=== PATIENT | male | born 1975 | race Two or more races ===

== ENCOUNTER 2020-06-04 08:21 | Outpatient (RCR) | payer OTHER, SELFPAY | END 2020-07-30 12:07 | disposition home or self-care (01) | LOC: HO.WCC 08:21 | PROVIDERS: Visit Provider Surgery | DX: Z09 Encounter for follow-up examination after completed treatment for conditions other than malignant neoplasm (principal); E11.9 Type 2 diabetes mellitus without complications; I10 Essential (primary) hypertension | CPT/HCPCS: 11042; 11043; 99212 ==

== ENCOUNTER 2021-02-27 11:37 | Inpatient (IN) | payer MEDICAID, SELFPAY ==
[2021-02-27 11:47] VITALS: BP 79/45; PULSE 112; RESP 18; TEMP 36.4; O2SAT 97; BMI 33.0
--- NOTE | 2021-02-27 11:54 | ECG_ITS ---
Test Reason : HYPOTENSION Blood Pressure : / mmHG Vent. Rate : 105 BPM Atrial Rate : 105 BPM P-R Int : 154 ms QRS Dur : 092 ms QT Int : 342 ms P-R-T Axes : 037 021 006 degrees QTc Int : 452 ms Sinus tachycardia Otherwise normal ECG When compared with ECG of 18-JAN-2007 12:59, No significant change was found Referred By: Siobhan Heredia Electronically Signed By:HALEY SINGH
--- NOTE | 2021-02-27 11:58 | ED.DIZZY ---
HPI - Dizziness General Chief Complaint: Dizziness Stated Complaint: multiple complaints Time Seen by Provider: 02/27/21 11:54 Source: patient Mode of arrival: ambulatory Limitations: no limitations History of Present Illness MD elicited complaint: dizziness, lightheadedness and near syncope Onset (ago): day(s) (2) Timing: gradual onset Severity: moderate Description: lightheadedness Context: change in body position History of similar symptoms: No Exacerbating factors: movement/ambulation and change in body position Relieving factors: remaining still Associated symptoms: other (has been working out in the heat for the last two days) Related Data Allergies Allergy/AdvReac Type Severity Reaction Status Date / Time glyburide Allergy Unknown weight gain Unverified 01/02/19 00:00 No Known Allergies Allergy Unverified 04/03/20 15:47 Review of Systems Review of Systems: Constitutional : No Weight loss, No Fever, No Chills, No Fatigue, No Malaise ENT/Mouth : No sore throat, No Rhinorrhea Eyes: No Eye Pain, No Swelling, No Redness Cardiovascular : No Chest Pain, No SOB, No Dyspnea on Exertion, No Orthopnea, No Edema, No Palpitations Respiratory : No Cough, No Sputum, No Wheezing Gastrointestinal : No Nausea, No Vomiting, No Diarrhea, No Constipation, No abdominal Pain, No Hematochezia, No Melena Genitourinary : No Dysuria, No Urinary Frequency, No Hematuria, Musculoskeletal : No joint pain, No Myalgias, No Joint Swelling Skin : No Skin Lesions, No rash Neuro : pos Weakness, No Numbness, pos Dizziness, No Headache Psych : No Anxiety/Panic, No Depression Heme/Lymph: No Bruising, No Bleeding,No Lymphadenopathy Endocrine : No Polyuria, No Polydipsia All other systems reviewed and are negative [facility] Past Medical History Medical History (Updated 02/27/21 @ 13:16 by Siobhan Heredia DO) Diabetes Social History Social History Advance Directives: No Advance Directives Information Provided: No Physical Exam Vital Signs: Vital Signs: Last Vital Signs Temp 97.5 F 02/27/21 11:47 Pulse 97 02/27/21 12:31 Resp 16 02/27/21 12:31 BP 102/54 L 02/27/21 12:31 Pulse Ox 98 02/27/21 12:31 Body Mass Index 33.0 Appearance: Alert. Oriented X3. No acute distress. Eyes: Pupils equal, round and reactive to light. ENT: Pharynx dry MM Neck: Normal inspection. Neck supple. CVS: Normal heart rate and rhythm. Pulses normal. Respiratory: No respiratory distress. Breath sounds normal. Abdomen: Soft and non-tender. Skin: Skin warm and dry. Normal skin color. Normal skin turgor. Extremities: No lower extremity edema. No calf ttp Neuro: Oriented X 3. No motor deficit. No sensory deficit. Course Course Course Narrative: lactic acidosis and acute kidney due to dehydration and not infection or severe sepsis leukocytosis is chronic and not related to infection or severe sepsis hypotension due to dehydration and not infection or severe sepsis MDM - Dizziness MDM Narrative Medical decision making narrative: 45 yo male with hx of DM here with 2 days of feeling dizzy he has been working outside in the heat but states he has been drinking he feels weak and dizzy when he stands, no CP/SOB thinks he is dehdyrated Lab Data Result diagrams: 02/27/21 12:10 02/27/21 12:10 Labs: Lab Results 02/27/21 02/27/21 02/27/21 Range/Units 12:10 12:10 12:10 WBC 14.1 H (4.8-10.8) X10*3/uL RBC 3.88 L (4.60-5.80) X10*6/uL Hgb 12.7 L (14.0-18.0) g/dl Hct 34.8 L (42-52) % MCV 89.7 (80-98) fL MCH 32.7 (27.0-33.0) pg MCHC 36.5 H (31.0-36.0) g/dl RDW 11.6 (11.0-16.0) % Plt Count 323 (160-400) X10*3/uL MPV 9.3 L (9.4-12.4) fL Immature Gran % (Auto) 0.4 (0.0-0.4) % Neut % (Auto) 57.0 (45-73) % Lymph % (Auto) 34.6 (20-40) % [place] % (Auto) 7.7 (2-11) % Eos % (Auto) 0.1 (0-4) % Baso % (Auto) 0.2 (0-2) % Lymph # (Auto) 4.9 (1.2-4.9) X10*3/uL [place] # (Auto) 1.1 (0.1-1.2) X10*3/uL Eos # (Auto) 0.0 (0.0-0.4) X10*3/uL Baso # (Auto) 0.0 (0.0-0.2) X10*3/uL Abs Immat Gran (auto) 0.05 H (0.00-0.03) X10*3/uL Absolute Neuts (auto) 8.0 (2.0-8.3) X10*3/uL Absolute Nucleated RBC 0.000 (0.0-0.012) X10*3/uL Nucleated RBC % (auto) 0.0 (0.0-0.2) /100WBC Sodium 126 L (135-145) mmol/L Potassium 4.0 (3.3-5.1) mmol/L Chloride 87 L (96-108) mmol/L Carbon Dioxide 21 L (22-29) mmol/L Anion Gap 22 H (12-20) BUN 46 H (9-16) mg/dL Creatinine 3.88 H (0.5-1.4) mg/dL Estim Creat Clear Calc 29.3 Estimated GFR 17 Random Glucose 193 H (60-115) mg/dL Lactic Acid 3.0 H* (0.5-2.0) mmol/L Calcium 11.0 H (8.4-10.2) mg/dL Magnesium 1.9 (1.6-2.6) mg/dL Total Bilirubin 1.1 H (0.0-1.0) mg/dL Direct Bilirubin 0.4 (0.0-0.5) mg/dL AST 23 (5-37) U/L ALT 34 (0-40) U/L Alkaline Phosphatase 58 (39-117) U/L Total Protein 8.1 H (6.5-8.0) g/dL Albumin 4.8 (3.5-5.0) g/dL ECG Data Attestation: I personally reviewed and interpreted this ECG as follows: ECG interpretation time: 12:14 Interpretation: Rate: 105 Rhythm: sinus tachycardia [place]: normal Normal P waves. Normal JASON. Normal QRS complex. ST T wave : normal no KALEB qTC: normal prior studies: no acute ischemia The study has been interpreted contemporaneously by me. . Critical Care Time Critical Care Time Critical Care Time: Yes Total Critical Care Time: 35 Attestation: 3L of IVF ordered I attest to this time spent taking care of the patient Discharge Plan Discharge Clinical Impression: Acidosis, lactic Acute renal failure Qualifiers: Acute renal failure type: unspecified Qualified Code(s): N17.9 - Acute kidney failure, unspecified Patient Disposition: Admitted As Inpatient
[2021-02-27 12:15] LABS: MANUAL DIFF FLAG NO
[2021-02-27 12:16] LABS: Basophils Percent Auto 0.2 % (0-2); Eosinophils Percent Auto 0.1 % (0-4); Hematocrit 34.8 % (42-52); Hemoglobin 12.7 g/dl (14.0-18.0); Imm Gran Abs Auto 0.05 X10*3/uL (0.00-0.03); Imm Gran Pct Auto 0.4 % (0.0-0.4); Lymphocytes Absolute Auto 4.9 X10*3/uL (1.2-4.9); Lymphocytes Percent Auto 34.6 % (20-40); Mean Corpuscular HGB Conc 36.5 g/dl (31.0-36.0); Mean Corpuscular Hemoglobin 32.7 pg (27.0-33.0); Mean Corpuscular Volume 89.7 fL (80-98); Mean Platelet Volume 9.3 fL (9.4-12.4); Monocytes Absolute Auto 1.1 X10*3/uL (0.1-1.2); Monocytes Percent Auto 7.7 % (2-11); Platelet Count 323 X10*3/uL (160-400); Red Blood Count 3.88 X10*6/uL (4.60-5.80); Red Cell Distribution Width 11.6 % (11.0-16.0); White Blood Count 14.1 X10*3/uL (4.8-10.8)
[2021-02-27] MEDS: 0.9 % Sodium Chloride 1,000 ML 999 ML IVCONT ×3 (12:29→13:34)
[2021-02-27] MEDS: ondansetron HCL 4 MG/2 ML VIAL IVPUSH (12:29)
[2021-02-27 12:31] VITALS: BP 102/54; PULSE 97; RESP 16; O2SAT 98
[2021-02-27 12:58] LABS: Alanine Aminotransferase 34 U/L (0-40); Albumin Level 4.8 g/dL (3.5-5.0); Alkaline Phosphatase 58 U/L (39-117); Anion Gap 22 (12-20); Aspartate Amino Transferase 23 U/L (5-37); Bilirubin Direct 0.4 mg/dL (0.0-0.5); Bilirubin Total 1.1 mg/dL (0.0-1.0); Blood Urea Nitrogen 46 mg/dL (9-16); Carbon Dioxide 21 mmol/L (22-29); Chloride 87 mmol/L (96-108); Creatinine Clr Calc Pharmacy 29.3; Estimated Glomerular Filt Rate 17; Glucose Random 193 mg/dL (60-115); Magnesium 1.9 mg/dL (1.6-2.6); Sodium 126 mmol/L (135-145); Total Protein 8.1 g/dL (6.5-8.0)
[2021-02-27 14:13] LABS: Reflex Lactate? Lactic Acid Added
--- NOTE | 2021-02-27 14:22 | PM.IMHP ---
History of Present Illness Date of Service: 02/27/21 Chief Complaint: Lethargy, muscle ache, sweating A 45 years old male with PMH of diabetes, alcoholism, HTN among others who presented to the hospital complaining of weakness, sweating and muscle aches. 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 He was exposed with son most of the day and try to be hydrated with drinking Gatorade and water. Feels very weak after going back home. He went to sleep but upon waking up a started feeling muscle contractions. Denies any pain, fever, chills, abdominal pain, nausea or vomiting or change in his bowel or urine habit This morning he went to his [employer] but upon arriving very felt very weak and decided to come the emergency for further evaluation. In the emergency found to have acute kidney injury with hyponatremia Admitted for further evaluation and treatment. Review of Systems Review of Systems: No fever, chills but reporting sweating and generalized weakness No chest pain, palpitation No shortness of breath or coughing No abdominal pain, nausea or vomiting No urinary symptoms Generalized muscular pain No any rash or wounds [facility] Medical History (Updated 02/27/21 @ 14:26 by Melinda Munoz MD) Diabetes Social History Advance Directives: No Advance Directives Information Provided: No Meds Allergies Allergy/AdvReac Type Severity Reaction Status Date / Time glyburide Allergy Unknown weight gain Unverified 01/02/19 00:00 No Known Allergies Allergy Unverified 04/03/20 15:47 Active Medications: Current Medications Generic Name Dose Route Start Last Admin Trade Name Freq PRN Reason Stop Dose Admin Acetaminophen 650 mg 02/27/21 14:16 Acetaminophen 325 Mg Tablet PO Q6H PRN Pain, Mild (Pain Scale 1-3) Atorvastatin Calcium 40 mg 02/28/21 09:00 Atorvastatin Calcium 40 Mg Tablet PO DAILY [facility] Fluticasone Propionate 1 spray 02/27/21 14:15 Fluticasone Propionate Nasal 16 Gm [place] NOSTRIL-B DAILY PRN Nasal Congestion Heparin Sodium (Porcine) 5,000 unit 02/27/21 20:00 Heparin Sodium,Porcine 5,000 Unit/Ml Vial SUBCUT Q12H [facility] Sodium Chloride 1,000 mls @ 100 mls/hr 02/27/21 14:30 Ns IVCONT .Q10H [facility] Insulin Glargine 30 unit 02/27/21 21:00 Insulin Glargine,Hum.Rec.Anlog 100 Unit/Ml 10 Ml Vial SUBCUT BEDTIME [facility] Insulin Human Lispro 0 unit 02/27/21 16:30 Insulin Lispro 100 Unit/Ml 3 Ml Vial SUBCUT QIDACHS [facility] Protocol Ondansetron HCl 4 mg 02/27/21 14:16 Ondansetron Hcl 4 Mg/2 Ml Vial IVPUSH Q8H PRN Nausea and Vomiting Pharmacy Consult 1 each 02/27/21 13:06 Consult Rx Perform Med Rec MISCELLANE ONCE PRN Consult order Sodium Chloride 3 ml 02/27/21 16:00 0.9 % Sodium Chloride Flush 3 Ml Syringe IVFLUSH QSHIFT [facility] Thiamine HCl 100 mg 02/28/21 09:00 Thiamine Hcl 100 Mg Tablet PO DAILY [facility] Home Medications Medication Instructions Recorded Confirmed Last Taken Type atorvastatin 40 mg tablet 1 tab PO DAILY 02/27/21 02/27/21 Unknown History cetirizine 10 mg tablet 1 tab PO DAILY 02/27/21 02/27/21 Unknown History fluticasone propionate 50 1 spray INTRANASAL DAILY PRN 02/27/21 02/27/21 Unknown History mcg/actuation nasal spray,suspension gabapentin 100 mg capsule 1 - 2 cap PO BEDTIME 02/27/21 02/27/21 Unknown History glucose 4 gram chewable tablet 4 g PO DIRECTED PRN 02/27/21 02/27/21 Unknown History insulin detemir U-100 100 unit/mL 42 unit SUBCUT QPM 02/27/21 02/27/21 Unknown History (3 mL) subcutaneous pen (Levemir FlexTouch U-100 Insulin) insulin lispro 100 unit/mL 6 unit SUBCUT TID 02/27/21 02/27/21 Unknown History subcutaneous pen (Humalog KwikPen (U-100) Insulin) lisinopril 20 mg tablet 1 tab PO DAILY 02/27/21 02/27/21 Unknown History metformin 1,000 mg tablet 1 tab PO QAM 02/27/21 02/27/21 Unknown History naltrexone 50 mg tablet 50 mg PO DAILY 02/27/21 02/27/21 Unknown History thiamine HCl (vitamin B1) 100 mg 1 tab PO DAILY 02/27/21 02/27/21 Unknown History tablet Physical Exam Vital Signs and Narrative: Vital Signs: Last Vital Signs Temp 97.5 F 02/27/21 11:47 Pulse 97 02/27/21 12:31 Resp 16 02/27/21 12:31 BP 102/54 L 02/27/21 12:31 Pulse Ox 98 02/27/21 12:31 Body Mass Index 33.0 Results Labs CBC and Chem 7: 02/27/21 12:10 02/27/21 12:10 Labs: Laboratory Results - last 24 hr 02/27/21 02/27/21 02/27/21 12:10 12:10 12:10 MCV 89.7 MCH 32.7 MCHC 36.5 H RDW 11.6 Plt Count 323 MPV 9.3 L Immature Gran % (Auto) 0.4 Neut % (Auto) 57.0 Lymph % (Auto) 34.6 [place] % (Auto) 7.7 Eos % (Auto) 0.1 Baso % (Auto) 0.2 Lymph # (Auto) 4.9 [place] # (Auto) 1.1 Eos # (Auto) 0.0 Baso # (Auto) 0.0 Abs Immat Gran (auto) 0.05 H Absolute Neuts (auto) 8.0 Absolute Nucleated RBC 0.000 Nucleated RBC % (auto) 0.0 Anion Gap 22 H Estim Creat Clear Calc 29.3 Estimated GFR 17 Random Glucose 193 H Lactic Acid 3.0 H* Calcium 11.0 H Magnesium 1.9 Total Bilirubin 1.1 H Direct Bilirubin 0.4 AST 23 ALT 34 Alkaline Phosphatase 58 Total Creatine Kinase Total Protein 8.1 H Albumin 4.8 02/27/21 13:32 MCV MCH MCHC RDW Plt Count MPV Immature Gran % (Auto) Neut % (Auto) Lymph % (Auto) [place] % (Auto) Eos % (Auto) Baso % (Auto) Lymph # (Auto) [place] # (Auto) Eos # (Auto) Baso # (Auto) Abs Immat Gran (auto) Absolute Neuts (auto) Absolute Nucleated RBC Nucleated RBC % (auto) Anion Gap Estim Creat Clear Calc Estimated GFR Random Glucose Lactic Acid Calcium Magnesium Total Bilirubin Direct Bilirubin AST ALT Alkaline Phosphatase Total Creatine Kinase 193 H Total Protein Albumin Assessment and Plan (1) Acidosis, lactic: Status: Acute (2) Acute renal failure: Qualifiers: Acute renal failure type: unspecified Qualified Code(s): N17.9 - Acute kidney failure, unspecified Status: Acute (3) Hyponatremia: Status: Acute A 45 years old male with PMH of diabetes, alcoholism, HTN among others who presented to the hospital complaining of weakness, sweating and muscle aches. Acute kidney injury Creatinine of 3.8 from baseline of normal Likely secondary to ATN from prerenal and medications Hold nephrotoxic meds Gentle hydration Follow BMP Hyponatremia Sodium of 126 Likely secondary to kidney injury To do urine studies Continue IV fluid and monitor for response Hypercalcemia Calcium of 11 Not due to medications To check vitamin-D levels Lactic acidosis Lactic acid of 3 Likely secondary to metformin use age To give fluid and repeat Leukocytosis Could be reactive, will continue to monitor DVT PPX Heparin Quality Stroke Does the patient have a stroke diagnosis?: No VTE Prior VTE?: No VTE Risk Level:: Medical - moderate - high VTE Device Contraindication: Treatment Not Indicated VTE Drug Contraindication: N/A - Med Ordered
[2021-02-27 14:47] LABS: Osmolality, Serum 300 mosm/kg (281-305)
[2021-02-27] MEDS: 0.9 % Sodium Chloride 1,000 ML 100 ML IVCONT ×2 (15:11→23:32)
[2021-02-27 15:20] LABS: Vitamin D 25-OH Total 32.8 ng/mL (>30)
--- NOTE | 2021-02-27 15:28 | PC.NURSE ---
attempt to call report, will re try
[2021-02-27 16:00] VITALS: BP 154/79; PULSE 96; RESP 18; TEMP 37.4; O2SAT 95
[2021-02-27 16:17] LABS: COVID-19 Test Negative (Negative); IDNOW Serial# 9DD0AD1C; ~Lactic Acid-LAB USE ONLY 1.7 mmol/L (0.5-2.0)
[2021-02-27 16:24] LABS: Anion Gap 17 (12-20); Blood Urea Nitrogen 41 mg/dL (9-16); Calcium 9.5 mg/dL (8.4-10.2); Carbon Dioxide 19 mmol/L (22-29); Chloride 97 mmol/L (96-108); Estimated Glomerular Filt Rate 24; Glucose Random 159 mg/dL (60-115); Potassium 4.2 mmol/L (3.3-5.1); Sodium 129 mmol/L (135-145)
[2021-02-27] MEDS: Insulin Lispro 100 UNIT/ML 3 ML VIAL SUBCUT ×2 (17:15→20:14)
[2021-02-27 18:45] LABS: Glucose, Whole Blood 186 mg/dL (60-115)
[2021-02-27 19:27] VITALS: BP 98/59; PULSE 99; RESP 18; TEMP 36.9; O2SAT 94
[2021-02-27 19:29] VITALS: BP 95/52
[2021-02-27] MEDS: Insulin Glargine,Hum.rec.anlog 100 UNIT/ML 10 ML VIAL 30 UNIT SUBCUT (20:15)
[2021-02-27 20:21] LABS: Glucose, Whole Blood 180 mg/dL (60-115)
[2021-02-27] MEDS: Heparin Sodium,Porcine 5,000 UNIT/ML VIAL 5000 UNIT SUBCUT (20:24)
[2021-02-27 23:35] VITALS: BP 122/71; PULSE 86; RESP 16; TEMP 36.8; O2SAT 99
[2021-02-28 03:51] VITALS: BP 153/82; PULSE 79; RESP 16; TEMP 37.2; O2SAT 99
[2021-02-28 06:45] LABS: Anion Gap 12 (12-20); Blood Urea Nitrogen 34 mg/dL (9-16); Calcium 9.7 mg/dL (8.4-10.2); Carbon Dioxide 25 mmol/L (22-29); Chloride 105 mmol/L (96-108); Creatinine Clr Calc Pharmacy 72.1; Estimated Glomerular Filt Rate 48; Glucose Random 142 mg/dL (60-115); Potassium 5.3 mmol/L (3.3-5.1); Sodium 137 mmol/L (135-145)
[2021-02-28 06:47] LABS: Hematocrit 33.5 % (42-52); Hemoglobin 11.8 g/dl (14.0-18.0); Mean Corpuscular HGB Conc 35.2 g/dl (31.0-36.0); Mean Corpuscular Hemoglobin 32.5 pg (27.0-33.0); Mean Corpuscular Volume 92.3 fL (80-98); Mean Platelet Volume 10.5 fL (9.4-12.4); Platelet Count 288 X10*3/uL (160-400); Red Blood Count 3.63 X10*6/uL (4.60-5.80); Red Cell Distribution Width 11.6 % (11.0-16.0); White Blood Count 7.6 X10*3/uL (4.8-10.8)
--- NOTE | 2021-02-28 07:15 | P.CONNP_ITS ---
History of Present Illness Reason for Consult Consult date: 02/28/21 Reason for consult: ELISABETH hyponatremia Chief Complaint Chief complaint: ELISABETH, Hyponatremia History of Present Illness Narrative: 45 years old male with PMH of diabetes, alcoholism, HTN among others who presented to the hospital complaining of weakness, sweating and muscle aches. In the emergency found to have acute kidney injury with hyponatremia Review of Systems Review of Systems No fever, chills but reporting sweating and generalized weakness No chest pain, palpitation No shortness of breath or coughing No abdominal pain, nausea or vomiting No urinary symptoms Generalized muscular pain No any rash or wounds PMFSH Past Medical History Medical History (Updated 02/27/21 @ 14:26 by Melinda Munoz MD) Diabetes Social History Social History Household Members: Family Alcohol intake: never Patient Tobacco Use Status: Never used Tobacco Use of substances other than those prescribed or required for medical reasons: No Currently Displaying Signs/Symptoms of Drug Intoxication Withdrawal: No Advance Directives: No Advance Directives Information Provided: No Do you have thoughts of harming others: None Do you have a plan to hurt others: No Plan Recently lost weight without trying: No Nutrition Risks: No Nutritional Risk Meds Allergies Allergy/AdvReac Type Severity Reaction Status Date / Time glyburide Allergy Unknown weight gain Unverified 01/02/19 00:00 No Known Allergies Allergy Unverified 04/03/20 15:47 Active Medications: Current Medications Generic Name Dose Route Start Last Admin Trade Name Freq PRN Reason Stop Dose Admin Acetaminophen 650 mg 02/27/21 14:16 Acetaminophen 325 Mg Tablet PO Q6H PRN Pain, Mild (Pain Scale 1-3) Atorvastatin Calcium 40 mg 02/28/21 09:00 Atorvastatin Calcium 40 Mg Tablet PO DAILY [facility] Fluticasone Propionate 1 spray 02/27/21 14:15 Fluticasone Propionate Nasal 16 Gm [place] NOSTRIL-B DAILY PRN Nasal Congestion Heparin Sodium (Porcine) 5,000 unit 02/27/21 20:00 02/27/21 20:24 Heparin Sodium,Porcine 5,000 Unit/Ml Vial SUBCUT 5,000 unit Q12H [facility] Administration Sodium Chloride 1,000 mls @ 100 mls/hr 02/27/21 14:30 02/27/21 23:32 Ns IVCONT 100 mls/hr .Q10H [facility] Administration Insulin Glargine 30 unit 02/27/21 21:00 02/27/21 20:15 Insulin Glargine,Hum.Rec.Anlog 100 Unit/Ml 10 Ml Vial SUBCUT 30 unit BEDTIME [facility] Administration Insulin Human Lispro 0 unit 02/27/21 16:30 02/27/21 20:14 Insulin Lispro 100 Unit/Ml 3 Ml Vial SUBCUT 2 unit QIDACHS [facility] Administration Protocol Ondansetron HCl 4 mg 02/27/21 14:16 Ondansetron Hcl 4 Mg/2 Ml Vial IVPUSH Q8H PRN Nausea and Vomiting Pharmacy Consult 1 each 02/27/21 13:06 Consult Rx Perform Med Rec MISCELLANE ONCE PRN Consult order Sodium Chloride 3 ml 02/27/21 16:00 02/27/21 20:25 0.9 % Sodium Chloride Flush 3 Ml Syringe IVFLUSH Not Given QSHIFT [facility] Thiamine HCl 100 mg 02/28/21 09:00 Thiamine Hcl 100 Mg Tablet PO DAILY [facility] Home Medications Medication Instructions Recorded Confirmed Last Taken Type atorvastatin 40 mg tablet 1 tab PO DAILY 02/27/21 02/27/21 02/26/21 History cetirizine 10 mg tablet 1 tab PO DAILY 02/27/21 02/27/21 02/26/21 History fluticasone propionate 50 1 spray INTRANASAL DAILY PRN 02/27/21 02/27/21 02/26/21 History mcg/actuation nasal spray,suspension gabapentin 100 mg capsule 1 - 2 cap PO BEDTIME 02/27/21 02/27/21 02/26/21 History glucose 4 gram chewable tablet 4 g PO DIRECTED PRN 02/27/21 02/27/21 02/26/21 History insulin detemir U-100 100 unit/mL 42 unit SUBCUT QPM 02/27/21 02/27/21 02/26/21 History (3 mL) subcutaneous pen (Levemir FlexTouch U-100 Insulin) insulin lispro 100 unit/mL 6 unit SUBCUT TID 02/27/21 02/27/21 02/26/21 History subcutaneous pen (Humalog KwikPen (U-100) Insulin) lisinopril 20 mg tablet 1 tab PO DAILY 02/27/21 02/27/21 02/26/21 History metformin 1,000 mg tablet 1 tab PO QAM 02/27/21 02/27/21 02/26/21 History multivitamin 1 tab PO DAILY 02/27/21 02/27/21 02/26/21 History naltrexone 50 mg tablet 50 mg PO DAILY 02/27/21 02/27/21 02/26/21 History thiamine HCl (vitamin B1) 100 mg 1 tab PO DAILY 02/27/21 02/27/21 02/26/21 History tablet vitamin B complex 1 cap PO DAILY 02/27/21 02/27/21 02/26/21 History Physical Exam Vital Signs: Last Vital Signs Temp 98.9 F 02/28/21 03:51 Pulse 79 02/28/21 03:51 Resp 16 02/28/21 03:51 BP 153/82 H 02/28/21 03:51 Pulse Ox 99 02/28/21 03:51 Body Mass Index 33.0 Results Lab Results Result Diagrams: 02/28/21 05:54 02/28/21 05:54 Lab results: Chemistry 02/27/21 02/27/21 02/28/21 12:10 15:43 05:54 Sodium 126 L 129 L 137 Potassium 4.0 4.2 5.3 H D Carbon Dioxide 21 L 19 L 25 BUN 46 H 41 H 34 H Creatinine 3.88 H 2.85 H 1.58 H Calcium 11.0 H 9.5 D 9.7 Hematology 02/27/21 02/28/21 12:10 05:54 WBC 14.1 H 7.6 Hgb 12.7 L 11.8 L Plt Count 323 288 Assessment and Plan (1) Acidosis, lactic: Status: Acute (2) Acute renal failure: Qualifiers: Acute renal failure type: unspecified Qualified Code(s): N17.9 - Acute kidney failure, unspecified Status: Acute resolving ELISABETH from vol dep will check urine studies (3) Hyponatremia: Status: Acute resolved K hig will givew lokelma X 1 A 45 years old male with PMH of diabetes, alcoholism, HTN among others who presented to the hospital complaining of weakness, sweating and muscle aches. Acute kidney injury Creatinine of 3.8 from baseline of normal Likely secondary to ATN from prerenal and medications Hold nephrotoxic meds Gentle hydration Follow BMP Hyponatremia Sodium of 126 Likely secondary to kidney injury To do urine studies Continue IV fluid and monitor for response Hypercalcemia Calcium of 11 Not due to medications To check vitamin-D levels Lactic acidosis Lactic acid of 3 Likely secondary to metformin use age To give fluid and repeat Leukocytosis Could be reactive, will continue to monitor DVT PPX Heparin Procedures Date of Service Date of Service: 02/28/21
[2021-02-28 07:30] VITALS: BP 120/68; PULSE 82; RESP 18; TEMP 36.2; O2SAT 99
[2021-02-28 07:39] LABS: Glucose, Whole Blood 134 mg/dL (60-115)
[2021-02-28] MEDS: Dextrose 5 % 1,000 ML 75 ML IVCONT (07:55)
[2021-02-28] MEDS: Sodium Zirconium Cyclosilicate 5 GM POWD.PACK PO (08:53)
[2021-02-28] MEDS: Heparin Sodium,Porcine 5,000 UNIT/ML VIAL 5000 UNIT SUBCUT (08:53)
[2021-02-28 08:56] LABS: Creatinine Urine 68.72 mg/dL; Microalbum/Creatinine Ratio Ur 8.7 ug/mg cr
[2021-02-28 09:26] LABS: Osmolality Urine 309 mosm/kg (373-1093)
[2021-02-28 10:53] VITALS: BP 115/62; PULSE 90; RESP 20; TEMP 36.6; O2SAT 98
[2021-02-28] MEDS: Atorvastatin Calcium 40 MG TABLET PO (11:05)
[2021-02-28] MEDS: Thiamine HCL 100 MG TABLET PO (11:05)
--- NOTE | 2021-02-28 11:10 | HO.PM.IMPN ---
Subjective Subjective Date of Service: 02/28/21 Interval History: the patient was seen and evaluated this morning Laying in bed, feels better or ready, still complaining of generalized weakness Muscle cramps decreased Denies any fever, chills or shortness of breath No reported other overnight events. Systemic review: No fever, chills or weakness No chest pain, palpitation No shortness of breath or coughing No abdominal pain, nausea or vomiting No urinary symptoms No any rash or wounds Physical Exam Vital Signs: Vital Signs: Last Vital Signs Temp 98 F 02/28/21 10:53 Pulse 90 02/28/21 10:53 Resp 20 02/28/21 10:53 BP 115/62 02/28/21 10:53 Pulse Ox 98 02/28/21 10:53 Body Mass Index 33.0 Const: Other: Constitutional : Alert, oriented, not in distress Neck : Normal inspection, Supple Cardiovascular : RRR, S1 S2, no lower extremity edema Respiratory : Good bilateral air entry, no crackles, wheezes or rhonchi Gastrointestinal: soft, lax, Normal bowel sounds, Non tender Skin : Warm, Dry Neurological : Alert & oriented x3, No focal deficit Objective Data Current Medications Generic Name Dose Route Start Last Admin Trade Name Freq PRN Reason Stop Dose Admin Acetaminophen 650 mg 02/27/21 14:16 Acetaminophen 325 Mg Tablet PO Q6H PRN Pain, Mild (Pain Scale 1-3) Atorvastatin Calcium 40 mg 02/28/21 09:00 02/28/21 11:05 Atorvastatin Calcium 40 Mg Tablet PO 40 mg DAILY LOURDES Administration Fluticasone Propionate 1 spray 02/27/21 14:15 Fluticasone Propionate Nasal 16 Gm [place] NOSTRIL-B DAILY PRN Nasal Congestion Heparin Sodium (Porcine) 5,000 unit 02/27/21 20:00 02/28/21 08:53 Heparin Sodium,Porcine 5,000 Unit/Ml Vial SUBCUT 5,000 unit Q12H LOURDES Administration Dextrose 1,000 mls @ 75 mls/hr 02/28/21 07:45 02/28/21 07:55 D5w IVCONT 75 mls/hr .[id number] LOURDES Administration Insulin Glargine 30 unit 02/27/21 21:00 02/27/21 20:15 Insulin Glargine,Hum.Rec.Anlog 100 Unit/Ml 10 Ml Vial SUBCUT 30 unit BEDTIME LOURDES Administration Insulin Human Lispro 0 unit 02/27/21 16:30 02/28/21 07:42 Insulin Lispro 100 Unit/Ml 3 Ml Vial SUBCUT Not Given QIDACHS REPLACED BY [facility] Protocol Ondansetron HCl 4 mg 02/27/21 14:16 Ondansetron Hcl 4 Mg/2 Ml Vial IVPUSH Q8H PRN Nausea and Vomiting Pharmacy Consult 1 each 02/27/21 13:06 Consult Rx Perform Med Rec MISCELLANE ONCE PRN Consult order Sodium Chloride 3 ml 02/27/21 16:00 02/28/21 07:52 0.9 % Sodium Chloride Flush 3 Ml Syringe IVFLUSH Not Given QSHIFT REPLACED BY [facility] Thiamine HCl 100 mg 02/28/21 09:00 02/28/21 11:05 Thiamine Hcl 100 Mg Tablet PO 100 mg DAILY LOURDES Administration Labs CBC & Chem 7: 02/28/21 05:54 02/28/21 05:54 Labs: Laboratory Results - last 24 hr 02/27/21 02/27/21 02/27/21 12:10 12:10 12:10 MCV 89.7 MCH 32.7 MCHC 36.5 H RDW 11.6 Plt Count 323 MPV 9.3 L Immature Gran % (Auto) 0.4 Neut % (Auto) 57.0 Lymph % (Auto) 34.6 Maries % (Auto) 7.7 Eos % (Auto) 0.1 Baso % (Auto) 0.2 Lymph # (Auto) 4.9 Maries # (Auto) 1.1 Eos # (Auto) 0.0 Baso # (Auto) 0.0 Abs Immat Gran (auto) 0.05 H Absolute Neuts (auto) 8.0 Absolute Nucleated RBC 0.000 Nucleated RBC % (auto) 0.0 Anion Gap 22 H Estim Creat Clear Calc 29.3 Estimated GFR 17 POC Glucose Random Glucose 193 H Osmolality Lactic Acid 3.0 H* Lactic Acid Fup @ 2Hr Calcium 11.0 H Magnesium 1.9 Total Bilirubin 1.1 H Direct Bilirubin 0.4 AST 23 ALT 34 Alkaline Phosphatase 58 Total Creatine Kinase Total Protein 8.1 H Albumin 4.8 25-OH Vitamin D Total 32.8 Urine Osmolality Ur Random Sodium Urine Creatinine Urine Microalbumin Microalb/Creat Ratio COVID-19 (DRE) COVID-19 Clin Com 02/27/21 02/27/21 02/27/21 12:10 13:32 15:43 MCV MCH MCHC RDW Plt Count MPV Immature Gran % (Auto) Neut % (Auto) Lymph % (Auto) Maries % (Auto) Eos % (Auto) Baso % (Auto) Lymph # (Auto) Maries # (Auto) Eos # (Auto) Baso # (Auto) Abs Immat Gran (auto) Absolute Neuts (auto) Absolute Nucleated RBC Nucleated RBC % (auto) Anion Gap Estim Creat Clear Calc Estimated GFR POC Glucose Random Glucose Osmolality 300 Lactic Acid Lactic Acid Fup @ 2Hr Calcium Magnesium Total Bilirubin Direct Bilirubin AST ALT Alkaline Phosphatase Total Creatine Kinase 193 H Total Protein Albumin 25-OH Vitamin D Total Urine Osmolality Ur Random Sodium Urine Creatinine Urine Microalbumin Microalb/Creat Ratio COVID-19 (DRE) Negative COVID-19 [employer] Com See Note 02/27/21 02/27/21 02/27/21 15:43 15:43 17:09 MCV MCH MCHC RDW Plt Count MPV Immature Gran % (Auto) Neut % (Auto) Lymph % (Auto) Maries % (Auto) Eos % (Auto) Baso % (Auto) Lymph # (Auto) Maries # (Auto) Eos # (Auto) Baso # (Auto) Abs Immat Gran (auto) Absolute Neuts (auto) Absolute Nucleated RBC Nucleated RBC % (auto) Anion Gap 17 Estim Creat Clear Calc 40.0 Estimated GFR 24 POC Glucose 186 H Random Glucose 159 H Osmolality Lactic Acid Lactic Acid Fup @ 2Hr 1.7 Calcium 9.5 D Magnesium Total Bilirubin Direct Bilirubin AST ALT Alkaline Phosphatase Total Creatine Kinase Total Protein Albumin 25-OH Vitamin D Total Urine Osmolality Ur Random Sodium Urine Creatinine Urine Microalbumin Microalb/Creat Ratio COVID-19 (DRE) COVID-19 [employer] 02/27/21 02/28/21 02/28/21 19:59 05:54 05:54 MCV 92.3 MCH 32.5 MCHC 35.2 RDW 11.6 Plt Count 288 MPV 10.5 Immature Gran % (Auto) Neut % (Auto) Lymph % (Auto) Maries % (Auto) Eos % (Auto) Baso % (Auto) Lymph # (Auto) Maries # (Auto) Eos # (Auto) Baso # (Auto) Abs Immat Gran (auto) Absolute Neuts (auto) Absolute Nucleated RBC 0.000 Nucleated RBC % (auto) 0.0 Anion Gap 12 Estim Creat Clear Calc 72.1 Estimated GFR 48 POC Glucose 180 H Random Glucose 142 H Osmolality Lactic Acid Lactic Acid Fup @ 2Hr Calcium 9.7 Magnesium Total Bilirubin Direct Bilirubin AST ALT Alkaline Phosphatase Total Creatine Kinase Total Protein Albumin 25-OH Vitamin D Total Urine Osmolality Ur Random Sodium Urine Creatinine Urine Microalbumin Microalb/Creat Ratio COVID-19 (DRE) COVID-19 Clin Com 02/28/21 02/28/21 02/28/21 07:30 08:28 08:28 MCV MCH MCHC RDW Plt Count MPV Immature Gran % (Auto) Neut % (Auto) Lymph % (Auto) Maries % (Auto) Eos % (Auto) Baso % (Auto) Lymph # (Auto) Maries # (Auto) Eos # (Auto) Baso # (Auto) Abs Immat Gran (auto) Absolute Neuts (auto) Absolute Nucleated RBC Nucleated RBC % (auto) Anion Gap Estim Creat Clear Calc Estimated GFR POC Glucose 134 H Random Glucose Osmolality Lactic Acid Lactic Acid Fup @ 2Hr Calcium Magnesium Total Bilirubin Direct Bilirubin AST ALT Alkaline Phosphatase Total Creatine Kinase Total Protein Albumin 25-OH Vitamin D Total Urine Osmolality 309 L Ur Random Sodium 25.0 Urine Creatinine 68.72 Urine Microalbumin 6.0 Microalb/Creat Ratio 8.7 COVID-19 (DRE) COVID-19 Clin Com Assessment and Plan (1) Hyponatremia: Status: Acute (2) Acidosis, lactic: Status: Acute (3) Acute renal failure: Status: Acute Assessment and Plan: A 45 years old male with PMH of diabetes, alcoholism, HTN among others who presented to the hospital complaining of weakness, sweating and muscle aches. Acute kidney injury Creatinine of 1.6 from 2.8 Likely secondary to ATN from prerenal and medications Hold nephrotoxic meds Gentle hydration Follow BMP Hyperkalemia Potassium of 5.3 To give Local Monitor BMP Hyponatremia Sodium of 137 this morning Likely secondary to kidney injury urine studies done this morning, not valuable Change IV fluid to D5 water to prevent over-correction Monitor BMP Hypercalcemia Calcium of 9.7 this morning Not due to medications Normal vitamin-D levels Lactic acidosis Resolved Likely secondary to metformin useage Leukocytosis Resolved, likely reactive DVT PPX Heparin Quality Stroke Does the patient have a stroke diagnosis?: No VTE Prior VTE?: No VTE Risk Level:: Medical - moderate - high VTE Device Contraindication: Treatment Not Indicated VTE Drug Contraindication: N/A - Med Ordered
[2021-02-28 11:24] LABS: Glucose, Whole Blood 139 mg/dL (60-115)
[2021-02-28 14:15] LABS: Anion Gap 13 (12-20); Blood Urea Nitrogen 33 mg/dL (9-16); Calcium 9.9 mg/dL (8.4-10.2); Carbon Dioxide 26 mmol/L (22-29); Chloride 103 mmol/L (96-108); Creatinine Clr Calc Pharmacy 85.1; Estimated Glomerular Filt Rate 58; Glucose Random 148 mg/dL (60-115); Potassium 4.7 mmol/L (3.3-5.1); Sodium 137 mmol/L (135-145)
--- NOTE | 2021-02-28 14:25 | P.DS_ITS ---
DS: Providers Provider Date of Service: 02/28/21 Date of admission: 02/27/21 14:17 Primary care physician: Evon Flores Consults: 02/27/21 14:16 Consult to Nephrology Routine Consulting Provider: Fish Gurrola Reason for consultation: ELISABETH, hyponatremia for your eval DS: Diagnosis Discharge Diagnosis (1) Hyponatremia: Status: Acute (2) Acidosis, lactic: Status: Acute (3) Acute renal failure: Status: Acute DS: Medications Discharge Medications Home Medications: Home Medications Medication Instructions Recorded Confirmed atorvastatin 40 mg tablet 1 tab PO DAILY 02/27/21 02/27/21 cetirizine 10 mg tablet 1 tab PO DAILY 02/27/21 02/27/21 fluticasone propionate 50 1 spray INTRANASAL DAILY PRN 02/27/21 02/27/21 mcg/actuation nasal spray,suspension gabapentin 100 mg capsule 1 - 2 cap PO BEDTIME 02/27/21 02/27/21 glucose 4 gram chewable tablet 4 g PO DIRECTED PRN 02/27/21 02/27/21 insulin detemir U-100 100 unit/mL 42 unit SUBCUT QPM 02/27/21 02/27/21 (3 mL) subcutaneous pen (Levemir FlexTouch U-100 Insulin) insulin lispro 100 unit/mL 6 unit SUBCUT TID 02/27/21 02/27/21 subcutaneous pen (Humalog KwikPen (U-100) Insulin) lisinopril 20 mg tablet 1 tab PO DAILY 02/27/21 02/27/21 metformin 1,000 mg tablet 1 tab PO QAM 02/27/21 02/27/21 multivitamin 1 tab PO DAILY 02/27/21 02/27/21 naltrexone 50 mg tablet 50 mg PO DAILY 02/27/21 02/27/21 thiamine HCl (vitamin B1) 100 mg 1 tab PO DAILY 02/27/21 02/27/21 tablet vitamin B complex 1 cap PO DAILY 02/27/21 02/27/21 DS: Summary Hospital Course Hospital Course: Admission note HPI A 45 years old male with PMH of diabetes, alcoholism, HTN among others who presented to the hospital complaining of weakness, sweating and muscle aches. 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 He was exposed with son most of the day and try to be hydrated with drinking Gatorade and water. Feels very weak after going back home.? He went to sleep but upon waking up a started feeling muscle contractions.? Denies any pain, fever, chills, abdominal pain, nausea or vomiting or change in his bowel or urine habit? This morning he went to his [employer] but upon arriving very felt very weak and decided to come the emergency for further evaluation. In the emergency found to have acute kidney injury with hyponatremia Admitted for further evaluation and treatment. Hospital course Acute kidney injury Creatinine of 1.3 from 2.8 Likely secondary to ATN from prerenal and home medications Treated with holding nephrotoxic medications and gentle hydration. Patient asked to be released home as soon as he noticed improvement. Hyperkalemia Treated. Back to normal. ?Hyponatremia Sodium of 137 from 126 at time of admission. Improved with IV fluid and oral intake. Hypercalcemia Calcium of 9.7 this morning from 11 in you at time of admission. Normal vitamin-D levels. To follow-up with PCP for further evaluation Lactic acidosis Resolved. Likely secondary to metformin usage Time Spent with Patient Time attestation: Total time spent providing and/or coordinating discharge services: Discharge coordination time: Greater than 30 minutes Quality: Stroke Does the patient have a stroke diagnosis?: No Physical Exam Vital Signs: Vital Signs: Last Vital Signs Temp 98 F 02/28/21 10:53 Pulse 90 02/28/21 10:53 Resp 20 02/28/21 10:53 BP 115/62 02/28/21 10:53 Pulse Ox 98 02/28/21 10:53 Body Mass Index 33.0 Const: Other: Constitutional : Alert, oriented, not in distress Neck : Normal inspection, Supple Cardiovascular : RRR, S1 S2, no lower extremity edema Respiratory : Good bilateral air entry, no crackles, wheezes or rhonchi Gastrointestinal: soft, lax, Normal bowel sounds, Non tender Skin : Warm, Dry Neurological : Alert & oriented x3, No focal deficit DS: Data Data Completed and Pending Labs on day of discharge: Laboratory Results - last 24 hr 02/27/21 02/27/21 02/27/21 12:10 12:10 15:43 WBC RBC Hgb Hct MCV MCH MCHC RDW Plt Count MPV Absolute Nucleated RBC Nucleated RBC % (auto) Sodium Potassium Chloride Carbon Dioxide Anion Gap BUN Creatinine Estim Creat Clear Calc Estimated GFR POC Glucose Random Glucose Osmolality 300 Lactic Acid Fup @ 2Hr Calcium 25-OH Vitamin D Total 32.8 Urine Osmolality Ur Random Sodium Urine Creatinine Urine Microalbumin Microalb/Creat Ratio COVID-19 (DRE) Negative COVID-19 [employer] Com See Note 02/27/21 02/27/21 02/27/21 15:43 15:43 17:09 WBC RBC Hgb Hct MCV MCH MCHC RDW Plt Count MPV Absolute Nucleated RBC Nucleated RBC % (auto) Sodium 129 L Potassium 4.2 Chloride 97 Carbon Dioxide 19 L Anion Gap 17 BUN 41 H Creatinine 2.85 H Estim Creat Clear Calc 40.0 Estimated GFR 24 POC Glucose 186 H Random Glucose 159 H Osmolality Lactic Acid Fup @ 2Hr 1.7 Calcium 9.5 D 25-OH Vitamin D Total Urine Osmolality Ur Random Sodium Urine Creatinine Urine Microalbumin Microalb/Creat Ratio COVID-19 (DRE) COVID-19 [employer] 02/27/21 02/28/21 02/28/21 19:59 05:54 05:54 WBC 7.6 RBC 3.63 L Hgb 11.8 L Hct 33.5 L MCV 92.3 MCH 32.5 MCHC 35.2 RDW 11.6 Plt Count 288 MPV 10.5 Absolute Nucleated RBC 0.000 Nucleated RBC % (auto) 0.0 Sodium 137 Potassium 5.3 H D Chloride 105 Carbon Dioxide 25 Anion Gap 12 BUN 34 H Creatinine 1.58 H Estim Creat Clear Calc 72.1 Estimated GFR 48 POC Glucose 180 H Random Glucose 142 H Osmolality Lactic Acid Fup @ 2Hr Calcium 9.7 25-OH Vitamin D Total Urine Osmolality Ur Random Sodium Urine Creatinine Urine Microalbumin Microalb/Creat Ratio COVID-19 (DRE) COVID-19 [employer] 02/28/21 02/28/21 02/28/21 07:30 08:28 08:28 WBC RBC Hgb Hct MCV MCH MCHC RDW Plt Count MPV Absolute Nucleated RBC Nucleated RBC % (auto) Sodium Potassium Chloride Carbon Dioxide Anion Gap BUN Creatinine Estim Creat Clear Calc Estimated GFR POC Glucose 134 H Random Glucose Osmolality Lactic Acid Fup @ 2Hr Calcium 25-OH Vitamin D Total Urine Osmolality 309 L Ur Random Sodium 25.0 Urine Creatinine 68.72 Urine Microalbumin 6.0 Microalb/Creat Ratio 8.7 COVID-19 (DRE) COVID-19 Clin Com 02/28/21 02/28/21 10:53 13:46 WBC RBC Hgb Hct MCV MCH MCHC RDW Plt Count MPV Absolute Nucleated RBC Nucleated RBC % (auto) Sodium 137 Potassium 4.7 Chloride 103 Carbon Dioxide 26 Anion Gap 13 BUN 33 H Creatinine 1.34 Estim Creat Clear Calc 85.1 Estimated GFR 58 POC Glucose 139 H Random Glucose 148 H Osmolality Lactic Acid Fup @ 2Hr Calcium 9.9 25-OH Vitamin D Total Urine Osmolality Ur Random Sodium Urine Creatinine Urine Microalbumin Microalb/Creat Ratio COVID-19 (DRE) COVID-19 Clin Com Discharge Plan Discharge Patient Disposition: Home, Self-Care Discharge Diagnosis: Acute kidney injury Hyponatremia Referrals: Evon Flores [Primary Care Provider] - 1 Week Discharge Medications: Continued atorvastatin 40 mg tablet 1 tab PO DAILY RF: 0 cetirizine 10 mg tablet 1 tab PO DAILY RF: 0 naltrexone 50 mg tablet 50 mg PO DAILY RF: 0 lisinopril 20 mg tablet 1 tab PO DAILY RF: 0 thiamine HCl (vitamin B1) 100 mg tablet 1 tab PO DAILY RF: 0 metformin 1,000 mg tablet 1 tab PO QAM RF: 0 glucose 4 gram tablet,chewable 4 g PO DIRECTED PRN (Reason: blood sugar <70) RF: 0 gabapentin 100 mg capsule 1 - 2 cap PO BEDTIME RF: 0 fluticasone propionate 50 mcg/actuation spray,suspension 1 spray intranasal DAILY PRN (Reason: Nasal Congestion) RF: 0 insulin lispro [Humalog KwikPen Insulin] 100 unit/mL insulin pen 6 unit subcut TID RF: 0 Levemir FlexTouch U-100 Insuln 100 unit/mL (3 mL) insulin pen 42 unit subcut QPM RF: 0 multivitamin Tablet 1 tab PO DAILY RF: 0 vitamin B complex Capsule 1 cap PO DAILY RF: 0 Discharge Orders: Discharge Order (Routine); Ordered 02/28/21 Ordered By: Melinda Munoz Diet: advance to usual diet Activity on Discharge: As tolerated Stand Alone Forms: Patient Portal Discharge page Care Plan Goals: Read below the Health Concerns: Read below Plan of Treatment: You were admitted to the hospital for acute renal failure and low sodium level. Treated with IV fluids with good response as your kidney function improved almost back to normal and your sodium level recovered. Assessment: Drink plenty of water at home Hold lisinopril for the next 2 days To follow-up with your primary as scheduled Discharge Date/Time: 02/28/21 14:59
--- NOTE | 2021-02-28 14:54 | MHC.CM.PN ---
CM MET WITH PT WHO REPORTS HE LIVES AT HOME WITH HIS AND 1 YO DAUGHTER. PT REPORTS BEING FULLY INDEPENDENT AND WORKING. PT REPORTS THE ONLY DME HE USES IS HIS DM SUPPLIES AND STATES HE HAS NO HOME OR COMMUNITY SERVICES. PT COMPLETED A HCP TODAY NAMING HIS , ROBERT ([phone]) AND HIS AUNT ALEJANDRO DOYLE ([phone]) HIS PRIMARY AND SECONDARY AGENTS RESPECTIVELY. PT CONFIRMS HIS PCP IS ROBERT BRENNAN. PT CLEARED TO DE HOME TODAY WITH NO SERVICES FAMILY WILL TRANSPORT
== END 2021-02-28 14:59 | disposition home or self-care (01) | DRG 426 ==
LOC: HO.ED 13:16 → HO.EDOVER 14:29 → HO.S3 14:47
PROVIDERS: Internal Medicine Nephrology; Admitting Provider Student in an Organized Health Care Education/Training Program; Emergency Provider Emergency Medicine; PCP Nurse Practitioner; Visit Provider Student in an Organized Health Care Education/Training Program
DX: E87.1 Hypo-osmolality and hyponatremia (principal); N17.0 Acute kidney failure with tubular necrosis; E87.2 Acidosis; E83.52 Hypercalcemia; F10.21 Alcohol dependence, in remission; D72.829 Elevated white blood cell count, unspecified; Z20.822 Contact with and (suspected) exposure to COVID-19; Z79.4 Long term (current) use of insulin; Z79.51 Long term (current) use of inhaled steroids; Z79.899 Other long term (current) drug therapy
CPT/HCPCS: 36415; 80048; 80076; 82043; 82306; 82550; 82947; 83605; 83735; 83930; 83935; 84300; 85025; 85027; 87635; 93005; 96361; 96374; 99285; 99291; J2405

== ENCOUNTER 2021-04-10 14:50 | Outpatient (REF) | payer MEDICAID, SELFPAY ==
--- NOTE | ~2021-04-10 | XR_ITS ---
EXAMINATION: XR CHEST CLINICAL INFORMATION: Alcohol dependence, positive QuantiFERON Gold test COMPARISON: 11/23/2018 TECHNIQUE: 2 views of the chest were obtained. FINDINGS: Allowing for hypoinflation, no significant abnormality is noted involving the heart, lungs, mediastinum, bony thorax or soft tissues. XR/XR chest 2V IMPRESSION: No acute intrathoracic disease.
== END 2021-04-10 14:51 | disposition home or self-care (01) ==
LOC: HO.XRAY 14:50
PROVIDERS: Absent Provider Nurse Practitioner; PCP Nurse Practitioner; Visit Provider Emergency Medicine
DX: F10.20 Alcohol dependence, uncomplicated (principal)
CPT/HCPCS: 71046

== ENCOUNTER 2021-12-22 15:14 | Outpatient (REF) | payer MEDICAID, SELFPAY ==
--- NOTE | ~2021-12-22 | XR_ITS ---
EXAMINATION: XR ANKLE, RIGHT CLINICAL INFORMATION: Pain. COMPARISON: None TECHNIQUE: AP, lateral, and mortise views of the right ankle. FINDINGS: No acute fracture or malalignment. The ankle mortise is maintained. Mild degenerative osteoarthritis at the talonavicular joint. Small plantar calcaneal spur. Nonspecific diffuse soft tissue swelling. XR/XR ankle RT min 3V IMPRESSION: No acute fracture or malalignment. Mild degenerative osteoarthritis. Small plantar calcaneal spur. Nonspecific diffuse soft tissue swelling.
--- NOTE | ~2021-12-22 | US_ITS ---
EXAMINATION: US VENOUS ULTRASOUND WITH DOPPLER LOWER EXTREMITY, RIGHT CLINICAL INFORMATION: Right leg swelling COMPARISON: None TECHNIQUE: Ultrasound of the deep veins is performed from the hip to the calf with compression sonography and color and pulse Doppler assessment. Spectral analysis with color-flow imaging is performed. FINDINGS: There is normal venous compression and respiratory variation and augmented flow. The visualized common femoral vein, superficial femoral vein, profunda femoral vein, popliteal vein, and the trifurcation region shows no evidence of deep venous thrombosis. There is no significant popliteal fossa cyst. US/US venous duplex LE RT IMPRESSION: No DVT demonstrated in the right lower extremity.
== END 2021-12-22 15:15 | disposition home or self-care (01) ==
LOC: HO.US 15:14
PROVIDERS: Absent Provider Nurse Practitioner; PCP Nurse Practitioner; Visit Provider Emergency Medicine
DX: M25.571 Pain in right ankle and joints of right foot (principal); R22.41 Localized swelling, mass and lump, right lower limb
CPT/HCPCS: 73610; 93971

== ENCOUNTER 2022-02-24 13:33 | Outpatient (REF) | payer MEDICAID, SELFPAY ==
--- NOTE | ~2022-02-24 | XR_ITS ---
EXAMINATION: XR CHEST CLINICAL INFORMATION: Nonspecific reaction to gammaferon. COMPARISON: Chest 04/10/2021 TECHNIQUE: 2 views of the chest were obtained. FINDINGS: No significant abnormality is noted involving the heart, lungs, mediastinum, bony thorax or soft tissues. XR/XR chest 2V IMPRESSION: Unremarkable chest examination.
== END 2022-02-24 13:34 | disposition home or self-care (01) ==
LOC: HO.XRAY 13:33
PROVIDERS: PCP Nurse Practitioner; Visit Provider Nurse Practitioner
DX: R76.12 Nonspecific reaction to cell mediated immunity measurement of gamma interferon antigen response without active tuberculosis (principal)
CPT/HCPCS: 71046

== ENCOUNTER 2022-04-08 14:41 | Outpatient (REF) | payer MEDICAID, SELFPAY ==
--- NOTE | ~2022-04-08 | US_ITS ---
EXAMINATION: US VENOUS ULTRASOUND WITH DOPPLER LOWER EXTREMITY, LEFT CLINICAL INFORMATION: Left leg pain and swelling with question of DVT COMPARISON: None TECHNIQUE: Ultrasound of the deep veins is performed from the hip to the calf with compression sonography and color and pulse Doppler assessment. Spectral analysis with color-flow imaging is performed. FINDINGS: There is normal venous compression and respiratory variation and augmented flow. The visualized common femoral vein, superficial femoral vein, profunda femoral vein, popliteal vein, and the trifurcation region shows no evidence of deep venous thrombosis. There is no significant popliteal fossa cyst. Prominent left groin lymph node present measuring 2.1 x 1.0 x 2.3 cm which appears benign. The contralateral right common femoral vein appears normal. If the patient's symptoms persist, followup ultrasound in 5 days 7 days might be of value to exclude proximal propagation from a non-visualized calf vein. US/US venous duplex LE LT IMPRESSION: No DVT demonstrated in the left lower extremity.
--- NOTE | ~2022-04-08 | XR_ITS ---
EXAMINATION: XR KNEE, LEFT CLINICAL INFORMATION: Left knee pain. COMPARISON: None. TECHNIQUE: Four views of the left knee. FINDINGS: Mild medial compartment joint space narrowing with tiny marginal osteophytes. No acute fracture or dislocation. No concerning lytic or blastic osseous lesion. Moderate joint effusion. No abnormal soft tissue calcification. XR/XR knee LT 4V IMPRESSION: Mild medial compartment joint space narrowing. Moderate joint effusion.
== END 2022-04-08 14:42 | disposition home or self-care (01) ==
LOC: HO.US 14:41
PROVIDERS: Visit Provider Nurse Practitioner Primary Care
DX: R60.0 Localized edema (principal); M79.89 Other specified soft tissue disorders; M25.562 Pain in left knee
CPT/HCPCS: 73564; 93971

== ENCOUNTER 2022-05-26 11:53 | Outpatient (REF) | payer MEDICAID, SELFPAY ==
--- NOTE | ~2022-05-26 | XR_ITS ---
EXAMINATION: XR KNEE AP STANDING CLINICAL INFORMATION: Right knee pain COMPARISON: None TECHNIQUE: AP bilateral standing view of the knees was obtained. FINDINGS: Bones and soft tissues are normal. No fracture seen but there is small joint effusion. Alignment is anatomic. Joint spaces are well maintained. No abnormal soft tissue calcification. XR/XR knee standing BI IMPRESSION: Small joint effusion
== END 2022-05-26 11:54 | disposition home or self-care (01) ==
LOC: HO.HOSX 11:53
PROVIDERS: Visit Provider Physician Assistant
DX: M17.12 Unilateral primary osteoarthritis, left knee (principal); M25.462 Effusion, left knee
CPT/HCPCS: 20610; 73565; 99202

== ENCOUNTER 2022-09-22 20:21 | Inpatient (IN) | payer MEDICAID, SELFPAY ==
--- NOTE | ~2022-09-22 | MR_ITS ---
EXAMINATION: MR FOOT WITHOUT AND WITH CONTRAST, RIGHT CLINICAL INFORMATION: Right 1st metatarsophalangeal soft tissue ulcer. Diabetic. COMPARISON: Most recent right foot radiographs dated 09/22/2022. TECHNIQUE: Multisequence MR imaging of the right foot was obtained before and after the IV administration of 10 mL Gadavist contrast on a high-field strength scanner. FINDINGS: Soft tissue ulceration along the medial aspect of the 1st metatarsal head with adjacent skin thickening and subcutaneous edema, consistent with cellulitis. There is increased T2 and decreased T1 signal within the adjacent 1st metatarsal head and 1st proximal phalanx with a small joint effusion which demonstrates postcontrast enhancement. Findings are consistent with osteomyelitis and probable septic arthritis. Redemonstration of chronic fractures through the bases of the 2nd through 4th metatarsals as well as the mid diaphysis of the 5th metatarsal in unchanged anatomic alignment with prominent associated marrow edema. There is low T1/low T2 signal with mild cortical flattening at the 2nd metatarsal head. Small joint effusion. Mild postcontrast enhancement. Findings could indicate avascular necrosis versus an infectious or inflammatory arthropathy. Diffuse edema and atrophy throughout the intrinsic musculature of the foot which can be seen in diabetic patients. The visualized flexor and extensor tendons are intact. The Lisfranc ligament is intact. Prominent dorsal subcutaneous edema without abscess formation. MR/MR foot RT wo/w con IMPRESSION: 1. Soft tissue ulceration along the medial aspect of the 1st metatarsal head with adjacent cellulitis. Findings consistent with osteomyelitis and probable septic arthritis at the 1st metatarsal head and 1st proximal phalanx. 2. Chronic fractures through the bases of the 2nd through 4th metatarsals as well as the mid diaphysis of the 5th metatarsal with prominent associated marrow edema. 3. Mild cortical flattening and marrow edema at the 2nd metatarsal head with a small joint effusion and mild postcontrast enhancement. Findings could indicate avascular necrosis versus an infectious or inflammatory arthropathy. 4. Diffuse edema and atrophy throughout the intrinsic musculature of the foot which can be seen in diabetic patients.
--- NOTE | ~2022-09-22 | XR_ITS ---
EXAMINATION: XR FOOT, RIGHT CLINICAL INFORMATION: First MTP ulcer. Concern for ostial COMPARISON: None TECHNIQUE: AP, lateral, and oblique views of the right foot. FINDINGS: Old incompletely healed proximal second through fifth metatarsal fractures. There is hallux valgus deformity first MTP joint without any bony erosive changes. There is mild soft tissue swelling along the first MCP joint. No gas seen to suspect any abscess. XR/XR foot RT min 3V IMPRESSION: 1. Old incompletely healed proximal second through fifth metatarsal fractures. 2. Mild soft tissue swelling along the first MCP joint. No gas seen to suspect any abscess. 3. There is hallux valgus deformity first MTP joint.
[2022-09-22 20:34] VITALS: BP 153/88; PULSE 103; RESP 18; TEMP 36.8; O2SAT 98; BMI 36.9
--- NOTE | 2022-09-22 20:34 | ED_ITS ---
HPI - General Adult General Chief complaint: Wound/Laceration Stated complaint: right foot ?ulcers Time Seen by Provider: 09/22/22 21:06 Related Data Home Medications Medication Instructions Recorded Confirmed cetirizine 10 mg tablet 1 tab PO DAILY allergies 02/27/21 09/22/22 fluticasone propionate 50 1 spray intranasal DAILY PRN Nasal 02/27/21 09/22/22 mcg/actuation nasal Congestion spray,suspension gabapentin 100 mg capsule 2 cap PO BEDTIME 02/27/21 09/22/22 glucose 4 gram chewable tablet 4 g PO DIRECTED PRN blood sugar 02/27/21 09/22/22 <70 insulin detemir U-100 100 unit/mL 42 unit subcut BEDTIME 02/27/21 09/22/22 (3 mL) subcutaneous pen (Levemir FlexTouch U-100 Insulin) multivitamin 1 tab PO DAILY 02/27/21 09/22/22 dulaglutide 0.75 mg/0.5 mL 0.75 mg subcut MO 05/26/22 09/22/22 subcutaneous pen injector (Trulicity) Allergies Allergy/AdvReac Type Severity Reaction Status Date / Time glyburide Allergy Unknown weight gain Verified 09/22/22 20:34 powder gloves Allergy rash Uncoded 09/22/22 20:34 PMF Past Medical History Medical History Diabetes Social History Social History Household Members: Family Housing: Apartment Do you presently have visiting nurse or other home services: No Alcohol intake: never Patient Tobacco Use Status: Never used Tobacco Smoked in Last 30 Days: No Use of substances other than those prescribed or required for medical reasons: Yes Substance Use Type: Crack/Cocaine Substance Use Frequency: Occasionally Last Used Substance: Days (ago) Currently Displaying Signs/Symptoms of Drug Intoxication Withdrawal: No Any prior treatment program specific to substance use: No Have you been hit, kicked, punched, or otherwise hurt by someone within the past year? If so, by whom?: No Do you feel safe in your current relationship?: Yes Is there a partner from a previous relationship who is making you feel unsafe now?: No Are you made to feel afraid or neglected: No Advance Directives: No Advance Directives Information Provided: No Do you have thoughts of harming others: None Do you have a plan to hurt others: No Plan Recently lost weight without trying: No How much weight loss: Not applicable Eating poorly because of decreased appetite: No Nutrition screen score: 0 Nutrition Risks: No Nutritional Risk Poor oral hygiene: No service: No Current occupational status: employed 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 for evaluation of a right great toe and foot ulcer, worsening over the last 2 weeks. New onset foul smelling discharge at home today. Large ulcer on the 1st MTP. Need to r/o osteomyelitis Plan: start with XR, labs including lactic, blood cultures, inflammatory markers Medications Administered Generic Name Dose Route Start Last Admin Trade Name Freq PRN Reason Stop Dose Admin Gabapentin 200 mg 09/23/22 21:00 09/23/22 20:25 Gabapentin 100 Mg Capsule PO 200 mg BEDTIME LOURDES Administration Heparin Sodium (Porcine) 5,000 unit 09/22/22 23:30 09/24/22 07:39 Heparin Sodium,Porcine 5,000 Unit/Ml Vial SUBCUT 5,000 unit Q8H LOURDES Administration Piperacillin Sod/Tazobactam 50 mls @ 100 mls/hr 09/23/22 23:59 09/24/22 08:38 Sod 3.375 gm/ Sodium Chloride IV Infused Q8H LOURDES Infusion Vancomycin HCl 1,000 mg/ 270 mls @ 270 mls/hr 09/24/22 07:00 09/24/22 14:27 Sodium Chloride IV 270 mls/hr Q8H LOURDES Administration Insulin Glargine 30 unit 09/23/22 21:00 09/23/22 20:25 Insulin Glargine,Hum.Rec.Anlog 100 Unit/Ml 10 Ml Vial SUBCUT 30 unit BEDTIME LOURDES Administration Insulin Human Lispro 0 unit 09/23/22 07:30 09/24/22 12:39 Insulin Lispro 100 Unit/Ml 3 Ml Vial SUBCUT 4 unit QIDACHS LOURDES Administration Protocol Loratadine 10 mg 09/23/22 09:00 09/24/22 07:39 Loratadine 10 Mg Tablet PO 10 mg DAILY LOURDES Administration Magnesium Oxide 400 mg 09/24/22 08:30 09/24/22 09:50 Magnesium Oxide 400 Mg Tablet PO 400 mg BIDPC LOURDES Administration Multivitamins/Vitamin C 1 tab 09/23/22 09:00 09/24/22 07:39 Multivitamin Tablet PO 1 tab DAILY LOURDES Administration Sodium Chloride 3 ml 09/23/22 00:00 09/24/22 07:40 0.9 % Sodium Chloride Flush 3 Ml Syringe IVFLUSH 3 ml QSHIFT LOURDES Administration Discontinued Medications Generic Name Dose Route Start Last Admin Trade Name Gmq PRN Reason Stop Dose Admin Doxycycline Monohydrate 100 mg 09/22/22 21:14 09/22/22 21:38 Doxycycline Monohydrate 100 Mg Capsule PO 09/22/22 21:15 100 mg ONCE ONE Administration Gadobutrol 10 ml 09/23/22 12:52 09/23/22 12:52 Gadobutrol 10 Ml Vial IVPUSH 09/23/22 12:53 10 ml ONCE ONE Administration Ceftriaxone Sodium 1 gm/ 50 mls @ 100 mls/hr 09/22/22 21:14 09/22/22 23:05 Sodium Chloride IV 09/22/22 21:43 Infused ONCE ONE Infusion Sodium Chloride 1,000 mls @ 999 mls/hr 09/22/22 22:15 09/23/22 00:50 Ns IV 09/22/22 23:15 Infused .Q1H1M LOURDES Infusion Magnesium Sulfate 2 gm in 50 mls @ 25 mls/hr 09/22/22 22:14 09/23/22 00:52 Magnesium Sulfate/H2o IV 09/23/22 00:13 Infused ONCE ONE Infusion Piperacillin Sod/Tazobactam 50 mls @ 12.5 mls/hr 09/23/22 00:00 09/23/22 16:20 Sod 3.375 gm/ Sodium Chloride IV Infused Q8H LOURDES Infusion Vancomycin HCl 2,000 mg in 520 mls @ 260 mls/hr 09/22/22 23:45 09/23/22 03:18 Vancomycin/Ns IV 09/23/22 01:44 Infused ONCE ONE Infusion Medical Decision Making Lab Data 09/24/22 05:08 09/24/22 05:08 Labs: Lab Results 09/22/22 09/22/22 09/22/22 Range/Units 03:03 20:53 20:53 WBC 11.4 H (4.8-10.8) X10*3/uL RBC 3.75 L (4.60-5.80) X10*6/uL Hgb 11.7 L (14.0-18.0) g/dl Hct 33.8 L (42.0-52.0) % MCV 90.1 (80.0-98.0) fL MCH 31.2 (27.0-33.0) pg MCHC 34.6 (31.0-36.0) g/dl RDW 11.8 (11.0-16.0) % Plt Count 274 (160-400) X10*3/uL MPV 9.6 (9.4-12.4) fL Immature Gran % (Auto) 0.3 (0.0-0.4) % Neut % (Auto) 57.0 (45-73) % Lymph % (Auto) 36.1 (20-40) % [place] % (Auto) 5.8 (2-11) % Eos % (Auto) 0.5 (0-4) % Baso % (Auto) 0.3 (0-2) % Lymph # (Auto) 4.1 (1.2-4.9) X10*3/uL [place] # (Auto) 0.7 (0.1-1.2) X10*3/uL Eos # (Auto) 0.1 (0.0-0.4) X10*3/uL Baso # (Auto) 0.0 (0.0-0.2) X10*3/uL Abs Immat Gran (auto) 0.03 (0.00-0.03) X10*3/uL Absolute Neuts (auto) 6.5 (2.0-8.3) x10*3/uL Absolute Nucleated RBC 0.000 (0.0-0.012) X10*3/uL Nucleated RBC % (auto) 0.0 (0.0-0.2) /100WBC ESR 59 H (0-15) MM/HR Sodium 138 (135-145) mmol/L Potassium 3.7 D (3.3-5.1) mmol/L Chloride 102 (96-108) mmol/L Carbon Dioxide 26 (22-29) mmol/L Anion Gap 14 (12-20) BUN 13 (9-16) mg/dL Creatinine 0.94 (0.5-1.4) mg/dL Estim Creat Clear Calc 129.5 Estimated GFR > 60 POC Glucose (60-115) mg/dL Random Glucose 186 H (60-115) mg/dL Lactic Acid (0.5-2.0) mmol/L Calcium 9.1 D (8.4-10.2) mg/dL Magnesium 1.4 L* (1.6-2.6) mg/dL Total Bilirubin 0.7 (0.0-1.0) mg/dL Direct Bilirubin 0.2 (0.0-0.5) mg/dL AST 21 (5-37) U/L ALT 27 (0-40) U/L Alkaline Phosphatase 104 (39-117) U/L C-Reactive Protein 1.42 H (< or = 0.50) mg/dL Total Protein 7.5 (6.5-8.0) g/dL Albumin 4.2 (3.5-5.0) g/dL COVID-19 (DRE) (Negative) COVID-19 Clin Com 09/22/22 09/22/22 09/22/22 Range/Units 20:53 20:53 21:32 WBC (4.8-10.8) X10*3/uL RBC (4.60-5.80) X10*6/uL Hgb (14.0-18.0) g/dl Hct (42.0-52.0) % MCV (80.0-98.0) fL MCH (27.0-33.0) pg MCHC (31.0-36.0) g/dl RDW (11.0-16.0) % Plt Count (160-400) X10*3/uL MPV (9.4-12.4) fL Immature Gran % (Auto) (0.0-0.4) % Neut % (Auto) (45-73) % Lymph % (Auto) (20-40) % [place] % (Auto) (2-11) % Eos % (Auto) (0-4) % Baso % (Auto) (0-2) % Lymph # (Auto) (1.2-4.9) X10*3/uL [place] # (Auto) (0.1-1.2) X10*3/uL Eos # (Auto) (0.0-0.4) X10*3/uL Baso # (Auto) (0.0-0.2) X10*3/uL Abs Immat Gran (auto) (0.00-0.03) X10*3/uL Absolute Neuts (auto) (2.0-8.3) x10*3/uL Absolute Nucleated RBC (0.0-0.012) X10*3/uL Nucleated RBC % (auto) (0.0-0.2) /100WBC ESR (0-15) MM/HR Sodium (135-145) mmol/L Potassium (3.3-5.1) mmol/L Chloride (96-108) mmol/L Carbon Dioxide (22-29) mmol/L Anion Gap (12-20) BUN (9-16) mg/dL Creatinine (0.5-1.4) mg/dL Estim Creat Clear Calc Estimated GFR POC Glucose 142 H (60-115) mg/dL Random Glucose (60-115) mg/dL Lactic Acid 2.1 H* (0.5-2.0) mmol/L Calcium (8.4-10.2) mg/dL Magnesium (1.6-2.6) mg/dL Total Bilirubin (0.0-1.0) mg/dL Direct Bilirubin (0.0-0.5) mg/dL AST (5-37) U/L ALT (0-40) U/L Alkaline Phosphatase (39-117) U/L C-Reactive Protein (< or = 0.50) mg/dL Total Protein (6.5-8.0) g/dL Albumin (3.5-5.0) g/dL COVID-19 (DRE) Negative (Negative) COVID-19 Clin Com See Note 09/22/22 Range/Units 21:34 WBC (4.8-10.8) X10*3/uL RBC (4.60-5.80) X10*6/uL Hgb (14.0-18.0) g/dl Hct (42.0-52.0) % MCV (80.0-98.0) fL MCH (27.0-33.0) pg MCHC (31.0-36.0) g/dl RDW (11.0-16.0) % Plt Count (160-400) X10*3/uL MPV (9.4-12.4) fL Immature Gran % (Auto) (0.0-0.4) % Neut % (Auto) (45-73) % Lymph % (Auto) (20-40) % [place] % (Auto) (2-11) % Eos % (Auto) (0-4) % Baso % (Auto) (0-2) % Lymph # (Auto) (1.2-4.9) X10*3/uL [place] # (Auto) (0.1-1.2) X10*3/uL Eos # (Auto) (0.0-0.4) X10*3/uL Baso # (Auto) (0.0-0.2) X10*3/uL Abs Immat Gran (auto) (0.00-0.03) X10*3/uL Absolute Neuts (auto) (2.0-8.3) x10*3/uL Absolute Nucleated RBC (0.0-0.012) X10*3/uL Nucleated RBC % (auto) (0.0-0.2) /100WBC ESR (0-15) MM/HR Sodium (135-145) mmol/L Potassium (3.3-5.1) mmol/L Chloride (96-108) mmol/L Carbon Dioxide (22-29) mmol/L Anion Gap (12-20) BUN (9-16) mg/dL Creatinine (0.5-1.4) mg/dL Estim Creat Clear Calc Estimated GFR POC Glucose 143 H (60-115) mg/dL Random Glucose (60-115) mg/dL Lactic Acid (0.5-2.0) mmol/L Calcium (8.4-10.2) mg/dL Magnesium (1.6-2.6) mg/dL Total Bilirubin (0.0-1.0) mg/dL Direct Bilirubin (0.0-0.5) mg/dL AST (5-37) U/L ALT (0-40) U/L Alkaline Phosphatase (39-117) U/L C-Reactive Protein (< or = 0.50) mg/dL Total Protein (6.5-8.0) g/dL Albumin (3.5-5.0) g/dL COVID-19 (DRE) (Negative) COVID-19 Clin Com Discharge Plan Discharge Clinical Impression: Diabetic foot ulcer, Cellulitis in diabetic foot, Foot fracture Patient Disposition: Admitted As Inpatient Interventions: Admission Worksheet (ED) Last Done: 09/23/22 00:26 Discharge Date/Time: 09/23/22 00:49
[2022-09-22 20:59] LABS: MANUAL DIFF FLAG NO
[2022-09-22 21:01] LABS: Basophils Percent Auto 0.3 % (0-2); Eosinophils Absolute Auto 0.1 X10*3/uL (0.0-0.4); Eosinophils Percent Auto 0.5 % (0-4); Hematocrit 33.8 % (42.0-52.0); Hemoglobin 11.7 g/dl (14.0-18.0); Imm Gran Abs Auto 0.03 X10*3/uL (0.00-0.03); Imm Gran Pct Auto 0.3 % (0.0-0.4); Lymphocytes Absolute Auto 4.1 X10*3/uL (1.2-4.9); Lymphocytes Percent Auto 36.1 % (20-40); Mean Corpuscular HGB Conc 34.6 g/dl (31.0-36.0); Mean Corpuscular Hemoglobin 31.2 pg (27.0-33.0); Mean Corpuscular Volume 90.1 fL (80.0-98.0); Mean Platelet Volume 9.6 fL (9.4-12.4); Monocytes Absolute Auto 0.7 X10*3/uL (0.1-1.2); Monocytes Percent Auto 5.8 % (2-11); Neutrophils Absolute Auto 6.5 x10*3/uL (2.0-8.3); Platelet Count 274 X10*3/uL (160-400); Red Blood Count 3.75 X10*6/uL (4.60-5.80); Red Cell Distribution Width 11.8 % (11.0-16.0); White Blood Count 11.4 X10*3/uL (4.8-10.8)
--- NOTE | 2022-09-22 21:15 | ED_ITS ---
HPI - Wound/Laceration General Chief Complaint: Wound/Laceration Stated Complaint: right foot ?ulcers Time Seen by Provider: 09/22/22 21:06 Source: patient Limitations: no limitations History of Present Illness HPI narrative: Patient complaining of wound to his right foot which started approximately 2 days ago. His a history of insulin-dependent diabetes but no prior history of diabetic foot ulcers. He did have an ulcer on his right granados which was treated at the wound center in the past. No fevers or chills. No recent trauma He attributes to wound to his boots. He does not have a rumper. There is some drainage from the wound. He complains of swelling to the medial aspect of his foot distally near the head of the 1st metatarsal No other new complaints Related Data Home Medications Medication Instructions Recorded Confirmed cetirizine 10 mg tablet 1 tab PO DAILY allergies 02/27/21 09/22/22 fluticasone propionate 50 1 spray intranasal DAILY PRN Nasal 02/27/21 09/22/22 mcg/actuation nasal Congestion spray,suspension gabapentin 100 mg capsule 2 cap PO BEDTIME 02/27/21 09/22/22 glucose 4 gram chewable tablet 4 g PO DIRECTED PRN blood sugar 02/27/21 09/22/22 <70 insulin detemir U-100 100 unit/mL 42 unit subcut BEDTIME 02/27/21 09/22/22 (3 mL) subcutaneous pen (Levemir FlexTouch U-100 Insulin) multivitamin 1 tab PO DAILY 02/27/21 09/22/22 dulaglutide 0.75 mg/0.5 mL 0.75 mg subcut MO 05/26/22 09/22/22 subcutaneous pen injector (Trulicity) Allergies Allergy/AdvReac Type Severity Reaction Status Date / Time glyburide Allergy Unknown weight gain Verified 09/22/22 20:34 powder gloves Allergy rash Uncoded 09/22/22 20:34 Review of Systems Constitutional: Comments: No fevers or chills or weakness Cardiovascular: Comments: No chest pain Respiratory: Comments: No difficulty breathing Gastrointestinal: Comments: No abdominal pain Musculoskeletal: Comments: Right foot complaints as above Integumentary/Breasts: Comments: Erythema to his right foot surrounding the wound PMFSH Past Medical History Medical History Diabetes Social History Social History Household Members: Family Alcohol intake: never Patient Tobacco Use Status: Never used Tobacco Advance Directives: No Advance Directives Information Provided: No service: No Current occupational status: employed 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 No acute distress. Mildly hypertensive. Afebrile Resp: Other: Clear and equal bilaterally without wheezes rales or rhonchi Cardio: Other: Regular rate and rhythm without murmurs rubs or gallops GI: Other: Soft nontender nondistended Skin: Other: Skin exam significant for wound the medial aspect of the 1st metatarsal head approximately 2 cm in diameter. There is surrounding warmth and erythema. There is drainage from the wound. There is no fluctuance. Neuro: Other: Nonfocal Extrem: Other: Swelling surrounding the above-mentioned diabetic foot ulcer. No fluctuance, no crepitus, no deformity noted Medications Administered Discontinued Medications Generic Name Dose Route Start Last Admin Trade Name Freq PRN Reason Stop Dose Admin Doxycycline Monohydrate 100 mg 09/22/22 21:14 09/22/22 21:38 Doxycycline Monohydrate 100 Mg Capsule PO 09/22/22 21:15 100 mg ONCE ONE Administration Ceftriaxone Sodium 1 gm/ 50 mls @ 100 mls/hr 09/22/22 21:14 09/22/22 21:38 Sodium Chloride IV 09/22/22 21:43 100 mls/hr ONCE ONE Administration Medical Decision Making Medical Decision Making MDM Narrative: Patient with a diabetic foot ulcer with active drainage and surrounding cellu litis without have a dense of abscess at this point. It is superficial and does not appear to be penetrating. Will get an x-ray to rule out osteomyelitis. Await lab work. I discussed with patient options for treatment. In the meantime will treat with antibiotics, ceftriaxone IV and doxycycline p.o.. Patient states he would prefer discharge home possible. Will await labs including white count and CRP. As well as x-ray 22:19. Lab work is significant for a white count of 11.4. His lactic acid is 2.1. His magnesium is 1.4. And His sed rate is moderately elevated at 59. His x-ray shows multiple partially healed fractures of the proximal metatarsals. He has valgus deformity. There is no obvious gas formation or bony erosion consistent with osteomyelitis at this time. I discussed the above results with the patient. Given the findings, I highly recommend hospitalization for continued IV antibiotics and probable podiatry or orthopedic follow-up. Patient agrees to plan. Case discussed with hospitalist. Differential Diagnosis Differential Diagnoses: The differential diagnosis associated with the pre sentation includes (Cellulitis, osteomyelitis, abscess.) Admission/Observation Consideration of admission/observation: Escalation of care including adm ission/observation considered Consult Healthcare Provider Management of the patient was discussed with: Hospitalist Lab Data MDM Lab Attestation statement: I reviewed the patient's lab results. 09/22/22 20:53 09/22/22 20:53 Labs: Lab Results 09/22/22 09/22/22 09/22/22 Range/Units 03:03 20:53 20:53 WBC 11.4 H (4.8-10.8) X10*3/uL RBC 3.75 L (4.60-5.80) X10*6/uL Hgb 11.7 L (14.0-18.0) g/dl Hct 33.8 L (42.0-52.0) % MCV 90.1 (80.0-98.0) fL MCH 31.2 (27.0-33.0) pg MCHC 34.6 (31.0-36.0) g/dl RDW 11.8 (11.0-16.0) % Plt Count 274 (160-400) X10*3/uL MPV 9.6 (9.4-12.4) fL Immature Gran % (Auto) 0.3 (0.0-0.4) % Neut % (Auto) 57.0 (45-73) % Lymph % (Auto) 36.1 (20-40) % [place] % (Auto) 5.8 (2-11) % Eos % (Auto) 0.5 (0-4) % Baso % (Auto) 0.3 (0-2) % Lymph # (Auto) 4.1 (1.2-4.9) X10*3/uL [place] # (Auto) 0.7 (0.1-1.2) X10*3/uL Eos # (Auto) 0.1 (0.0-0.4) X10*3/uL Baso # (Auto) 0.0 (0.0-0.2) X10*3/uL Abs Immat Gran (auto) 0.03 (0.00-0.03) X10*3/uL Absolute Neuts (auto) 6.5 (2.0-8.3) x10*3/uL Absolute Nucleated RBC 0.000 (0.0-0.012) X10*3/uL Nucleated RBC % (auto) 0.0 (0.0-0.2) /100WBC ESR 59 H (0-15) MM/HR Sodium 138 (135-145) mmol/L Potassium 3.7 D (3.3-5.1) mmol/L Chloride 102 (96-108) mmol/L Carbon Dioxide 26 (22-29) mmol/L Anion Gap 14 (12-20) BUN 13 (9-16) mg/dL Creatinine 0.94 (0.5-1.4) mg/dL Estim Creat Clear Calc 129.5 Estimated GFR > 60 POC Glucose (60-115) mg/dL Random Glucose 186 H (60-115) mg/dL Lactic Acid (0.5-2.0) mmol/L Calcium 9.1 D (8.4-10.2) mg/dL Magnesium 1.4 L* (1.6-2.6) mg/dL Total Bilirubin 0.7 (0.0-1.0) mg/dL Direct Bilirubin 0.2 (0.0-0.5) mg/dL AST 21 (5-37) U/L ALT 27 (0-40) U/L Alkaline Phosphatase 104 (39-117) U/L C-Reactive Protein 1.42 H (< or = 0.50) mg/dL Total Protein 7.5 (6.5-8.0) g/dL Albumin 4.2 (3.5-5.0) g/dL COVID-19 (DRE) (Negative) COVID-19 Clin Com 09/22/22 09/22/22 09/22/22 Range/Units 20:53 20:53 21:32 WBC (4.8-10.8) X10*3/uL RBC (4.60-5.80) X10*6/uL Hgb (14.0-18.0) g/dl Hct (42.0-52.0) % MCV (80.0-98.0) fL MCH (27.0-33.0) pg MCHC (31.0-36.0) g/dl RDW (11.0-16.0) % Plt Count (160-400) X10*3/uL MPV (9.4-12.4) fL Immature Gran % (Auto) (0.0-0.4) % Neut % (Auto) (45-73) % Lymph % (Auto) (20-40) % [place] % (Auto) (2-11) % Eos % (Auto) (0-4) % Baso % (Auto) (0-2) % Lymph # (Auto) (1.2-4.9) X10*3/uL [place] # (Auto) (0.1-1.2) X10*3/uL Eos # (Auto) (0.0-0.4) X10*3/uL Baso # (Auto) (0.0-0.2) X10*3/uL Abs Immat Gran (auto) (0.00-0.03) X10*3/uL Absolute Neuts (auto) (2.0-8.3) x10*3/uL Absolute Nucleated RBC (0.0-0.012) X10*3/uL Nucleated RBC % (auto) (0.0-0.2) /100WBC ESR (0-15) MM/HR Sodium (135-145) mmol/L Potassium (3.3-5.1) mmol/L Chloride (96-108) mmol/L Carbon Dioxide (22-29) mmol/L Anion Gap (12-20) BUN (9-16) mg/dL Creatinine (0.5-1.4) mg/dL Estim Creat Clear Calc Estimated GFR POC Glucose 142 H (60-115) mg/dL Random Glucose (60-115) mg/dL Lactic Acid 2.1 H* (0.5-2.0) mmol/L Calcium (8.4-10.2) mg/dL Magnesium (1.6-2.6) mg/dL Total Bilirubin (0.0-1.0) mg/dL Direct Bilirubin (0.0-0.5) mg/dL AST (5-37) U/L ALT (0-40) U/L Alkaline Phosphatase (39-117) U/L C-Reactive Protein (< or = 0.50) mg/dL Total Protein (6.5-8.0) g/dL Albumin (3.5-5.0) g/dL COVID-19 (DRE) Negative (Negative) COVID-19 Clin Com See Note 09/22/22 Range/Units 21:34 WBC (4.8-10.8) X10*3/uL RBC (4.60-5.80) X10*6/uL Hgb (14.0-18.0) g/dl Hct (42.0-52.0) % MCV (80.0-98.0) fL MCH (27.0-33.0) pg MCHC (31.0-36.0) g/dl RDW (11.0-16.0) % Plt Count (160-400) X10*3/uL MPV (9.4-12.4) fL Immature Gran % (Auto) (0.0-0.4) % Neut % (Auto) (45-73) % Lymph % (Auto) (20-40) % [place] % (Auto) (2-11) % Eos % (Auto) (0-4) % Baso % (Auto) (0-2) % Lymph # (Auto) (1.2-4.9) X10*3/uL [place] # (Auto) (0.1-1.2) X10*3/uL Eos # (Auto) (0.0-0.4) X10*3/uL Baso # (Auto) (0.0-0.2) X10*3/uL Abs Immat Gran (auto) (0.00-0.03) X10*3/uL Absolute Neuts (auto) (2.0-8.3) x10*3/uL Absolute Nucleated RBC (0.0-0.012) X10*3/uL Nucleated RBC % (auto) (0.0-0.2) /100WBC ESR (0-15) MM/HR Sodium (135-145) mmol/L Potassium (3.3-5.1) mmol/L Chloride (96-108) mmol/L Carbon Dioxide (22-29) mmol/L Anion Gap (12-20) BUN (9-16) mg/dL Creatinine (0.5-1.4) mg/dL Estim Creat Clear Calc Estimated GFR POC Glucose 143 H (60-115) mg/dL Random Glucose (60-115) mg/dL Lactic Acid (0.5-2.0) mmol/L Calcium (8.4-10.2) mg/dL Magnesium (1.6-2.6) mg/dL Total Bilirubin (0.0-1.0) mg/dL Direct Bilirubin (0.0-0.5) mg/dL AST (5-37) U/L ALT (0-40) U/L Alkaline Phosphatase (39-117) U/L C-Reactive Protein (< or = 0.50) mg/dL Total Protein (6.5-8.0) g/dL Albumin (3.5-5.0) g/dL COVID-19 (DRE) (Negative) COVID-19 Clin Com Discharge Plan Discharge Clinical Impression: Diabetic foot ulcer, Cellulitis in diabetic foot, Foot fracture Patient Disposition: Admitted As Inpatient
[2022-09-22 21:17] LABS: COVID-19 Test Negative (Negative); IDNOW Serial# 6674DD1D
--- NOTE | 2022-09-22 21:25 | PC.NURSE ---
Pt a&o, denies any sob or chest pain, Iv placed, labs collected and sent, positive cms and pedal pulses by doppler. pt taken to x-ray. Area marked for monitoring of infection. Area is swollen, pink and tender to touch. Will continue Monitor.
[2022-09-22 21:35] LABS: Alanine Aminotransferase 27 U/L (0-40); Albumin Level 4.2 g/dL (3.5-5.0); Alkaline Phosphatase 104 U/L (39-117); Anion Gap 14 (12-20); Aspartate Amino Transferase 21 U/L (5-37); Bilirubin Direct 0.2 mg/dL (0.0-0.5); Bilirubin Total 0.7 mg/dL (0.0-1.0); Blood Urea Nitrogen 13 mg/dL (9-16); C Reactive Protein 1.42 mg/dL (< or = 0.50); Calcium 9.1 mg/dL (8.4-10.2); Carbon Dioxide 26 mmol/L (22-29); Chloride 102 mmol/L (96-108); Creatinine Clr Calc Pharmacy 129.5; Estimated Glomerular Filt Rate > 60; Glucose Random 186 mg/dL (60-115); Lactic Acid 2.1 mmol/L (0.5-2.0); Magnesium 1.4 mg/dL (1.6-2.6); Potassium 3.7 mmol/L (3.3-5.1); Sodium 138 mmol/L (135-145); Total Protein 7.5 g/dL (6.5-8.0)
[2022-09-22 21:38] LABS: Glucose, Whole Blood 142 mg/dL (60-115)
[2022-09-22 21:38] LABS: Glucose, Whole Blood 143 mg/dL (60-115)
[2022-09-22] MEDS: Doxycycline Monohydrate 100 MG CAPSULE PO (21:38)
[2022-09-22] MEDS: cefTRIAXone sodium 1 GM in 0.9 % Sodium Chloride 50 ML IV (21:38)
[2022-09-22 21:39] LABS: Erythrocyte Sedimentation Rate 59 MM/HR (0-15)
--- NOTE | 2022-09-22 21:57 | PHA.MEDREC ---
Pharmacy Consult ? Medication Reconciliation Pharmacy has completed the medication reconciliation.Reviewed med list with patient and he was able to confirm most medications. He says he ran out of a lot of refills on things and had to stop taking medications. The ones he remembered stopping are the diclofenac gel, thiamine, and vitamin b complex.
[2022-09-22] MEDS: Magnesium Sulfate/H2O 2 GM/50 ML PIGGYBACK IV (22:59)
[2022-09-22] MEDS: 0.9 % Sodium Chloride 1,000 ML 999 ML IV (23:03)
[2022-09-22 23:19] LABS: Reflex Lactate? Lactic Acid Added
--- NOTE | 2022-09-22 23:25 | PM.IMHP ---
History of Present Illness Date of Service: 09/22/22 Chief Complaint: Foot ulcer 47-year-old male with a past medical history of diabetes, neuropathy presented to the hospital today with a chief complaint of right foot ulcer. Patient mentioned that for the past 1 week he has been having pain and swelling; started to have slowly cause pain while ambulating; and the past 2 days has increased pain and the tip of the right foot it he has an opening with serosanguineous discharge; and the severe pain causing him limited ambulation hence presented to the ER for further evaluation. Denies any fevers. Denies any chest pain palpitations lightheadedness or dizziness. Denies any nausea vomiting or diarrhea. Denies any urinary symptoms. Denies having any ulcers in the recent times; recurrent ulcer started as swelling and slowly opened up causing serosanguineous discharge. Review of all other systems is negative except mentioned above ER course: Per ER team, patient noted to have right foot ulcer; no pus noted; x-rays negative for any signs of osteomyelitis; given antibiotics. Admitted to the hospital for further management. [facility] Medical History Diabetes Social History Household Members: Family Alcohol intake: never Patient Tobacco Use Status: Never used Tobacco Advance Directives: No Advance Directives Information Provided: No service: No Current occupational status: employed Current occupation: [employer] Allergies Allergy/AdvReac Type Severity Reaction Status Date / Time glyburide Allergy Unknown weight gain Verified 09/22/22 20:34 powder gloves Allergy rash Uncoded 09/22/22 20:34 Active Medications: Current Medications Acetaminophen (Acetaminophen 325 Mg Tablet) 650 mg PO Q6H PRN PRN Reason: Pain, Mild (Pain Scale 1-3) Fluticasone Propionate (Fluticasone Propionate Nasal 16 Gm [place]) 1 spray NOSTRIL-B DAILY PRN PRN Reason: Nasal Congestion Gabapentin (Gabapentin 100 Mg Capsule) 200 mg PO BEDTIME [place] Glucose (Glucose Gel 15 Gm Gel..Gram.) 15 gm PO Q15M PRN; Protocol PRN Reason: per Hypoglycemia Standing Ord. Heparin Sodium (Porcine) (Heparin Sodium,Porcine 5,000 Unit/Ml Vial) 5,000 unit SUBCUT Q8H [place] Magnesium Sulfate (Magnesium Sulfate/H2o) 2 gm in 50 mls @ 25 mls/hr IV ONCE ONE Stop: 09/23/22 00:13 Last Admin: 09/22/22 22:59 Dose: 25 mls/hr Dextrose (D10) 250 mls @ 750 mls/hr IV Q15M PRN; Protocol PRN Reason: per Hypoglycemia Standing Ord. Vancomycin HCl 1,000 mg/ (Sodium Chloride) 270 mls @ 270 mls/hr IV Q12H [facility] Piperacillin Sod/Tazobactam (Sod 3.375 gm/ Sodium Chloride) 50 mls @ 100 mls/hr IV Q6H [facility] Insulin Glargine (Insulin Glargine,Hum.Rec.Anlog 100 Unit/Ml 10 Ml Vial) 30 unit SUBCUT BEDTIME [facility] Insulin Human Lispro (Insulin Lispro 100 Unit/Ml 3 Ml Vial) 0 unit SUBCUT QIDACHS [facility]; Protocol Loratadine (Loratadine 10 Mg Tablet) 10 mg PO DAILY [facility] Melatonin (Melatonin 3 Mg Tablet) 6 mg PO BEDTIME PRN PRN Reason: Insomnia Multivitamins/Vitamin C (Multivitamin Tablet) 1 tab PO DAILY [facility] Pharmacy Consult (Consult Rx Perform Med Rec) 1 each MISCELLANE ONCE PRN PRN Reason: Consult order Pharmacy Consult (Consult Rx Vancomycin Dosing) 1 each MISCELLANE DAILY PRN PRN Reason: Consult order Senna (Sennosides 8.6 Mg Tablet) 17.2 mg PO BEDTIME PRN PRN Reason: Constipation Sodium Chloride (0.9 % Sodium Chloride Flush 3 Ml Syringe) 3 ml IVFLUSH QSHIFT [facility] Home Medications Medication Instructions Recorded Confirmed Last Taken Type cetirizine 10 mg tablet 1 tab PO DAILY allergies 02/27/21 09/22/22 09/21/22 History fluticasone propionate 50 1 spray intranasal DAILY PRN Nasal 02/27/21 09/22/22 02/26/21 History mcg/actuation nasal Congestion spray,suspension gabapentin 100 mg capsule 2 cap PO BEDTIME 02/27/21 09/22/22 09/21/22 History glucose 4 gram chewable tablet 4 g PO DIRECTED PRN blood sugar 02/27/21 09/22/22 02/26/21 History <70 insulin detemir U-100 100 unit/mL 42 unit subcut BEDTIME 02/27/21 09/22/22 09/21/22 History (3 mL) subcutaneous pen (Levemir FlexTouch U-100 Insulin) multivitamin 1 tab PO DAILY 02/27/21 09/22/22 09/21/22 History dulaglutide 0.75 mg/0.5 mL 0.75 mg subcut [place] 05/26/22 09/22/22 09/20/22 History subcutaneous pen injector (Trulicity) Physical Exam Vital Signs and Narrative: Vital Signs: Last Vital Signs Temp 98.3 F 09/22/22 20:34 Pulse 103 H 09/22/22 20:34 Resp 18 09/22/22 20:34 BP 153/88 H 09/22/22 20:34 Pulse Ox 98 09/22/22 20:34 BMI result Body Mass Index 36.9 Gen: Appears be in no acute distress HEENT: NCAT, Moist mucosa. Pulmonary: Vesicular breath sounds, fair air entry CVS: Normal S1-S2 Abdomen: BS+, Soft, Nontender Extremities: Warm well perfused; noted her right foot ulcer without any discharges with surrounding erythema. Noted as shown in the picture below Neuro: Alert and awake. Results Labs 09/22/22 20:53 09/22/22 20:53 Labs: Laboratory Results - last 24 hr 09/22/22 09/22/22 09/22/22 03:03 20:53 20:53 MCV 90.1 MCH 31.2 MCHC 34.6 RDW 11.8 Plt Count 274 MPV 9.6 Immature Gran % (Auto) 0.3 Neut % (Auto) 57.0 Lymph % (Auto) 36.1 [place] % (Auto) 5.8 Eos % (Auto) 0.5 Baso % (Auto) 0.3 Lymph # (Auto) 4.1 [place] # (Auto) 0.7 Eos # (Auto) 0.1 Baso # (Auto) 0.0 Abs Immat Gran (auto) 0.03 Absolute Neuts (auto) 6.5 Absolute Nucleated RBC 0.000 Nucleated RBC % (auto) 0.0 ESR 59 H Anion Gap 14 Estim Creat Clear Calc 129.5 Estimated GFR > 60 POC Glucose Random Glucose 186 H Lactic Acid Calcium 9.1 D Magnesium 1.4 L* Total Bilirubin 0.7 Direct Bilirubin 0.2 AST 21 ALT 27 Alkaline Phosphatase 104 C-Reactive Protein 1.42 H Total Protein 7.5 Albumin 4.2 COVID-19 (DRE) COVID-19 Clin Com 09/22/22 09/22/22 09/22/22 20:53 20:53 21:32 MCV MCH MCHC RDW Plt Count MPV Immature Gran % (Auto) Neut % (Auto) Lymph % (Auto) [place] % (Auto) Eos % (Auto) Baso % (Auto) Lymph # (Auto) [place] # (Auto) Eos # (Auto) Baso # (Auto) Abs Immat Gran (auto) Absolute Neuts (auto) Absolute Nucleated RBC Nucleated RBC % (auto) ESR Anion Gap Estim Creat Clear Calc Estimated GFR POC Glucose 142 H Random Glucose Lactic Acid 2.1 H* Calcium Magnesium Total Bilirubin Direct Bilirubin AST ALT Alkaline Phosphatase C-Reactive Protein Total Protein Albumin COVID-19 (DRE) Negative COVID-19 Clin Com See Note 09/22/22 21:34 MCV MCH MCHC RDW Plt Count MPV Immature Gran % (Auto) Neut % (Auto) Lymph % (Auto) [place] % (Auto) Eos % (Auto) Baso % (Auto) Lymph # (Auto) [place] # (Auto) Eos # (Auto) Baso # (Auto) Abs Immat Gran (auto) Absolute Neuts (auto) Absolute Nucleated RBC Nucleated RBC % (auto) ESR Anion Gap Estim Creat Clear Calc Estimated GFR POC Glucose 143 H Random Glucose Lactic Acid Calcium Magnesium Total Bilirubin Direct Bilirubin AST ALT Alkaline Phosphatase C-Reactive Protein Total Protein Albumin COVID-19 (DRE) COVID-19 Clin Com Imaging Radiologist's Impressions: Impressions Foot X-Ray 09/22/22 21:33 IMPRESSION: 1. Old incompletely healed proximal second through fifth metatarsal fractures. 2. Mild soft tissue swelling along the first MCP joint. No gas seen to suspect any abscess. 3. There is hallux valgus deformity first MTP joint. Assessment and Plan (1) Diabetic foot ulcer: Status: Acute (2) Cellulitis in diabetic foot: Status: Acute Plan 47-year-old male with a past medical history of diabetes, neuropathy presented to the hospital today with a chief complaint of right foot ulcer. Diabetic right foot ulcer: Patient has been having symptoms for the past 1 week worsened over the past 2 days within a also causing serosanguineous discharge. Continue IV vancomycin and Zosyn Will consult ID Will obtain an MRI to rule out osteomyelitis Vascular surgery consult Pain control Diabetes: Will give the patient on Lantus 20 units plus insulin sliding scale. Neuropathy: Continue home gabapentin DVT prophylaxis: Subcu heparin Code status: Full code Time Spent With Patient Time: Total time managing care of this patient today ____ minutes. Quality Stroke Does the patient have a stroke diagnosis?: No VTE Prior VTE?: No VTE Risk Level:: Medical - moderate - high VTE Device Contraindication: Patient Refused VTE Drug Contraindication: N/A - Med Ordered
[2022-09-22 23:51] VITALS: BP 140/94; PULSE 94; RESP 19; TEMP 36.6; O2SAT 96
[2022-09-23 00:04] LABS: ~Lactic Acid-LAB USE ONLY 1.2 mmol/L (0.5-2.0)
[2022-09-23] MEDS: Piperacillin Sodium/Tazobactam 3.375 GM in 0.9 % Sodium Chloride 50 ML IV ×4 (00:09→23:24)
[2022-09-23] MEDS: Heparin Sodium,Porcine 5,000 UNIT/ML VIAL 5000 UNIT SUBCUT ×4 (00:12→23:24)
--- NOTE | 2022-09-23 00:25 | PC.NURSE ---
medicated per, gave report to the receiving Rn, belonging list completed, pt being transported by [facility].
[2022-09-23 00:42] VITALS: BMI 36.4
[2022-09-23 00:52] VITALS: BP 161/77; PULSE 97; RESP 19; TEMP 36.3; O2SAT 98
[2022-09-23 03:25] VITALS: BP 142/70; PULSE 99; RESP 18; TEMP 36.8; O2SAT 97
[2022-09-23 06:04] LABS: MANUAL DIFF FLAG NO
[2022-09-23 06:10] LABS: Basophils Absolute Auto 0.1 X10*3/uL (0.0-0.2); Basophils Percent Auto 0.6 % (0-2); Eosinophils Absolute Auto 0.2 X10*3/uL (0.0-0.4); Eosinophils Percent Auto 1.7 % (0-4); Hemoglobin 10.8 g/dl (14.0-18.0); Imm Gran Abs Auto 0.02 X10*3/uL (0.00-0.03); Imm Gran Pct Auto 0.2 % (0.0-0.4); Lymphocytes Absolute Auto 2.8 X10*3/uL (1.2-4.9); Lymphocytes Percent Auto 31.5 % (20-40); Mean Corpuscular HGB Conc 33.8 g/dl (31.0-36.0); Mean Corpuscular Hemoglobin 31.4 pg (27.0-33.0); Mean Platelet Volume 10.6 fL (9.4-12.4); Monocytes Absolute Auto 0.7 X10*3/uL (0.1-1.2); Neutrophils Absolute Auto 5.2 x10*3/uL (2.0-8.3); Platelet Count 253 X10*3/uL (160-400); Red Blood Count 3.44 X10*6/uL (4.60-5.80); Red Cell Distribution Width 11.9 % (11.0-16.0); White Blood Count 8.9 X10*3/uL (4.8-10.8)
[2022-09-23 06:23] LABS: Anion Gap 13 (12-20); Blood Urea Nitrogen 12 mg/dL (9-16); Calcium 8.4 mg/dL (8.4-10.2); Carbon Dioxide 24 mmol/L (22-29); Chloride 106 mmol/L (96-108); Creatinine Clr Calc Pharmacy 147.4; Estimated Glomerular Filt Rate > 60; Glucose Random 198 mg/dL (60-115); Potassium 4.4 mmol/L (3.3-5.1); Sodium 139 mmol/L (135-145)
[2022-09-23 06:29] LABS: Magnesium 1.5 mg/dL (1.6-2.6)
[2022-09-23 07:40] LABS: Glucose, Whole Blood 181 mg/dL (60-115)
[2022-09-23] MEDS: Insulin Lispro 100 UNIT/ML 3 ML VIAL SUBCUT ×4 (07:46→20:25)
[2022-09-23 07:47] VITALS: BP 161/86; PULSE 89; RESP 18; TEMP 36.5; O2SAT 98
[2022-09-23] MEDS: Multivitamin TABLET 1 TAB PO (07:47)
[2022-09-23] MEDS: Loratadine 10 MG TABLET PO (07:47)
[2022-09-23] MEDS: 0.9 % Sodium Chloride Flush 3 ML SYRINGE IVFLUSH ×3 (07:47→23:24)
[2022-09-23 11:22] LABS: Glucose, Whole Blood 165 mg/dL (60-115)
--- NOTE | 2022-09-23 13:23 | MHC.CM.PN ---
met with pts with whom he lives pt is working cm intervention is not needed pt is ernesto vax x 3 has own ride home
--- NOTE | 2022-09-23 14:51 | P.PNIM_ITS ---
Subjective Subjective Date of Service: 09/23/22 Interval History: the patient was seen and evaluated this morning Laying in bed, feels comfortable overall Rt foot in dressing No reported other overnight events. Review of Systems No fever, chills or weakness No chest pain, palpitation No shortness of breath or coughing No abdominal pain, nausea or vomiting No urinary symptoms Big toe Rt covered with dressing Physical Exam Vital Signs: Vital Signs: Last Vital Signs Temp 97.7 F 09/23/22 07:47 Pulse 89 09/23/22 07:47 Resp 18 09/23/22 07:47 BP 161/86 H 09/23/22 07:47 Pulse Ox 98 09/23/22 07:47 O2 Del Method 09/23/22 07:47 BMI result Body Mass Index 36.4 Const: Other: Constitutional : Awake, interactive, not in distress Neck : Normal inspection, Supple Cardiovascular : RRR, no JVP, no lower extremity edema Respiratory : good bilateral air entry, no crackles, wheezes or rhonchi Gastrointestinal: soft, lax, Normal bowel sounds, Non tender Skin : Warm, Dry, Right foot wound in?medial aspect of the 1st metatarsal head approximately 2 cm in diameter.? There is surrounding warmth and erythema with drainage? Neurological : Alert & oriented x3, No focal deficit Objective Data Active Medications Acetaminophen (Acetaminophen 325 Mg Tablet) 650 mg PO Q6H PRN PRN Reason: Pain, Mild (Pain Scale 1-3) Fluticasone Propionate (Fluticasone Propionate Nasal 16 Gm [place]) 1 spray NOSTRIL-B DAILY PRN PRN Reason: Nasal Congestion Gabapentin (Gabapentin 100 Mg Capsule) 200 mg PO BEDTIME [facility] Glucose (Glucose Gel 15 Gm Gel..Gram.) 15 gm PO Q15M PRN; Protocol PRN Reason: per Hypoglycemia Standing Ord. Heparin Sodium (Porcine) (Heparin Sodium,Porcine 5,000 Unit/Ml Vial) 5,000 unit SUBCUT Q8H [facility] Last Admin: 09/23/22 07:47 Dose: 5,000 unit Documented By: JO Dextrose (D10) 250 mls @ 750 mls/hr IV Q15M PRN; Protocol PRN Reason: per Hypoglycemia Standing Ord. Piperacillin Sod/Tazobactam (Sod 3.375 gm/ Sodium Chloride) 50 mls @ 12.5 mls/hr IV Q8H [facility] Last Infusion: 09/23/22 08:25 Dose: 0 mls/hr Documented By: JO Insulin Glargine (Insulin Glargine,Hum.Rec.Anlog 100 Unit/Ml 10 Ml Vial) 30 unit SUBCUT BEDTIME [facility] Insulin Human Lispro (Insulin Lispro 100 Unit/Ml 3 Ml Vial) 0 unit SUBCUT QIDACHS [facility]; Protocol Last Admin: 09/23/22 11:38 Dose: 2 unit Documented By: JO Loratadine (Loratadine 10 Mg Tablet) 10 mg PO DAILY [facility] Last Admin: 09/23/22 07:47 Dose: 10 mg Documented By: JO Melatonin (Melatonin 3 Mg Tablet) 6 mg PO BEDTIME PRN PRN Reason: Insomnia Multivitamins/Vitamin C (Multivitamin Tablet) 1 tab PO DAILY [facility] Last Admin: 09/23/22 07:47 Dose: 1 tab Documented By: JO Pharmacy Consult (Consult Rx Perform Med Rec) 1 each MISCELLANE ONCE PRN PRN Reason: Consult order Pharmacy Consult (Consult Rx Vancomycin Dosing) 1 each MISCELLANE DAILY PRN PRN Reason: Consult order Senna (Sennosides 8.6 Mg Tablet) 17.2 mg PO BEDTIME PRN PRN Reason: Constipation Sodium Chloride (0.9 % Sodium Chloride Flush 3 Ml Syringe) 3 ml IVFLUSH QSHIFT [facility] Last Admin: 09/23/22 07:47 Dose: 3 ml Documented By: JO Labs 09/23/22 05:13 09/23/22 05:13 Labs: Laboratory Results - last 24 hr 09/22/22 09/22/22 09/22/22 03:03 20:53 20:53 MCV 90.1 MCH 31.2 MCHC 34.6 RDW 11.8 Plt Count 274 MPV 9.6 Immature Gran % (Auto) 0.3 Neut % (Auto) 57.0 Lymph % (Auto) 36.1 [place] % (Auto) 5.8 Eos % (Auto) 0.5 Baso % (Auto) 0.3 Lymph # (Auto) 4.1 [place] # (Auto) 0.7 Eos # (Auto) 0.1 Baso # (Auto) 0.0 Abs Immat Gran (auto) 0.03 Absolute Neuts (auto) 6.5 Absolute Nucleated RBC 0.000 Nucleated RBC % (auto) 0.0 ESR 59 H Anion Gap 14 Estim Creat Clear Calc 129.5 Estimated GFR > 60 POC Glucose Random Glucose 186 H Lactic Acid Lactic Acid F/U @ 2Hr Calcium 9.1 D Magnesium 1.4 L* Total Bilirubin 0.7 Direct Bilirubin 0.2 AST 21 ALT 27 Alkaline Phosphatase 104 C-Reactive Protein 1.42 H Total Protein 7.5 Albumin 4.2 COVID-19 (DRE) COVID-19 [employer] Com 09/22/22 09/22/22 09/22/22 20:53 20:53 21:32 MCV MCH MCHC RDW Plt Count MPV Immature Gran % (Auto) Neut % (Auto) Lymph % (Auto) [place] % (Auto) Eos % (Auto) Baso % (Auto) Lymph # (Auto) [place] # (Auto) Eos # (Auto) Baso # (Auto) Abs Immat Gran (auto) Absolute Neuts (auto) Absolute Nucleated RBC Nucleated RBC % (auto) ESR Anion Gap Estim Creat Clear Calc Estimated GFR POC Glucose 142 H Random Glucose Lactic Acid 2.1 H* Lactic Acid F/U @ 2Hr Calcium Magnesium Total Bilirubin Direct Bilirubin AST ALT Alkaline Phosphatase C-Reactive Protein Total Protein Albumin COVID-19 (DRE) Negative COVID-19 [employer] Com See Note 09/22/22 09/22/22 09/23/22 21:34 23:45 05:13 MCV 93.0 MCH 31.4 MCHC 33.8 RDW 11.9 Plt Count 253 MPV 10.6 Immature Gran % (Auto) 0.2 Neut % (Auto) 58.0 Lymph % (Auto) 31.5 [place] % (Auto) 8.0 Eos % (Auto) 1.7 Baso % (Auto) 0.6 Lymph # (Auto) 2.8 [place] # (Auto) 0.7 Eos # (Auto) 0.2 Baso # (Auto) 0.1 Abs Immat Gran (auto) 0.02 Absolute Neuts (auto) 5.2 Absolute Nucleated RBC 0.000 Nucleated RBC % (auto) 0.0 ESR Anion Gap Estim Creat Clear Calc Estimated GFR POC Glucose 143 H Random Glucose Lactic Acid Lactic Acid F/U @ 2Hr 1.2 Calcium Magnesium Total Bilirubin Direct Bilirubin AST ALT Alkaline Phosphatase C-Reactive Protein Total Protein Albumin COVID-19 (DRE) COVID-19 [employer] 09/23/22 09/23/22 09/23/22 05:13 05:13 07:35 MCV MCH MCHC RDW Plt Count MPV Immature Gran % (Auto) Neut % (Auto) Lymph % (Auto) [place] % (Auto) Eos % (Auto) Baso % (Auto) Lymph # (Auto) [place] # (Auto) Eos # (Auto) Baso # (Auto) Abs Immat Gran (auto) Absolute Neuts (auto) Absolute Nucleated RBC Nucleated RBC % (auto) ESR Anion Gap 13 Estim Creat Clear Calc 147.4 Estimated GFR > 60 POC Glucose 181 H Random Glucose 198 H Lactic Acid Lactic Acid F/U @ 2Hr Calcium 8.4 D Magnesium 1.5 L Total Bilirubin Direct Bilirubin AST ALT Alkaline Phosphatase C-Reactive Protein Total Protein Albumin COVID-19 (DRE) COVID-19 [employer] 09/23/22 11:13 MCV MCH MCHC RDW Plt Count MPV Immature Gran % (Auto) Neut % (Auto) Lymph % (Auto) [place] % (Auto) Eos % (Auto) Baso % (Auto) Lymph # (Auto) [place] # (Auto) Eos # (Auto) Baso # (Auto) Abs Immat Gran (auto) Absolute Neuts (auto) Absolute Nucleated RBC Nucleated RBC % (auto) ESR Anion Gap Estim Creat Clear Calc Estimated GFR POC Glucose 165 H Random Glucose Lactic Acid Lactic Acid F/U @ 2Hr Calcium Magnesium Total Bilirubin Direct Bilirubin AST ALT Alkaline Phosphatase C-Reactive Protein Total Protein Albumin COVID-19 (DRE) COVID-19 [employer] Assessment and Plan (1) Diabetic foot ulcer: Status: Acute (2) Osteomyelitis of great toe of right foot: Status: Acute (3) Cellulitis in diabetic foot: Status: Acute Plan 47-year-old male with a past medical history of diabetes, neuropathy presented to the hospital today with a chief complaint of right foot ulcer. Osteomyelitis 1st Toe 2/2 Diabetic foot wound MRI confirmed osteomyelitis and possible septic joint in 1st toe Continue IV vancomycin and Zosyn Pending final cultures Vascular surgery and ID consults Pain control Follow vancomycin trough and kidney function Type 2 Diabetes SSI Lantus 30 units Neuropathy Continue home gabapentin DVT prophylaxis Subcu heparin The patient will need overnight hospital stay to continue treatment for osteomyelitis with IV antibiotics Time Spent With Patient Time: Total time managing care of this patient today ____ minutes. Quality Stroke Does the patient have a stroke diagnosis?: No VTE Prior VTE?: No VTE Risk Level:: Medical - moderate - high VTE Device Contraindication: Patient Refused VTE Drug Contraindication: N/A - Med Ordered
[2022-09-23 15:54] VITALS: BP 178/82; PULSE 99; RESP 17; TEMP 36.7; O2SAT 98
[2022-09-23 16:31] LABS: Glucose, Whole Blood 161 mg/dL (60-115)
[2022-09-23 19:44] VITALS: BP 161/77; PULSE 91; RESP 16; TEMP 36.8; O2SAT 96
[2022-09-23 19:52] LABS: Glucose, Whole Blood 221 mg/dL (60-115)
[2022-09-23] MEDS: Gabapentin 100 MG CAPSULE 200 MG PO (20:25)
[2022-09-23] MEDS: Insulin Glargine,Hum.rec.anlog 100 UNIT/ML 10 ML VIAL 30 UNIT SUBCUT (20:25)
--- NOTE | 2022-09-23 22:19 | P.CNID_ITS ---
History of Present Illness Data of Consult Service Date: 09/23/22 Requesting physician: Melinda Munoz Primary Care Provider: [facility] Reason for consult: right osteomyelitis He presents to hospital with right great toe purulence over one week. He has no fever or chills. He denies injuries. He has osteomyelitis first metatarsal head and septic arthritis Review of Systems Review of Systems: Yes all other systems are reviewed and are negative PMFSH Past Medical History Medical History Diabetes Family History Family history: reviewed and not pertinent Social History Social History Household Members: Family Housing: Apartment Do you presently have visiting nurse or other home services: No Alcohol intake: never Patient Tobacco Use Status: Never used Tobacco Smoked in Last 30 Days: No Use of substances other than those prescribed or required for medical reasons: Yes Substance Use Type: Crack/Cocaine Substance Use Frequency: Occasionally Last Used Substance: Days (ago) Currently Displaying Signs/Symptoms of Drug Intoxication Withdrawal: No Any prior treatment program specific to substance use: No Have you been hit, kicked, punched, or otherwise hurt by someone within the past year? If so, by whom?: No Do you feel safe in your current relationship?: Yes Is there a partner from a previous relationship who is making you feel unsafe now?: No Are you made to feel afraid or neglected: No Advance Directives: No Advance Directives Information Provided: No Do you have thoughts of harming others: None Do you have a plan to hurt others: No Plan Recently lost weight without trying: No How much weight loss: Not applicable Eating poorly because of decreased appetite: No Nutrition screen score: 0 Nutrition Risks: No Nutritional Risk Poor oral hygiene: No service: No Current occupational status: employed 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 Meds Allergies Allergy/AdvReac Type Severity Reaction Status Date / Time glyburide Allergy Unknown weight gain Verified 09/22/22 20:34 powder gloves Allergy rash Uncoded 09/22/22 20:34 Active Medications: Current Medications Acetaminophen (Acetaminophen 325 Mg Tablet) 650 mg PO Q6H PRN PRN Reason: Pain, Mild (Pain Scale 1-3) Fluticasone Propionate (Fluticasone Propionate Nasal 16 Gm [place]) 1 spray NOSTRIL-B DAILY PRN PRN Reason: Nasal Congestion Gabapentin (Gabapentin 100 Mg Capsule) 200 mg PO BEDTIME [facility] Last Admin: 09/23/22 20:25 Dose: 200 mg Glucose (Glucose Gel 15 Gm Gel..Gram.) 15 gm PO Q15M PRN; Protocol PRN Reason: per Hypoglycemia Standing Ord. Heparin Sodium (Porcine) (Heparin Sodium,Porcine 5,000 Unit/Ml Vial) 5,000 unit SUBCUT Q8H [facility] Last Admin: 09/23/22 15:53 Dose: 5,000 unit Dextrose (D10) 250 mls @ 750 mls/hr IV Q15M PRN; Protocol PRN Reason: per Hypoglycemia Standing Ord. Piperacillin Sod/Tazobactam (Sod 3.375 gm/ Sodium Chloride) 50 mls @ 100 mls/hr IV Q8H [facility] Insulin Glargine (Insulin Glargine,Hum.Rec.Anlog 100 Unit/Ml 10 Ml Vial) 30 unit SUBCUT BEDTIME [facility] Last Admin: 09/23/22 20:25 Dose: 30 unit Insulin Human Lispro (Insulin Lispro 100 Unit/Ml 3 Ml Vial) 0 unit SUBCUT QIDACHS [facility]; Protocol Last Admin: 09/23/22 20:25 Dose: 4 unit Loratadine (Loratadine 10 Mg Tablet) 10 mg PO DAILY [facility] Last Admin: 09/23/22 07:47 Dose: 10 mg Melatonin (Melatonin 3 Mg Tablet) 6 mg PO BEDTIME PRN PRN Reason: Insomnia Multivitamins/Vitamin C (Multivitamin Tablet) 1 tab PO DAILY [facility] Last Admin: 09/23/22 07:47 Dose: 1 tab Pharmacy Consult (Consult Rx Perform Med Rec) 1 each MISCELLANE ONCE PRN PRN Reason: Consult order Pharmacy Consult (Consult Rx Vancomycin Dosing) 1 each MISCELLANE DAILY PRN PRN Reason: Consult order Senna (Sennosides 8.6 Mg Tablet) 17.2 mg PO BEDTIME PRN PRN Reason: Constipation Sodium Chloride (0.9 % Sodium Chloride Flush 3 Ml Syringe) 3 ml IVFLUSH QSHIFT [facility] Last Admin: 09/23/22 15:53 Dose: 3 ml Home Medications Medication Instructions Recorded Confirmed Last Taken Type cetirizine 10 mg tablet 1 tab PO DAILY allergies 02/27/21 09/22/22 09/21/22 History fluticasone propionate 50 1 spray intranasal DAILY PRN Nasal 02/27/21 09/22/22 02/26/21 History mcg/actuation nasal Congestion spray,suspension gabapentin 100 mg capsule 2 cap PO BEDTIME 02/27/21 09/22/22 09/21/22 History glucose 4 gram chewable tablet 4 g PO DIRECTED PRN blood sugar 02/27/21 09/22/22 02/26/21 History <70 insulin detemir U-100 100 unit/mL 42 unit subcut BEDTIME 02/27/21 09/22/22 09/21/22 History (3 mL) subcutaneous pen (Levemir FlexTouch U-100 Insulin) multivitamin 1 tab PO DAILY 02/27/21 09/22/22 09/21/22 History dulaglutide 0.75 mg/0.5 mL 0.75 mg subcut MO 05/26/22 09/22/22 09/20/22 History subcutaneous pen injector (Trulicity) Physical Exam Vital Signs: Vital Signs: Last Vital Signs Temp 98.3 F 09/23/22 19:44 Pulse 91 09/23/22 19:44 Resp 16 09/23/22 19:44 BP 161/77 H 09/23/22 19:44 Pulse Ox 96 09/23/22 19:44 O2 Del Method 09/23/22 19:44 BMI result Body Mass Index 36.4 Const: General: cooperative HEENT: Head: Yes normal to inspection Face and sinus: Yes normal facial exam Mouth: Normal oral and palatal mucosa present Teeth and gingiva: dentition normal Eyes: General: appearance normal, both eyes and all related structures Pupils: Equal, round and reactive pupils present Resp: Effort & Inspection: normal respiratory effort Cardio: Rate: regular rate Rhythm: regular rhythm GI: Palpation (GI): Soft to palpation and nontender : General: Yes no CVA tenderness Back/Spine/Pelvis: Back: no CVA tenderness Skin: General skin exam: no rashes or lesions noted Neuro: General: moves all extremities Cranial nerves: Yes Equal, round and reactive pupils present Extrem: Other: right purulent tip of toe redness extending in triangle up dorsum foot Psych: Appearance: grossly normal Results Labs 09/23/22 05:13 09/23/22 05:13 Labs: Short CBC 09/23/22 Range/Units 05:13 WBC 8.9 (4.8-10.8) X10*3/uL Hgb 10.8 L (14.0-18.0) g/dl Hct 32.0 L (42.0-52.0) % Plt Count 253 (160-400) X10*3/uL BMP 09/23/22 05:13 Sodium 139 Potassium 4.4 Chloride 106 Carbon Dioxide 24 BUN 12 Creatinine 0.82 Calcium 8.4 D Assessment and Plan (1) Osteomyelitis of great toe of right foot: Status: Acute He has osteomyelitis right foot ,organism unknown. (2) Diabetic foot ulcer: Status: Acute Plan Would give IV Ertapenem or Vancomycin if MRSA appears for six weeks Weekly CBC,creatinine. Time Spent With Patient Time: Total time managing care of this patient today ____ minutes.
[2022-09-24 03:31] VITALS: BP 167/80; PULSE 79; RESP 16; TEMP 36.4; O2SAT 98
[2022-09-24 06:07] LABS: Mean Corpuscular HGB Conc 34.4 g/dl (31.0-36.0); Mean Corpuscular Hemoglobin 31.6 pg (27.0-33.0); Mean Platelet Volume 10.6 fL (9.4-12.4); Platelet Count 277 X10*3/uL (160-400); Red Blood Count 3.48 X10*6/uL (4.60-5.80); Red Cell Distribution Width 11.9 % (11.0-16.0)
[2022-09-24 06:47] LABS: Anion Gap 10 (12-20); Blood Urea Nitrogen 9 mg/dL (9-16); Calcium 8.7 mg/dL (8.4-10.2); Carbon Dioxide 26 mmol/L (22-29); Chloride 107 mmol/L (96-108); Creatinine Clr Calc Pharmacy 147.4; Estimated Glomerular Filt Rate > 60; Glucose Random 206 mg/dL (60-115); Potassium 4.4 mmol/L (3.3-5.1); Sodium 139 mmol/L (135-145)
--- NOTE | 2022-09-24 06:56 | PHA.PROG ---
Addendum entered by Connor Zhang RPh 09/24/22 07:16: CHANGE TO 1000 MG Q8H AFTER FURTHER CONSIDERATION. SUSPECTED AUC AFTER THREE DOSES IS 556, 17.7, THEN CONSIDER PULLING BACK Original Note: Admission Date/Time: September 22, 2022 23:17 Indication: BONE AND JOINT Weight in k.6 kg Adjusted body weight in Kg: [place] body weight in Kg: Obesity Dosing Indication % IBW: Serum Creatinine - Last 168 Hours 09/22/22 09/23/22 09/24/22 20:53 05:13 05:08 Creatinine 0.94 0.82 0.82 Estimated CrCl and GFR - Last 168 Hours 09/22/22 09/23/22 09/24/22 20:53 05:13 05:08 Estim Creat Clear Calc 129.5 147.4 147.4 Estimated GFR > 60 > 60 > 60 Vancomycin Loading Dose: 2000 MG Current Vancomycin Dosing Regimen: 750MG Q8H Vancomycin Monitoring using AUC goal of 400 - 600 range with trough as surrogate marker: AUC 499, TROUGH 15.9 Date and Time for next Vancomycin Level to be drawn: 09/25 @ 0500 Pharmacist Comments on Vancomycin Plan: - USING OBESE MODEL - LOAD WAS 09/23 AT 1 AM, PT DID NOT RECEIVE ANY VANCO DURING THE DAY. CHOSE TO GO Q8H TO GET PATIENT THERAPEUTIC Vancomycin dosing will take advantage of [employer] as a clinical decision support tool that uses Bayesian modeling to calculate individual patient's pharmacokinetic parameters and forecast the patient's drug concentration time course with the target goal AUC 24 range of 400 - 600 mg/L/hr.
[2022-09-24 07:15] VITALS: BP 166/77; PULSE 79; RESP 17; TEMP 36.6; O2SAT 97
[2022-09-24 07:19] LABS: Glucose, Whole Blood 159 mg/dL (60-115)
[2022-09-24] MEDS: Insulin Lispro 100 UNIT/ML 3 ML VIAL SUBCUT ×4 (07:38→21:03)
[2022-09-24] MEDS: Heparin Sodium,Porcine 5,000 UNIT/ML VIAL 5000 UNIT SUBCUT ×3 (07:39→23:47)
[2022-09-24] MEDS: Multivitamin TABLET 1 TAB PO (07:39)
[2022-09-24] MEDS: Piperacillin Sodium/Tazobactam 3.375 GM in 0.9 % Sodium Chloride 50 ML IV ×3 (07:39→23:46)
[2022-09-24] MEDS: Loratadine 10 MG TABLET PO (07:39)
[2022-09-24] MEDS: 0.9 % Sodium Chloride Flush 3 ML SYRINGE IVFLUSH ×3 (07:40→23:49)
[2022-09-24] MEDS: vancomycin HCL 1,000 MG in 0.9 % Sodium Chloride 250 ML 270 MG IV ×3 (08:15→22:36)
--- NOTE | 2022-09-24 09:47 | PM.CNGS ---
History of Present Illness Consult details Consult date: 09/24/22 Reason for consult: wound care Narrative: Complex diabetic 47-year-old gentleman presented to the hospital for swelling and discomfort of the right lower extremity. He had a nonhealing ulcer on the right great toe. His leg became quite edematous and was noted to have nonhealing ulcer. He now presents for vascular evaluation Review of Systems Review of Systems: Yes all other systems are reviewed and are negative Constitutional: Constitutional: Reports no additional constitutional complaints ENT: Reports Normal hearing present Cardiovascular: Cardiovascular: Denies chest pain, Denies chest pain at rest, Denies chest pain with activity and Denies pedal edema Respiratory: Respiratory: Denies cough Gastrointestinal: Gastrointestinal: Denies abdominal pain Musculoskeletal: Musculoskeletal: Denies abnormal gait, Denies muscle cramps and Denies radiating pain into limb Integumentary/Breasts: Skin/Breast: Denies skin ulcer and Denies wounds Neurologic: Reports Normal hearing present and Denies abnormal gait Psychiatric: Psychiatric: Reports no additional psychiatric complaints PMFSH Past Medical History Medical History Diabetes Family History Family history: reviewed and not pertinent Social History Social History Household Members: Family Housing: Apartment Do you presently have visiting nurse or other home services: No Alcohol intake: never Patient Tobacco Use Status: Never used Tobacco Smoked in Last 30 Days: No Use of substances other than those prescribed or required for medical reasons: Yes Substance Use Type: Crack/Cocaine Substance Use Frequency: Occasionally Last Used Substance: Days (ago) Currently Displaying Signs/Symptoms of Drug Intoxication Withdrawal: No Any prior treatment program specific to substance use: No Have you been hit, kicked, punched, or otherwise hurt by someone within the past year? If so, by whom?: No Do you feel safe in your current relationship?: Yes Is there a partner from a previous relationship who is making you feel unsafe now?: No Are you made to feel afraid or neglected: No Advance Directives: No Advance Directives Information Provided: No Do you have thoughts of harming others: None Do you have a plan to hurt others: No Plan Recently lost weight without trying: No How much weight loss: Not applicable Eating poorly because of decreased appetite: No Nutrition screen score: 0 Nutrition Risks: No Nutritional Risk Poor oral hygiene: No service: No Current occupational status: employed 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 Meds Allergies Allergy/AdvReac Type Severity Reaction Status Date / Time glyburide Allergy Unknown weight gain Verified 09/22/22 20:34 powder gloves Allergy rash Uncoded 09/22/22 20:34 Active Medications: Current Medications Acetaminophen (Acetaminophen 325 Mg Tablet) 650 mg PO Q6H PRN PRN Reason: Pain, Mild (Pain Scale 1-3) Fluticasone Propionate (Fluticasone Propionate Nasal 16 Gm [place]) 1 spray NOSTRIL-B DAILY PRN PRN Reason: Nasal Congestion Gabapentin (Gabapentin 100 Mg Capsule) 200 mg PO BEDTIME [facility] Last Admin: 09/23/22 20:25 Dose: 200 mg Glucose (Glucose Gel 15 Gm Gel..Gram.) 15 gm PO Q15M PRN; Protocol PRN Reason: per Hypoglycemia Standing Ord. Heparin Sodium (Porcine) (Heparin Sodium,Porcine 5,000 Unit/Ml Vial) 5,000 unit SUBCUT Q8H [facility] Last Admin: 09/24/22 07:39 Dose: 5,000 unit Dextrose (D10) 250 mls @ 750 mls/hr IV Q15M PRN; Protocol PRN Reason: per Hypoglycemia Standing Ord. Piperacillin Sod/Tazobactam (Sod 3.375 gm/ Sodium Chloride) 50 mls @ 100 mls/hr IV Q8H [facility] Last Infusion: 09/24/22 08:38 Dose: Infused Vancomycin HCl 1,000 mg/ (Sodium Chloride) 270 mls @ 270 mls/hr IV Q8H [facility] Last Admin: 09/24/22 08:15 Dose: 270 mls/hr Insulin Glargine (Insulin Glargine,Hum.Rec.Anlog 100 Unit/Ml 10 Ml Vial) 30 unit SUBCUT BEDTIME [facility] Last Admin: 09/23/22 20:25 Dose: 30 unit Insulin Human Lispro (Insulin Lispro 100 Unit/Ml 3 Ml Vial) 0 unit SUBCUT QIDACHS [facility]; Protocol Last Admin: 09/24/22 07:38 Dose: 2 unit Loratadine (Loratadine 10 Mg Tablet) 10 mg PO DAILY [facility] Last Admin: 09/24/22 07:39 Dose: 10 mg Magnesium Oxide (Magnesium Oxide 400 Mg Tablet) 400 mg PO BIDPC [facility] Melatonin (Melatonin 3 Mg Tablet) 6 mg PO BEDTIME PRN PRN Reason: Insomnia Multivitamins/Vitamin C (Multivitamin Tablet) 1 tab PO DAILY [facility] Last Admin: 09/24/22 07:39 Dose: 1 tab Pharmacy Consult (Consult Rx Perform Med Rec) 1 each MISCELLANE ONCE PRN PRN Reason: Consult order Pharmacy Consult (Consult Rx Vancomycin Dosing) 1 each MISCELLANE DAILY PRN PRN Reason: Consult order Senna (Sennosides 8.6 Mg Tablet) 17.2 mg PO BEDTIME PRN PRN Reason: Constipation Sodium Chloride (0.9 % Sodium Chloride Flush 3 Ml Syringe) 3 ml IVFLUSH QSHIFT [facility] Last Admin: 09/24/22 07:40 Dose: 3 ml Home Medications Medication Instructions Recorded Confirmed Last Taken Type cetirizine 10 mg tablet 1 tab PO DAILY allergies 02/27/21 09/22/22 09/21/22 History fluticasone propionate 50 1 spray intranasal DAILY PRN Nasal 02/27/21 09/22/22 02/26/21 History mcg/actuation nasal Congestion spray,suspension gabapentin 100 mg capsule 2 cap PO BEDTIME 02/27/21 09/22/22 09/21/22 History glucose 4 gram chewable tablet 4 g PO DIRECTED PRN blood sugar 02/27/21 09/22/22 02/26/21 History <70 insulin detemir U-100 100 unit/mL 42 unit subcut BEDTIME 02/27/21 09/22/22 09/21/22 History (3 mL) subcutaneous pen (Levemir FlexTouch U-100 Insulin) multivitamin 1 tab PO DAILY 02/27/21 09/22/22 09/21/22 History dulaglutide 0.75 mg/0.5 mL 0.75 mg subcut [place] 05/26/22 09/22/22 09/20/22 History subcutaneous pen injector (Trulicity) Physical Exam Vital Signs: Vital Signs: Last Vital Signs Temp 97.9 F 09/24/22 07:15 Pulse 79 09/24/22 07:15 Resp 17 09/24/22 07:15 BP 166/77 H 09/24/22 07:15 Pulse Ox 97 09/24/22 07:15 O2 Del Method 09/24/22 07:15 BMI result Body Mass Index 36.4 Const: General: cooperative, healthy appearing and comfortable Orientation/consciousness: oriented to person, oriented to place and oriented to time HEENT: Head: Yes normal to inspection Neck: Neck: Yes normal visual inspection Carotids: no bruits Chest: Chest palpation & inspection: normal inspection of the chest Resp: Effort & Inspection: normal respiratory effort and able to speak in complete sentences Auscultation: clear to auscultation bilaterally, no crackles, no rales, no rhonchi and no wheezes Cardio: Other: Palpable dorsalis pedis pulses bilaterally, right foot +1 edema Rate: regular rate Rhythm: regular rhythm Heart sounds: S1 normal heart sound present and S2 normal heart sound present Bruits: no carotid bruits Peripheral pulses: Peripheral pulses 2+ throughout GI: Inspection: Yes normal to inspection Skin: Wounds: wounds noted (Right great toe over metatarsal head approximately a 1 cm diameter wound) Hair: normal Neuro: General: oriented to person, oriented to place and oriented to time Cranial nerves: Yes CN's II-XII intact bilaterally and Yes Normal hearing present Cognition (Neuro): normal cognition Motor exam (neuro): 5/5 motor strength present throughout Extrem: Other: venous exam: No significant superficial varicosities or spider telangiectasias, minimal edema General: No clubbing, No cyanosis and No edema Psych: Appearance: grossly normal Mental Status: mental status grossly normal Speech and movement: Normal speech and movement present Results Labs 09/24/22 05:08 09/24/22 05:08 Labs: Abnormal lab results 09/23/22 09/23/22 09/23/22 Range/Units 11:13 16:25 19:48 RBC (4.60-5.80) X10*6/uL Hgb (14.0-18.0) g/dl Hct (42.0-52.0) % Anion Gap (12-20) POC Glucose 165 H 161 H 221 H (60-115) mg/dL Random Glucose (60-115) mg/dL 09/24/22 09/24/22 09/24/22 Range/Units 05:08 05:08 06:59 RBC 3.48 L (4.60-5.80) X10*6/uL Hgb 11.0 L (14.0-18.0) g/dl Hct 32.0 L (42.0-52.0) % Anion Gap 10 L (12-20) POC Glucose 159 H (60-115) mg/dL Random Glucose 206 H (60-115) mg/dL Short CBC 09/24/22 Range/Units 05:08 WBC 7.0 (4.8-10.8) X10*3/uL Hgb 11.0 L (14.0-18.0) g/dl Hct 32.0 L (42.0-52.0) % Plt Count 277 (160-400) X10*3/uL BMP 09/24/22 05:08 Sodium 139 Potassium 4.4 Chloride 107 Carbon Dioxide 26 BUN 9 Creatinine 0.82 Calcium 8.7 All other labs normal. Assessment and Plan (1) Diabetic foot ulcer: Status: Acute Plan In short patient has a nonhealing right great toe ulcer. This is a diabetic foot ulcer. He does have palpable pulses and I do believe he has adequate arterial supply. MRI was reviewed and it is positive for osteomyelitis. Infectious Disease is following and I do suspect long-term IV antibiotics will be required for him. This was discussed with the patient and he is aware. At the current time would manage this conservatively no surgical interventions indicated. Wound care instructions was were ordered. We will follow with him on an as-needed basis. Should there be interval issues Dr. Whitfield and Dr. Fernando will be covering for me as I will be away for the next 2 weeks. Thank you for allowing me to participate in his care. If there are any questions or concerns please do not hesitate to contact us. Time Spent With Patient Time: Total time managing care of this patient today ____ minutes. Procedures Date of Service Date of Service: 09/24/22
[2022-09-24] MEDS: Magnesium Oxide 400 MG TABLET PO ×2 (09:50→17:05)
--- NOTE | 2022-09-24 10:38 | HO.PM.IMPN ---
Subjective Subjective Date of Service: 09/24/22 Interval History: the patient was seen and evaluated this morning Laying in bed, feels better but foot still swollen no fever or chills No reported other overnight events. Review of Systems No fever, chills or weakness No chest pain, palpitation No shortness of breath or coughing No abdominal pain, nausea or vomiting No urinary symptoms Big toe Rt covered with dressing Physical Exam Vital Signs: Vital Signs: Last Vital Signs Temp 97.9 F 09/24/22 07:15 Pulse 79 09/24/22 07:15 Resp 17 09/24/22 07:15 BP 166/77 H 09/24/22 07:15 Pulse Ox 97 09/24/22 07:15 O2 Del Method 09/24/22 07:15 BMI result Body Mass Index 36.4 Const: Other: Constitutional : Awake, interactive, not in distress Neck : Normal inspection, Supple Cardiovascular : RRR, no JVP, no lower extremity edema Respiratory : good bilateral air entry, no crackles, wheezes or rhonchi Gastrointestinal: soft, lax, Normal bowel sounds, Non tender Skin : Warm, Dry, Right foot wound in?medial aspect of the 1st metatarsal head approximately 2 cm in diameter.? less erythema, still swollen signigicantly? Neurological : Alert & oriented x3, No focal deficit Objective Data Active Medications Acetaminophen (Acetaminophen 325 Mg Tablet) 650 mg PO Q6H PRN PRN Reason: Pain, Mild (Pain Scale 1-3) Fluticasone Propionate (Fluticasone Propionate Nasal 16 Gm [place]) 1 spray NOSTRIL-B DAILY PRN PRN Reason: Nasal Congestion Gabapentin (Gabapentin 100 Mg Capsule) 200 mg PO BEDTIME [facility] Last Admin: 09/23/22 20:25 Dose: 200 mg Documented By: ADDIQC Glucose (Glucose Gel 15 Gm Gel..Gram.) 15 gm PO Q15M PRN; Protocol PRN Reason: per Hypoglycemia Standing Ord. Heparin Sodium (Porcine) (Heparin Sodium,Porcine 5,000 Unit/Ml Vial) 5,000 unit SUBCUT Q8H [facility] Last Admin: 09/24/22 07:39 Dose: 5,000 unit Documented By: TAMELA Dextrose (D10) 250 mls @ 750 mls/hr IV Q15M PRN; Protocol PRN Reason: per Hypoglycemia Standing Ord. Piperacillin Sod/Tazobactam (Sod 3.375 gm/ Sodium Chloride) 50 mls @ 100 mls/hr IV Q8H [facility] Last Infusion: 09/24/22 08:38 Dose: 100 mls/hr Documented By: TAMELA Vancomycin HCl 1,000 mg/ (Sodium Chloride) 270 mls @ 270 mls/hr IV Q8H [facility] Last Infusion: 09/24/22 10:34 Dose: 270 mls/hr Documented By: TAMELA Insulin Glargine (Insulin Glargine,Hum.Rec.Anlog 100 Unit/Ml 10 Ml Vial) 30 unit SUBCUT BEDTIME [facility] Last Admin: 09/23/22 20:25 Dose: 30 unit Documented By: ASHLEY Insulin Human Lispro (Insulin Lispro 100 Unit/Ml 3 Ml Vial) 0 unit SUBCUT QIDACHS [facility]; Protocol Last Admin: 09/24/22 07:38 Dose: 2 unit Documented By: TAMELA Loratadine (Loratadine 10 Mg Tablet) 10 mg PO DAILY [facility] Last Admin: 09/24/22 07:39 Dose: 10 mg Documented By: TAMELA Magnesium Oxide (Magnesium Oxide 400 Mg Tablet) 400 mg PO BIDPC [facility] Last Admin: 09/24/22 09:50 Dose: 400 mg Documented By: TAMELA Melatonin (Melatonin 3 Mg Tablet) 6 mg PO BEDTIME PRN PRN Reason: Insomnia Multivitamins/Vitamin C (Multivitamin Tablet) 1 tab PO DAILY [facility] Last Admin: 09/24/22 07:39 Dose: 1 tab Documented By: TAMELA Pharmacy Consult (Consult Rx Perform Med Rec) 1 each MISCELLANE ONCE PRN PRN Reason: Consult order Pharmacy Consult (Consult Rx Vancomycin Dosing) 1 each MISCELLANE DAILY PRN PRN Reason: Consult order Senna (Sennosides 8.6 Mg Tablet) 17.2 mg PO BEDTIME PRN PRN Reason: Constipation Sodium Chloride (0.9 % Sodium Chloride Flush 3 Ml Syringe) 3 ml IVFLUSH QSHIFT [facility] Last Admin: 09/24/22 07:40 Dose: 3 ml Documented By: TAMELA Labs 09/24/22 05:08 09/24/22 05:08 Labs: Laboratory Results - last 24 hr 03/09/23 03/09/23 03/09/23 11:13 16:25 19:48 MCV MCH MCHC RDW Plt Count MPV Absolute Nucleated RBC Nucleated RBC % (auto) Anion Gap Estim Creat Clear Calc Estimated GFR POC Glucose 165 H 161 H 221 H Random Glucose Calcium 09/24/22 09/24/22 09/24/22 05:08 05:08 06:59 MCV 92.0 MCH 31.6 MCHC 34.4 RDW 11.9 Plt Count 277 MPV 10.6 Absolute Nucleated RBC 0.000 Nucleated RBC % (auto) 0.0 Anion Gap 10 L Estim Creat Clear Calc 147.4 Estimated GFR > 60 POC Glucose 159 H Random Glucose 206 H Calcium 8.7 Microbiology Microbiology Results: Microbiology 09/22/22 21:15 Blood Culture - Preliminary Blood - Venous No growth after 24 hours. 09/22/22 20:53 Blood Culture - Preliminary Blood - Venous No growth after 24 hours. Assessment and Plan (1) Osteomyelitis of great toe of right foot: Status: Acute (2) Cellulitis in diabetic foot: Status: Acute Plan 47-year-old male with a past medical history of diabetes, neuropathy presented to the hospital today with a chief complaint of right foot ulcer. Osteomyelitis 1st Toe 2/2 Diabetic foot wound MRI confirmed osteomyelitis and possible septic joint in 1st toe along with other findings suggestive of developing charcot foot Continue IV vancomycin and Zosyn Pending final cultures Vascular surgery ID input appreciated, IV Ertapenem for [address] PICC line by Tuesday Pain control Follow vancomycin trough and kidney function Type 2 Diabetes SSI Lantus 30 units Neuropathy Continue home gabapentin DVT prophylaxis Subcu heparin The patient will need overnight hospital stay to continue treatment for osteomyelitis with IV antibiotics Time Spent With Patient Time: Total time managing care of this patient today ____ minutes. Quality Stroke Does the patient have a stroke diagnosis?: No VTE Prior VTE?: No VTE Risk Level:: Medical - moderate - high VTE Device Contraindication: Patient Refused VTE Drug Contraindication: N/A - Med Ordered
--- NOTE | 2022-09-24 12:04 | P.CDIM_ITS ---
PROVIDER RESPONSE TEXT: To clarify, the appropriate diagnosis supported by the clinical indicators: Acute QUERY TEXT: PHYSICIAN'S DOCUMENTATION REQUEST Date of Query: 09/24/2022 11:57 AM EST Patient Name: Satya Medrano Admit Date: 09/23/2022 Dear Melinda Munoz, A review of the medical record indicates additional documentation may be needed. Please review below and update the documentation accordingly. Clinical Indicators: per MD progress note 09/24/22: Osteomyelitis 1st Toe 2/2 Diabetic foot wound MRI confirmed osteomyelitis Clarify which of the following accurately represents the acuity of the (insert diagnosis). Possible options might include: Acute Acute on chronic Compensated Chronic stable condition Remission Other (explain) Clinically unable to determine (explain) Thank you, Amanda Locke RN Use of terms such as suspected, likely, concern for, or probable (associated with a specific diagnosi s that is being evaluated, monitored, or treated as if it exists) are acceptable and can be coded in the inpatient se tting, when documented at the time of discharge. Please use your independent medical judgment in providing your response. THIS QUERY IS PART OF THE PERMANENT MEDICAL RECORD
[2022-09-24 12:06] LABS: Glucose, Whole Blood 206 mg/dL (60-115)
--- NOTE | 2022-09-24 12:10 | P.CDIM_ITS ---
PROVIDER RESPONSE TEXT: To clarify, the appropriate diagnosis supported by the clinical indicators: Other (explain): Osteomyelitis QUERY TEXT: PHYSICIAN'S DOCUMENTATION REQUEST Date of Query: 09/24/2022 12:00 PM EST Patient Name: Satya Medrano Admit Date: 09/23/2022 Dear Melinda Munoz, A review of the medical record indicates additional documentation may be needed. Please review below and update the documentation accordingly. Clinical Indicators: per MD progress note 09/24/22: Skin : Warm, Dry, Right foot wound in medial aspect of the 1st metatarsal head approximately 2 cm in diameter. less erythema, still swollen signigicantly Based on the above, could you please provide further information regarding the ulcer/wound depth: Diabetic ulcer Please specify the depth of the ulcer/wound Other (explain) Clinically unable to determine (explain) Thank you, Amanda Locke RN Use of terms such as suspected, likely, concern for, or probable (associated with a specific diagnosi s that is being evaluated, monitored, or treated as if it exists) are acceptable and can be coded in the inpatient se tting, when documented at the time of discharge. Please use your independent medical judgment in providing your response. THIS QUERY IS PART OF THE PERMANENT MEDICAL RECORD
--- NOTE | 2022-09-24 15:00 | MHC.CM.PN ---
EMR REVIEWED, PT W/DIABETIC FOOT ULCER/ OSTEO WILL NEED 6WKS IV ABX AT HOME, CM TO [facility] W/PT TO DISCUSS PREFERNCES OF VNA/[facility] AND PLACE REFERRALS, FINAL BC'S WILL NOT BE BACK UNTIL W/E SO NO PLAN FOR PICC LINE UNTIL WEDNESDAY 09/27, CM WILL CON TO FOLLOW.
[2022-09-24 15:25] VITALS: BP 162/88; PULSE 95; RESP 16; TEMP 36.4; O2SAT 97
[2022-09-24 15:51] LABS: Glucose, Whole Blood 153 mg/dL (60-115)
[2022-09-24] MEDS: lisinopriL 20 MG TABLET PO (17:50)
[2022-09-24 19:31] VITALS: BP 164/84; PULSE 90; RESP 15; TEMP 36.2; O2SAT 95
[2022-09-24] MEDS: Gabapentin 100 MG CAPSULE 200 MG PO (20:54)
[2022-09-24] MEDS: Insulin Glargine,Hum.rec.anlog 100 UNIT/ML 10 ML VIAL 30 UNIT SUBCUT (21:03)
[2022-09-24 21:05] LABS: Glucose, Whole Blood 157 mg/dL (60-115)
[2022-09-25 03:25] VITALS: BP 154/72; PULSE 80; RESP 16; TEMP 36.4; O2SAT 98
[2022-09-25 06:51] LABS: Creatinine Clr Calc Pharmacy 163.4; Estimated Glomerular Filt Rate > 60; Vancomycin Trough 9.4 mcg/mL (10.0-20.0)
[2022-09-25 07:18] VITALS: BP 144/70; PULSE 81; RESP 16; TEMP 36.7; O2SAT 97
[2022-09-25 07:31] LABS: Glucose, Whole Blood 109 mg/dL (60-115)
[2022-09-25] MEDS: 0.9 % Sodium Chloride Flush 3 ML SYRINGE IVFLUSH ×2 (08:08→15:42)
[2022-09-25] MEDS: lisinopriL 20 MG TABLET PO (08:08)
[2022-09-25] MEDS: Loratadine 10 MG TABLET PO (08:08)
[2022-09-25] MEDS: Magnesium Oxide 400 MG TABLET PO ×2 (08:08→16:38)
[2022-09-25] MEDS: Heparin Sodium,Porcine 5,000 UNIT/ML VIAL 5000 UNIT SUBCUT ×3 (08:08→22:49)
[2022-09-25] MEDS: Multivitamin TABLET 1 TAB PO (08:08)
[2022-09-25] MEDS: vancomycin HCL 1,250 MG in 0.9 % Sodium Chloride 250 ML 166.67 MG IV ×3 (08:17→22:50)
[2022-09-25 11:14] LABS: Glucose, Whole Blood 154 mg/dL (60-115)
[2022-09-25] MEDS: Piperacillin Sodium/Tazobactam 3.375 GM in 0.9 % Sodium Chloride 50 ML IV ×2 (11:40→20:03)
[2022-09-25] MEDS: Insulin Lispro 100 UNIT/ML 3 ML VIAL SUBCUT ×2 (11:55→16:36)
--- NOTE | 2022-09-25 12:55 | P.PNIM_ITS ---
Subjective Subjective Date of Service: 09/25/22 Interval History: the patient was seen and evaluated this morning Laying in bed, feels better foot still swollen no fever or chills No reported other overnight events. Review of Systems No fever, chills or weakness No chest pain, palpitation No shortness of breath or coughing No abdominal pain, nausea or vomiting No urinary symptoms Physical Exam Vital Signs: Vital Signs: Last Vital Signs Temp 98.1 F 09/25/22 07:18 Pulse 81 09/25/22 07:18 Resp 16 09/25/22 07:18 BP 144/70 H 09/25/22 07:18 Pulse Ox 97 09/25/22 07:18 O2 Del Method 09/25/22 07:18 BMI result Body Mass Index 36.4 Const: Other: Constitutional : Awake, interactive, not in distress Neck : Normal inspection, Supple Cardiovascular : RRR, no JVP, no lower extremity edema Respiratory : good bilateral air entry, no crackles, wheezes or rhonchi Gastrointestinal: soft, lax, Normal bowel sounds, Non tender Skin : Warm, Dry, Right foot wound in?medial aspect of the 1st metatarsal head approximately 2 cm in diameter.? less erythema, still swollen signigicantly? Neurological : Alert & oriented x3, No focal deficit Objective Data Active Medications Acetaminophen (Acetaminophen 325 Mg Tablet) 650 mg PO Q6H PRN PRN Reason: Pain, Mild (Pain Scale 1-3) Fluticasone Propionate (Fluticasone Propionate Nasal 16 Gm [place]) 1 spray NOSTRIL-B DAILY PRN PRN Reason: Nasal Congestion Gabapentin (Gabapentin 100 Mg Capsule) 200 mg PO BEDTIME [facility] Last Admin: 09/24/22 20:54 Dose: 200 mg Documented By: DORA Glucose (Glucose Gel 15 Gm Gel..Gram.) 15 gm PO Q15M PRN; Protocol PRN Reason: per Hypoglycemia Standing Ord. Heparin Sodium (Porcine) (Heparin Sodium,Porcine 5,000 Unit/Ml Vial) 5,000 unit SUBCUT Q8H [facility] Last Admin: 09/25/22 08:08 Dose: 5,000 unit Documented By: TAEMLA Dextrose (D10) 250 mls @ 750 mls/hr IV Q15M PRN; Protocol PRN Reason: per Hypoglycemia Standing Ord. Vancomycin HCl 1,250 mg/ (Sodium Chloride) 250 mls @ 166.667 mls/hr IV Q8H [facility] Last Infusion: 09/25/22 10:03 Dose: 166.67 mls/hr Documented By: TAMELA Piperacillin Sod/Tazobactam (Sod 3.375 gm/ Sodium Chloride) 50 mls @ 100 mls/hr IV Q8H [facility] Last Admin: 09/25/22 11:40 Dose: 100 mls/hr Documented By: TAMELA Insulin Glargine (Insulin Glargine,Hum.Rec.Anlog 100 Unit/Ml 10 Ml Vial) 35 unit SUBCUT BEDTIME [facility] Insulin Human Lispro (Insulin Lispro 100 Unit/Ml 3 Ml Vial) 0 unit SUBCUT QIDACHS [facility]; Protocol Last Admin: 09/25/22 11:55 Dose: 2 unit Documented By: TAMELA Lisinopril (Lisinopril 20 Mg Tablet) 20 mg PO DAILY [facility]; Protocol Last Admin: 09/25/22 08:08 Dose: 20 mg Documented By: TAMELA Loratadine (Loratadine 10 Mg Tablet) 10 mg PO DAILY [facility] Last Admin: 09/25/22 08:08 Dose: 10 mg Documented By: TAMELA Magnesium Oxide (Magnesium Oxide 400 Mg Tablet) 400 mg PO BIDPC [facility] Last Admin: 09/25/22 08:08 Dose: 400 mg Documented By: TAMELA Melatonin (Melatonin 3 Mg Tablet) 6 mg PO BEDTIME PRN PRN Reason: Insomnia Multivitamins/Vitamin C (Multivitamin Tablet) 1 tab PO DAILY [facility] Last Admin: 09/25/22 08:08 Dose: 1 tab Documented By: TAMELA Pharmacy Consult (Consult Rx Perform Med Rec) 1 each MISCELLANE ONCE PRN PRN Reason: Consult order Pharmacy Consult (Consult Rx Vancomycin Dosing) 1 each MISCELLANE DAILY PRN PRN Reason: Consult order Senna (Sennosides 8.6 Mg Tablet) 17.2 mg PO BEDTIME PRN PRN Reason: Constipation Sodium Chloride (0.9 % Sodium Chloride Flush 3 Ml Syringe) 3 ml IVFLUSH QSHIFT [facility] Last Admin: 09/25/22 08:08 Dose: 3 ml Documented By: TAMELA Labs 09/24/22 05:08 09/25/22 05:53 Labs: Laboratory Results - last 24 hr 09/24/22 09/24/22 09/25/22 15:36 20:59 05:53 Estim Creat Clear Calc Estimated GFR POC Glucose 153 H 157 H Vancomycin Trough 9.4 L 09/25/22 09/25/22 09/25/22 05:53 07:24 11:10 Estim Creat Clear Calc 163.4 Estimated GFR > 60 POC Glucose 109 154 H Vancomycin Trough Microbiology Microbiology Results: Microbiology 09/22/22 21:15 Blood Culture - Preliminary Blood - Venous No growth after 48 hours. 09/22/22 20:53 Blood Culture - Preliminary Blood - Venous No growth after 48 hours. Assessment and Plan (1) Osteomyelitis of great toe of right foot: Status: Acute (2) Cellulitis in diabetic foot: Status: Acute Plan 47-year-old male with a past medical history of diabetes, neuropathy presented to the hospital today with a chief complaint of right foot ulcer. Osteomyelitis 1st Toe 2/2 Diabetic foot wound MRI confirmed osteomyelitis and possible septic joint in 1st toe along with other findings suggestive of developing charcot foot Continue IV vancomycin and Zosyn negative final cultures Vascular surgery ID input appreciated, IV Ertapenem for [address] PICC line by Tuesday Pain control Follow vancomycin trough and kidney function Type 2 Diabetes SSI Lantus 35 units Neuropathy Continue home gabapentin DVT prophylaxis Subcu heparin The patient will need overnight hospital stay to continue treatment for osteomyelitis with IV antibiotics Time Spent With Patient Time: Total time managing care of this patient today ____ minutes. Quality Stroke Does the patient have a stroke diagnosis?: No VTE Prior VTE?: No VTE Risk Level:: Medical - moderate - high VTE Device Contraindication: Patient Refused VTE Drug Contraindication: N/A - Med Ordered
[2022-09-25 14:56] VITALS: BP 168/90; PULSE 100; RESP 18; TEMP 36.3; O2SAT 98
[2022-09-25 16:29] LABS: Glucose, Whole Blood 180 mg/dL (60-115)
[2022-09-25 19:24] VITALS: BP 154/83; PULSE 102; RESP 19; TEMP 36.1; O2SAT 97
[2022-09-25] MEDS: Gabapentin 100 MG CAPSULE 200 MG PO (20:04)
[2022-09-25 20:49] LABS: Glucose, Whole Blood 127 mg/dL (60-115)
[2022-09-25] MEDS: Insulin Glargine,Hum.rec.anlog 100 UNIT/ML 10 ML VIAL 35 UNIT SUBCUT (20:59)
[2022-09-26] MEDS: 0.9 % Sodium Chloride Flush 3 ML SYRINGE IVFLUSH ×4 (00:19→23:34)
[2022-09-26 04:00] VITALS: BP 137/79; PULSE 83; RESP 16; TEMP 36; O2SAT 95
[2022-09-26] MEDS: Piperacillin Sodium/Tazobactam 3.375 GM in 0.9 % Sodium Chloride 50 ML IV ×3 (04:20→20:11)
[2022-09-26] MEDS: vancomycin HCL 1,250 MG in 0.9 % Sodium Chloride 250 ML 166.67 MG IV (06:36)
[2022-09-26 07:14] VITALS: BP 122/59; PULSE 88; RESP 16; TEMP 36.7; O2SAT 98
[2022-09-26 07:24] LABS: Creatinine Clr Calc Pharmacy 134.3; Estimated Glomerular Filt Rate > 60
[2022-09-26 07:25] LABS: Vancomycin Random 16.2 mcg/mL (15-20)
[2022-09-26 07:36] LABS: Glucose, Whole Blood 146 mg/dL (60-115)
[2022-09-26] MEDS: Magnesium Oxide 400 MG TABLET PO ×2 (07:56→16:48)
[2022-09-26] MEDS: Loratadine 10 MG TABLET PO (07:56)
[2022-09-26] MEDS: lisinopriL 20 MG TABLET PO (07:56)
[2022-09-26] MEDS: Multivitamin TABLET 1 TAB PO (07:56)
[2022-09-26] MEDS: Heparin Sodium,Porcine 5,000 UNIT/ML VIAL 5000 UNIT SUBCUT ×3 (07:57→23:34)
--- NOTE | 2022-09-26 08:11 | HE.PHANOTE ---
VANCO DOSE ADJUSTMENT BASED ON SCR OF .9 AND TROUGH OF 16.2 DOSE CHANGED TO 1 GRAM Q 8 HOURS. NEXT TROUGH 0600 09/27
[2022-09-26 11:29] LABS: Glucose, Whole Blood 105 mg/dL (60-115)
--- NOTE | 2022-09-26 14:26 | HO.PM.IMPN ---
Subjective Subjective Date of Service: 09/26/22 Interval History: the patient was seen and evaluated this morning Laying in bed, feels better foot still swollen no fever or chills No reported other overnight events. Review of Systems No fever, chills or weakness No chest pain, palpitation No shortness of breath or coughing No abdominal pain, nausea or vomiting No urinary symptoms Physical Exam Vital Signs: Vital Signs: Last Vital Signs Temp 98.1 F 09/26/22 07:14 Pulse 88 09/26/22 07:14 Resp 16 09/26/22 07:14 BP 122/59 L 09/26/22 07:14 Pulse Ox 98 09/26/22 07:14 O2 Del Method 09/26/22 07:14 BMI result Body Mass Index 36.4 Const: Other: Constitutional : Awake, interactive, not in distress Neck : Normal inspection, Supple Cardiovascular : RRR, no JVP, no lower extremity edema Respiratory : good bilateral air entry, no crackles, wheezes or rhonchi Gastrointestinal: soft, lax, Normal bowel sounds, Non tender Skin : Warm, Dry, Right foot wound in?medial aspect of the 1st metatarsal head approximately 2 cm in diameter.? less erythema, still swollen signigicantly? Neurological : Alert & oriented x3, No focal deficit Objective Data Active Medications Acetaminophen (Acetaminophen 325 Mg Tablet) 650 mg PO Q6H PRN PRN Reason: Pain, Mild (Pain Scale 1-3) Fluticasone Propionate (Fluticasone Propionate Nasal 16 Gm [place]) 1 spray NOSTRIL-B DAILY PRN PRN Reason: Nasal Congestion Gabapentin (Gabapentin 100 Mg Capsule) 200 mg PO BEDTIME [facility] Last Admin: 09/25/22 20:04 Dose: 200 mg Documented By: DORA Glucose (Glucose Gel 15 Gm Gel..Gram.) 15 gm PO Q15M PRN; Protocol PRN Reason: per Hypoglycemia Standing Ord. Heparin Sodium (Porcine) (Heparin Sodium,Porcine 5,000 Unit/Ml Vial) 5,000 unit SUBCUT Q8H [facility] Last Admin: 09/26/22 07:57 Dose: 5,000 unit Documented By: TAMELA Dextrose (D10) 250 mls @ 750 mls/hr IV Q15M PRN; Protocol PRN Reason: per Hypoglycemia Standing Ord. Piperacillin Sod/Tazobactam (Sod 3.375 gm/ Sodium Chloride) 50 mls @ 100 mls/hr IV Q8H [facility] Last Infusion: 09/26/22 13:05 Dose: 100 mls/hr Documented By: TAMELA Vancomycin HCl 1,000 mg/ (Sodium Chloride) 270 mls @ 270 mls/hr IV Q8H [facility] Insulin Glargine (Insulin Glargine,Hum.Rec.Anlog 100 Unit/Ml 10 Ml Vial) 35 unit SUBCUT BEDTIME [facility] Last Admin: 09/25/22 20:59 Dose: 35 unit Documented By: DORA Insulin Human Lispro (Insulin Lispro 100 Unit/Ml 3 Ml Vial) 0 unit SUBCUT QIDACHS [facility]; Protocol Last Admin: 09/26/22 11:21 Dose: Not Given Documented By: TAMELA Non-Admin Reason: No Insulin Coverage Lisinopril (Lisinopril 20 Mg Tablet) 20 mg PO DAILY [facility]; Protocol Last Admin: 09/26/22 07:56 Dose: 20 mg Documented By: TAMELA Loratadine (Loratadine 10 Mg Tablet) 10 mg PO DAILY [facility] Last Admin: 09/26/22 07:56 Dose: 10 mg Documented By: TAMELA Magnesium Oxide (Magnesium Oxide 400 Mg Tablet) 400 mg PO BIDPC [facility] Last Admin: 09/26/22 07:56 Dose: 400 mg Documented By: TAMELA Melatonin (Melatonin 3 Mg Tablet) 6 mg PO BEDTIME PRN PRN Reason: Insomnia Multivitamins/Vitamin C (Multivitamin Tablet) 1 tab PO DAILY [facility] Last Admin: 09/26/22 07:56 Dose: 1 tab Documented By: TAMELA Pharmacy Consult (Consult Rx Perform Med Rec) 1 each MISCELLANE ONCE PRN PRN Reason: Consult order Pharmacy Consult (Consult Rx Vancomycin Dosing) 1 each MISCELLANE DAILY PRN PRN Reason: Consult order Senna (Sennosides 8.6 Mg Tablet) 17.2 mg PO BEDTIME PRN PRN Reason: Constipation Sodium Chloride (0.9 % Sodium Chloride Flush 3 Ml Syringe) 3 ml IVFLUSH QSHIFT [facility] Last Admin: 09/26/22 07:57 Dose: 3 ml Documented By: TAMELA Labs 09/24/22 05:08 09/26/22 05:53 Labs: Laboratory Results - last 24 hr 09/25/22 09/25/22 09/26/22 16:26 20:34 05:53 Estim Creat Clear Calc Estimated GFR POC Glucose 180 H 127 H Random Vancomycin 16.2 09/26/22 09/26/22 09/26/22 05:53 07:18 11:19 Estim Creat Clear Calc 134.3 Estimated GFR > 60 POC Glucose 146 H 105 Random Vancomycin Assessment and Plan (1) Osteomyelitis of great toe of right foot: Status: Acute (2) Cellulitis in diabetic foot: Status: Acute (3) Foot fracture: Status: Acute Plan 47-year-old male with a past medical history of diabetes, neuropathy presented to the hospital today with a chief complaint of right foot ulcer. Osteomyelitis 1st Toe 2/2 Diabetic foot wound MRI confirmed osteomyelitis and possible septic joint in 1st toe along with other findings suggestive of developing charcot foot Continue IV vancomycin and Zosyn negative final cultures Vascular surgery ID input appreciated, IV Ertapenem for [address] PICC line tomorrow Pain control Follow vancomycin trough and kidney function Type 2 Diabetes SSI Lantus 35 units Neuropathy Continue home gabapentin DVT prophylaxis Subcu heparin The patient will need overnight hospital stay to continue treatment for osteomyelitis with IV antibiotics Time Spent With Patient Time: Total time managing care of this patient today ____ minutes. Quality Stroke Does the patient have a stroke diagnosis?: No VTE Prior VTE?: No VTE Risk Level:: Medical - moderate - high VTE Device Contraindication: Patient Refused VTE Drug Contraindication: N/A - Med Ordered
[2022-09-26 16:00] VITALS: BP 143/76; PULSE 95; RESP 18; TEMP 36.2; O2SAT 98
--- NOTE | 2022-09-26 16:21 | PC.NURSE ---
Addendum entered by Jennifer Floyd RN 09/26/22 17:55: Patient returned to his roomsafely,encouraged to stay on the unit,nurse explained safety concerns Original Note: patient not in his room, at bedside states patient went to visit his friend in the kitchen, spoke with my patient on the phone ,patient will return to his room.
[2022-09-26] MEDS: vancomycin HCL 1,000 MG in 0.9 % Sodium Chloride 250 ML 270 MG IV ×2 (16:40→23:35)
[2022-09-26 16:57] LABS: Glucose, Whole Blood 124 mg/dL (60-115)
[2022-09-26 20:00] VITALS: BP 124/64; PULSE 102; RESP 18; TEMP 36.5; O2SAT 94
[2022-09-26] MEDS: Gabapentin 100 MG CAPSULE 200 MG PO (20:11)
[2022-09-26 20:18] LABS: Glucose, Whole Blood 190 mg/dL (60-115)
[2022-09-26] MEDS: Insulin Glargine,Hum.rec.anlog 100 UNIT/ML 10 ML VIAL 35 UNIT SUBCUT (20:49)
[2022-09-26] MEDS: Insulin Lispro 100 UNIT/ML 3 ML VIAL SUBCUT (20:49)
[2022-09-27 03:27] VITALS: BP 114/59; PULSE 98; RESP 18; TEMP 36.4; O2SAT 95
[2022-09-27] MEDS: Piperacillin Sodium/Tazobactam 3.375 GM in 0.9 % Sodium Chloride 50 ML IV (04:18)
[2022-09-27 06:40] LABS: Vancomycin Random 26.2 mcg/mL (15-20)
--- NOTE | 2022-09-27 06:41 | PC.NURSE ---
[facility] [facility]. Awaiting new orders.
[2022-09-27 06:51] LABS: Creatinine Clr Calc Pharmacy 54.9; Estimated Glomerular Filt Rate 32
--- NOTE | 2022-09-27 07:02 | HE.PHANOTE ---
Vancomycin Dosing Level is 26.2 today. SCr has over doubled. Will get another random level 12 hour after previous dose on 09/27 @ 1200. Fady MartinezD
[2022-09-27 07:17] VITALS: BP 137/75; PULSE 94; RESP 16; TEMP 36.9; O2SAT 98
[2022-09-27 07:35] LABS: Glucose, Whole Blood 163 mg/dL (60-115)
[2022-09-27] MEDS: Loratadine 10 MG TABLET PO (08:09)
[2022-09-27] MEDS: Multivitamin TABLET 1 TAB PO (08:09)
[2022-09-27] MEDS: lisinopriL 20 MG TABLET PO (08:10)
[2022-09-27] MEDS: Insulin Lispro 100 UNIT/ML 3 ML VIAL SUBCUT ×3 (08:10→16:47)
[2022-09-27] MEDS: Magnesium Oxide 400 MG TABLET PO ×2 (08:10→16:51)
[2022-09-27] MEDS: 0.9 % Sodium Chloride Flush 3 ML SYRINGE IVFLUSH ×2 (08:11→16:47)
[2022-09-27] MEDS: Heparin Sodium,Porcine 5,000 UNIT/ML VIAL 5000 UNIT SUBCUT ×3 (08:11→22:47)
[2022-09-27] MEDS: 0.9 % Sodium Chloride 1,000 ML 100 ML IVCONT ×2 (09:43→21:10)
--- NOTE | 2022-09-27 10:53 | P.PNIM_ITS ---
Subjective Subjective Date of Service: 09/27/22 Interval History: the patient was seen and evaluated this morning Laying in bed, feels better Cr increased to 2.2 this morning with elevated Vancomycin level foot still swollen no fever or chills No reported other overnight events. Review of Systems No fever, chills or weakness No chest pain, palpitation No shortness of breath or coughing No abdominal pain, nausea or vomiting No urinary symptoms Physical Exam Vital Signs: Vital Signs: Last Vital Signs Temp 98.5 F 09/27/22 07:17 Pulse 94 09/27/22 07:17 Resp 16 09/27/22 07:17 BP 137/75 09/27/22 07:17 Pulse Ox 98 09/27/22 07:17 O2 Del Method 09/27/22 07:17 BMI result Body Mass Index 36.4 Const: Other: Constitutional : Awake, interactive, not in distress Neck : Normal inspection, Supple Cardiovascular : RRR, no JVP, no lower extremity edema Respiratory : good bilateral air entry, no crackles, wheezes or rhonchi Gastrointestinal: soft, lax, Normal bowel sounds, Non tender Skin : Warm, Dry, Right foot wound in?medial aspect of the 1st metatarsal head approximately 2 cm in diameter.? less erythema, still swollen signigicantly? Neurological : Alert & oriented x3, No focal deficit Objective Data Active Medications Acetaminophen (Acetaminophen 325 Mg Tablet) 650 mg PO Q6H PRN PRN Reason: Pain, Mild (Pain Scale 1-3) Fluticasone Propionate (Fluticasone Propionate Nasal 16 Gm [place]) 1 spray NOSTRIL-B DAILY PRN PRN Reason: Nasal Congestion Gabapentin (Gabapentin 100 Mg Capsule) 200 mg PO BEDTIME [facility] Last Admin: 09/26/22 20:11 Dose: 200 mg Documented By: DORA Glucose (Glucose Gel 15 Gm Gel..Gram.) 15 gm PO Q15M PRN; Protocol PRN Reason: per Hypoglycemia Standing Ord. Heparin Sodium (Porcine) (Heparin Sodium,Porcine 5,000 Unit/Ml Vial) 5,000 unit SUBCUT Q8H [facility] Last Admin: 09/27/22 08:11 Dose: 5,000 unit Documented By: JENNIFER Dextrose (D10) 250 mls @ 750 mls/hr IV Q15M PRN; Protocol PRN Reason: per Hypoglycemia Standing Ord. Sodium Chloride (Ns) 1,000 mls @ 100 mls/hr IVCONT .Q10H [facility] Last Admin: 09/27/22 09:43 Dose: 100 mls/hr Documented By: JENNIFER Insulin Glargine (Insulin Glargine,Hum.Rec.Anlog 100 Unit/Ml 10 Ml Vial) 35 unit SUBCUT BEDTIME [facility] Last Admin: 09/26/22 20:49 Dose: 35 unit Documented By: DORA Insulin Human Lispro (Insulin Lispro 100 Unit/Ml 3 Ml Vial) 0 unit SUBCUT QIDACHS [facility]; Protocol Last Admin: 09/27/22 08:10 Dose: 2 unit Documented By: JENNIFER Lisinopril (Lisinopril 20 Mg Tablet) 20 mg PO DAILY [facility]; Protocol Last Admin: 09/27/22 08:10 Dose: 20 mg Documented By: JENNIFER Loratadine (Loratadine 10 Mg Tablet) 10 mg PO DAILY [facility] Last Admin: 09/27/22 08:09 Dose: 10 mg Documented By: JENNIFER Magnesium Oxide (Magnesium Oxide 400 Mg Tablet) 400 mg PO BIDPC [facility] Last Admin: 09/27/22 08:10 Dose: 400 mg Documented By: JENNIFER Melatonin (Melatonin 3 Mg Tablet) 6 mg PO BEDTIME PRN PRN Reason: Insomnia Multivitamins/Vitamin C (Multivitamin Tablet) 1 tab PO DAILY [facility] Last Admin: 09/27/22 08:09 Dose: 1 tab Documented By: JENNIFER Pharmacy Consult (Consult Rx Perform Med Rec) 1 each MISCELLANE ONCE PRN PRN Reason: Consult order Senna (Sennosides 8.6 Mg Tablet) 17.2 mg PO BEDTIME PRN PRN Reason: Constipation Sodium Chloride (0.9 % Sodium Chloride Flush 3 Ml Syringe) 3 ml IVFLUSH QSHIFT [facility] Last Admin: 09/27/22 08:11 Dose: 3 ml Documented By: JENNIFER Labs 09/24/22 05:08 09/27/22 05:15 Labs: Laboratory Results - last 24 hr 09/26/22 09/26/22 09/26/22 11:19 16:53 20:05 Estim Creat Clear Calc Estimated GFR POC Glucose 105 124 H 190 H Random Vancomycin 09/27/22 09/27/2209/27/23 05:15 05:15 07:20 Estim Creat Clear Calc 54.9 Estimated GFR 32 POC Glucose 163 H Random Vancomycin 26.2 H* Assessment and Plan (1) Osteomyelitis of great toe of right foot: Status: Acute (2) Acute kidney injury: Status: Acute Plan 47-year-old male with a past medical history of diabetes, neuropathy presented to the hospital today with a chief complaint of right foot ulcer. Osteomyelitis 1st Toe 2/2 Diabetic foot wound MRI confirmed osteomyelitis and possible septic joint in 1st toe along with other findings suggestive of developing charcot foot DC vancomycin and Zosyn negative final cultures Vascular surgery. no intervention ID input appreciated, IV Ertapenem for [address] PICC line Pain control ELISABETH Cr of 2.2 Likely 2/2 Abx: Vanco and Zosyn elevated Vanco trough UA, U.Eos Nephrology eval avoid nephrotoxic meds gentle IVF follow BMP Type 2 Diabetes SSI Lantus 35 units Neuropathy Continue home gabapentin DVT prophylaxis Subcu heparin The patient will need overnight hospital stay to continue treatment for osteomyelitis with IV Abx and monitoring kidney function Time Spent With Patient Time: Total time managing care of this patient today ____ minutes. Quality Stroke Does the patient have a stroke diagnosis?: No VTE Prior VTE?: No VTE Risk Level:: Medical - moderate - high VTE Device Contraindication: Patient Refused VTE Drug Contraindication: N/A - Med Ordered
[2022-09-27 12:00] LABS: Glucose, Whole Blood 185 mg/dL (60-115)
[2022-09-27 12:14] LABS: Appearance Urine Clear; Color Urine Yellow; Glucose Urine UA Negative (Negative); Leukocyte Esterase Urine Negative (Negative); Nitrite Urine Negative (Negative); PH 6.5 (5.0-9.0); Specific Gravity - Urine <= 1.005 (1.005-1.025); UMIC TRIGGER UA YES; Urine Blood Negative (Negative); Urine Ketones Negative (Negative); Urine Protein 100 (2+) mg/dL (Neg-Trace)
[2022-09-27 12:20] LABS: Bacteria Urine None Seen (None Seen); Hyaline Casts Urine 0-2 /LPF (0-2); RBC Urine 0-2 /HPF (0-2); WBC Urine 0-5 /HPF (0-5)
[2022-09-27 13:23] LABS: EOS Counted 0 CELLS; EOS QC POS YES; EOS Stain Quality OK YES; WBC, Counted 1 CELLS
--- NOTE | 2022-09-27 15:52 | P.PICC_ITS ---
PICC Line Insertion NPICC Diagnosis: right foot wound Indication: shelter antibiotics needed Pertinent Labs: reviewed Technique: Following informed consent including risks, benefits and alternatives and using sterile technique including cap and mask, sterile gown, glove and drape, the right arm was prepped and draped in the usual sterile fashion of full barrier technique with CHG. Following completion of Golden Protocol the skin and soft tissues were anesthetized with 1% Lidocaine plain. Using ultrasound guidance, right basilic vein access was obtained twice by Zhou Ashby RN, but unable to pass guidewire. Right basilic vein access was obtained on second attempt by Dangelo Talbert RN. Over an 0.018 wire through peel-away sheath, a 4FR single lumen PASV PICC line was positioned. Catheter length is 44 CM internal length, at the 0 CM hai--external length, for a total trimmed length of 44 CM. The procedure was performed in S272. Tip verification was performed by Kirstie Otto with Sherlock 3CG. Tip located in SVC. Ultrasound was used to document vein patency and for needle entry. A formal ultrasound picture and cardiac rhythm strip was recorded. Vascular Product Safety Expert has released the line for use and it is currently dressed with a StatLock, Tegaderm, and CHG disc. Verification has been performed for blood return and line patency. Arm Circumference: 35 CM Equipment: Appetise PowerPICC Solo Catheter Type: 4FR single lumen PASV PICC Lot #: [id number]
[2022-09-27 16:00] VITALS: BP 170/90; PULSE 93; RESP 16; TEMP 36.8; O2SAT 96
[2022-09-27 16:32] LABS: Glucose, Whole Blood 170 mg/dL (60-115)
--- NOTE | 2022-09-27 16:42 | MHC.CM.PN ---
PICC line placed today for LT IV ABX. [facility] has been given the SCRIPT Line info H+P Labs and Med list. [facility] IS SEEKING MD TO COVER HOME CARE ORDERS FROM [facility]. [facility] MAY PROVIDE NURSING IF [facility] DOES NOT OBTAIN MD COVERAGE. DISCHARGE PLANNED FOR TOMORROW. ERTAPENUM 1gm QD.
[2022-09-27 17:17] VITALS: BP 188/90
[2022-09-27 20:00] VITALS: BP 157/80; PULSE 94; RESP 18; TEMP 36.4; O2SAT 96
[2022-09-27 20:11] LABS: Glucose, Whole Blood 116 mg/dL (60-115)
--- NOTE | 2022-09-27 20:35 | PM.CNNEP ---
History of Present Illness Reason for Consult Consult date: 09/27/22 Chief Complaint Chief complaint: DM Foot Ulcer History of Present Illness Narrative: 47-year-old male with a past medical history of diabetes, neuropathy presented to the hospital today with a chief complaint of right foot ulcer.?past 1 week, prior to presentation, he has been having pain and swellingwi th serosanguineous discharge. Denies any fevers, chest pain palpitations lightheadedness or dizziness, nausea vomiting , diarrhea or urinary symptoms.? x-ray was negative for any signs of osteomyelitis; Was given antibiotics & was admitted to the hospital for further management. During her current hospital stay, her serum creatinine has gone over 2.0. Nephrology has been consulted to assist in his clinical care during his current hospital stay Review of Systems Review of Systems Yes all other systems are reviewed and are negative PMFSH Past Medical History Medical History Diabetes Family History Family history: reviewed and not pertinent Social History Social History Household Members: Family Housing: Apartment Do you presently have visiting nurse or other home services: No Alcohol intake: never Patient Tobacco Use Status: Never used Tobacco Smoked in Last 30 Days: No Use of substances other than those prescribed or required for medical reasons: Yes Substance Use Type: Crack/Cocaine Substance Use Frequency: Occasionally Last Used Substance: Days (ago) Currently Displaying Signs/Symptoms of Drug Intoxication Withdrawal: No Any prior treatment program specific to substance use: No Have you been hit, kicked, punched, or otherwise hurt by someone within the past year? If so, by whom?: No Do you feel safe in your current relationship?: Yes Is there a partner from a previous relationship who is making you feel unsafe now?: No Are you made to feel afraid or neglected: No Advance Directives: No Advance Directives Information Provided: No Do you have thoughts of harming others: None Do you have a plan to hurt others: No Plan Recently lost weight without trying: No How much weight loss: Not applicable Eating poorly because of decreased appetite: No Nutrition screen score: 0 Nutrition Risks: No Nutritional Risk Poor oral hygiene: No service: No Current occupational status: employed 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 Meds Allergies Allergy/AdvReac Type Severity Reaction Status Date / Time glyburide Allergy Unknown weight gain Verified 09/22/22 20:34 powder gloves Allergy rash Uncoded 09/22/22 20:34 Active Medications: Current Medications Acetaminophen (Acetaminophen 325 Mg Tablet) 650 mg PO Q6H PRN PRN Reason: Pain, Mild (Pain Scale 1-3) Fluticasone Propionate (Fluticasone Propionate Nasal 16 Gm [place]) 1 spray NOSTRIL-B DAILY PRN PRN Reason: Nasal Congestion Gabapentin (Gabapentin 100 Mg Capsule) 200 mg PO BEDTIME [facility] Last Admin: 09/26/22 20:11 Dose: 200 mg Glucose (Glucose Gel 15 Gm Gel..Gram.) 15 gm PO Q15M PRN; Protocol PRN Reason: per Hypoglycemia Standing Ord. Heparin Sodium (Porcine) (Heparin Sodium,Porcine 5,000 Unit/Ml Vial) 5,000 unit SUBCUT Q8H [facility] Last Admin: 09/27/22 16:47 Dose: 5,000 unit Dextrose (D10) 250 mls @ 750 mls/hr IV Q15M PRN; Protocol PRN Reason: per Hypoglycemia Standing Ord. Sodium Chloride (Ns) 1,000 mls @ 100 mls/hr IVCONT .Q10H [facility] Last Admin: 09/27/22 09:43 Dose: 100 mls/hr Meropenem 1 gm/ Sodium (Chloride) 100 mls @ 200 mls/hr IV Q12H [facility] Last Infusion: 09/27/22 12:18 Dose: Infused Insulin Glargine (Insulin Glargine,Hum.Rec.Anlog 100 Unit/Ml 10 Ml Vial) 35 unit SUBCUT BEDTIME [facility] Last Admin: 09/26/22 20:49 Dose: 35 unit Insulin Human Lispro (Insulin Lispro 100 Unit/Ml 3 Ml Vial) 0 unit SUBCUT QIDACHS [facility]; Protocol Last Admin: 09/27/22 20:22 Dose: Not Given Lisinopril (Lisinopril 20 Mg Tablet) 20 mg PO DAILY [facility]; Protocol Last Admin: 09/27/22 08:10 Dose: 20 mg Loratadine (Loratadine 10 Mg Tablet) 10 mg PO DAILY [facility] Last Admin: 09/27/22 08:09 Dose: 10 mg Magnesium Oxide (Magnesium Oxide 400 Mg Tablet) 400 mg PO BIDPC [facility] Last Admin: 09/27/22 16:51 Dose: 400 mg Melatonin (Melatonin 3 Mg Tablet) 6 mg PO BEDTIME PRN PRN Reason: Insomnia Multivitamins/Vitamin C (Multivitamin Tablet) 1 tab PO DAILY [facility] Last Admin: 09/27/22 08:09 Dose: 1 tab Pharmacy Consult (Consult Rx Perform Med Rec) 1 each MISCELLANE ONCE PRN PRN Reason: Consult order Senna (Sennosides 8.6 Mg Tablet) 17.2 mg PO BEDTIME PRN PRN Reason: Constipation Sodium Chloride (0.9 % Sodium Chloride Flush 3 Ml Syringe) 3 ml IVFLUSH QSHIFT [facility] Last Admin: 09/27/22 16:47 Dose: 3 ml Home Medications Medication Instructions Recorded Confirmed Last Taken Type cetirizine 10 mg tablet 1 tab PO DAILY allergies 02/27/21 09/22/22 09/21/22 History fluticasone propionate 50 1 spray intranasal DAILY PRN Nasal 02/27/21 09/22/22 02/26/21 History mcg/actuation nasal Congestion spray,suspension gabapentin 100 mg capsule 2 cap PO BEDTIME 02/27/21 09/22/22 09/21/22 History glucose 4 gram chewable tablet 4 g PO DIRECTED PRN blood sugar 02/27/21 09/22/22 02/26/21 History <70 insulin detemir U-100 100 unit/mL 42 unit subcut BEDTIME 02/27/21 09/22/22 09/21/22 History (3 mL) subcutaneous pen (Levemir FlexTouch U-100 Insulin) multivitamin 1 tab PO DAILY 02/27/21 09/22/22 09/21/22 History dulaglutide 0.75 mg/0.5 mL 0.75 mg subcut [place] 05/26/22 09/22/22 09/20/22 History subcutaneous pen injector (Trulicity) lisinopril 20 mg tablet 20 mg PO DAILY 09/24/22 09/24/22 09/22/22 17:30 History Physical Exam Vital Signs: Last Vital Signs Temp 97.6 F 09/27/22 20:00 Pulse 94 09/27/22 20:00 Resp 18 09/27/22 20:00 BP 157/80 H 09/27/22 20:00 Pulse Ox 96 09/27/22 20:00 O2 Del Method 09/27/22 20:00 BMI result Body Mass Index 36.4 Const General: no acute distress Orientation/consciousness: patient oriented x3 Eyes EOM: EOMs intact bilaterally Neck Neck: Yes supple Resp Auscultation: diminished lung sounds Cardio Rate: regular rate GI Palpation (GI): Soft to palpation Neuro General: patient oriented x3 Results Lab Results 09/24/22 05:08 09/27/22 05:15 Lab results: Chemistry 09/25/22 09/26/22 09/27/22 05:53 05:53 05:15 Creatinine 0.74 0.90 2.20 H Urinalysis 09/27/22 11:05 Urine Color Yellow Urine Appearance Clear Urine pH 6.5 Ur Specific [place] <= 1.005 Urine Protein 100 (2+) H Urine Glucose (UA) Negative Urine Ketones Negative Urine Blood Negative Urine Nitrite Negative Ur Leukocyte Esterase Negative Urine RBC 0-2 Urine WBC 0-5 Ur Squamous Epith Cells 3-5 Hyaline Casts 0-2 Assessment and Plan (1) Acute kidney injury: Status: Acute Plan Acute Kidney Injury due to tubular injury ( likely from Vanco toxicity ) DDx- ayde infectious GN Shall check C3/C4 if creatinine rises Off Vanco now; On Ertanepenem Can have PICC line; Labs AM Continue rest of current supp care Time Spent With Patient Time: Total time managing care of this patient today ____ minutes. Procedures Date of Service Date of Service: 09/27/22
[2022-09-27] MEDS: Gabapentin 100 MG CAPSULE 200 MG PO (21:10)
[2022-09-27] MEDS: Insulin Glargine,Hum.rec.anlog 100 UNIT/ML 10 ML VIAL 35 UNIT SUBCUT (21:10)
[2022-09-27] MEDS: ondansetron HCL 4 MG/2 ML VIAL IVPUSH (22:46)
[2022-09-28] MEDS: Acetaminophen 325 MG TABLET 650 MG PO (01:06)
[2022-09-28 03:47] VITALS: BP 145/72; PULSE 96; RESP 16; TEMP 37.4; O2SAT 99
[2022-09-28] MEDS: 0.9 % Sodium Chloride 1,000 ML 100 ML IVCONT ×2 (05:14→18:29)
[2022-09-28 07:41] LABS: Anion Gap 14 (12-20); Blood Urea Nitrogen 27 mg/dL (9-16); Calcium 8.1 mg/dL (8.4-10.2); Carbon Dioxide 23 mmol/L (22-29); Chloride 108 mmol/L (96-108); Creatinine Clr Calc Pharmacy 25.6; Estimated Glomerular Filt Rate 13; Glucose Random 129 mg/dL (60-115); Potassium 4.1 mmol/L (3.3-5.1); Sodium 141 mmol/L (135-145)
[2022-09-28 07:58] LABS: Glucose, Whole Blood 129 mg/dL (60-115)
[2022-09-28 08:00] VITALS: BP 144/76; PULSE 86; RESP 18; TEMP 36.4; O2SAT 97
[2022-09-28] MEDS: amLODIPine Besylate 5 MG TABLET PO (09:34)
[2022-09-28] MEDS: Magnesium Oxide 400 MG TABLET PO ×2 (09:34→17:45)
[2022-09-28] MEDS: Loratadine 10 MG TABLET PO (09:34)
[2022-09-28] MEDS: Multivitamin TABLET 1 TAB PO (09:34)
[2022-09-28] MEDS: Heparin Sodium,Porcine 5,000 UNIT/ML VIAL 5000 UNIT SUBCUT ×3 (09:34→23:20)
[2022-09-28] MEDS: 0.9 % Sodium Chloride Flush 3 ML SYRINGE IVFLUSH (09:35)
--- NOTE | 2022-09-28 11:15 | P.PNIM_ITS ---
Subjective Subjective Date of Service: 09/28/22 Interval History: the patient was seen and evaluated this morning Laying in bed, feels anxious about being in the hospital Cr increased to 4.7 this morning with elevated Vancomycin level foot still swollen no fever or chills No reported other overnight events. Review of Systems No fever, chills or weakness No chest pain, palpitation No shortness of breath or coughing No abdominal pain, nausea or vomiting No urinary symptoms Physical Exam Vital Signs: Vital Signs: Last Vital Signs Temp 97.5 F 09/28/22 08:00 Pulse 86 09/28/22 08:00 Resp 18 09/28/22 08:00 BP 144/76 H 09/28/22 08:00 Pulse Ox 97 09/28/22 08:00 O2 Del Method 09/28/22 08:00 BMI result Body Mass Index 36.4 Const: Other: Constitutional : Awake, interactive, not in distress Neck : Normal inspection, Supple Cardiovascular : RRR, no JVP, no lower extremity edema Respiratory : good bilateral air entry, no crackles, wheezes or rhonchi Gastrointestinal: soft, lax, Normal bowel sounds, Non tender Skin : Warm, Dry, Right foot wound in?medial aspect of the 1st metatarsal head approximately 2 cm in diameter.? less erythema, still swollen signigicantly? Neurological : Alert & oriented x3, No focal deficit Objective Data Active Medications Acetaminophen (Acetaminophen 325 Mg Tablet) 650 mg PO Q6H PRN PRN Reason: Pain, Mild (Pain Scale 1-3) Last Admin: 09/28/22 01:06 Dose: 650 mg Documented By: TOBY Amlodipine Besylate (Amlodipine Besylate 5 Mg Tablet) 5 mg PO DAILY [facility]; Protocol Last Admin: 09/28/22 09:34 Dose: 5 mg Documented By: JENNIFER Fluticasone Propionate (Fluticasone Propionate Nasal 16 Gm [place]) 1 spray NOSTRIL-B DAILY PRN PRN Reason: Nasal Congestion Gabapentin (Gabapentin 100 Mg Capsule) 200 mg PO BEDTIME [facility] Last Admin: 09/27/22 21:10 Dose: 200 mg Documented By: TOBY Glucose (Glucose Gel 15 Gm Gel..Gram.) 15 gm PO Q15M PRN; Protocol PRN Reason: per Hypoglycemia Standing Ord. Heparin Sodium (Porcine) (Heparin Sodium,Porcine 5,000 Unit/Ml Vial) 5,000 unit SUBCUT Q8H [facility] Last Admin: 09/28/22 09:34 Dose: 5,000 unit Documented By: JENNIFER Dextrose (D10) 250 mls @ 750 mls/hr IV Q15M PRN; Protocol PRN Reason: per Hypoglycemia Standing Ord. Sodium Chloride (Ns) 1,000 mls @ 100 mls/hr IVCONT .Q10H [facility] Last Admin: 09/28/22 05:14 Dose: 100 mls/hr Documented By: TOBY Meropenem 500 mg/ Sodium (Chloride) 50 mls @ 200 mls/hr IV Q12H [facility] Insulin Glargine (Insulin Glargine,Hum.Rec.Anlog 100 Unit/Ml 10 Ml Vial) 35 unit SUBCUT BEDTIME [facility] Last Admin: 09/27/22 21:10 Dose: 35 unit Documented By: TOBY Insulin Human Lispro (Insulin Lispro 100 Unit/Ml 3 Ml Vial) 0 unit SUBCUT QIDACHS [facility]; Protocol Last Admin: 09/28/22 09:20 Dose: Not Given Documented By: JENNIFER Non-Admin Reason: No Insulin Coverage Lisinopril (Lisinopril 20 Mg Tablet) 20 mg PO DAILY [facility]; Protocol Last Admin: 09/27/22 08:10 Dose: 20 mg Documented By: JENNIFER Loratadine (Loratadine 10 Mg Tablet) 10 mg PO DAILY [facility] Last Admin: 09/28/22 09:34 Dose: 10 mg Documented By: JENNIFER Magnesium Oxide (Magnesium Oxide 400 Mg Tablet) 400 mg PO BIDPC [facility] Last Admin: 09/28/22 09:34 Dose: 400 mg Documented By: JENNIFER Melatonin (Melatonin 3 Mg Tablet) 6 mg PO BEDTIME PRN PRN Reason: Insomnia Multivitamins/Vitamin C (Multivitamin Tablet) 1 tab PO DAILY [facility] Last Admin: 09/28/22 09:34 Dose: 1 tab Documented By: JENNIFER Ondansetron HCl (Ondansetron Hcl 4 Mg/2 Ml Vial) 4 mg IVPUSH Q6H PRN PRN Reason: nausea Last Admin: 09/27/22 22:46 Dose: 4 mg Documented By: TOBY Pharmacy Consult (Consult Rx Perform Med Rec) 1 each MISCELLANE ONCE PRN PRN Reason: Consult order Senna (Sennosides 8.6 Mg Tablet) 17.2 mg PO BEDTIME PRN PRN Reason: Constipation Sodium Chloride (0.9 % Sodium Chloride Flush 3 Ml Syringe) 3 ml IVFLUSH QSHIFT [facility] Last Admin: 09/28/22 09:35 Dose: 3 ml Documented By: JENNIFER Labs 09/24/22 05:08 09/28/22 05:33 Labs: Laboratory Results - last 24 hr 09/27/22 09/27/22 09/27/22 11:05 11:05 11:55 Anion Gap Estim Creat Clear Calc Estimated GFR POC Glucose 185 H Random Glucose Calcium Urine Color Yellow Urine Appearance Clear Urine pH 6.5 Ur Specific [place] <= 1.005 Urine Protein 100 (2+) H Urine Glucose (UA) Negative Urine Ketones Negative Urine Blood Negative Urine Nitrite Negative Ur Leukocyte Esterase Negative Urine RBC 0-2 Urine WBC 0-5 Ur Squamous Epith Cells 3-5 Urine Bacteria None Seen Hyaline Casts 0-2 Urine Eosinophils % 0.0 Random Vancomycin 09/27/22 09/27/22 09/27/22 12:09 16:28 20:06 Anion Gap Estim Creat Clear Calc Estimated GFR POC Glucose 170 H 116 H Random Glucose Calcium Urine Color Urine Appearance Urine pH Ur Specific [place] Urine Protein Urine Glucose (UA) Urine Ketones Urine Blood Urine Nitrite Ur Leukocyte Esterase Urine RBC Urine WBC Ur Squamous Epith Cells Urine Bacteria Hyaline Casts Urine Eosinophils % Random Vancomycin 23.0 H 09/28/22 09/28/22 09/28/22 05:33 05:33 07:49 Anion Gap 14 Estim Creat Clear Calc 25.6 Cancelled Estimated GFR 13 Cancelled POC Glucose 129 H Random Glucose 129 H Calcium 8.1 L D Urine Color Urine Appearance Urine pH Ur Specific [place] Urine Protein Urine Glucose (UA) Urine Ketones Urine Blood Urine Nitrite Ur Leukocyte Esterase Urine RBC Urine WBC Ur Squamous Epith Cells Urine Bacteria Hyaline Casts Urine Eosinophils % Random Vancomycin Microbiology Microbiology Results: Microbiology 09/22/22 21:15 Blood Culture - Final Blood - Venous No growth after 5 days. 09/22/22 20:53 Blood Culture - Final Blood - Venous No growth after 5 days. Assessment and Plan (1) Acute kidney injury: Status: Acute (2) Osteomyelitis of great toe of right foot: Status: Acute (3) Cellulitis in diabetic foot: Status: Acute Plan 47-year-old male with a past medical history of diabetes, neuropathy presented to the hospital today with a chief complaint of right foot ulcer. ELISABETH Cr of 4.7 Likely 2/2 Vancomycin toxicity; elevated Vanco trough Nephrology input appreciated avoid nephrotoxic meds gentle IVF follow BMP Osteomyelitis 1st Toe 2/2 Diabetic foot wound MRI confirmed osteomyelitis and possible septic joint in 1st toe along with other findings suggestive of developing charcot foot DC vancomycin and Zosyn negative final cultures Vascular surgery. no intervention ID input appreciated, IV Ertapenem for 6 weeks renally adjusted MEropenem dose PICC line placed Pain control Type 2 Diabetes SSI Lantus 35 units Neuropathy Continue home gabapentin DVT prophylaxis Subcu heparin The patient will need overnight hospital stay to continue treatment for osteomyelitis with IV Abx and monitoring kidney function Time Spent With Patient Time: Total time managing care of this patient today ____ minutes. Quality Stroke Does the patient have a stroke diagnosis?: No VTE Prior VTE?: No VTE Risk Level:: Medical - moderate - high VTE Device Contraindication: Patient Refused VTE Drug Contraindication: N/A - Med Ordered
[2022-09-28 11:30] LABS: Glucose, Whole Blood 137 mg/dL (60-115)
--- NOTE | 2022-09-28 14:02 | PM.PNNEP ---
Subjective Subjective Date of Service: 09/28/22 Interval history: foot still swollen; no fever or chills; reported other overnight events. Creatinine worse Physical Exam Vital Signs: Vital Signs: Last Vital Signs Temp 97.5 F 09/28/22 08:00 Pulse 86 09/28/22 08:00 Resp 18 09/28/22 08:00 BP 144/76 H 09/28/22 08:00 Pulse Ox 97 09/28/22 08:00 O2 Del Method 09/28/22 08:00 BMI result Body Mass Index 36.4 Const: General: no acute distress Orientation/consciousness: patient oriented x3 Eyes: EOM: EOMs intact bilaterally Neck: Neck: Yes supple Resp: Auscultation: diminished lung sounds Cardio: Rate: regular rate GI: Palpation (GI): Soft to palpation Neuro: General: patient oriented x3 and moves all extremities Objective Data Labs 09/24/22 05:08 09/28/22 05:33 Labs: Laboratory Results - last 24 hr 09/27/22 09/27/22 09/28/22 16:28 20:06 05:33 Sodium 141 Potassium 4.1 Chloride 108 Carbon Dioxide 23 Anion Gap 14 BUN 27 H Creatinine 4.71 H* Estim Creat Clear Calc 25.6 Estimated GFR 13 POC Glucose 170 H 116 H Random Glucose 129 H Calcium 8.1 L D 09/28/22 09/28/22 09/28/22 05:33 07:49 11:21 Sodium Potassium Chloride Carbon Dioxide Anion Gap BUN Creatinine Cancelled Estim Creat Clear Calc Cancelled Estimated GFR Cancelled POC Glucose 129 H 137 H Random Glucose Calcium Microbiology Microbiology Results: Microbiology 09/22/22 21:15 Blood - Venous Blood Culture - Final No growth after 5 days. 09/22/22 20:53 Blood - Venous Blood Culture - Final No growth after 5 days. Procedures Date of Service Date of Service: 09/28/22 Assessment & Plan Assessment and plan (1) Acute kidney injury: Status: Acute Assessment and Plan: Acute Kidney Injury due to tubular injury ( likely from Vanco toxicity ) DDx- ayde infectious GN Ordered C3/C4 as creatinine wore Off Vanco now; On Ertanepenem No indication for renal replacement/ renal biopsy yet Has a PICC line; Labs AM Continue rest of current supp care Progress Note: Quality Stroke Does the patient have a stroke diagnosis?: No
[2022-09-28 16:00] VITALS: BP 193/96; PULSE 92; RESP 18; TEMP 36.8; O2SAT 96
[2022-09-28] MEDS: 0.9 % Sodium Chloride Flush 10 ML SYRINGE 5 ML IVFLUSH ×2 (16:20→20:11)
[2022-09-28 16:28] LABS: Glucose, Whole Blood 165 mg/dL (60-115)
[2022-09-28] MEDS: Insulin Lispro 100 UNIT/ML 3 ML VIAL SUBCUT (16:31)
[2022-09-28 19:47] VITALS: BP 169/80; PULSE 103; RESP 16; TEMP 36.3; O2SAT 99
[2022-09-28 19:57] LABS: Glucose, Whole Blood 141 mg/dL (60-115)
[2022-09-28] MEDS: Gabapentin 100 MG CAPSULE 200 MG PO (20:10)
[2022-09-28] MEDS: Insulin Glargine,Hum.rec.anlog 100 UNIT/ML 10 ML VIAL 35 UNIT SUBCUT (20:10)
[2022-09-29] MEDS: 0.9 % Sodium Chloride 1,000 ML 100 ML IVCONT (02:33)
[2022-09-29] MEDS: Acetaminophen 325 MG TABLET 650 MG PO (02:38)
[2022-09-29 03:43] VITALS: BP 140/71; PULSE 86; RESP 16; TEMP 36.5; O2SAT 98
[2022-09-29 06:31] LABS: Anion Gap 12 (12-20); Blood Urea Nitrogen 31 mg/dL (9-16); Calcium 7.9 mg/dL (8.4-10.2); Carbon Dioxide 24 mmol/L (22-29); Chloride 109 mmol/L (96-108); Creatinine Clr Calc Pharmacy 21.7; Estimated Glomerular Filt Rate 11; Glucose Random 121 mg/dL (60-115); Potassium 4.3 mmol/L (3.3-5.1); Sodium 141 mmol/L (135-145)
[2022-09-29 07:55] LABS: Glucose, Whole Blood 134 mg/dL (60-115)
[2022-09-29 07:59] VITALS: BP 186/90; PULSE 96; RESP 18; TEMP 36.8; O2SAT 94
[2022-09-29] MEDS: Loratadine 10 MG TABLET PO (09:05)
[2022-09-29] MEDS: Heparin Sodium,Porcine 5,000 UNIT/ML VIAL 5000 UNIT SUBCUT ×2 (09:05→15:05)
[2022-09-29] MEDS: Magnesium Oxide 400 MG TABLET PO (09:05)
[2022-09-29] MEDS: amLODIPine Besylate 5 MG TABLET PO (09:05)
[2022-09-29] MEDS: Multivitamin TABLET 1 TAB PO (09:05)
[2022-09-29] MEDS: 0.9 % Sodium Chloride Flush 3 ML SYRINGE IVFLUSH ×3 (09:06→20:40)
[2022-09-29] MEDS: 0.9 % Sodium Chloride Flush 10 ML SYRINGE 5 ML IVFLUSH ×3 (10:43→23:13)
--- NOTE | 2022-09-29 11:19 | P.PNIM_ITS ---
Subjective Subjective Date of Service: 09/29/22 Interval History: no acute changes Physical Exam Vital Signs: Vital Signs: Last Vital Signs Temp 98.3 F 09/29/22 07:59 Pulse 96 09/29/22 07:59 Resp 18 09/29/22 07:59 BP 186/90 H 09/29/22 07:59 Pulse Ox 94 09/29/22 07:59 O2 Del Method 09/29/22 07:59 BMI result Body Mass Index 36.4 Const: General: no acute distress Orientation/consciousness: patient orien claudia x3 Eyes: EOM: EOMs intact bilaterally Neck: Neck: Yes supple Resp: Auscultation: diminished lung sounds Cardio: Rate: regular rate GI: Palpation (GI): Soft to palpation Neuro: General: patient oriented x3 and moves all extremities Objective Data Active Medications Acetaminophen (Acetaminophen 325 Mg Tablet) 650 mg PO Q6H PRN PRN Reason: Pain, Mild (Pain Scale 1-3) Last Admin: 09/29/22 02:38 Dose: 650 mg Documented By: TOBY Amlodipine Besylate (Amlodipine Besylate 5 Mg Tablet) 5 mg PO DAILY [facility]; Protocol Last Admin: 09/29/22 09:05 Dose: 5 mg Documented By: FABRIZIO Fluticasone Propionate (Fluticasone Propionate Nasal 16 Gm [place]) 1 spray NOSTRIL-B DAILY PRN PRN Reason: Nasal Congestion Gabapentin (Gabapentin 100 Mg Capsule) 200 mg PO BEDTIME [facility] Last Admin: 09/28/22 20:10 Dose: 200 mg Documented By: TOBY Glucose (Glucose Gel 15 Gm Gel..Gram.) 15 gm PO Q15M PRN; Protocol PRN Reason: per Hypoglycemia Standing Ord. Heparin Sodium (Porcine) (Heparin Sodium,Porcine 5,000 Unit/Ml Vial) 5,000 unit SUBCUT Q8H [facility] Last Admin: 09/29/22 09:05 Dose: 5,000 unit Documented By: FABRIZIO Dextrose (D10) 250 mls @ 750 mls/hr IV Q15M PRN; Protocol PRN Reason: per Hypoglycemia Standing Ord. Meropenem 500 mg/ Sodium (Chloride) 50 mls @ 200 mls/hr IV Q12H [facility] Last Admin: 09/29/22 10:56 Dose: 200 mls/hr Documented By: SANTI Insulin Glargine (Insulin Glargine,Hum.Rec.Anlog 100 Unit/Ml 10 Ml Vial) 35 unit SUBCUT BEDTIME [facility] Last Admin: 09/28/22 20:10 Dose: 35 unit Documented By: TOBY Insulin Human Lispro (Insulin Lispro 100 Unit/Ml 3 Ml Vial) 0 unit SUBCUT QIDACHS [facility]; Protocol Last Admin: 09/29/22 09:06 Dose: Not Given Documented By: FABRIZIO Non-Admin Reason: No Insulin Coverage Lisinopril (Lisinopril 20 Mg Tablet) 20 mg PO DAILY [facility]; Protocol Last Admin: 09/27/22 08:10 Dose: 20 mg Documented By: JENNIFER Loratadine (Loratadine 10 Mg Tablet) 10 mg PO DAILY [facility] Last Admin: 09/29/22 09:05 Dose: 10 mg Documented By: FABRIZIO Magnesium Oxide (Magnesium Oxide 400 Mg Tablet) 400 mg PO BIDPC [facility] Last Admin: 09/29/22 09:05 Dose: 400 mg Documented By: FABRIZIO Melatonin (Melatonin 3 Mg Tablet) 6 mg PO BEDTIME PRN PRN Reason: Insomnia Multivitamins/Vitamin C (Multivitamin Tablet) 1 tab PO DAILY [facility] Last Admin: 09/29/22 09:05 Dose: 1 tab Documented By: FABRIZIO Ondansetron HCl (Ondansetron Hcl 4 Mg/2 Ml Vial) 4 mg IVPUSH Q6H PRN PRN Reason: nausea Last Admin: 09/27/22 22:46 Dose: 4 mg Documented By: TOBY Pharmacy Consult (Consult Rx Perform Med Rec) 1 each MISCELLANE ONCE PRN PRN Reason: Consult order Senna (Sennosides 8.6 Mg Tablet) 17.2 mg PO BEDTIME PRN PRN Reason: Constipation Sodium Chloride (0.9 % Sodium Chloride Flush 3 Ml Syringe) 3 ml IVFLUSH QSHIFT [facility] Last Admin: 09/29/22 09:06 Dose: 3 ml Documented By: FABRIZIO Sodium Chloride (0.9 % Sodium Chloride Flush 10 Ml Syringe) 5 ml IVFLUSH TID [facility] Last Admin: 09/29/22 10:43 Dose: 5 ml Documented By: FABRIZIO Labs 09/24/22 05:08 09/29/22 05:06 Labs: Laboratory Results - last 24 hr 09/28/22 09/28/22 09/28/22 11:21 16:23 19:51 Anion Gap Estim Creat Clear Calc Estimated GFR POC Glucose 137 H 165 H 141 H Random Glucose Calcium 09/29/22 09/29/22 09/29/22 05:06 05:06 07:34 Anion Gap 12 Estim Creat Clear Calc Cancelled 21.7 Estimated GFR Cancelled 11 POC Glucose 134 H Random Glucose 121 H Calcium 7.9 L Assessment and Plan (1) Acute kidney injury: Status: Acute (2) Osteomyelitis of great toe of right foot: Status: Acute (3) Cellulitis in diabetic foot: Status: Acute Plan 47-year-old male with a past medical history of diabetes, neuropathy presented to the hospital with a chief complaint of right foot ulcer. ELISABETH Cr continues to increase Likely 2/2 Vancomycin toxicity; elevated Vanco trough Nephrology following avoid nephrotoxic meds follow BMP Osteomyelitis 1st Toe 2/2 Diabetic foot wound MRI confirmed osteomyelitis and possible septic joint in 1st toe along with other findings suggestive of developing charcot foot DC vancomycin and Zosyn negative final cultures Vascular surgery. no intervention ID input appreciated, IV Ertapenem for 6 weeks renally adjusted MEropenem dose PICC line placed Pain control Type 2 Diabetes SSI Lantus 35 units Neuropathy Continue home gabapentin DVT prophylaxis Subcu heparin reason for continued hospitalization:close monitoring of renal function Time Spent With Patient Time: Total time managing care of this patient today ____ minutes. Quality Stroke Does the patient have a stroke diagnosis?: No VTE Prior VTE?: No VTE Risk Level:: Medical - moderate - high VTE Device Contraindication: Patient Refused VTE Drug Contraindication: N/A - Med Ordered
[2022-09-29 11:43] LABS: Glucose, Whole Blood 164 mg/dL (60-115)
[2022-09-29] MEDS: Insulin Lispro 100 UNIT/ML 3 ML VIAL SUBCUT (12:12)
--- NOTE | 2022-09-29 12:49 | MHC.CM.PN ---
per rounds no plans for dc today plan remains home with iv antibiotics
--- NOTE | 2022-09-29 13:47 | PM.PNNEP ---
Subjective Subjective Date of Service: 09/29/22 Interval history: No acute changes. All recent data reviewed Physical Exam Vital Signs: Vital Signs: Last Vital Signs Temp 98.3 F 09/29/22 07:59 Pulse 96 09/29/22 07:59 Resp 18 09/29/22 07:59 BP 186/90 H 09/29/22 07:59 Pulse Ox 94 09/29/22 07:59 O2 Del Method 09/29/22 07:59 BMI result Body Mass Index 36.4 Const: General: no acute distress Orientation/consciousness: patient oriented x3 Eyes: EOM: EOMs intact bilaterally Neck: Neck: Yes supple Resp: Auscultation: diminished lung sounds Cardio: Rate: regular rate GI: Palpation (GI): Soft to palpation Neuro: General: patient oriented x3 Objective Data Labs 09/24/22 05:08 09/29/22 05:06 Labs: Laboratory Results - last 24 hr 09/28/22 09/28/22 09/29/22 16:23 19:51 05:06 Sodium Potassium Chloride Carbon Dioxide Anion Gap BUN Creatinine Cancelled Estim Creat Clear Calc Cancelled Estimated GFR Cancelled POC Glucose 165 H 141 H Random Glucose Calcium 09/29/22 09/29/22 09/29/22 05:06 07:34 11:35 Sodium 141 Potassium 4.3 Chloride 109 H Carbon Dioxide 24 Anion Gap 12 BUN 31 H Creatinine 5.55 H* Estim Creat Clear Calc 21.7 Estimated GFR 11 POC Glucose 134 H 164 H Random Glucose 121 H Calcium 7.9 L Microbiology Microbiology Results: Microbiology 09/22/22 21:15 Blood - Venous Blood Culture - Final No growth after 5 days. 09/22/22 20:53 Blood - Venous Blood Culture - Final No growth after 5 days. Procedures Date of Service Date of Service: 09/29/22 Assessment & Plan Assessment and plan (1) Acute kidney injury: Status: Acute Assessment and Plan: Acute Kidney Injury due to tubular injury ( likely from Vanco toxicity ) DDx- ayde infectious GN C3/C4 pending Off Vanco now; On Ertanepenem No indication for renal replacement/ renal biopsy yet Has a PICC line; Labs AM Continue rest of current supp care Time Spent With Patient Time: Total time managing care of this patient today ____ minutes. Progress Note: Quality Stroke Does the patient have a stroke diagnosis?: No
[2022-09-29 15:00] VITALS: BP 186/90; PULSE 96; RESP 19; TEMP 36.7; O2SAT 94
[2022-09-29 16:30] LABS: Glucose, Whole Blood 134 mg/dL (60-115)
[2022-09-29 19:56] VITALS: BP 127/87; PULSE 96; RESP 18; TEMP 37.1; O2SAT 91
[2022-09-29 20:29] LABS: Glucose, Whole Blood 150 mg/dL (60-115)
[2022-09-29] MEDS: Insulin Glargine,Hum.rec.anlog 100 UNIT/ML 10 ML VIAL 35 UNIT SUBCUT (20:37)
[2022-09-29] MEDS: Gabapentin 100 MG CAPSULE 200 MG PO (20:37)
[2022-09-30 03:50] VITALS: BP 156/86; PULSE 77; RESP 18; TEMP 36.5; O2SAT 99
[2022-09-30 06:33] LABS: Hematocrit 28.1 % (42.0-52.0); Hemoglobin 9.7 g/dl (14.0-18.0); Mean Corpuscular HGB Conc 34.5 g/dl (31.0-36.0); Mean Corpuscular Hemoglobin 31.9 pg (27.0-33.0); Mean Corpuscular Volume 92.4 fL (80.0-98.0); Mean Platelet Volume 10.6 fL (9.4-12.4); Platelet Count 242 X10*3/uL (160-400); Red Blood Count 3.04 X10*6/uL (4.60-5.80); Red Cell Distribution Width 11.9 % (11.0-16.0); White Blood Count 12.1 X10*3/uL (4.8-10.8)
[2022-09-30 07:08] LABS: Anion Gap 16 (12-20); Blood Urea Nitrogen 35 mg/dL (9-16); Calcium 8.4 mg/dL (8.4-10.2); Carbon Dioxide 21 mmol/L (22-29); Chloride 107 mmol/L (96-108); Creatinine Clr Calc Pharmacy 20.7; Estimated Glomerular Filt Rate 10; Glucose Fasting 96 mg/dL (60-99); Potassium 4.1 mmol/L (3.3-5.1); Sodium 140 mmol/L (135-145)
[2022-09-30 07:53] LABS: Glucose, Whole Blood 94 mg/dL (60-115)
[2022-09-30 08:00] VITALS: BP 185/88; PULSE 94; RESP 18; TEMP 37.1; O2SAT 94
--- NOTE | 2022-09-30 08:26 | P.PNIM_ITS ---
Subjective Subjective Date of Service: 09/30/22 Interval History: no acute changes Physical Exam Vital Signs: Vital Signs: Last Vital Signs Temp 98.8 F 09/30/22 08:00 Pulse 94 09/30/22 08:00 Resp 18 09/30/22 08:00 BP 185/88 H 09/30/22 08:00 Pulse Ox 94 09/30/22 08:00 O2 Del Method 09/30/22 08:00 BMI result Body Mass Index 36.4 Const: General: no acute distress Orientation/consciousness: patient orien claudia x3 Eyes: EOM: EOMs intact bilaterally Neck: Neck: Yes supple Resp: Auscultation: diminished lung sounds Cardio: Rate: regular rate GI: Palpation (GI): Soft to palpation Neuro: General: patient oriented x3 Objective Data Active Medications Acetaminophen (Acetaminophen 325 Mg Tablet) 650 mg PO Q6H PRN PRN Reason: Pain, Mild (Pain Scale 1-3) Last Admin: 09/29/22 02:38 Dose: 650 mg Documented By: TOBY Amlodipine Besylate (Amlodipine Besylate 10 Mg Tablet) 10 mg PO DAILY [facility]; Protocol Fluticasone Propionate (Fluticasone Propionate Nasal 16 Gm [place]) 1 spray NOSTRIL-B DAILY PRN PRN Reason: Nasal Congestion Gabapentin (Gabapentin 100 Mg Capsule) 200 mg PO BEDTIME [facility] Last Admin: 09/29/22 20:37 Dose: 200 mg Documented By: MALACHI Glucose (Glucose Gel 15 Gm Gel..Gram.) 15 gm PO Q15M PRN; Protocol PRN Reason: per Hypoglycemia Standing Ord. Heparin Sodium (Porcine) (Heparin Sodium,Porcine 5,000 Unit/Ml Vial) 5,000 unit SUBCUT Q8H [facility] Last Admin: 09/29/22 23:18 Dose: Not Given Documented By: MALACHI Non-Admin Reason: Patient Refused Dextrose (D10) 250 mls @ 750 mls/hr IV Q15M PRN; Protocol PRN Reason: per Hypoglycemia Standing Ord. Meropenem 500 mg/ Sodium (Chloride) 50 mls @ 200 mls/hr IV Q12H [facility] Last Infusion: 09/29/22 23:53 Dose: 0 mls/hr Documented By: MALACHI Insulin Glargine (Insulin Glargine,Hum.Rec.Anlog 100 Unit/Ml 10 Ml Vial) 35 unit SUBCUT BEDTIME [facility] Last Admin: 09/29/22 20:37 Dose: 35 unit Documented By: MALACHI Insulin Human Lispro (Insulin Lispro 100 Unit/Ml 3 Ml Vial) 0 unit SUBCUT QIDACHS [facility]; Protocol Last Admin: 09/30/22 07:56 Dose: Not Given Documented By: DENIS Non-Admin Reason: No Insulin Coverage Lisinopril (Lisinopril 20 Mg Tablet) 20 mg PO DAILY [facility]; Protocol Last Admin: 09/27/22 08:10 Dose: 20 mg Documented By: JENNIFER Loratadine (Loratadine 10 Mg Tablet) 10 mg PO DAILY [facility] Last Admin: 09/29/22 09:05 Dose: 10 mg Documented By: FABRIZIO Magnesium Oxide (Magnesium Oxide 400 Mg Tablet) 400 mg PO BIDPC [facility] Last Admin: 09/29/22 18:36 Dose: Not Given Documented By: FABRIZIO Non-Admin Reason: Patient Refused Melatonin (Melatonin 3 Mg Tablet) 6 mg PO BEDTIME PRN PRN Reason: Insomnia Multivitamins/Vitamin C (Multivitamin Tablet) 1 tab PO DAILY [facility] Last Admin: 09/29/22 09:05 Dose: 1 tab Documented By: FABRIZIO Ondansetron HCl (Ondansetron Hcl 4 Mg/2 Ml Vial) 4 mg IVPUSH Q6H PRN PRN Reason: nausea Last Admin: 09/27/22 22:46 Dose: 4 mg Documented By: TOBY Pharmacy Consult (Consult Rx Perform Med Rec) 1 each MISCELLANE ONCE PRN PRN Reason: Consult order Senna (Sennosides 8.6 Mg Tablet) 17.2 mg PO BEDTIME PRN PRN Reason: Constipation Sodium Chloride (0.9 % Sodium Chloride Flush 3 Ml Syringe) 3 ml IVFLUSH QSHIFT [facility] Last Admin: 09/29/22 20:40 Dose: 3 ml Documented By: MALACHI Sodium Chloride (0.9 % Sodium Chloride Flush 10 Ml Syringe) 5 ml IVFLUSH TID [facility] Last Admin: 09/29/22 23:13 Dose: 5 ml Documented By: MALACHI Labs 09/30/22 05:04 09/30/22 05:04 Labs: Laboratory Results - last 24 hr 09/29/22 09/29/22 09/29/22 11:35 16:20 20:02 MCV MCH MCHC RDW Plt Count MPV Absolute Nucleated RBC Nucleated RBC % (auto) Anion Gap Estim Creat Clear Calc Estimated GFR POC Glucose 164 H 134 H 150 H Fasting Glucose Calcium 09/30/22 09/30/22 09/30/22 05:04 05:04 07:31 MCV 92.4 MCH 31.9 MCHC 34.5 RDW 11.9 Plt Count 242 MPV 10.6 Absolute Nucleated RBC 0.000 Nucleated RBC % (auto) 0.0 Anion Gap 16 Estim Creat Clear Calc 20.7 Estimated GFR 10 POC Glucose 94 Fasting Glucose 96 Calcium 8.4 D Assessment and Plan (1) Acute kidney injury: Status: Acute (2) Osteomyelitis of great toe of right foot: Status: Acute (3) Cellulitis in diabetic foot: Status: Acute Plan 47-year-old male with a past medical history of diabetes, neuropathy presented to the hospital with a chief complaint of right foot ulcer. ELISABETH Cr continues to increase Likely 2/2 Vancomycin toxicity; elevated Vanco trough Nephrology following avoid nephrotoxic meds follow BMP non oliguric Osteomyelitis 1st Toe 2/2 Diabetic foot wound MRI confirmed osteomyelitis and possible septic joint in 1st toe along with other findings suggestive of developing charcot foot DC vancomycin and Zosyn negative final cultures Vascular surgery. no intervention ID input appreciated, IV Ertapenem for 6 weeks (october) renally adjusted MEropenem dose PICC line placed Pain control Type 2 Diabetes SSI Lantus 35 units Neuropathy Continue home gabapentin DVT prophylaxis Subcu heparin reason for continued hospitalization:close monitoring of renal function Time Spent With Patient Time: Total time managing care of this patient today ____ minutes. Quality Stroke Does the patient have a stroke diagnosis?: No VTE Prior VTE?: No VTE Risk Level:: Medical - moderate - high VTE Device Contraindication: Patient Refused VTE Drug Contraindication: N/A - Med Ordered
[2022-09-30 09:28] LABS: Complement C3 123 mg/dL (82-185)
[2022-09-30] MEDS: Magnesium Oxide 400 MG TABLET PO ×2 (09:40→18:41)
[2022-09-30] MEDS: amLODIPine Besylate 10 MG TABLET PO (09:40)
[2022-09-30] MEDS: 0.9 % Sodium Chloride Flush 3 ML SYRINGE IVFLUSH ×2 (09:40→16:00)
[2022-09-30] MEDS: Heparin Sodium,Porcine 5,000 UNIT/ML VIAL 5000 UNIT SUBCUT (09:40)
[2022-09-30] MEDS: Multivitamin TABLET 1 TAB PO (09:40)
[2022-09-30] MEDS: Loratadine 10 MG TABLET PO (09:40)
[2022-09-30] MEDS: Acetaminophen 325 MG TABLET 650 MG PO (09:48)
[2022-09-30] MEDS: 0.9 % Sodium Chloride Flush 10 ML SYRINGE 5 ML IVFLUSH ×2 (09:52→20:14)
[2022-09-30 11:37] LABS: Glucose, Whole Blood 137 mg/dL (60-115)
--- NOTE | 2022-09-30 13:25 | PM.PNNEP ---
Subjective Subjective Date of Service: 09/30/22 Interval history: no acute changes. Wants to go home Physical Exam Vital Signs: Vital Signs: Last Vital Signs Temp 98.8 F 09/30/22 08:00 Pulse 94 09/30/22 08:00 Resp 18 09/30/22 08:00 BP 185/88 H 09/30/22 08:00 Pulse Ox 94 09/30/22 08:00 O2 Del Method 09/30/22 08:00 BMI result Body Mass Index 36.4 Const: General: no acute distress Orientation/consciousness: patient oriented x3 Eyes: EOM: EOMs intact bilaterally Neck: Neck: Yes supple Resp: Auscultation: diminished lung sounds Cardio: Rate: regular rate GI: Palpation (GI): Soft to palpation Neuro: General: patient oriented x3 and moves all extremities Objective Data Labs 09/30/22 05:04 09/30/22 05:04 Labs: Laboratory Results - last 24 hr 09/29/22 09/29/22 09/29/22 05:06 16:20 20:02 WBC RBC Hgb Hct MCV MCH MCHC RDW Plt Count MPV Absolute Nucleated RBC Nucleated RBC % (auto) Sodium Potassium Chloride Carbon Dioxide Anion Gap BUN Creatinine Estim Creat Clear Calc Estimated GFR POC Glucose 134 H 150 H Fasting Glucose Calcium Complement C3 123 Complement C4 30 09/30/22 09/30/22 09/30/22 05:04 05:04 07:31 WBC 12.1 H RBC 3.04 L Hgb 9.7 L Hct 28.1 L MCV 92.4 MCH 31.9 MCHC 34.5 RDW 11.9 Plt Count 242 MPV 10.6 Absolute Nucleated RBC 0.000 Nucleated RBC % (auto) 0.0 Sodium 140 Potassium 4.1 Chloride 107 Carbon Dioxide 21 L Anion Gap 16 BUN 35 H Creatinine 5.84 H* Estim Creat Clear Calc 20.7 Estimated GFR 10 POC Glucose 94 Fasting Glucose 96 Calcium 8.4 D Complement C3 Complement C4 09/30/22 11:29 WBC RBC Hgb Hct MCV MCH MCHC RDW Plt Count MPV Absolute Nucleated RBC Nucleated RBC % (auto) Sodium Potassium Chloride Carbon Dioxide Anion Gap BUN Creatinine Estim Creat Clear Calc Estimated GFR POC Glucose 137 H Fasting Glucose Calcium Complement C3 Complement C4 Microbiology Microbiology Results: Microbiology 09/22/22 21:15 Blood - Venous Blood Culture - Final No growth after 5 days. 09/22/22 20:53 Blood - Venous Blood Culture - Final No growth after 5 days. Procedures Date of Service Date of Service: 09/30/22 Assessment & Plan Assessment and plan (1) Acute kidney injury: Status: Acute Assessment and Plan: Acute Kidney Injury due to tubular injury ( likely from Vanco toxicity ) DDx- ayde infectious GN- Ruled out as-- C3/C4 normal Off Vanco now; On Ertanepenem No indication for renal replacement/ renal biopsy yet Has a PICC line; Labs AM Continue rest of current supp care Progress Note: Quality Stroke Does the patient have a stroke diagnosis?: No
--- NOTE | 2022-09-30 14:45 | MHC.CM.PN ---
CM CALLED [facility] TO INQUIRE IF NEW PROVIDER WOULD BE WILLING TO SIGN VNA ORDERS THOUGH PT HAS NOT BEEN SEEN YET. PROVIDER [facility] IS AGREEABLE PER OFFICE NURSE BELÉN SÁNCHEZ. [facility] NOTIFIED. [facility] NOTIFIED. CM WILL CONTINUE TO FOLLOW.
[2022-09-30 16:00] VITALS: BP 211/109; PULSE 103; RESP 18; TEMP 36.8; O2SAT 95
--- NOTE | 2022-09-30 16:07 | PC.NURSE ---
Patient is very upset and angry ,stating he wants to leave this hospital,Dr. Naranjo notified.
--- NOTE | 2022-09-30 16:34 | PC.NURSE ---
is seeing patient
[2022-09-30 17:03] LABS: Glucose, Whole Blood 101 mg/dL (60-115)
[2022-09-30 20:00] VITALS: PULSE 101; RESP 18; TEMP 37.4; O2SAT 92
[2022-09-30] MEDS: Gabapentin 100 MG CAPSULE 200 MG PO (20:12)
[2022-09-30] MEDS: Insulin Glargine,Hum.rec.anlog 100 UNIT/ML 10 ML VIAL 35 UNIT SUBCUT (20:22)
[2022-09-30 20:34] LABS: Glucose, Whole Blood 104 mg/dL (60-115)
--- NOTE | 2022-09-30 22:14 | PC.NURSE ---
Patient anxious at times,refused antibiotic a few times but did agree later to be administered.
[2022-10-01 00:02] VITALS: BP 139/85; PULSE 96; TEMP 37.4; O2SAT 94
--- NOTE | 2022-10-01 00:05 | PC.NURSE ---
Patient refused BP check earlier
[2022-10-01] MEDS: Heparin Sodium,Porcine 5,000 UNIT/ML VIAL 5000 UNIT SUBCUT (00:06)
[2022-10-01] MEDS: 0.9 % Sodium Chloride Flush 3 ML SYRINGE IVFLUSH ×2 (00:07→09:11)
[2022-10-01 04:00] VITALS: BP 147/76; PULSE 84; RESP 16; TEMP 36.8; O2SAT 99
[2022-10-01 07:37] LABS: Glucose, Whole Blood 59 mg/dL (60-115)
[2022-10-01 07:39] LABS: Anion Gap 13 (12-20); Blood Urea Nitrogen 40 mg/dL (9-16); Calcium 8.2 mg/dL (8.4-10.2); Carbon Dioxide 23 mmol/L (22-29); Chloride 105 mmol/L (96-108); Creatinine Clr Calc Pharmacy 21.6; Estimated Glomerular Filt Rate 11; Glucose Fasting 65 mg/dL (60-99); Potassium 4.4 mmol/L (3.3-5.1); Sodium 137 mmol/L (135-145)
--- NOTE | 2022-10-01 08:20 | PM.DS ---
DS: Providers Provider Date of Service: 10/01/22 Date of admission: 09/22/22 23:17 Primary care physician: [facility] Consults: 09/22/22 23:22 Consult to Infectious Diseases Routine Consulting Provider: [facility] Infectious Disease Reason for consultation: DM foot ulcer Consult to Vascular Surgery Routine Consulting Provider: [facility] Vascular Services Reason for consultation: DM foot ulcer 09/27/22 08:32 Consult to Nephrology Routine Consulting Provider: Fish Gurrola Reason for consultation: ELISABETH, Abx induced for eval and rec DS: Diagnosis Discharge Diagnosis (1) Acute kidney injury: Status: Acute DS: Summary Hospital Course Hospital Course: from initial hpi: Chief Complaint: Foot ulcer 47-year-old male with a past medical history of diabetes, neuropathy presented to the hospital today with a chief complaint of right foot ulcer.? Patient mentioned that for the past 1 week he has been having pain and swelling; started to have slowly cause pain while ambulating; and the past 2 days has increased pain and the tip of the right foot it he has an opening with serosanguineous discharge; and the severe pain causing him limited ambulation hence presented to the ER for further evaluation.? Denies any fevers.? Denies any chest pain palpitations lightheadedness or dizziness.? Denies any nausea vomiting or diarrhea.? Denies any urinary symptoms.? Denies having any ulcers in the recent times; recurrent ulcer started as swelling and slowly opened up causing serosanguineous discharge.? Review of all other systems is negative except mentioned above ER course: Per ER team, patient noted to have right foot ulcer; no pus noted; x-rays negative for any signs of osteomyelitis; given antibiotics.? Admitted to the hospital for further management. hospital course: Patient was admitted for osteomyelitis due to diabetes and diabetic foot wound of the 1st toe of the right foot. He was treated with vancomycin and Zosyn. Was seen by vascular surgery recommended no further intervention. Was seen by infectious disease recommended 6 weeks of IV antibiotics to be completed 11/02/2022. PICC line was placed. Course was then complicated by acute kidney injury, likely acute tubular necrosis due to vancomycin toxicity. Vancomycin and Zosyn were discontinued and changed to meropenem. Creatinine peaked at 5.8 and appears to have plateaued and slightly improving, it is 5.5 at discharge. For patient's diabetes he was treated with basal bolus insulin. For neuropathy was treated with gabapentin. For obesity weight loss is recommended. Patient will be discharged home to complete antibiotic course. He will follow closely with Nephrology and primary care physician. Time Spent with Patient Time attestation: Total time managing care of this patient today ____ minutes. Discharge coordination time: Greater than 30 minutes Quality: Safe Use of Opioids Does Pt have an Active Cancer Diagnosis on the Problem List?: No Quality: Stroke Does the patient have a stroke diagnosis?: No Physical Exam Vital Signs: Vital Signs: Last Vital Signs Temp 98.2 F 10/01/22 04:00 Pulse 84 10/01/22 04:00 Resp 16 10/01/22 04:00 BP 147/76 H 10/01/22 04:00 Pulse Ox 99 10/01/22 04:00 O2 Del Method 10/01/22 04:00 BMI result Body Mass Index 36.4 Const: General: no acute distress Orientation/consciousness: patient oriented x3 Eyes: EOM: EOMs intact bilaterally Neck: Neck: Yes supple Resp: Auscultation: diminished lung sounds Cardio: Rate: regular rate GI: Palpation (GI): Soft to palpation Neuro: General: patient oriented x3 and moves all extremities DS: Data Data Completed and Pending Labs on day of discharge: Laboratory Results - last 24 hr 09/29/22 09/30/22 09/30/22 05:06 11:29 16:59 Sodium Potassium Chloride Carbon Dioxide Anion Gap BUN Creatinine Estim Creat Clear Calc Estimated GFR POC Glucose 137 H 101 Fasting Glucose Calcium Complement C3 123 Complement C4 30 09/30/22 10/01/22 10/01/22 20:16 05:58 07:24 Sodium 137 Potassium 4.4 Chloride 105 Carbon Dioxide 23 Anion Gap 13 BUN 40 H Creatinine 5.58 H* Estim Creat Clear Calc 21.6 Estimated GFR 11 POC Glucose 104 59 L* Fasting Glucose 65 Calcium 8.2 L Complement C3 Complement C4 Discharge Plan Discharge Anticipated Discharge Date/Time: 10/01/22 08:16 Patient Disposition: Home Health Service Discharge Diagnosis: DFU, ELISABETH Referrals: [facility] [Primary Care Provider] - 1 Week Fish Gurrola MD [Physician] - 1 Week Discharge Medications: New amlodipine 10 mg Tablet 10 mg PO DAILY Qty: 30 0RF Protocol: Hold for SBP< HOLD for SBP < : 90 ertapenem 1 gram recon soln 500 mg IV DAILY 42 Days Qty: 10 0RF Rx Instructions: end november 02, 2022 Continued cetirizine 10 mg tablet 1 tab PO DAILY glucose 4 gram tablet,chewable 4 g PO DIRECTED PRN (Reason: blood sugar <70) gabapentin 100 mg capsule 2 cap PO BEDTIME fluticasone propionate 50 mcg/actuation spray,suspension 1 spray intranasal DAILY PRN (Reason: Nasal Congestion) Levemir FlexTouch U-100 Insuln 100 unit/mL (3 mL) insulin pen 42 unit subcut BEDTIME multivitamin Tablet 1 tab PO DAILY lisinopril 20 mg Tablet 20 mg PO DAILY Trulicity 0.75 mg/0.5 mL pen injector 0.75 mg subcut [place] Discharge Orders: Discharge Order (Routine); Ordered 10/01/22 Ordered By: Adi Naranjo Diet: Diabetic diet Activity on Discharge: As tolerated Stand Alone Forms: Patient Portal Discharge page, Work/School Release Care Plan Goals: recovery Health Concerns: DFU/OM, ELISABETH Plan of Treatment: 6 weeks of antibiotics (end november 02, 2022), dose may need to be adjusted as kidney function improves, monitor labs weekly, follow up with kidney doctor and pcp Assessment: see above
--- NOTE | 2022-10-01 08:30 | MHC.CM.PN ---
DP: PT HAS BEEN MEDICALLY CLEARED FOR DC HOME WITH NEW [facility] AND [facility] FOR IV SUPPORT. RN AWARE. PT HAS OWN RIDE HOME.
--- NOTE | 2022-10-01 08:58 | W.MHC.F2F ---
Service Date Service Date: 10/01/22 Encounter Date of encounter: 10/01/22 Reasons for Services Signs and symptoms assessed: difficulty ambulating Reason for fpc: wound care (DSD to right DFU), medication management and medication treatment Homebound: Leaving the home is medically contraindicated at this time without the asist of a device and/or another person due th the listed conditions above and below. Reason homebound: unsteady gait / fall risk Certification: Based on the above findings, I certify that this patient is confined to the home and needs intermittent fpc care, physical therapy and/or speech therapy, or continues to need occupational therapy. The patient is under my care, and I have initiated the establishment of the plan of care. The patient will be followed by a physician who will periodically review the plan of care. Time Spent With Patient Time: Total time managing care of this patient today ____ minutes.
[2022-10-01] MEDS: Ertapenem Sodium 0.5 GM in 0.9 % Sodium Chloride 50 ML IV (09:04)
[2022-10-01] MEDS: amLODIPine Besylate 10 MG TABLET PO (09:10)
[2022-10-01] MEDS: Multivitamin TABLET 1 TAB PO (09:10)
[2022-10-01] MEDS: Loratadine 10 MG TABLET PO (09:10)
[2022-10-01] MEDS: Magnesium Oxide 400 MG TABLET PO (09:11)
[2022-10-01] MEDS: 0.9 % Sodium Chloride Flush 10 ML SYRINGE 5 ML IVFLUSH (09:11)
--- NOTE | 2022-10-01 10:52 | PM.PNNEP ---
Subjective Subjective Date of Service: 10/01/22 Interval history: no acute changes. Wants to go home Physical Exam Vital Signs: Vital Signs: Last Vital Signs Temp 98.2 F 10/01/22 04:00 Pulse 84 10/01/22 04:00 Resp 16 10/01/22 04:00 BP 147/76 H 10/01/22 04:00 Pulse Ox 99 10/01/22 04:00 O2 Del Method 10/01/22 04:00 BMI result Body Mass Index 36.4 Const: General: no acute distress Orientation/consciousness: patient oriented x3 Eyes: EOM: EOMs intact bilaterally Neck: Neck: Yes supple Resp: Auscultation: diminished lung sounds Cardio: Rate: regular rate GI: Palpation (GI): Soft to palpation Neuro: General: patient oriented x3 and moves all extremities Objective Data Labs 09/30/22 05:04 10/01/22 05:58 Labs: Laboratory Results - last 24 hr 09/30/22 09/30/22 09/30/22 11:29 16:59 20:16 Sodium Potassium Chloride Carbon Dioxide Anion Gap BUN Creatinine Estim Creat Clear Calc Estimated GFR POC Glucose 137 H 101 104 Fasting Glucose Calcium 10/01/22 10/01/22 05:58 07:24 Sodium 137 Potassium 4.4 Chloride 105 Carbon Dioxide 23 Anion Gap 13 BUN 40 H Creatinine 5.58 H* Estim Creat Clear Calc 21.6 Estimated GFR 11 POC Glucose 59 L* Fasting Glucose 65 Calcium 8.2 L Microbiology Microbiology Results: Microbiology 09/22/22 21:15 Blood - Venous Blood Culture - Final No growth after 5 days. 09/22/22 20:53 Blood - Venous Blood Culture - Final No growth after 5 days. Procedures Date of Service Date of Service: 10/01/22 Assessment & Plan Assessment and plan (1) Acute kidney injury: Status: Acute Assessment and Plan: Acute Kidney Injury due to tubular injury ( likely from Vanco toxicity ) DDx- ayde infectious GN- Was Ruled out as-- C3/C4 normal Off Vanco now; On Ertanepenem No indication for renal replacement/ renal biopsy Has a PICC line Continue rest of current supp care Shall arrange F/U in office soon Time Spent With Patient Time: Total time managing care of this patient today ____ minutes. Progress Note: Quality Stroke Does the patient have a stroke diagnosis?: No
== END 2022-10-01 11:21 | disposition home health service (06) | DRG 344 ==
LOC: HO.ED 22:26 → HO.EDOVER 23:23 → HO.S3 23:32
PROVIDERS: Internal Medicine Nephrology; Physician Assistant; Student in an Organized Health Care Education/Training Program; Admitting Provider Hospitalist; Emergency Provider Emergency Medicine; Visit Provider Internal Medicine
DX: E11.621 Type 2 diabetes mellitus with foot ulcer (principal); M86.171 Other acute osteomyelitis, right ankle and foot; N17.0 Acute kidney failure with tubular necrosis; E11.40 Type 2 diabetes mellitus with diabetic neuropathy, unspecified; L03.115 Cellulitis of right lower limb; L97.519 Non-pressure chronic ulcer of other part of right foot with unspecified severity; N14.19 Nephropathy induced by other drugs, medicaments and biological substances; E11.628 Type 2 diabetes mellitus with other skin complications; T36.8X5A Adverse effect of other systemic antibiotics, initial encounter; Z20.822 Contact with and (suspected) exposure to COVID-19; Z79.4 Long term (current) use of insulin; Z88.8 Allergy status to other drugs, medicaments and biological substances; Z79.51 Long term (current) use of inhaled steroids; Z79.899 Other long term (current) drug therapy
CPT/HCPCS: 36415; 36573; 73630; 73720; 80048; 80076; 80202; 81001; 81003; 82565; 82947; 83605; 83735; 85025; 85027; 85652; 86140; 86160; 87040; 87635; 89190; 99285; A9585; C1751; J0696; J1335; J1643; J2185; J2405; J2543; J3370; J3371; J3475

== ENCOUNTER 2022-10-05 13:23 | Outpatient (REF) | payer MEDICAID, SELFPAY ==
[2022-10-05 13:26] LABS: MANUAL DIFF FLAG NO
[2022-10-05 13:31] LABS: Basophils Absolute Auto 0.1 X10*3/uL (0.0-0.2); Basophils Percent Auto 0.7 % (0-2); Eosinophils Absolute Auto 0.4 X10*3/uL (0.0-0.4); Eosinophils Percent Auto 3.3 % (0-4); Hematocrit 31.5 % (42.0-52.0); Hemoglobin 10.9 g/dl (14.0-18.0); Imm Gran Abs Auto 0.03 X10*3/uL (0.00-0.03); Imm Gran Pct Auto 0.2 % (0.0-0.4); Lymphocytes Absolute Auto 3.1 X10*3/uL (1.2-4.9); Lymphocytes Percent Auto 24.9 % (20-40); Mean Corpuscular HGB Conc 34.6 g/dl (31.0-36.0); Mean Corpuscular Hemoglobin 31.8 pg (27.0-33.0); Mean Corpuscular Volume 91.8 fL (80.0-98.0); Mean Platelet Volume 9.9 fL (9.4-12.4); Monocytes Absolute Auto 0.8 X10*3/uL (0.1-1.2); Monocytes Percent Auto 6.4 % (2-11); Neutrophils Absolute Auto 7.9 x10*3/uL (2.0-8.3); Neutrophils Percent Auto 64.5 % (45-73); Platelet Count 372 X10*3/uL (160-400); Red Blood Count 3.43 X10*6/uL (4.60-5.80); Red Cell Distribution Width 11.4 % (11.0-16.0); White Blood Count 12.3 X10*3/uL (4.8-10.8)
[2022-10-05 14:35] LABS: Alanine Aminotransferase 17 U/L (0-40); Albumin Level 3.6 g/dL (3.5-5.0); Alkaline Phosphatase 101 U/L (39-117); Anion Gap 14 (12-20); Aspartate Amino Transferase 16 U/L (5-37); Bilirubin Total 0.5 mg/dL (0.0-1.0); Blood Urea Nitrogen 30 mg/dL (9-16); Calcium 8.6 mg/dL (8.4-10.2); Carbon Dioxide 29 mmol/L (22-29); Chloride 104 mmol/L (96-108); Estimated Glomerular Filt Rate 18; Glucose Random 93 mg/dL (60-115); Potassium 5.3 mmol/L (3.3-5.1); Sodium 142 mmol/L (135-145); Total Protein 6.9 g/dL (6.5-8.0)
== END 2022-10-05 13:24 | disposition home or self-care (01) ==
LOC: HO.HVNA 13:23
PROVIDERS: Visit Provider Internal Medicine
DX: E11.621 Type 2 diabetes mellitus with foot ulcer (principal); L97.509 Non-pressure chronic ulcer of other part of unspecified foot with unspecified severity
CPT/HCPCS: 80053; 85025

== ENCOUNTER 2022-10-13 15:17 | Outpatient (REF) | payer MEDICAID, SELFPAY ==
[2022-10-13 15:20] LABS: MANUAL DIFF FLAG NO
[2022-10-13 15:24] LABS: Basophils Absolute Auto 0.1 X10*3/uL (0.0-0.2); Basophils Percent Auto 0.3 % (0-2); Eosinophils Absolute Auto 0.1 X10*3/uL (0.0-0.4); Eosinophils Percent Auto 0.4 % (0-4); Hemoglobin 11.9 g/dl (14.0-18.0); Imm Gran Abs Auto 0.13 X10*3/uL (0.00-0.03); Imm Gran Pct Auto 0.6 % (0.0-0.4); Lymphocytes Absolute Auto 3.1 X10*3/uL (1.2-4.9); Lymphocytes Percent Auto 13.1 % (20-40); Mean Corpuscular HGB Conc 36.1 g/dl (31.0-36.0); Mean Corpuscular Hemoglobin 31.5 pg (27.0-33.0); Mean Corpuscular Volume 87.3 fL (80.0-98.0); Mean Platelet Volume 10.2 fL (9.4-12.4); Monocytes Absolute Auto 1.2 X10*3/uL (0.1-1.2); Monocytes Percent Auto 4.9 % (2-11); Neutrophils Absolute Auto 19.1 x10*3/uL (2.0-8.3); Neutrophils Percent Auto 80.7 % (45-73); Platelet Count 319 X10*3/uL (160-400); Red Blood Count 3.78 X10*6/uL (4.60-5.80); Red Cell Distribution Width 10.8 % (11.0-16.0); White Blood Count 23.6 X10*3/uL (4.8-10.8)
[2022-10-13 15:38] LABS: Anion Gap 17 (12-20); Blood Urea Nitrogen 14 mg/dL (9-16); Calcium 8.8 mg/dL (8.4-10.2); Carbon Dioxide 23 mmol/L (22-29); Chloride 99 mmol/L (96-108); Estimated Glomerular Filt Rate 36; Glucose Random 170 mg/dL (60-115); Potassium 4.3 mmol/L (3.3-5.1); Sodium 135 mmol/L (135-145)
== END 2022-10-13 15:18 | disposition home or self-care (01) ==
LOC: HO.HVNA 15:17
PROVIDERS: Visit Provider Internal Medicine
DX: L03.115 Cellulitis of right lower limb (principal)
CPT/HCPCS: 36415; 80048; 85025

== ENCOUNTER 2022-10-20 14:08 | Emergency (ER) | payer MEDICAID, SELFPAY ==
--- NOTE | ~2022-10-20 | IR_ITS ---
EXAMINATION: IR CVC REPLACEMENT NON-TUNNELED CATHETER CLINICAL INFORMATION: Cracked PICC line. COMPARISON: None available. TECHNIQUE: Procedure and risks and benefits including bleeding, infection and blood clot were discussed with the patient and informed consent was obtained. All elements of maximal sterile barrier technique followed including use of cap, mask, sterile gown, sterile gloves, a sterile full body drape and hand hygiene. Also followed skin preparation with 2% chlorhexidine for cutaneous antisepsis, and sterile ultrasound preparation with sterile gel and probe cover when applicable. The right upper arm and existing PICC line were prepped and draped in the usual sterile fashion. An 0.018 wire was advanced through the existing PICC line into the IVC. The existing PICC line was removed. Through a peel-away sheath, a new 4 Martiniquais single lumen PICC line was positioned. Catheter length is 41 cm. Catheter tip is in the SVC. FLUOROSCOPIC IMAGES SAVED: 1 saved fluoroscopic image. FLUOROSCOPY TIME: 0.6 minutes. DAP: 242 cGy-cm2 FINDINGS: There is a right upper extremity PICC line with tip projecting over the SVC. IR/IR cvc replace non tunneled IMPRESSION: Right upper extremity PICC line exchange.
[2022-10-20 14:22] VITALS: BP 165/92; PULSE 102; RESP 18; TEMP 36.8; O2SAT 97; BMI 38.5
--- NOTE | 2022-10-20 14:23 | ED_ITS ---
HPI - General Adult General Chief complaint: General Medical Stated complaint: cracked pick line Time Seen by Provider: 10/20/22 14:29 Source: patient Mode of arrival: ambulatory Limitations: no limitations History of Present Illness HPI narrative: 47 yo male with osteomyelitis of the right great toe on IV ertapenum via right upper extremity PICC line who presents to the ER for evaluation of a bleeding PICC line that that started today when his visiting nurse was at the house. He reports the line was working fine last night when he got his abx. Today when the nurse was at the house, they flushed the line and it started to bleeding. They were concerned the line was fractured so they told him to come to the ER. On arrival to the ER no active bleeding. No pain. No swelling or redness at the site. MD complaint: bleeding PICC line Onset (ago): hour(s) Location: right and upper extremity Radiation: non-radiation Severity: mild Pain Consistency: intermittent Relieving factors: none Exacerbating factors: none Associated symptoms: denies other symptoms Treatments prior to arrival: none Related Data Home Medications Medication Instructions Recorded Confirmed cetirizine 10 mg tablet 1 tab PO DAILY allergies 02/27/21 09/22/22 fluticasone propionate 50 1 spray intranasal DAILY PRN Nasal 02/27/21 09/22/22 mcg/actuation nasal Congestion spray,suspension gabapentin 100 mg capsule 2 cap PO BEDTIME 02/27/21 09/22/22 glucose 4 gram chewable tablet 4 g PO DIRECTED PRN blood sugar 02/27/21 09/22/22 <70 insulin detemir U-100 100 unit/mL 42 unit subcut BEDTIME 02/27/21 09/22/22 (3 mL) subcutaneous pen (Levemir FlexTouch U-100 Insulin) multivitamin 1 tab PO DAILY 02/27/21 09/22/22 dulaglutide 0.75 mg/0.5 mL 0.75 mg subcut MO 05/26/22 09/22/22 [facility] lisinopril 20 mg tablet 20 mg PO DAILY 09/24/22 09/24/22 Previous Rx's Medication Instructions Recorded amlodipine 10 mg tablet 10 mg PO DAILY #30 tabs 10/01/22 ertapenem 1 gram solution for 500 mg IV DAILY 6 weeks #10 ea 10/01/22 injection Allergies Allergy/AdvReac Type Severity Reaction Status Date / Time glyburide Allergy Unknown weight gain Verified 09/22/22 20:34 Review of Systems Review of Systems: Yes all other systems are reviewed and are negative [facility] Past Medical History Medical History Diabetes Social History Social History Household Members: Family Housing: Apartment Do you presently have visiting nurse or other home services: No Alcohol intake: never Patient Tobacco Use Status: Never used Tobacco Substance Use Type: Crack/Cocaine Advance Directives: No Advance Directives Information Provided: No service: No Current occupational status: employed 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 Oriented X3. No acute distress. HEENT: normal inspection CVS: Normal heart rate and rhythm. Pulses normal. Respiratory: No respiratory distress. Skin: Skin warm and dry. Normal skin color. Normal skin turgor. No rashes. Extremities: right upper arm w/ single lumen picc in place, no active bleeding. biopatch in place without blood. when line is flushed few drops of blood leak from the lumen. Neuro: Oriented X 3. grossly normal, nonfocal. Course Course Course Narrative: 47 yo male with history of recent right great toe osteomyelitis on IV ertapenum until 11/03 who presents to the ER from home for evaluation of a cracked PICC line. He states the visiting nurse told him the line cracked and it was leaking blood. PICC line ordered to be replaced by IR. Reevaluation(s) Reevaluation #1: IR nurse came to evaluate the patient - plan to exchange over a wire. will be stable for d/c after exchange. Medical Decision Making Medical Decision Making MDM Narrative: 47 yo male with osteomyelitis on IV abx presenting to the ER for bleeding PICC line that started today. No active bleeding but when flushed a few drops of blood come from the line itself. will need IR exchange over a wire then can go home. Differential Diagnosis Differential Diagnoses: The differential diagnosis associated with the presentation includes PICC line malfunction, dislodgement, fracture, no evidence of infection Consult Healthcare Provider Management of the patient was discussed with: Senior Ui Ux Designer IR nurse External Record Review External record reviewed: Inpatient record, Outpatient record, Prior outpatient labs and Prior outpatient radiology Chronic Conditions Patient?s care impacted by: Diabetes and Hypertension Critical Care Time Critical Care Time Critical Care Time: No Discharge Plan Discharge Clinical Impression: Bleeding from PICC line Patient Disposition: Home, Self-Care Instructions: PICC (Peripherally Inserted Central Catheter) (DC) Additional Instructions: Your PICC line was replaced today. Continue your antibiotics as prescribed. If you develop new or worsening symptoms call 911 or come back to the ER for further evaluation. Prescriptions: No Action cetirizine 10 mg tablet 1 tab PO DAILY glucose 4 gram tablet,chewable 4 g PO DIRECTED PRN (Reason: blood sugar <70) gabapentin 100 mg capsule 2 cap PO BEDTIME fluticasone propionate 50 mcg/actuation spray,suspension 1 spray intranasal DAILY PRN (Reason: Nasal Congestion) Levemir FlexTouch U-100 Insuln 100 unit/mL (3 mL) insulin pen 42 unit subcut BEDTIME multivitamin Tablet 1 tab PO DAILY lisinopril 20 mg Tablet 20 mg PO DAILY amlodipine 10 mg Tablet 10 mg PO DAILY Qty: 30 0RF Protocol: Hold for SBP< HOLD for SBP < : 90 ertapenem 1 gram recon soln 500 mg IV DAILY 42 Days Qty: 10 0RF Rx Instructions: end november 02, 2022 Trulicity 0.75 mg/0.5 mL pen injector 0.75 mg subcut MO Referrals: [facility] [Primary Care Provider] -
--- OUTSIDE RECORDS SUMMARY | 2022-10-20 14:39 | XMS_ITS | Continuity of Care Document ---
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
--- OUTSIDE RECORDS SUMMARY | 2022-10-20 14:39 | XMS_ITS | Continuity of Care Document ---
Author Name Unknown Organization [facility] Address [address] [place] [id number]- Care Team Providers Care Abe Teacher Name Role Phone Sandra WALLACE, Evon Guevara Primary Care Physician Encounter [facility] Date(s): 06/24/21 - 07/30/21 [facility] [address] [place] [id number] Attending Physician: Renny Holloway MD Admitting Physician: Renny Holloway MD Referring Physician: Cyn BEAVER , Joseline Epperson Problem List Condition Effective Dates Status Health Status Inform ant Latent tuberculosis by blood test(Confirmed) 1, 2 Active 1case clsoed 2Pt. NOS x2 scheduled TB clinic appts.
--- OUTSIDE RECORDS SUMMARY | 2022-10-20 14:39 | XMS_ITS | Continuity of Care Document ---
Author Name Unknown Organization [facility] Address [address] [place] [id number]- Care Team Providers Care Aircraft Machinist Name Role Phone Sandra WALLACE, Evon Guevara Primary Care Physician Encounter [facility] Date(s): 06/30/21 - 07/30/21 [facility] [address] [address]- Attending Physician: Tiburcio Hines Admitting Physician: Tiburcio Hines Referring Physician: Tiburcio Hines Problem List Condition Effective Dates Status Health Status Inform ant Latent tuberculosis by blood test(Confirmed) 1, 2 Active 1case clsoed 2Pt. NOS x2 scheduled TB clinic appts.
== END 2022-10-20 16:32 | disposition home or self-care (01) ==
PROVIDERS: Emergency Provider Emergency Medicine Emergency Medical Services
DX: M86.9 Osteomyelitis, unspecified (principal); T82.838A Hemorrhage due to vascular prosthetic devices, implants and grafts, initial encounter; Y82.8 Other medical devices associated with adverse incidents; Y92.039 Unspecified place in apartment as the place of occurrence of the external cause; E11.9 Type 2 diabetes mellitus without complications; I10 Essential (primary) hypertension; Z79.899 Other long term (current) drug therapy
CPT/HCPCS: 36580; 99282; 99285; C1751

== ENCOUNTER 2022-10-21 14:59 | Outpatient (REF) | payer MEDICAID, SELFPAY ==
[2022-10-21 15:02] LABS: MANUAL DIFF FLAG NO
[2022-10-21 15:18] LABS: Basophils Absolute Auto 0.1 X10*3/uL (0.0-0.2); Basophils Percent Auto 0.8 % (0-2); Eosinophils Absolute Auto 0.3 X10*3/uL (0.0-0.4); Eosinophils Percent Auto 3.5 % (0-4); Hematocrit 28.2 % (42.0-52.0); Hemoglobin 10.1 g/dl (14.0-18.0); Imm Gran Abs Auto 0.01 X10*3/uL (0.00-0.03); Imm Gran Pct Auto 0.1 % (0.0-0.4); Lymphocytes Absolute Auto 3.3 X10*3/uL (1.2-4.9); Lymphocytes Percent Auto 46.4 % (20-40); Mean Corpuscular HGB Conc 35.8 g/dl (31.0-36.0); Mean Corpuscular Hemoglobin 31.4 pg (27.0-33.0); Mean Corpuscular Volume 87.6 fL (80.0-98.0); Mean Platelet Volume 9.8 fL (9.4-12.4); Monocytes Absolute Auto 0.6 X10*3/uL (0.1-1.2); Monocytes Percent Auto 7.6 % (2-11); Neutrophils Percent Auto 41.6 % (45-73); Platelet Count 372 X10*3/uL (160-400); Red Blood Count 3.22 X10*6/uL (4.60-5.80); Red Cell Distribution Width 10.9 % (11.0-16.0); White Blood Count 7.2 X10*3/uL (4.8-10.8)
[2022-10-21 15:25] LABS: Alanine Aminotransferase 30 U/L (0-40); Albumin Level 3.5 g/dL (3.5-5.0); Alkaline Phosphatase 105 U/L (39-117); Anion Gap 16 (12-20); Aspartate Amino Transferase 18 U/L (5-37); Bilirubin Total 0.3 mg/dL (0.0-1.0); Blood Urea Nitrogen 13 mg/dL (9-16); Calcium 8.7 mg/dL (8.4-10.2); Carbon Dioxide 28 mmol/L (22-29); Chloride 98 mmol/L (96-108); Estimated Glomerular Filt Rate 50; Glucose Random 322 mg/dL (60-115); Potassium 4.1 mmol/L (3.3-5.1); Sodium 138 mmol/L (135-145)
== END 2022-10-21 15:00 | disposition home or self-care (01) ==
LOC: HO.HVNA 14:59
PROVIDERS: Visit Provider Internal Medicine
DX: L03.115 Cellulitis of right lower limb (principal)
CPT/HCPCS: 36415; 80053; 85025

== ENCOUNTER 2022-10-28 15:43 | Outpatient (REF) | payer MEDICAID, SELFPAY ==
[2022-10-28 15:45] LABS: MANUAL DIFF FLAG NO
[2022-10-28 15:54] LABS: Basophils Absolute Auto 0.1 X10*3/uL (0.0-0.2); Basophils Percent Auto 0.8 % (0-2); Eosinophils Absolute Auto 0.2 X10*3/uL (0.0-0.4); Eosinophils Percent Auto 2.4 % (0-4); Hematocrit 28.4 % (42.0-52.0); Hemoglobin 9.8 g/dl (14.0-18.0); Imm Gran Abs Auto 0.02 X10*3/uL (0.00-0.03); Imm Gran Pct Auto 0.2 % (0.0-0.4); Lymphocytes Absolute Auto 3.9 X10*3/uL (1.2-4.9); Lymphocytes Percent Auto 42.2 % (20-40); Mean Corpuscular HGB Conc 34.5 g/dl (31.0-36.0); Mean Corpuscular Hemoglobin 30.4 pg (27.0-33.0); Mean Corpuscular Volume 88.2 fL (80.0-98.0); Mean Platelet Volume 10.2 fL (9.4-12.4); Monocytes Absolute Auto 0.5 X10*3/uL (0.1-1.2); Monocytes Percent Auto 5.3 % (2-11); Neutrophils Absolute Auto 4.5 x10*3/uL (2.0-8.3); Neutrophils Percent Auto 49.1 % (45-73); Platelet Count 312 X10*3/uL (160-400); Red Blood Count 3.22 X10*6/uL (4.60-5.80); Red Cell Distribution Width 11.2 % (11.0-16.0); White Blood Count 9.2 X10*3/uL (4.8-10.8)
[2022-10-28 16:25] LABS: Alanine Aminotransferase 113 U/L (0-40); Albumin Level 3.6 g/dL (3.5-5.0); Alkaline Phosphatase 117 U/L (39-117); Anion Gap 13 (12-20); Aspartate Amino Transferase 123 U/L (5-37); Bilirubin Total 0.4 mg/dL (0.0-1.0); Blood Urea Nitrogen 11 mg/dL (9-16); Calcium 8.6 mg/dL (8.4-10.2); Carbon Dioxide 25 mmol/L (22-29); Chloride 103 mmol/L (96-108); Estimated Glomerular Filt Rate 60; Glucose Random 152 mg/dL (60-115); Sodium 137 mmol/L (135-145)
== END 2022-10-28 15:44 | disposition home or self-care (01) ==
LOC: HO.HVNA 15:43
PROVIDERS: Visit Provider Internal Medicine
DX: L03.115 Cellulitis of right lower limb (principal)
CPT/HCPCS: 36415; 80053; 85025

== ENCOUNTER → 2022-10-29 11:16 | Outpatient (BNVA) | payer MEDICAID, SELFPAY | PROVIDERS: Visit Provider Internal Medicine | DX: E11.69 Type 2 diabetes mellitus with other specified complication (principal); M86.171 Other acute osteomyelitis, right ankle and foot | CPT/HCPCS: 99212 ==

== ENCOUNTER 2022-11-09 12:42 | Outpatient (RCR) | payer MEDICAID, SELFPAY ==
--- NOTE | ~2022-11-09 | XR_ITS ---
EXAMINATION: XR CHEST CLINICAL INFORMATION: Preprocedure. COMPARISON: Chest 02/24/2022. TECHNIQUE: 2 views of the chest were obtained. FINDINGS: The lungs are well-expanded and clear. There is platelike atelectasis in the lingula. Heart size and pulmonary vascularity is normal. No gross bony abnormality seen. XR/XR chest 2V IMPRESSION: Platelike atelectasis in the lingula.
[2022-11-18 13:55] LABS: Estimated Average Glucose 194 mg/dL; Hemoglobin A1c % 8.4 %
[2022-11-18 14:52] LABS: Erythrocyte Sedimentation Rate 123 MM/HR (0-15)
[2022-11-18 15:16] LABS: Anion Gap 12 (12-20); Blood Urea Nitrogen 7 mg/dL (9-16); C Reactive Protein 15.62 mg/dL (< or = 0.50); Calcium 7.9 mg/dL (8.4-10.2); Carbon Dioxide 27 mmol/L (22-29); Chloride 103 mmol/L (96-108); Estimated Glomerular Filt Rate > 60; Glucose Random 114 mg/dL (60-115); Potassium 4.2 mmol/L (3.3-5.1); Sodium 138 mmol/L (135-145)
== END 2023-01-13 11:38 | disposition home or self-care (01) ==
LOC: HO.WCC 12:42
PROVIDERS: Visit Provider Physician Assistant
DX: E11.621 Type 2 diabetes mellitus with foot ulcer (principal); L97.522 Non-pressure chronic ulcer of other part of left foot with fat layer exposed; E11.65 Type 2 diabetes mellitus with hyperglycemia; E11.69 Type 2 diabetes mellitus with other specified complication; M86.472 Chronic osteomyelitis with draining sinus, left ankle and foot
CPT/HCPCS: 11042; 36415; 71046; 80048; 83036; 84134; 85652; 86140; 99183; 99212; 99213

== ENCOUNTER 2023-10-14 09:23 | Outpatient (AMB) | payer MEDICAID, SELFPAY ==
[2023-10-14 09:26] VITALS: BMI 38.8
--- NOTE | 2023-10-14 09:26 | A.OFFVIS_ITS ---
Intake Vital Signs 10/14/23 09:26 Height 5 ft 9 in Weight 263 lb BMI 38.8 Intake Visit Reasons: OV - LT Knee pain Intake Note: Satya 48 yr old male presents today for his follow up visit for his Osteoarthritis of left knee s/p aspiration from 05/26/22 with Danette Winston. Currently patient states he has swelling and is painful to walk. He is not sure if he has fluid that may need to be drained. Allergies glyburide Allergy (Unknown, Verified 10/14/23 09:42) weight gain Medication List - Last Reconciled 10/14/23 by Delilah Avila PA-C amlodipine 10 mg See Protocol PO DAILY cetirizine 1 tab PO DAILY dulaglutide (Trulicity) 0.75 mg subcut MO ertapenem 500 mg IV DAILY 6 weeks fluticasone propionate 50 mcg/actuation 1 spray intranasal DAILY PRN gabapentin 2 caps PO BEDTIME glucose 4 grams PO DIRECTED PRN insulin detemir U-100 (Levemir FlexTouch U-100 Insulin) 42 units subcut BEDTIME lisinopril 20 mg PO DAILY multivitamin 1 tab PO DAILY HPI OV - LT Knee pain HPI Details 48-year-old male who returns to the [facility] today for a follow-up of left knee pain. He had a knee aspiration on 05/26/22 which provided him relief. He currently states he has pain and swelling in his knee which is aggravated with ambulation. He is unsure if he has fluid that may need to be drained. He has a history of diabetes. 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 Moderate sized joint effusion present. Tenderness along the medial and lateral joint line. Full ROM with crepitus. N egative Flaco?s. No ligamentous laxity. NVI. Office Procedures Joint Injection/Drain Joint Injection/Drain Details: 180cc joint fluid asp left knee Primary Site: left knee Prep: site was prepped using aseptic technique and injection warnings given Injected: in the joint Approach Used: lateral parapatellar Procedure: The patient tolerated the procedure well Coding 85167 - Glenohumeral/Tronchanteric Bursa/Intraarticular Procedure code (CPT) selection complete Assessment & Plan Assessment & Plan (1) Osteoarthritis of left knee: Code(s): M17.12 - Unilateral primary osteoarthritis, left knee (2) Effusion of left knee: Code(s): M25.462 - Effusion, left knee Plan We discussed options which include aspiration and steroid injection. His left knee will be aspirated in the office today and he will hold off on steroid injection as he does not know his sugar levels. I also sent a prescription of Celebrex to the pharmacy to help with his recurrent effusions given the degenerative changes in his knee. He will follow-up as needed. Orders: Orders XR knee LT 3V Today M25.562 - Pain in left knee Medications: New celecoxib (Celebrex) 200 mg PO BID 60 caps 3RF 30 days Patient Instructions: Scribed for Delilah Avila PA-C, by Wilver Carnes bilingual medical receptionist, on 10/14/2023 at 9:15 AM Delilah PAIGE PA-C, have personally reviewed and agree with the information entered by the scribe. Coding Level of Care Code Est Pt Level 3 (39328) Diagnoses Osteoarthritis of left knee M17.12 Effusion of left knee M25.462 CPT Codes Coding - Joint 7: 43250 - Glenohumeral/Tronchanteric Bursa/Intraarticular ([id number])
== END 2023-10-14 10:16 | disposition home or self-care (01) ==
PROVIDERS: PCP Nurse Practitioner Primary Care; Visit Provider Physician Assistant
DX: M17.12 Unilateral primary osteoarthritis, left knee (principal); M25.462 Effusion, left knee
CPT/HCPCS: 20610; 99213

== ENCOUNTER 2023-10-14 10:01 | Outpatient (REF) | payer MEDICAID, SELFPAY ==
--- NOTE | ~2023-10-14 | XR_ITS ---
EXAMINATION: XR KNEE, LEFT, TWO VIEWS XR KNEE, BILATERAL, ONE VIEW CLINICAL INFORMATION: Left knee pain. COMPARISON: X-ray 05/26/2022 TECHNIQUE: AP bilateral knees one view. 2 views of the left knee. FINDINGS: LEFT KNEE: Mild-moderate medial compartment joint space narrowing and marginal osteophytes. There is subchondral lucency/cyst in the medial aspect of the medial tibial plateau, measuring 1.6 cm transverse, new from previous. There is subtle undulation/depression of the overlying articular surface. Small subchondral cyst in the medial aspect of the medial femoral condyle. Marginal osteophytes in the patellofemoral compartment. Moderate-large joint effusion. No abnormal soft tissue calcification. RIGHT KNEE: On the single frontal radiograph, anatomic alignment. Joint space is maintained. XR/XR knee LT 3V IMPRESSION: LEFT KNEE: 1. Mild-moderate medial compartment arthritis, interval worsening from previous. 1.6 cm subchondral lucency/cyst in the medial aspect of medial femoral condyle, with subtle undulation/depression of the overlying cortical articular surface. This presumably is related to arthritic changes, with possible subchondral collapse/fracture. Further evaluation with MRI as clinically indicated. 2. Moderate-large joint effusion. The report will be called to the ordering clinician by a [facility] Physician Dental Laboratory Worker.
== END 2023-10-14 10:02 | disposition home or self-care (01) ==
LOC: HO.HOSX 10:01
PROVIDERS: Visit Provider Physician Assistant
DX: M17.12 Unilateral primary osteoarthritis, left knee (principal); M25.462 Effusion, left knee
CPT/HCPCS: 20610; 73562; 99212

== ENCOUNTER 2023-11-11 13:53 | Outpatient (AMB) | payer MEDICAID, SELFPAY ==
--- NOTE | 2023-11-11 13:53 | A.OFFVIS_ITS ---
Intake Visit Reasons: T/H appt Osteoarthritis of left knee Intake Note: Satya is a 48 year old male who presents today for a telehealth appt for his left knee osteoarthritis. Allergies glyburide Allergy (Unknown, Verified 10/14/23 09:42) weight gain HPI HPI T/H appt Osteoarthritis of left knee: Details: 48 yo male presents for telehealth Left knee fu he states the pain continues to limit his activities the pain is along the medial aspect of the knee. 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 Review of Systems Const All systems reviewed & are unremarkable except as noted in HPI and below Physical Exam Resp Effort & Inspection: normal respiratory effort and able to speak in complete sentences Telehealth Telehealth Telehealth Platform: Telephone Location of provider rendering services: practice address Location of patient: address on file Patient Identification confirmed using: Name, : Yes Telehealth method: voice only Patient verbally consented to treatment: Yes Patient verbally consented to billing insurance company: Yes Patient informed of any privacy concerns related to visit: Yes Minutes spent on Phone/Video with Pt.: 10 Results Reviewed Results Reviewed: XR knee LT 3V IMPRESSION: LEFT KNEE: 1. Mild-moderate medial compartment arthritis, interval worsening from previous. 1.6 cm subchondral lucency/cyst in the medial aspect of medial femoral condyle, with subtle undulation/depression of the overlying cortical articular surface. This presumably is related to arthritic changes, with possible subchondral collapse/fracture. Further evaluation with MRI as clinically indicated. 2. Moderate-large joint effusion. Assessment & Plan Assessment & Plan (1) Osteoarthritis of left knee: Code(s): M17.12 - Unilateral primary osteoarthritis, left knee Category: Medical Plan: Given the ongoing pain in the left knee and findings on xrays consistent with a subchondral leucency, an MRI of the let knee has been ordered for further evaluation. He is content with this plan and will see me back once the scan is complete. Orders: Orders MR knee RT wo con 11/11/23 M17.11 - Unilateral primary osteoarthritis, right knee Referrals General Surgery Referral M86.9 - Osteomyelitis, unspecified Coding Level of Care Code Tele Est Pt Level 3 (76612) Diagnoses Osteoarthritis of left knee M17.12
== END 2023-11-11 14:49 | disposition home or self-care (01) ==
LOC: HO.HOS 13:53
PROVIDERS: PCP Nurse Practitioner Primary Care; Visit Provider Physician Assistant
DX: M17.12 Unilateral primary osteoarthritis, left knee (principal)
CPT/HCPCS: 99213

== ENCOUNTER → 2023-11-11 13:53 | Outpatient (BNVA) | payer MEDICAID, SELFPAY | PROVIDERS: PCP Nurse Practitioner Primary Care; Visit Provider Physician Assistant ==

== ENCOUNTER 2023-12-05 10:02 | Outpatient (AMB) | payer MEDICAID, SELFPAY ==
[2023-12-05 10:05] VITALS: BP 170/86; PULSE 87; BMI 37.4
--- NOTE | 2023-12-05 10:05 | A.OFFVIS_ITS ---
Vital Signs 12/05/23 10:05 Height 5 ft 9 in Weight 253 lb BMI 37.4 BP 170/86 H Blood Pressure Location Rt brachial Position Sitting Pulse 87 Intake Visit Reasons: Rt foot ulcer Intake Note: Patient referred by Tish Avila (ortho) [facility] for osteomyelitis. Present since September 2022. Patient c/o: open sore. Denies pain, redness, inflammation. Being seen by [facility] once a week other week. [facility] RT foot MRI 07-20-23. [facility] 07-20-23. Reports will be scanned into chart. Manager Night Required: No Accompanied by: Evon Medrano Allergies glyburide Allergy (Unknown, Verified 12/05/23 10:10) weight gain HPI Comments Details: Patient presents with a significant other. He has been seen in the system has also been seen at [facility] for Charcot joint involving the right foot/great toe as well as longstanding history of osteomyelitis of the same toe. He apparently was been treated in the Wound Center here and now in the wound center in [place]. The plan was for a trans met amputation of his right foot. Patient presents here for further evaluation. Patient has also been seen by Dr. Washington in the past for the similar problem. 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 Pedal pulses palpable. Assessment & Plan Assessment & Plan (1) Osteomyelitis of great toe of right foot: Comment: Area is healing Code(s): M86.9 - Osteomyelitis, unspecified Category: Medical (2) Diabetic foot ulcer: Code(s): E11.621 - Type 2 diabetes mellitus with foot ulcer; L97.509 - Non-pressure chronic ulcer of other part of unspecified foot with unspecified severity Category: Surgical (3) Charcot's joint: Code(s): M14.60 - Charcot's joint, unspecified site Category: Surgical Plan Patient will highly likely at the very least require ray amputation of the right great toe. Because of his comorbidities include diabetes, he may eventually require trans met amputation but I think the ray amputation is worth pursuing 1st. Patient has been seen by Dr. Cheek was noted above and we will have him re-evaluated by Dr. Washington to obtain another opinion regarding this. Arrangements were made for this. All questions answered. Coding Level of Care Code New Pt Level 4 (13671) Diagnoses Osteomyelitis of great toe of right foot M86.9 Diabetic foot ulcer E11.621; L97.509 Charcot's joint M14.60
== END 2023-12-05 10:35 | disposition home or self-care (01) ==
PROVIDERS: PCP Nurse Practitioner Primary Care; Visit Provider Surgery
DX: M86.9 Osteomyelitis, unspecified (principal); E11.621 Type 2 diabetes mellitus with foot ulcer; L97.509 Non-pressure chronic ulcer of other part of unspecified foot with unspecified severity; M14.60 Charcot's joint, unspecified site
CPT/HCPCS: 99204

== ENCOUNTER → 2023-12-05 10:02 | Outpatient (BNVA) | payer MEDICAID, SELFPAY | PROVIDERS: PCP Nurse Practitioner Primary Care; Visit Provider Surgery | DX: M86.9 Osteomyelitis, unspecified (principal); E11.621 Type 2 diabetes mellitus with foot ulcer; L97.519 Non-pressure chronic ulcer of other part of right foot with unspecified severity; M14.60 Charcot's joint, unspecified site | CPT/HCPCS: 99202 ==

== ENCOUNTER 2023-12-21 08:46 | Outpatient (REF) | payer MEDICAID, SELFPAY ==
--- NOTE | ~2023-12-21 | MR_ITS ---
EXAMINATION: MR KNEE WITHOUT CONTRAST, LEFT CLINICAL INFORMATION: Left knee pain and swelling. Osteoarthritis. COMPARISON: Multiple priors, most recent left knee radiographs dated 10/14/2023. TECHNIQUE: MRI of the knee without contrast was performed using routine sequences on a high-field scanner. FINDINGS: MENISCI: Medial Meniscus: Complete radial tear of the meniscal body measuring up to 1.7 cm in AP dimension with complex tearing extending anteriorly and into the medial aspect of the posterior horn. Lateral Meniscus: Intact LIGAMENTS: Cruciate: Thickening and heterogeneity with increased T2 signal throughout the anterior cruciate ligament consistent with prominent mucoid degeneration. More mild degenerative signal within the posterior cruciate ligament. Collateral: Intact EXTENSOR MECHANISM: Intact quadriceps and patellar tendons. Normal patellofemoral alignment. ARTICULAR CARTILAGE/BONE: Patellofemoral Compartment: Inferior patellar median ridge and medial patellar facet articular cartilage signal heterogeneity and partial-thickness loss. Tiny marginal osteophytes. Medial Compartment: Diffuse, full-thickness articular cartilage loss with prominent bony remodeling as well as subchondral cystic change and marrow edema. Prominent subchondral cystic change with cortical depression at the medial aspect of the tibial plateau, likely degenerative. A chronic subchondral fracture could also be considered as this appears similar when compared to the radiographs dated 10/14/2023. Lateral Compartment: Articular cartilage thinning and signal heterogeneity with tiny marginal osteophytes. JOINT FLUID AND BURSAE: Large joint effusion with synovial thickening and heterogeneity, consistent with chronic synovitis. MR/MR knee LT wo con IMPRESSION: 1. Complete radial tear of the medial meniscal body measuring 1.7 cm in AP dimension with complex tearing extending anteriorly and into the medial aspect of the posterior horn. 2. Prominent mucoid degeneration of the anterior cruciate ligament with more mild degenerative signal within the posterior cruciate ligament. 3. Severe medial compartment osteoarthritis with prominent bony remodeling. Prominent subchondral cystic change and marrow edema within the medial tibial plateau, likely degenerative. A chronic subchondral fracture could also be considered as this appears similar when compared to the radiographs dated 10/14/2023. 4. Mild patellofemoral and lateral compartment osteoarthritis. Large joint effusion with chronic synovitis.
== END 2023-12-21 08:47 | disposition home or self-care (01) ==
LOC: HO.MRI 08:46
PROVIDERS: PCP Registered Nurse; Visit Provider Physician Assistant
DX: M17.12 Unilateral primary osteoarthritis, left knee (principal)
CPT/HCPCS: 73721

== ENCOUNTER 2023-12-27 09:18 | Outpatient (REF) | payer MEDICAID, SELFPAY ==
[2023-12-27 12:22] LABS: Alanine Aminotransferase 33 U/L (0-40); Albumin Level 4.3 g/dL (3.5-5.0); Alkaline Phosphatase 131 U/L (39-117); Anion Gap 16 (12-20); Aspartate Amino Transferase 32 U/L (5-37); Bilirubin Direct 0.3 mg/dL (0.0-0.5); Bilirubin Total 0.6 mg/dL (0.0-1.0); Blood Urea Nitrogen 15 mg/dL (9-16); Calcium 9.9 mg/dL (8.4-10.2); Carbon Dioxide 26 mmol/L (22-29); Chloride 104 mmol/L (96-108); Cholesterol 153 mg/dL (<200); Estimated Glomerular Filt Rate > 60; Glucose Random 125 mg/dL (60-115); HDL Cholesterol 44 mg/dL (>40); LDL Cholesterol Calculated 80 mg/dL (<100); Potassium 3.9 mmol/L (3.3-5.1); Sodium 142 mmol/L (135-145); Triglycerides 145 mg/dL (<150)
== END 2023-12-27 09:19 | disposition home or self-care (01) ==
LOC: HO.HHCL 09:18
PROVIDERS: Visit Provider Registered Nurse
DX: E11.69 Type 2 diabetes mellitus with other specified complication (principal); E78.5 Hyperlipidemia, unspecified
CPT/HCPCS: 36415; 80048; 80061; 80076

== ENCOUNTER 2023-12-30 10:31 | Outpatient (AMB) | payer MEDICAID, SELFPAY ==
--- NOTE | 2023-12-30 10:52 | MHC.OFFVIS ---
Vital Signs 12/30/23 10:53 Height 5 ft 11 in Weight 245 lb BMI 34.2 Intake Visit Reasons: OV-MRI of the let knee-review Intake Note: Satya is a 48 year old male who presents today with a brace for a MRI review of the left knee. Patient states his pain has been constant and is unable to find any relief. Allergies glyburide Allergy (Unknown, Verified 12/30/23 10:54) weight gain Medication List - Last Reconciled 12/31/23 by Delilah Avila PA-C amlodipine 10 mg See Protocol PO DAILY celecoxib (Celebrex) 200 mg PO BID 30 days cetirizine 1 tab PO DAILY ertapenem 500 mg IV DAILY 6 weeks fluticasone propionate 50 mcg/actuation 1 spray intranasal DAILY PRN gabapentin 2 caps PO BEDTIME insulin detemir U-100 (Levemir FlexTouch U-100 Insulin) 42 units subcut BEDTIME lisinopril 20 mg PO DAILY multivitamin 1 tab PO DAILY HPI HPI OV-MRI of the let knee-review: Details: 48-year-old male who returns to the office today for an MRI review of left knee. He continues to have constant pain in his knee and is unable to find any relief. He has a history of diabetes. His A1c is 8%. 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 Moderate sized joint effusion present. Tenderness along the medial and lateral joint line. Full ROM with crepitus. Negative Flaco?s. No ligamentous laxity. NVI. Results Reviewed Results Reviewed: MR knee LT wo con IMPRESSION: 1. Complete radial tear of the medial meniscal body measuring 1.7 cm in AP dimension with complex tearing extending anteriorly and into the medial aspect of the posterior horn. 2. Prominent mucoid degeneration of the anterior cruciate ligament with more mild degenerative signal within the posterior cruciate ligament. 3. Severe medial compartment osteoarthritis with prominent bony remodeling. Prominent subchondral cystic change and marrow edema within the medial tibial plateau, likely degenerative. A chronic subchondral fracture could also be considered as this appears similar when compared to the radiographs dated 10/14/2023. 4. Mild patellofemoral and lateral compartment osteoarthritis. Large joint effusion with chronic synovitis. Assessment & Plan Assessment & Plan (1) Osteoarthritis of left knee: Code(s): M17.12 - Unilateral primary osteoarthritis, left knee Category: Medical Plan MRI was reviewed with Dr. Allen. It appears that he has severe post traumatic medial compartmental arthritis which may benefit from surgical intervention to restore his anatomy. We also discussed unicompartmental knee arthroplasty. I did explain the procedure in detail along with the risks, benefits and alternatives. He would like to proceed with the surgery to restore the quality of life. He is also working on getting his A1c down and also has an open wound on his right great toe and history of osteomyelitis which he will work on before proceeding. I will have our nurse navigator contact him and we will proceed accordingly. Patient Instructions: Scribed for Delilah Avila PA-C, by Wilver Carnes manager medical, on 12/30/2023 at 10:15 AM EST.? I, Delilah Avila PA-C, have personally reviewed and agree with the information entered by the scribe. Coding Level of Care Code Est Pt Level 3 (86248) Diagnoses Osteoarthritis of left knee M17.12
[2023-12-30 10:53] VITALS: BMI 34.2
== END 2023-12-30 11:10 | disposition home or self-care (01) ==
PROVIDERS: PCP Nurse Practitioner Primary Care; Visit Provider Physician Assistant
DX: M17.12 Unilateral primary osteoarthritis, left knee (principal)
CPT/HCPCS: 99214

== ENCOUNTER → 2023-12-30 10:31 | Outpatient (BNVA) | payer MEDICAID, SELFPAY | PROVIDERS: PCP Nurse Practitioner Primary Care; Visit Provider Physician Assistant | DX: M17.12 Unilateral primary osteoarthritis, left knee (principal) | CPT/HCPCS: 99212 ==

== ENCOUNTER 2024-01-09 14:19 | Outpatient (AMB) | payer MEDICAID, SELFPAY ==
[2024-01-09 14:22] VITALS: BMI 37.4
--- NOTE | 2024-01-09 14:22 | MHC.OFFVIS ---
Vital Signs 01/09/24 14:22 Height 5 ft 9 in Weight 253 lb BMI 37.4 Intake Visit Reasons: PCP Ref/ Charcot's joint/ Osteomyelitis Intake Note: General Surgery referral for non-healing ulcer/ charcot foot, 2nd opinion per Dr. Orantes. Pt was seen in [place] 09/2022 for non-healing ulcer on the same toe by . Wound never hea;led and has osteomyelitis. Changes dressing himself QOD. 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 He had actually seen us nearly a year ago in the hospital. He has had longstanding osteomyelitis and has been treated at the [facility]. At that time he had seen me in his arterial circulation was intact. He has been cared for at the [facility] and unfortunately has remained nonhealing. Now presents for vascular re-evaluation per the request of General surgery. 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 Review of Systems Const All systems reviewed & are unremarkable except as noted in HPI and below Reports no additional complaints ENT Reports Normal hearing present Card Denies chest pain, Denies chest pain at rest, Denies chest pain with activity and Denies pedal edema Resp Denies cough GI Denies abdominal pain Musc Denies abnormal gait, Denies muscle cramps and Denies radiating pain into limb Skin/Breast Denies skin ulcer and Denies wounds Neuro Reports Normal hearing present and Denies abnormal gait Psych Reports no additional complaints Physical Exam Vital Signs: BMI result Body Mass Index 37.4 Const General: cooperative, healthy appearing and comfortable Orientation/consciousness: oriented to person, oriented to place and oriented to time HEENT Head: Yes normal to inspection Neck Neck: Yes normal visual inspection Carotids: no bruits Chest Chest palpation & inspection: normal inspection of the chest Resp Effort & Inspection: normal respiratory effort and able to speak in complete sentences Auscultation: clear to auscultation bilaterally, no crackles, no rales, no rhonchi and no wheezes Cardio Other: Palpable dorsalis pedis and posterior tibial pulses Rate: regular rate Rhythm: regular rhythm Heart sounds: S1 normal heart sound present and S2 normal heart sound present Bruits: no carotid bruits Peripheral pulses: Peripheral pulses 2+ throughout GI Inspection: Yes normal to inspection Skin Other: Right great toe over the metatarsal head on the medial aspect a proximally 1.5 cm in diameter. Reasonable granulation bed. Some necrotic slough overlying. Wounds: no wounds Hair: normal Neuro General: oriented to person, oriented to place and oriented to time Cranial nerves: Yes CN's II-XII intact bilaterally and Yes Normal hearing present Cognition (Neuro): normal cognition Motor exam (neuro): 5/5 motor strength present throughout Extrem Other: venous exam: No significant superficial varicosities or spider telangiectasias, minimal edema General: No clubbing, No cyanosis and No edema Psych Appearance: grossly normal Mental Status: mental status grossly normal Speech and movement: Normal speech and movement present Assessment & Plan Assessment & Plan (1) Diabetic foot ulcer: Code(s): E11.621 - Type 2 diabetes mellitus with foot ulcer; L97.509 - Non-pressure chronic ulcer of other part of unspecified foot with unspecified severity Category: Surgical Qualifiers: Diabetic foot ulcer location: toe Diabetes mellitus type: type 2 Laterality: right Non-pressure ulcer stage: unspecified non-pressure ulcer stage Qualified Code(s): E11.621 - Type 2 diabetes mellitus with foot ulcer; L97.519 - Non-pressure chronic ulcer of other part of right foot with unspecified severity Plan: In short patient has nonhealing diabetic foot ulcer. He is a younger healthier gentleman that is quite active and we would be extremely detrimental if we do lose this toe. I have taken the liberty of referring him to a foot and ankle specialist that may be able to further assist with either resection of the head or realignment of the toe to better help with the healing process here. From a vascular standpoint he has intact arterial pulses. This was all discussed in detail with the patient. He will continue at the [facility]. He will follow up with us on an as-needed basis. Thank you for allowing us to assist in his care. Coding Level of Care Code Est Pt Level 3 (57941) Diagnoses Diabetic ulcer of toe of right foot associated with type 2 diabetes mellitus, unspecified ulcer stage E11.621; L97.519 Diabetic foot ulcer location: toe Diabetes mellitus type: type 2 Laterality: right Non-pressure ulcer stage: unspecified non-pressure ulcer stage
== END 2024-01-09 15:06 | disposition home or self-care (01) ==
PROVIDERS: PCP Nurse Practitioner Primary Care; Referring Provider Nurse Practitioner Primary Care; Visit Provider Surgery Vascular Surgery
DX: E11.621 Type 2 diabetes mellitus with foot ulcer (principal); L97.519 Non-pressure chronic ulcer of other part of right foot with unspecified severity
CPT/HCPCS: 99213

== ENCOUNTER → 2024-01-09 14:19 | Outpatient (BNVA) | payer MEDICAID, SELFPAY | PROVIDERS: PCP Nurse Practitioner Primary Care; Visit Provider Surgery Vascular Surgery | DX: E11.621 Type 2 diabetes mellitus with foot ulcer (principal); L97.519 Non-pressure chronic ulcer of other part of right foot with unspecified severity | CPT/HCPCS: 99212 ==

== ENCOUNTER 2024-01-25 18:39 | Emergency (ER) | payer MEDICAID, SELFPAY ==
--- NOTE | ~2024-01-25 | XR_ITS ---
EXAMINATION: XR KNEE, LEFT CLINICAL INFORMATION: Knee pain COMPARISON: MRI left knee 12/21/2023, x-rays left knee 10/14/2023 TECHNIQUE: 5 views of the left knee. FINDINGS: There is been worsening of appearances in the left knee with increased narrowing in the medial compartment along with increased bone fragmentation. Destructive changes are seen in the medial aspect of the medial tibial plateau. A large knee joint effusion persists. Some posterior patellar osteophytes are present. The lateral compartment appears normal. There is no chondrocalcinosis. XR/XR knee LT 3V IMPRESSION: Worsening of appearances in the left knee with increased narrowing in the medial compartment and increased bone fragmentation. Destructive changes are seen in the medial aspect of the medial tibial plateau. Findings are most likely secondary to progressive changes of a subchondral insufficiency fracture. Consider joint aspiration to rule out infection.
--- NOTE | ~2024-01-25 | US_ITS ---
EXAMINATION: US VENOUS ULTRASOUND WITH DOPPLER LOWER EXTREMITY, LEFT CLINICAL INFORMATION: Knee pain COMPARISON: Knee radiographs earlier today, MRI left knee 12/21/2023 TECHNIQUE: Ultrasound of the deep veins is performed from the hip to the calf with compression sonography and color and pulse Doppler assessment. Spectral analysis with color-flow imaging is performed. FINDINGS: There is normal venous compression and respiratory variation and augmented flow. The visualized common femoral vein, superficial femoral vein, profunda femoral vein, popliteal vein, and the trifurcation region shows no evidence of deep venous thrombosis. There is no significant popliteal fossa cyst. A large knee joint effusion is present. If the patient's symptoms persist, followup ultrasound in 5 days 7 days might be of value to exclude proximal propagation from a non-visualized calf vein. US/US venous duplex LE IMPRESSION: No DVT demonstrated in the left lower extremity. Large knee joint effusion.
[2024-01-25 19:20] VITALS: BP 100/64; PULSE 80; RESP 18; TEMP 37.2; O2SAT 94; BMI 33.5
--- NOTE | 2024-01-25 19:23 | ED.LOWEXIN ---
HPI - Extremity Injury (Lower) General Chief Complaint: Extremity Injury, Lower Stated Complaint: left knee and thigh pain Time Seen by Provider: 01/25/24 19:57 Source: patient Mode of arrival: wheelchair Limitations: no limitations History of Present Illness ED Provider: dariana MURO Narrative: Patient has severe osteoarthritis of the knee plan to do replacement surgery earlier of 09:00 patient was playing with the kids moved to fast heard a pop and started noticing the pain in the left knee with the significant swelling patient does have plan to get orthopedic to do the surgery no fall no other injury Related Data Home Medications ?Medication ?Instructions ?Recorded ?Confirmed cetirizine 10 mg tablet 1 tab PO DAILY allergies 02/27/21 12/31/23 fluticasone propionate 50 1 spray intranasal DAILY PRN Nasal 02/27/21 12/31/23 mcg/actuation nasal Congestion spray,suspension gabapentin 100 mg capsule 2 cap PO BEDTIME 02/27/21 12/31/23 insulin detemir U-100 100 unit/mL 42 unit subcut BEDTIME 02/27/21 12/31/23 (3 mL) subcutaneous pen (Levemir FlexTouch U-100 Insulin) multivitamin 1 tab PO DAILY 02/27/21 12/31/23 lisinopril 20 mg tablet 20 mg PO DAILY 09/24/22 12/31/23 Previous Rx's ?Medication ?Instructions ?Recorded amlodipine 10 mg tablet 10 mg PO DAILY #30 tabs 10/01/22 ertapenem 1 gram solution for 500 mg IV DAILY 6 weeks #10 ea 10/01/22 injection celecoxib 200 mg capsule (Celebrex) 200 mg PO BID 30 days #60 caps 10/14/23 ibuprofen 600 mg tablet 600 mg PO Q6H PRN fever or pain 01/25/24 #30 tabs tramadol 50 mg tablet 50 mg PO Q6H PRN pain #20 tabs 01/25/24 Allergies Allergy/AdvReac Type Severity Reaction Status Date / Time glyburide Allergy Unknown weight gain Verified 01/25/24 19:25 Review of Systems Review of Systems: Yes all other systems are reviewed and are negative PMFSH Past Medical History Attestation statement: The following information was validated with the patient. 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 Oriented X3. No acute distress. ENT: Pharynx normal. Oral Mucosa moist Neck: Normal inspection. Neck supple. CVS: Normal heart rate and rhythm. Pulses normal. Respiratory: No respiratory distress. Equal air entry bilateral, no wheezing/rales/rhonchi Skin: Skin warm and dry. Normal skin color. Normal skin turgor. Extremities: No lower extremity edema. Left knee with diffuse swelling and effusion back: Diffuse tenderness with effusion no focal tenderness good range of movement neurovascular intact Neuro: Oriented X 3. Course Course Course Narrative: This is an RME: Additional HPI, ROS, PE not included below will be deferred to primary provider. RME assessment and note performed by: Eunice Wilcox PA-C This is a [id number], with a hx of diabetes, who presents to the ER with a complaint of left knee pain. Pt states that he felt a popping sensation in his left knee and has had pain behind his knee and into his thigh. Hx of osteoarthritis and partial meniscus tear in left knee - will be getting a knee replacement on through [facility]. Plan: XRay, US LLE Medications Administered Discontinued Medications Generic Name Dose Route Start Last Admin Trade Name Freq PRN Reason Stop Dose Admin Ibuprofen 600 mg 01/25/24 20:14 01/25/24 20:21 Ibuprofen 600 Mg Tablet PO 01/25/24 20:15 600 mg ONCE ONE Administration Oxycodone HCl 10 mg 01/25/24 20:14 01/25/24 20:20 Oxycodone Hcl Immed Release 5 Mg Tablet PO 01/25/24 20:15 10 mg ONCE ONE Administration Medical Decision Making Medical Decision Making [facility] Narrative: Significant effusion of left knee with no signs of infection no fracture knee immobilizer and crutches was given discharge home Differential Diagnosis Differential Diagnoses: The differential diagnosis associated with the presentation includes Independent Interpretation I performed an independent interpretation of an: Plain X-Ray Radiology Impression Discussion of test interpretation with radiology: I have reviewed the radiologist's reading. Discharge Plan Discharge Clinical Impression: Osteoarthritis of left knee Patient Disposition: Home, Self-Care Instructions: Osteoarthritis (ED) Additional Instructions: You have severe osteoarthritis x-ray negative for fracture Take pain medication tramadol/ibuprofen Use knee immobilizer and crutches Avoid stairs Follow up with your orthopedics Prescriptions: New tramadol 50 mg tablet 50 mg PO Q6H PRN (Reason: pain) Qty: 20 0RF ibuprofen 600 mg tablet 600 mg PO Q6H PRN (Reason: fever or pain) Qty: 30 0RF No Action cetirizine 10 mg tablet 1 tab PO DAILY gabapentin 100 mg capsule 2 cap PO BEDTIME fluticasone propionate 50 mcg/actuation spray,suspension 1 spray intranasal DAILY PRN (Reason: Nasal Congestion) Levemir FlexTouch U100 Insulin 100 unit/mL (3 mL) insulin pen 42 unit subcut BEDTIME multivitamin Tablet 1 tab PO DAILY lisinopril 20 mg Tablet 20 mg PO DAILY amlodipine 10 mg Tablet 10 mg PO DAILY Qty: 30 0RF Protocol: Hold for SBP< HOLD for SBP < : 90 ertapenem 1 gram recon soln 500 mg IV DAILY 42 Days Qty: 10 0RF Rx Instructions: end november 02, 2022 celecoxib [Celebrex] 200 mg capsule 200 mg PO BID 30 Days Qty: 60 3RF Interventions: ED Discharge Assessment Last Done: 01/25/24 21:15 Discharge Date/Time: 01/25/24 21:16 Print Language: Yi
--- NOTE | 2024-01-25 20:16 | PC.NURSE ---
Pt brought to [facility] for treatment, MD to bedside for primary eval. Plan for meds, knee immobilizer, and crutches and dc home with f/u. Aware and agreeable to plan of care.
--- NOTE | 2024-01-25 20:16 | ED.EXTPRO ---
HPI - Extremity Problem General Chief complaint: Extremity Injury, Lower Stated complaint: left knee and thigh pain Time Seen by Provider: 01/25/24 19:57 Source: patient Mode of arrival: ambulatory Limitations: no limitations History of Present Illness ED Provider: dariana Related Data Home Medications ?Medication ?Instructions ?Recorded ?Confirmed cetirizine 10 mg tablet 1 tab PO DAILY allergies 02/27/21 12/31/23 fluticasone propionate 50 1 spray intranasal DAILY PRN Nasal 02/27/21 12/31/23 mcg/actuation nasal Congestion spray,suspension gabapentin 100 mg capsule 2 cap PO BEDTIME 02/27/21 12/31/23 insulin detemir U-100 100 unit/mL 42 unit subcut BEDTIME 02/27/21 12/31/23 (3 mL) subcutaneous pen (Levemir FlexTouch U-100 Insulin) multivitamin 1 tab PO DAILY 02/27/21 12/31/23 lisinopril 20 mg tablet 20 mg PO DAILY 09/24/22 12/31/23 Previous Rx's ?Medication ?Instructions ?Recorded amlodipine 10 mg tablet 10 mg PO DAILY #30 tabs 10/01/22 ertapenem 1 gram solution for 500 mg IV DAILY 6 weeks #10 ea 10/01/22 injection celecoxib 200 mg capsule (Celebrex) 200 mg PO BID 30 days #60 caps 10/14/23 Allergies Allergy/AdvReac Type Severity Reaction Status Date / Time glyburide Allergy Unknown weight gain Verified 01/25/24 19:25 [facility] Past Medical History 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 Social History Social History Household Members: Family Housing: Apartment Do you presently have visiting nurse or other home services: No Alcohol intake: never Patient Tobacco Use Status: Never used Tobacco Substance Use Type: Crack/Cocaine service: No Current occupational status: employed 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 Exam Vital Signs: Vital Signs: Last Vital Signs Temp 98.9 F 01/25/24 19:20 Pulse 80 01/25/24 19:20 Resp 18 01/25/24 19:20 BP 100/64 01/25/24 19:20 Pulse Ox 94 01/25/24 19:20 O2 Del Method Room Air 01/25/24 19:20 BMI result Body Mass Index 33.5 Discharge Plan Discharge Prescriptions: No Action cetirizine 10 mg tablet 1 tab PO DAILY gabapentin 100 mg capsule 2 cap PO BEDTIME fluticasone propionate 50 mcg/actuation spray,suspension 1 spray intranasal DAILY PRN (Reason: Nasal Congestion) Levemir FlexTouch U100 Insulin 100 unit/mL (3 mL) insulin pen 42 unit subcut BEDTIME multivitamin Tablet 1 tab PO DAILY lisinopril 20 mg Tablet 20 mg PO DAILY amlodipine 10 mg Tablet 10 mg PO DAILY Qty: 30 0RF Protocol: Hold for SBP< HOLD for SBP < : 90 ertapenem 1 gram recon soln 500 mg IV DAILY 42 Days Qty: 10 0RF Rx Instructions: end november 02, 2022 celecoxib [Celebrex] 200 mg capsule 200 mg PO BID 30 Days Qty: 60 3RF Print Language: Citizen [place]
--- OUTSIDE RECORDS SUMMARY | 2024-01-25 20:18 | XMS_ITS | Continuity of Care Document ---
Author Organization Wound Care Address [address] [place] [id number]- Care Team Providers Care Vacuum Drier Operator Name Role Phone Sandra WALLACE, Robert Guevara Primary Care Physician [facility] [id number] Date(s): 04/11/23 - 05/15/23 Wound Care [address] [place] [id number] Attending Physician: Daquan Andrews MD Admitting Physician: Daquan Andrews MD Allergies, Adverse Reactions, Alerts No Known Allergies Medications amLODIPine 10 mg oral tablet TAKE 1 TABLET BY MOUTH ONCE DAILY Start Date: 11/15/22 Status: Ordered atorvastatin 80 mg oral tablet 1 tablet = 80 mg, By Mouth, Daily at bedtime, # 90 tablet, 0 Refills, Maintenance, 11/15/22 15:38:00 EDT, Tablet, [facility], Partial fill upon patient request if the prescription is for a schedule II opioid drug., 183, cm, 11/15/22 10:5... Start Date: 11/15/22 Status: Ordered Basic metabolic panel, lipid panel, CBC Basic metabolic panel, lipid panel, CBC, See Instructions, # 1 each, Refills 0, Tot. Refills 0, Maintenance, To be done on Tuesday11/22/2022. Please send results to PCP Robert Flores NP [address] [facility] [place], [place], 11/15/22 15:54:00 EDT, Supply Start Date: 11/15/22 Status: Ordered fenofibrate 130 mg oral capsule 1 capsule = 130 mg, By Mouth, Daily, # 30 capsule, 0 Refills, Maintenance, 11/15/22 15:39:00 EDT, Capsule, [facility], Partial fill upon patient request if the prescription is for a schedule II opioid drug., 183, cm, 11/15/22 10:59:00 ED... Start Date: 11/15/22 Status: Ordered gabapentin 100 mg oral capsule TAKE 1 TO 2 CAPSULES BY MOUTH AT BEDTIME Start Date: 11/11/22 Status: Ordered insulin detemir 100 units/mL subcutaneous solution = 20 units, Subcutaneous Injection, Daily at bedtime, 0 Refills, Maintenance, 11/15/22 15:39:00 EDT, Injection, Partial fill upon patient request if the prescription is for a schedule II opioid drug. 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 NOS x2 scheduled TB clinic appts. Social History Social History Type Response Smoking Status Never (less than 100 in lifetime) entered on: 11/11/22 Sex Patient Care team information Care Team Personnel Name: Sandra WALLACE, Robert Guevara Position: Reference Physician Member Role: PCP Address: Address: [address] [place] [address]- Name: Eneida Ferrari RN Position: S RN Member Role: Primary Care Nurse Name: Erick Reyes MD Position: [facility] Renal MD Member Role: Lifetime Consulting Physician Address: Address: [address] [place] [address] [address] [facility] [place], [place] [address]- [place] Name: Tasia Neri RN Position: S RN Member Role: Primary Care Nurse Care Team Related Persons Name: ROBERT PAZ Address: home [address] [address]
--- OUTSIDE RECORDS SUMMARY | 2024-01-25 20:18 | XMS_ITS | Continuity of Care Document ---
Author Organization Wound Care Address [address] [place] [id number]- Care Team Providers Care Orthopedic Dentist Name Role Phone Sandra WALLACE, Robert Guevara Primary Care Physician Encounter [facility] Date(s): 08/31/23 - 10/06/23 Wound Care [address] [place] [id number] Attending Physician: Daquan Andrews MD Admitting Physician: Daquan Andrews MD Referring Physician: Sandra WALLACE, Robert Guevara Allergies, Adverse Reactions, Alerts No Known Allergies Medications amLODIPine 10 mg oral tablet TAKE 1 TABLET BY MOUTH ONCE DAILY Start Date: 11/15/22 Status: Ordered atorvastatin 80 mg oral tablet 1 tablet = 80 mg, By Mouth, Daily at bedtime, # 90 tablet, 0 Refills, Maintenance, 11/15/22 15:38:00 EDT, Tablet, [facility], Partial fill upon patient request if the prescription is for a schedule II opioid drug., 183, cm, 11/15/22 10:5... Start Date: 11/15/22 Status: Ordered Basic metabolic panel, lipid panel, CBC Basic metabolic panel, lipid panel, CBC, See Instructions, # 1 each, Refills 0, Tot. Refills 0, Maintenance, To be done on Tuesday11/22/2022. Please send results to PCP Robert Flores NP [address] [facility] [address] [place], [place], 11/15/22 15:54:00 EDT, Supply Start Date: 11/15/22 Status: Ordered fenofibrate 130 mg oral capsule 1 capsule = 130 mg, By Mouth, Daily, # 30 capsule, 0 Refills, Maintenance, 11/15/22 15:39:00 EDT, Capsule, [facility], Partial fill upon patient request [...] Physician Member Role: PCP Address: Address: [address] [place] [address]- Name: Eneida Ferrari RN Position: S RN Member Role: Primary Care Nurse Name: Erick Reyes MD Position: [facility] Renal MD Member Role: Lifetime Consulting Physician Address: Address: [address] [place] [address] [address] [facility] [place], [place] [address]- [place] Name: Tasia Neri RN Position: S RN Member Role: Primary Care Nurse Care Team Related Persons Name: ROBERT PAZ Address: home [address] [address]
--- OUTSIDE RECORDS SUMMARY | 2024-01-25 20:18 | XMS_ITS | Continuity of Care Document ---
Author Organization Wound Care Address [address] [place] [address]- Care Team Providers Care Daycare Manager Name Role Phone Sandra WALLACE, Robert Guevara Primary [facility] Phys[id number] Date(s): 12/08/23 - 01/13/[facility] [address]ound [address] [place] [id number] Attending Physician: Daquan Andrews MD Admitting Physician: [...] 0 Refills, Maintenance, 11/15/22 15:38:00 EDT, Tablet, [facility], Partial fill upon patient [...] results to PCP Robert Flores NP [address] [place], [place], 11/15/22 15:54:00 EDT, Supply Start Date: 11/15/22 Status: Ordered fenofibrate 130 mg oral capsule 1 capsule = 130 mg, By Mouth, Daily, # 30 capsule, 0 Refills, Maintenance, 11/15/22 15:39:00 EDT, Capsule, [facility], Partial fill upon patient [...] Care team information Care Team Personnel Name: Robert Flores NP Position: Reference Physician Member Role: PCP Address: Address: [address] [place] [address]- Name: Eneida Ferrari RN Position: S RN Member Role: Primary Care Nurse Name: Erick Reyes MD Position: [facility] Renal MD Member Role: Lifetime Consulting Physician Address: Address: [address] [place] [address] [address] [facility] [place], [place] [address]- [place] Name: Tasia Neri RN Position: S RN Member Role: Primary Care Nurse Care Team Related Persons Name: ROBERT PAZ Address: home [address] [address]
--- OUTSIDE RECORDS SUMMARY | 2024-01-25 20:18 | XMS_ITS | Continuity of Care Document ---
Author Organization Wound Care Address [address] [place] [address]- Care Team Providers Care Hedge Trimmer Name Role Phone Sandra WALLACE, Robert Guevara Primary Care Physician [place] [facility] Date(s): 04/04/23 - 05/08/23 Wound Care [address] [place] [id number] Attending Physician: Daquan Andrews MD Admitting Physician: Daquan Andrews MD Allergies, Adverse Reactions, Alerts No Known Allergies Medications amLODIPine 10 mg oral tablet TAKE 1 TABLET BY MOUTH ONCE DAILY Start Date: 11/15/22 Status: Ordered atorvastatin 80 mg oral tablet 1 tablet = 80 mg, By Mouth, Daily at bedtime, # 90 tablet, 0 Refills, Maintenance, 11/15/22 15:38:00 EDT, Tablet, [facility], Partial fill upon patient request if the prescription is for a schedule II opioid drug., donna Lopez, 11/15/22 10:5... Start Date: 11/15/22 Status: Ordered Basic metabolic panel, lipid panel, CBC Basic metabolic panel, lipid panel, CBC, See Instructions, # 1 each, Refills 0, Tot. Refills 0, Maintenance, To be done on Tuesday11/22/2022. Please send results to PCP Robert Flores NP [address] [facility] [place], [place], 11/15/22 15:54:00 EDT, Supply Start Date: 11/15/22 Status: Ordered fenofibrate 130 mg oral capsule 1 capsule = 130 mg, By Mouth, Daily, # 30 capsule, 0 Refills, Maintenance, 11/15/22 15:39:00 EDT, Capsule, [facility], Partial fill upon patient request if the prescription is for a schedule II opioid drug., 183 cm, 11/15/22 10:59:00 ED... Start Date: 11/15/22 [...] Physician Member Role: PCP Address: Address: [address] [place] [address]- Name: Eneida Ferrari RN Position: S RN Member Role: Primary Care Nurse Name: Erick Reyes MD Position: [facility] Renal MD Member Role: Lifetime Consulting Physician Address: Address: [address] [place] [address] [address] [facility] [place], [place] [address]- [place] Name: Tasia Neri RN Position: S RN Member Role: Primary Care Nurse Care Team Related Persons Name: ROBERT PAZ Address: home [address] [address]
--- OUTSIDE RECORDS SUMMARY | 2024-01-25 20:18 | XMS_ITS | Continuity of Care Document ---
Author Organization Wound Care Address [address] [place] [address]- Care Team Providers Care Hazardous Materials Handler Name Role Phone Sandra WALLACE, Robert Guevara Primary Care Physician Encounter [facility] Date(s): 10/26/23 - 12/01/23 Wound Care [address] [place] [id number] Attending Physician: Daquan Andrews MD Admitting [...] 0 Refills, Maintenance, 11/15/22 15:38:00 EDT, Tablet, [facility], Partial fill upon patient [...] results to PCP Robert Flores NP [address] [place], [place], 11/15/22 15:54:00 EDT, Supply Start Date: 11/15/22 Status: Ordered fenofibrate 130 mg oral capsule 1 capsule = 130 mg, By Mouth, Daily, # 30 capsule, 0 Refills, Maintenance, 11/15/22 15:39:00 EDT, Capsule, [facility], Partial fill upon patient [...] Physician Member Role: PCP Address: Address: [address] [place] [address]- Name: Eneida Ferrari RN Position: S RN Member Role: Primary Care Nurse Name: Erick Reyes MD Position: [facility] Renal MD Member Role: Lifetime Consulting Physician Address: Address: [address] [place] [address] [address] [facility] [place], [place] [address]- [place] Name: Tasia Neri RN Position: S RN Member Role: Primary Care Nurse Care Team Related Persons Name: ROBERT PAZ Address: home [address] [address]
--- OUTSIDE RECORDS SUMMARY | 2024-01-25 20:18 | XMS_ITS | Continuity of Care Document ---
Author Organization Wound Care Address [address] [place] [address]- Care Team Providers Care Asset Recovery Specialist Name Role Phone Sandra WALLACE, Robert Guevara Primary Care Physician [id number] Date(s[facility] 06/23/23 - 07/29/23 Wound Care [address] [place] [id number] Attending Physician: Daquan Andrews MD [...] 0 Refills, Maintenance, 11/15/22 15:38:00 EDT, Tablet, [facility], Partial fill upon patient [...] results to PCP Robert Flores NP [address] [facility] [address] [place], [place], 11/15/22 15:54:00 EDT, Supply Start Date: 11/15/22 Status: Ordered fenofibrate 130 mg oral capsule 1 capsule = 130 mg, By Mouth, Daily, # 30 capsule, 0 Refills, Maintenance, 11/15/22 15:39:00 EDT, Capsule, [facility], Partial fill upon patient [...] Physician Member Role: PCP Address: Address: [address] [place] [address]- Name: Eneida Ferrari RN Position: S RN Member Role: Primary Care Nurse Name: Erick Reyes MD Position: [facility] Renal MD Member Role: Lifetime Consulting Physician Address: Address: [address] [place] [address] [address] [facility] [place], [place] [address]- [place] Name: Tasia Neri RN Position: S RN Member Role: Primary Care Nurse Care Team Related Persons Name: ROBERT PAZ Address: home [address] [address]
--- OUTSIDE RECORDS SUMMARY | 2024-01-25 20:18 | XMS_ITS | Continuity of Care Document ---
Author Organization Wound Care Address [address] [place] [address]- Care Team Providers Care Workers' Compensation Magistrate Name Role Phone Sandra WALLACE, Robert Guevara Primary Care Physician En[place] [facility] Date(s): 10/05/23 - 11/10/23 Wound Care [address] [place] [id number] Attending Physician: Daquan Andrews MD [...] 0 Refills, Maintenance, 11/15/22 15:38:00 EDT, Tablet, [facility], Partial fill upon patient [...] results to PCP Robert Flores NP [address] [place], [place], 11/15/22 15:54:00 EDT, Supply Start Date: 11/15/22 Status: Ordered fenofibrate 130 mg oral capsule 1 capsule = 130 mg, By Mouth, Daily, # 30 capsule, 0 Refills, Maintenance, 11/15/22 15:39:00 EDT, Capsule, [facility], Partial fill upon patient [...] Physician Member Role: PCP Address: Address: [address] [place] [address]- Name: Eneida Ferrari RN Position: S RN Member Role: Primary Care Nurse Name: Erick Reyes MD Position: [facility] Renal MD Member Role: Lifetime Consulting Physician Address: Address: [address] [place] [address] [address] [facility] [place], [place] [address]- [place] Name: Tasia Neri RN Position: S RN Member Role: Primary Care Nurse Care Team Related Persons Name: ROBERT PAZ Address: home [address] [address]
--- OUTSIDE RECORDS SUMMARY | 2024-01-25 20:18 | XMS_ITS | Continuity of Care Document ---
Author Organization Wound Care Address [address] [place] [address]- Care Team Providers Care House Visitor Name Role Phone Sandra WALLACE, Robert Guevara Primary Care Physician [id number]28[facility] - 05/01/23 Wound Care [address] [place] [id number] Attending Physician: Daquan Andrews MD [...] 0 Refills, Maintenance, 11/15/22 15:38:00 EDT, Tablet, [facility], Partial fill upon patient [...] results to PCP Robert Flores NP [address] [facility] [place], [place], 11/15/22 15:54:00 EDT, Supply Start Date: 11/15/22 Status: Ordered fenofibrate 130 mg oral capsule 1 capsule = 130 mg, By Mouth, Daily, # 30 capsule, 0 Refills, Maintenance, 11/15/22 15:39:00 EDT, Capsule, [facility], Partial fill upon patient [...] Physician Member Role: PCP Address: Address: [address] [place] [address]- Name: Eneida Ferrari RN Position: S RN Member Role: Primary Care Nurse Name: Erick Reyes MD Position: [facility] Renal MD Member Role: Lifetime Consulting Physician Address: Address: [address] [place] [address] [address] [facility] [place], [place] [address]- [place] Name: Tasia Neri RN Position: S RN Member Role: Primary Care Nurse Care Team Related Persons Name: ROBERT PAZ Address: home [address] [address]
--- OUTSIDE RECORDS SUMMARY | 2024-01-25 20:18 | XMS_ITS | Continuity of Care Document ---
Author Organization Wound Care Address [address] [place] [address]- Care Team Providers Care Senior Reliability Engineer Name Role Phone Sandra WALLACE, Robert Guevara Primary [id number] - 09/04/23 Wound Care [address] [place] [address] Attending Physician: Daquan Andrews MD Admitting [...] 0 Refills, Maintenance, 11/15/22 15:38:00 EDT, Tablet, [facility], Partial fill upon patient [...] results to PCP Robert Flores NP [address] [facility] [place], [place], 11/15/22 15:54:00 EDT, Supply Start Date: 11/15/22 Status: Ordered fenofibrate 130 mg oral capsule 1 capsule = 130 mg, By Mouth, Daily, # 30 capsule, 0 Refills, Maintenance, 11/15/22 15:39:00 EDT, Capsule, [facility], Partial fill upon patient [...] Physician Member Role: PCP Address: Address: [address] [place] [address]- Name: Eneida Ferrari RN Position: S RN Member Role: Primary Care Nurse Name: Erick Reyes MD Position: [facility] Renal MD Member Role: Lifetime Consulting Physician Address: Address: [address] [facility] [address] [facility], [place] [address]- [place] Name: Tasia Neri RN Position: S RN Member Role: Primary Care Nurse Care Team Related Persons Name: ROBERT PAZ Address: home [address] [address]
--- OUTSIDE RECORDS SUMMARY | 2024-01-25 20:18 | XMS_ITS | Continuity of Care Document ---
Author Organization Wound Care Address [address] [place] [address]- Care Team Providers Care Beater Out Leveling Machine Name Role Phone Sandra WALLACE, Robert Guevara Primary Care Physician [id number] Date(s): 07/15/23 - 08/20/23 Wound Care [address] [place] [id number] Attending Physician: Daquan Andrews MD Admitting [...] 0 Refills, Maintenance, 11/15/22 15:38:00 EDT, Tablet, [facility], Partial fill upon patient [...] results to PCP Robert Flores NP 230 [facility] [place], [place], 11/15/22 15:54:00 EDT, Supply Start Date: 11/15/22 Status: Ordered fenofibrate 130 mg oral capsule 1 capsule = 130 mg, By Mouth, Daily, # 30 capsule, 0 Refills, Maintenance, 11/15/22 15:39:00 EDT, Capsule, [facility], Partial fill upon patient [...] Physician Member Role: PCP Address: Address: [address] [place] [address]- Name: Eneida Ferrari RN Position: S RN Member Role: Primary Care Nurse Name: Erick Reyes MD Position: [facility] Renal MD Member Role: Lifetime Consulting Physician Address: Address: [address] [facility] [address] [facility] [place], [place] [address]- [place] Name: Tasia Neri RN Position: S RN Member Role: Primary Care Nurse Care Team Related Persons Name: ROBERT PAZ Address: home [address] [address]
--- OUTSIDE RECORDS SUMMARY | 2024-01-25 20:19 | XMS_ITS | Continuity of Care Document ---
Author Organization [facility] Address [address] [place] [address]- Care Team Providers Care Print Shop Helper Name Role Phone Sandra WALLACE, Robert Guevara Primary Care Physician Encounter [facility] Date(s): 06/29/23 - 08/02/[address] [address] Attending Physician: Cristian WALLACE, Rashida Henry Admitting Physician: Cristian WALLACE, Rashida Henry Referring Physician: Cristian WALLACE, Rashida Henry Allergies, Adverse Reactions, Alerts No Known Allergies Medications amLODIPine 10 mg oral tablet TAKE 1 TABLET BY MOUTH ONCE DAILY Start Date: 11/15/22 Status: Ordered atorvastatin 80 mg oral tablet 1 tablet = 80 mg, By Mouth, Daily at bedtime, # 90 tablet, 0 Refills, Maintenance, 11/15/22 15:38:00 EDT, Tablet, [facility], Partial fill upon patient request if the prescription is for a schedule II opioid drug., 183, cm, 11/15/22 10:5... Start Date: 11/15/22 Status: Ordered Basic metabolic panel, lipid panel, CBC Basic metabolic panel, lipid panel, CBC, See Instructions, # 1 each, Refills 0, Tot. Refills 0, Maintenance, To be done on Tuesday11/22/2022. Please send results to PCP Robert Flores NP [address] [facility] [place], [place], 11/15/22 15:54:00 EDT, Supply Start Date: 11/15/22 Status: Ordered fenofibrate 130 mg oral capsule 1 capsule = 130 mg, By Mouth, Daily, # 30 capsule, 0 Refills, Maintenance, 11/15/22 15:39:00 EDT, Capsule, [facility], Partial fill upon patient request [...] Physician Member Role: PCP Address: Address: [address] [place] [address]- Name: Eneida Ferrari RN Position: S RN Member Role: Primary Care Nurse Name: Erick Reyes MD Position: [facility] Renal MD Member Role: Lifetime Consulting Physician Address: Address: [address] [facility] [address] [facility] [place] [address]- [place] Name: Tasia Neri RN Position: S RN Member Role: Primary Care Nurse Care Team Related Persons Name: ROBERT PAZ Address: home [address] [address]
--- OUTSIDE RECORDS SUMMARY | 2024-01-25 20:19 | XMS_ITS | Continuity of Care Document ---
Author Organization [facility] ter Address [address] [place] [id number] Care Team Providers Care Hub Inventory Specialist Name Role Phone Sandra WALLACE, Robert Guevara Primary Care Physician Encounter [facility] [place] Date(s): 11/11/22 - 11/15/[address] [id number] Discharge Disposition: A-D/C Home Attending Physician: Edinson BEAVER, Zabrina Blancas Admitting Physician: Giorgi Butt DO Referring Physician: Not on Staff, Referring MD Allergies, Adverse Reactions, Alerts No Known Allergies Medications amLODIPine 10 mg oral tablet TAKE 1 TABLET BY MOUTH ONCE DAILY Start Date: 11/15/22 Status: Ordered atorvastatin 80 mg oral tablet 1 tablet = 80 mg, By Mouth, Daily at bedtime, # 90 tablet, 0 Refills, Maintenance, 11/15/22 15:38:00 EDT, Tablet, [facility], Partial fill upon patient [...] results to PCP Robert Flores NP [address] [place], [place], 11/15/22 15:54:00 EDT, Supply Start Date: 11/15/22 Status: Ordered Dilaudid Inj 2 mg, Injection, IV Push Slowly, Every 6 hours, PRN for Pain , Severe, Routine, 11/11/22 18:47:00 EDT Start Date: 11/11/22 Stop Date: 11/15/22 Status: Discontinued fenofibrate 130 mg oral capsule 1 capsule = 130 mg, By Mouth, Daily, # 30 capsule, 0 Refills, Maintenance, 11/15/22 15:39:00 EDT, Capsule, [facility], Partial fill upon patient request if the prescription is for a schedule II opioid drug., 183, cm, 11/15/22 10:59:00 ED... Start Date: 11/15/22 Status: Ordered gabapentin 100 mg oral capsule 100 mg, Capsule, By Mouth, 11/14/22 21:00:00 EDT Start Date: 11/14/22 Stop Date: 11/14/22 Status: Completed gabapentin 100 mg oral capsule TAKE 1 [...] 2Pt. NOS x2 scheduled TB clinic appts. Results Radiology Reports * Exam Date Time Procedure Performing Provider Status 11/13/22 11:35 AM US Ascites Lynda Craft; Au th (Verified) Notes: (US Ascites) Reason For Exam: Other: RESULT: US Ascites US Ascites Reason: Other:; Clinical Question(s): Ascites COMPARISON: None. TECHNIQUE: Grayscale limited abdominal ultrasound of the 4 quadrants. FINDINGS: Trace ascites in the right upper quadrant and right lower quadrant, with moderate ascites in the left lower quadrant and left upper quadrant. IMPRESSION: Moderate ascites on the left. WSN: [id number] Ordering Physician: Maddy Abraham Dictated By: Daquan Davis MD Dictated Date/Time: 11/13/22 2:38 pm Reviewed By: Daquan Davis MD Signed By: Daquan Davis MD Signed Date/Time: 11/13/22 2:38 pm Transcribed By: CSB Transcribed Date/Time: 11/13/22 2:38 pm * Exam Date Time Procedure Performing Provider Status 11/12/22 5:19 PM Abdomen AP Primo Evangelista; Auth (V erified) Notes: (Abdomen AP) Reason For Exam: Nausea/Vomiting RESULT: XR Abdomen AP XR Abdomen AP 1 view INDICATION/CLINICAL QUESTION: Reason: Nausea Vomiting; Clinical Question(s): Other: COMPARISON: None FINDINGS: Exam limited due to body habitus. No evidence of obstruction. No evidence of pneumoperitoneum. No organomegaly, masses or calcifications. No acute bone findings. IMPRESSION: Limited exam. No evidence of obstruction. WSN: [id number] Ordering Physician: Kimberly Walter Dictated By: Juan Miguel Mack MD Dictated Date/Time: 11/12/22 5:57 pm Reviewed By: Juan Miguel Mack MD Signed By: Juan Miguel Mack MD Signed Date/Time: 11/12/22 5:57 pm Transcribed By: ELVIN Transcribed Date/Time: 11/12/22 5:56 pm * Exam Date Time Procedure Performing Provider Status 11/12/22 9:58 AM US Retroperitoneum Comp Carabine , Ali will; Auth (Verified) Notes: (US Retroperitoneum Comp) Reason For Exam: Renal Failure RESULT: US Retroperitoneum Comp US Retroperitoneum Comp REASON: Renal Failure; Clinical Question(s): Renal Obstruction; COMPARISON: CT abdomen and pelvis from 11/11/2022 FINDINGS: Right kidney: 12.1 cm in length. No hydronephrosis. Normal parenchymal thickness and echotexture. No stones. No suspicious mass. Left kidney: 11.6 cm in length. No hydronephrosis. Normal parenchymal thickness and echotexture. Nostones. No suspicious mass. Urinary bladder: Normal morphology. No stone, mass, wall thickening or debris. Incidentally seen is small amount of ascites surrounding the liver and within Morison's pouch. Visualized liver parenchyma is echogenic likely related to hepatic steatosis. IMPRESSION: 1. Normal kidneys and urinary bladder. 2. Incidentally noted small amount of ascites and hepatic steatosis. I have personally reviewed the images and I agree with this report. WSN: [id number] Ordering Physician: Colin Billingsley Dictated By: Krystle Guevara MD Dictated Date/Time: 11/12/22 11:23 a Reviewed By: Meng Thomas MD Signed By: Meng Thomas MD Signed Date/Time: 11/12/22 11:28 am Transcribed By: ELVIN Transcribed Date/Time: 11/12/22 10:27 am * Exam Date Time Procedure Performing Provider Status 11/11/22 4:[address] Abd/Pelvis W/ IV Contrast Only Jamicki garza , Vera; Auth (Verified) Notes: (CT Abd/Pelvis W/ IV Contrast Only) Reason For Exam: LLQ abdominal pain;Other: RESULT: CT Abd/Pelvis W/ IV Contrast Only CT Abd/Pelvis W/ IV Contrast Only Hx of Present Illness: hyperglycemic, has not been compliant with meds since mother unexpectidly . denies si, just reports havent been taking care of himself; Reason: Other:; LLQ abdominalpain; Clinical Question(s): Pancreatitis; Order Comment: TECHNIQUE: Spiral CT through the abdomen and pelvis with IV contrast formatted in 3 planes. 100 cc of Omnipaque 300 was administered intravenously. This study was performed without oral contrast. Weight-based protocol using automatic tube modulation was used to optimize exposure parameters. CTDIvol Body: 20.30 mGy, DLP Body: 1179 mGy*cm. COMPARISON: None. FINDINGS: Mild bilateral lower lobe groundglass may be atelectasis. Peripancreatic stranding. Pancreas enhances normally. No peripancreatic fluid collection. Small peripancreatic lymph nodes. IMPRESSION: Peripancreatic stranding is consistent with pancreatitis. Pancreas enhances normally. No evidence of necrotic pancreatitis. No focal fluid collections appreciated. I have personally reviewed the images and I agree with this report. WSN: [id number] Ordering Physician: Jerry Pina Dictated By: Ariel Fraser MD Dictated Date/Time: 11/11/22 4:36 pm Reviewed By: Nghia Machado MD Signed By: Nghia Machado MD Signed Date/Time: 11/11/22 4:41 pm Transcribed By: ELVIN Transcribed Date/Time: 11/11/22 4:26 pm Vital Signs Most recent to oldest [Reference Range]: 1 2 3 4 Height 183 cm (11/15/22 10:59 AM) 183 cm (11/15/22 4:21 AM) 183 cm (11/14/22 8:53 PM) Weight 112.2 kg (11/11/22 7:19 PM) Oxygen Saturation [94-100 %] 97 % (11/15/22 10:59 AM) 92 % *L* (11/15/22 4:21 AM) 92 % *L* (11/14/22 8:53 PM) Pulse Rate [55-90 bpm] 102 bpm *H* (11/15/22 10:59 AM) 112 bpm *H* (11/15/22 4:21 AM) 112 bpm *H* (11/14/22 8:53 PM) Body Mass Index [18.5-24.99 kg/m2] 33.5 kg/m2 *>HHI* (11/11/22 7:19 PM) Blood Pressure [90-138/55-84 mm Hg] 141/57mm Hg *H* (11/15/22 10:59 AM) 144/67mm Hg *H* (11/15/22 4:21 AM) 145/79mm Hg *H* (11/14/22 8:53 PM) Respiratory Rate [16-30 br/min] 20 br/min (11/15/22 10:59 AM) 20 br/min (11/15/22 4:21 AM) 18 br/min (11/14/22 9:35 PM) 18 br/min (11/14/22 9:35 PM) Temperature [96.8-100.4 DegF] 98.3 DegF (11/15/22 10:59 AM) 98.5 DegF (11/15/22 4:21 AM) 99.1 DegF (11/14/22 8:53 PM) Liters per Minute 1 L/min (11/14/22 11:34 AM) Mode of Delivery (Oxygen) Room air (11/15/22 10:59 AM) Room air (11/15/22 4:21 AM) Room air (11/14/22 8:53 PM) Blood pressure sites Arm, right (11/15/22 10:59 AM) Arm, left (11/15/22 4:21 AM) Arm, left (11/14/22 8:53 PM) Temperature Route Axillary (11/15/22 10:59 AM) Oral (11/15/22 4:21 AM) Oral (11/14/22 8:53 PM) Dry Weight 112.2 kg (11/11/22 7:19 PM) Social History Social History Type Response Smoking Status Never (less than 100 in lifetime) entered on: 11/11/22 Sex Admission evaluation note * Jose Cruz BEAVER, Colin: PERFORM Event Display: Admission Note Authored Date: [id number] Patient: ??SATYA PAZ ? Age:??47 Years?Sex:??Male?:??1975?? Chief Complaint/Reason for Consultation from home, this am reports acute abd pain with n/v. found to by hyperglycemic bgl 505. mother yesterday and hasnt taken insulin several days. denies SI, just reports feeling depressed. took 42u this am. Picc line removed for osetomyalitis. History of Present Illness Patient is a 47-year-old male with past medical history of diabetes mellitus type 2, hypertension,??hyperlipidemia presented to ER with a chief complaint of abdominal pain. ? Patient reported that??he developed abdominal pain in the morning. ??The patient described the abdominal pain in epigastric area as sudden onset, continuous, 9 out of 10,??stabbing and burning in nature, nonradiating, with no aggravating or alleviating factors, associate with nausea multiple episodes of nonbloody, nonbilious vomiting,??no associated fever, chills. ? Patient and patient's family, patient mother passed??recently and for the last 3 days, patient has been drinking??72 ounces of hard lemonade every day for the last 3 days.?? Patient also missed his last dose of insulin??and when he checked his glucose in the morning it was 105 and therefore his gave him??his night dose within the morning. Review of Systems All Pertinent negative and positives are noted in HPI. ??All other systems were reviewed and are negative Objective Measurements?? Height: 183 cm (11/11/22) Weight: 112.2 kg (11/11/22) Dry Weight: 112.2 kg (11/11/22) Body Mass Index:??33.5 kg/m2??Critical (11/11/22) ? Vital Signs?? Temperature: 97.8 DegF (11/11/22 19:19:00) Temperature Route: Oral (11/11/22 19:19:00) Pulse Rate:??115 bpm??High (11/11/22 19:19:00) Respiratory Rate: 20 br/min (11/11/22 20:04:00) Systolic Blood Pressure:??155 mm Hg??High (11/11/22 19:19:00) Diastolic Blood Pressure:??90 mm Hg??High (11/11/22 19:19:00) Blood pressure sites: Arm, right (11/11/22 19:19:00) Mean Arterial Pressure: 112 mm Hg (11/11/22 19:19:00) Pulse Pressure: 65 mm Hg (11/11/22 19:19:00) Oxygen Saturation: 96 % (11/11/22 16:34:00) Mode of Delivery (Oxygen): Room air (11/11/22 16:34:00) Early Warning Score:??12??Critical (11/11/22 20:06:17) ? Physical Exam Constitutional: Alert, in no acute distress. Head: Normocephalic. ?? Eyes: Pupils are equal, round and reactive to light. Extraocular muscles intact. No pallor or scleral icterus ?? Ear, Nose and Throat: mucous membranes dry. Ears and nose - no obvious deformities. Trachea midline. ?? Neck: Supple, Full range of motion.No JVD or bruits. Respiratory:??Clear to auscultation. No wheezing or rhonchi.??No use of accessory muscles. No tactile fremitus.?? Cardiovascular:??PMI not visible. S1 S2 regular. No murmurs, rubs or gallops. Gastrointestinal:??Abdomen soft, tenderness in epigastric area, non-distended. Normal bowel sounds.No pulsatile mass. No hepatosplenomegaly.?? No rebound tenderness, no signs of peritonitis Genitourinary:??No costovertebral angle tenderness. Extremities: No lower extremity pitting edema. No cyanosis or clubbing. Neurologic:??AAOx3, Cranial nerves II-XII grossly intact. Speech normal, no facial droop. No focal neurological deficits. Moves all extremities spontaneously. Sensation intact bilaterally.??Flexor plantar response Skin:??No rash.?? Musculoskeletal:??No gross deformities on inspection. Normal range of motion in hips, knees, ankles.?? .??Muscle strength within normal limits Heme/Lymphatics:??Palpation of neck reveals no swelling or tenderness of neck nodes.?? Psychiatric: Normal mood and affect. Assessment/Plan Diagnoses 1. ??Acute pancreatitis ??(K85.90) 2. ??Acute kidney injury ??(N17.9) 3. ??SIRS without infection with organ dysfunction ??(R65.11) 4. ??Type 2 diabetes mellitus with hyperglycemia ??(E11.65) 5. ??Lactic acidosis ??(E87.20) 6. ??Hypertriglyceridemia ??(E78.1) 7. ??Alcohol abuse ??(F10.10) ?? Assessment:??Patient is a 47 years old male who??is admitted with acute pancreatitis ?? Acute pancreatitis (K85.90):??Etiology: Likely??multifactorial due to hypertriglyceridemia and alcohol abuse Presented with epigastric pain with nausea and vomiting,??has been drinking around 48 ounces of??hard lemonade??for the last 3 days On physical exam, epigastric tenderness, no signs of peritonitis Labs: WBC??14.6, lipase??1692 Ordered triglycerides that came back 1251 CT abdomen was done that showed??findings consistent with acute pancreatitis without any evidence of necrosis of fluid??collection Pain control with IV Dilaudid??milligram every 4 hours as needed, clear liquids, IV fluids normal saline at 150 mill per hour, IV Zofran for nausea and vomiting,??also start the patient on fenofibrate for triglyceride Will monitor triglyceride level we will We will advance diet based on patient pain status and ability to tolerate p.o. ? Acute kidney injury (N17.9):??Etiology: Likely prerenal Creatinine upon admission 1.5,??no recent baseline available CT abdomen without any evidence of hydronephrosis Started on IV. We will hold nephrotoxic medic Creatinine with labs ?? SIRS without infection with organ dysfunction (R65.11):??Etiology: Likely due to acute pancreatitis Leukocytosis, tachycardia, lactic acidosis upon admission UA Negative for UTI CT abdomen only showed pancreatitis no other infectious etiology Blood cultures pending Management as above ?? Type 2 diabetes mellitus with hyperglycemia (E11.65):??Patient missed his dose of insulin yesterday??has been drinking Glucose level upon admission 508 Labs are not consistent with DKA In ER, patient received 3 L LR fluid bolus, repeat blood glucose level 375 Ordered HbA1c Started on sliding scale insulin, also resume??home insulin Levemir at??40 units at bedtime We will continue to monitor and adjust insulin??based on 24-hour glucose level ?? Lactic acidosis (E87.20):??Etiology: Multifactorial due to dehydration??and pancreatitis Lactic acid upon admission??7.4 In ER, patient received 3 L??Ringer lactate bolus Repeat lactate trended up to 11.2 Patient has no signs of peritonitis on exam Started patient on IV fluids normal saline Patient is hemodynamically stable We will follow-up on repeat lactic acid ? Alcohol abuse (F10.10):??Patient reports continued on 48 ounces of??hard lemonade for the last 3 days,??patient mother recently Ordered alcohol level Started patient on benzodiazepine CIHI protocol Counseled on alcohol cessation upon discharge ? Hyperlipidemia Continue home medication Lipitor ? Hypertension: Holding home medication lisinopril??due to ELISABETH,??resume once creatinine trending downor is stable For blood pressure control, will start on low-dose of amlodipine ? VTE Prophylaxis:??Heparin ?VTE Prophylaxis Assessment:??VTE Prophylaxis Ordered ?? Code Status:??Full code ?Order Code Status:??Code Status Ordered ?? Ongoing Medical Necessity:??Acute pancreatitis ?? Discharge Planning:??Pending clinical course ? Date of service: November 11, 2022 Histories Allergies Allergies ?(Active and Proposed Allergies Only) NKA? (Severity: Unknown severity, Onset: Unknown) ? Past Medical History/Problem List Active Problems??(2) Latent tuberculosis by blood test Obese class I ? Past Surgical History No significant past surgical history ? Social History Alcohol Details:??Use: Current. ??Frequency: Daily. ??Type: Beer. Employment/School Details:??Status: Employed. Exercise Details:??Self assessment: Good condition. Home/Environment Details:??Living situation: Home/Independent. ??Lives with: Children. Nutrition/Health Details:??Diet: Regular. Substance Abuse Details:??Use: Never. Tobacco Details:??Use: Never (less than 100 in lifetime). ? Family History No family history??of pancreatitis or pancreatic cancer ? Medications Home Medications Atorvastatin (atorvastatin 40 mg oral tablet)?1?tab(s)?40?Milligram?By Mouth?Daily dulaglutide (Trulicity Pen 0.75 mg/0.5 mL subcutaneous solution)?INJECT ONE PEN (=0.75MG) SUBCUTANEOUSLY ONCE A WEEK DIRECTED Gabapentin (gabapentin 100 mg oral capsule)?TAKE 1 TO 2 CAPSULES BY MOUTH AT BEDTIME Insulin Detemir (Levemir 100 units/mL subcutaneous solution)?See Instructions?42 units Subcutaneous Injection Daily at bedtime Lisinopril (lisinopril 20 mg oral tablet)?20?Milligram?1?tablet?By Mouth?Daily Metformin (metFORMIN 1000 mg oral tablet)?1?tab(s)?1,000?Milligram?By Mouth?2 times a day Thiamine (Vitamin B1 100 mg oral tablet)?TAKE 1 TABLET BY MOUTH EVERY DAY (VITAMIN) ? Results Recent Labs BLOOD COUNT & DIFF WBC 14.6 k/mm3 (High)?? 11/11/2022 14:11 RBC 3.74 m/mm3 (Low)?? 11/11/2022 14:11 Hgb 11.4 Gm/dL (Low)?? 11/11/2022 14:11 Hct 33.4 % (Low)?? 11/11/2022 14:11 MCV 89.3 femtoliters ()?? 11/11/2022 14:11 MCH 30.5 pg ()?? 11/11/2022 14:11 MCHC 34.1 g/dL ()?? 11/11/2022 14:11 Platelet Count 271 k/mm3 ()?? 11/11/2022 14:11 RDW-SD 37.0 femtoliters ()?? 11/11/2022 14:11 MPV 10.7 femtoliters ()?? 11/11/2022 14:11 Nucleated RBC (Automated) 0.0 #/100 WBC'S ()?? 11/11/2022 14:11 Abs. NRBC 0.0 k/mm3 ()?? 11/11/2022 14:11 Abs. Neut 10.2 k/mm3 (High)?? 11/11/2022 14:11 Abs. Lymph 3.5 k/mm3 (High)?? 11/11/2022 14:11 Abs. Pitkin 0.7 k/mm3 ()?? 11/11/2022 14:11 Abs. Eo 0.0 k/mm3 ()?? 11/11/2022 14:11 Abs. Baso 0.1 k/mm3 ()?? 11/11/2022 14:11 Neut % 69.8 % ()?? 11/11/2022 14:11 Lymph % 24.2 % ()?? 11/11/2022 14:11 Pitkin % 4.9 % ()?? 11/11/2022 14:11 Eos % 0.2 % ()?? 11/11/2022 14:11 Baso % 0.4 % ()?? 11/11/2022 14:11 Imm Gran 0.5 % ()?? 11/11/2022 14:11 Abs. Imm Gran 0.1 k/mm3 ()?? 11/11/2022 14:11 ?? BLOOD GAS pH, Venous 7.29 (Low)?? 11/11/2022 14:11 ?? CHEM GENERAL Sodium 132 mmol/L (Low)?? 11/11/2022 14:11 Potassium 4.2 mmol/L ()?? 11/11/2022 14:11 Chloride 92 mmol/L (Low)?? 11/11/2022 14:11 Bicarbonate Level 23 mmol/L ()?? 11/11/2022 14:11 Anion Gap 17 ()?? 11/11/2022 14:11 Glucose Level 508 mg/dL (Critical)?? 11/11/2022 14:11 Glucose, POC 378 mg/dL (High)?? 11/11/2022 19:39 Beta Hydroxybutyrate <0.05 mmol/L ()?? 11/11/2022 14:11 BUN 18 mg/dL ()?? 11/11/2022 14:11 Creatinine-Blood 1.5 mg/dL (High)?? 11/11/2022 14:11 Estimated GFR Creatinine 56 ML/MIN/1.73 M2 ()?? 11/11/2022 14:11 Calcium 9.4 mg/dL ()?? 11/11/2022 14:11 Lipase 1692 units/L (High)?? 11/11/2022 14:11 Lactate 11.2 mmol/L (Critical)?? 11/11/2022 18:11 ?? ENDOCRINE/TUMOR MARKER TSH 0.50 uIU/mL ()?? 11/11/2022 14:11 ?? HEME OTHER Hold Blue Top SPECIMEN DISCARDED AFTER 4 HOURS. ()?? 11/11/2022 14:11 ?? LIPID STUDIES Triglycerides 1251 mg/dL (High)?? 11/11/2022 14:11 ?? MISC. CHEMISTRY Hold Green Top SPECIMEN DISCARDED AFTER 1 WEEK ()?? 11/11/2022 14:20 ?? UA/URINALYSIS Appear/Color, Urine COLORLESS ()?? 11/11/2022 14:23 Specific [place], Urine 1.020 ()?? 11/11/2022 14:23 pH, Urine 6.5 ()?? 11/11/2022 14:23 Albumin, Urine TRACE (Abnormal)?? 11/11/2022 14:23 Glucose, Urine 4+ (Abnormal)?? 11/11/2022 14:23 Ketones, Urine NEGATIVE ()?? 11/11/2022 14:23 Bilirubin, Urine NEGATIVE ()?? 11/11/2022 14:23 Hemoglobin, Urine NEGATIVE ()?? 11/11/2022 14:23 Nitrite, Urine NEGATIVE ()?? 11/11/2022 14:23 Leukocyte, Urine NEGATIVE ()?? 11/11/2022 14:23 Urobilinogen NORMAL mg/dL ()?? 11/11/2022 14:23 WBC's, Urine <1 /HPF ()?? 11/11/2022 14:23 RBC's, Urine <1 /HPF ()?? 11/11/2022 14:23 ?? URINE OTHER Est Creatinine Clearance 67.64 mL/min ()?? 11/11/2022 19:28 ?? VIROLOGY COVID-19 by RT-PCR NEGATIVE ()?? 11/11/2022 14:24 ? Coagulation Profile?? No qualifying data available. ?? * Colin Billingsley MD: PERFORM Event Display: Admission Note Authored Date: Diabetic foot ulcer Patient??has chronic??diabetic ulcer on the right foot??looks like healing without any surrounding erythema or purulent drainage Wound care consult * Colin Billingsley MD: PERFORM Event Display: Admission Note Authored Date: Repeat lab was done??that showed Sodium??130, potassium 5.6, bicarb??10, anion gap 20, blood glucose level 401, beta hydroxybutyratenormal,??lactate down to 9.1,??creatinine trended up to 2.0 ?? Hyperkalemia:??Give??10 units of subcu insulin, normal saline bolus, 1 dose of Lokelma ? Hyperglycemia Anion gap metabolic acidosis Lactic acidosis Even though patient blood glucose level is elevated??along with anion gap acidosis but beta-hydroxybutyrate level normal,??I believe this anion gap metabolic acidosis due to lactic acidosis and acutekidney injury and very less likely due to DKA Patient??is also on metformin at home that can also cause lactic acidosis Patient and denied any??seizure at home Venous pH came back 7.22 Patient is currently hemodynamically stable, Ordered 1 more normal saline bolus,??will hold insulin drip as labs are more consistent with??acutekidney injury and lactic acidosis causing metabolic acidosis Will order repeat labs with venous pH,??will order repeat CK level Consult??nephrology??and follow the recommendations I am expecting repeat labs showing improving acidosis with anion gap EKG study * Event Display: ECG 12-Lead Authored Date: Please click on pdf link to open report * Event Display: ECG 12-Lead Authored Date: Ventricular Rate: 107 BPM Atrial Rate: 107 BPM P-R Interval: 160 ms QRS Duration: 88 ms Q-T Interval: 350 ms QTC Calculation(Bazett): 467 ms P Wanette: 36 degrees R Wanette: 13 degrees T Wanette: 39 degrees Sinus tachycardia No previous ECGs available Confirmed by JEANNE RAINEY ([id number]) on 11/13/2022 7:01:41 PM Pollock: JEANNE RAINEY [facility] Progress note * Amy BEAVER, Erick: SIGN Amy BEAVER, Erick: SIGN, MODIFY Amy BEAVER, Erick: MODIFY, MODIFY, SIGN, MODIFY Siobhan Miller: MODIFY, SIGN Siobhan Miller: SIGN, VERIFY Siobhan Miller: VERIFY Event Display: Progress Note Hospital Authored Date: Patient: SATYA PAZ Age: 47 years Sex: Male : 1975 Associated Diagnoses: None Author: Siobhan Miller [facility] Progress Note Interval History Resting in bed, reports no acute complaints at this time. Review of Systems Review of Systems Respiratory: no productive cough, no shortness of breath. Cardiovascular: no peripheral edema, no chest pain. Gastrointestinal: no abdominal pain, no nausea, no vomiting. Physical Examination Vital Signs Vitals : VITALS 11/15/2022 4:21 EDT Temperature 98.5 DegF Temperature Route Oral Pulse Rate 112 bpm H Respiratory Rate 20 br/min Systolic Blood Pressure 144 mm Hg H Diastolic Blood Pressure 67 mm Hg Blood pressure sites Arm, left Mean Arterial Pressure 93 mm Hg Pulse Pressure 77 mm Hg Oxygen Saturation 92 % L Mode of Delivery (Oxygen) Room air . General Appearance NAD. HEENT Moist mucous membranes. Respiratory Lungs: CTA. Cardiac Rhythms: RRR. Abdomen/GI Abdomen: soft, Distended. Extremities No edema. Neurologic Alert & oriented x 3 . Results Review 7 Day Results Results Laboratory : LABORATORY 11/15/2022 0:13 EDT WBC 13.0 k/mm3 H RBC 2.68 m/mm3 L Hgb 8.3 Gm/dL L Hct 25.4 % L MCV 94.8 femtoliters H MCH 31.0 pg MCHC 32.7 g/dL L Platelet Count 128 k/mm3 L RDW-SD 45.0 femtoliters MPV 11.1 femtoliters Nucleated RBC (Automated) 0.2 #/100 WBC'S Abs. NRBC 0.0 k/mm3 Abs. Neut 9.2 k/mm3 H Abs. Lymph 2.3 k/mm3 Abs. Pitkin 1.2 k/mm3 Abs. Eo 0.1 k/mm3 Abs. Baso 0.0 k/mm3 Neut % 70.5 % Lymph % 17.4 % Pitkin % 9.5 % Eos % 0.9 % Baso % 0.3 % Imm Gran 1.4 % Abs. Imm Gran 0.2 k/mm3 Sodium 135 mmol/L Potassium 4.3 mmol/L Chloride 101 mmol/L Bicarbonate Level 22 mmol/L Anion Gap 12 Glucose Level 91 mg/dL BUN 18 mg/dL Creatinine-Blood 1.8 mg/dL H Estimated GFR Creatinine 48 ML/MIN/1.73 M2 Calcium 7.4 mg/dL L Magnesium 1.6 mg/dL Protein, Total 5.4 Gm/dL L Albumin 2.8 Gm/dL L AG Ratio 1.1 Alkaline Phosphatase 75 units/L AST (SGOT) 43 units/L H ALT (SGPT) 18 units/L Bilirubin, Total 0.6 mg/dL Impression and Plan Satya Paz is a 47-year-old male with PMH of diabetes mellitus type 2, hypertension, and hyperlipidemia who presented to the ER 11/11/2022 with abdominal pain, found to have acute pancreatitis. 1. ELISABETH, non-oliguric. Creatinine 1.5 on arrival, peaked at 3.5mg/dL, now downtrending (currently 1.8) Baseline likely ~ 1.5-2.0mg/dL (spoke with PCP office who only had one set of labs- creatinine was 1.9mg/dL on 10/13/22) -->ELISABETH most likely pre-renal due to volume depletion in the setting of pancreatitis and alcohol use. -->ATN in the setting of cocaine induced vasoconstriction also being considered as patient endorses cocaine use prior to coming to the hospital. In addition, he also received IV contrast. -->Will check serologies for double positive ANCA vasculitis in the rare chance that the cocainewas mixed with levamisole. (unlikely) -->Post-renal obstruction unlikely as patient denies issues with urination and renal ultrasound was negative. No reason to suspect AIN. C3 low C4 normal. 400mg proteinuria U/A without signs of nephritis. Eitan <<20 Plan -Encourage PO intake - Monitor I/O's - Follow-up serologies: ANCA, anti PR3, myeloperoxidase Ab - Monitor BUN/Cr - F/u outpatient w/ RT[facility] 2. Hyperkalemia / Acidosis - improved K 5.6, bicarb 16, and anion gap 20 High anion gap acidosis likely in the setting of lactic acidosis given lactate as high as 11.2 s/p Lokelma 10gm and about 500mL of IV bicarb Potassium now improved to 4.3 and bicarb 22 Plan - Lokelma PRN - Monitor electrolytes Thank you for the courtesy of this consult, RTANE will continue monitoring the patient along with you please do not hesitate to call us with any further questions Siobhan Blount PA-C [facility] [address] , [address] Available by [facility] * Amy BEAVER, Erick: PERFORM Event Display: Progress Note Hospital Authored Date: I have evaluated the patient and discussed the plan with Siobhan Blount PA-C. * Eneida Ferrari RN: VERIFY, PERFORM, SIGN Event Display: Progress Note Hospital Authored Date: Patient: SATYA PAZ Age: 47 years Sex: Male : 1975 Associated Diagnoses: None Author: Eneida Ferrari RN Findings Narrative/Incidental pt c/o severe lower abdominal pain given Dilaudid with goof effect. seizure precaution maintained. adopting to diet and care. callbell within reach. will continue to monitor.. * Divya Madden: PERFORM, SIGN, VERIFY Event Display: Progress Note Hospital Authored Date: Patient: SATYA PAZ Age: 47 years Sex: Male : 1975 Associated Diagnoses: None Author: Divya Madden Findings Problem Related to Alteration in Gastrointestinal : Alteration in Gastrointestinal Func/new 11/14/2022 15:00 EDT Alteration in GI status Related to Pancreatitis Goals & Outcomes, Gastrointestinal Establish a regular pattern of elimination for pt, Nutritional intake is adequate for metabolic needs, Pt will achieve normal/improved fluid balance, Pt will maintain adequate GI function appropriate for pt, Pt will resume/maintain adequate hemodynamic status Interventions, Gastrointestinal Assess/monitor abdomen for distention, tenderness, Assess/monitor abdominal girth & bowel function, Assess/monitor bowel pattern, bowel sounds, flatus, Assess/monitor number of bowel movements, Assess/monitor color, quantity, quality, consistency of stoo, Assess/monitor pt for nausea, vomiting, Assess/monitor effects of re-hydration, Assess/monitor intake &output, Assess if pt tolerating diet, DVT prophylaxis as ordered, Teach/encourage deep breath &cough exercises BH Goals/Interventions, Gastrointestinal Yes Gastrointestinal, Problem Start 11/13/2022 13:10 Reviewed plan with, Gastrointestinal Patient Patient Progression, Gastrointestinal Pt progressing according to plan . Narrative/Incidental Patient alert and oriented x3. Reports of abdominal discomfort during shift, PRN Dilaudid administered with good effect. Patient on environmental monitoring specialist, ST in 100s- 120s, provider aware. Patient on room air, no signs of respiratory distress. Per provider patient O2 to be kept >92%, patient on 1L NC this afternoon while sleeping. Abdomen tender, distended, provider aware. No nausea/vomiting. Patient urinating without issue. Dressing to right great toe changed as ordered this morning. Patient not scoring significantly on CIWA scale, order discontinued. Tolerating clear liquid diet. POC this morning 66, juice given, increased to 72, no further episode of hypoglycemia. IV fluids infusing as ordered. Vital signs stable. Safety measures in place, continuing to monitor patient safety and comfort.. Note * Tasia Neri RN: PERFORM Event Display: Discharge/Transfer Note Hospital Authored Date: [id number] Nursing Discharge Note Entered On: 11/15/2022 17:17 EDT Performed On: 11/15/2022 17:17 EDT by Tasia Neri RN Nursing Discharge Note 2 Discharge Time : 11/15/2022 17:17 EDT Discharge Level of Care at Discharge : Home/Long Term/Foster Care Patient Left Unit Via : Ambulatory Patient Accompanied Off Unit with : Significant other DC Instructions Provided & Signed by Pt : Yes Patient Understands D/C Instructions : Yes Patient Instructions Discharge Signed : Yes Discharge Comments : Did Pt have Specialty Bed or Wound Vac : No Daron WHITING, Tasia - 11/15/2022 17:17 EDT * Dionisio BEAVER, Rubén: PERFORM, MODIFY Edinson BEAVER, Zabrina Blancas: MODIFY Event Display: Discharge/Transfer Note Hospital Authored Date: Patient: ??SATYA PAZ ? Age:??47 Years?Sex:??Male?:??1975?? Patient Information Discharge Location: Primary Care Physician: Sandra WALLACE, Robert Guevara Admit Date/Time: 11/11/22 17:46 Discharge Disposition Discharge Disposition: Home: No Services Discharge Diagnosis Acute pancreatitis (K85.90) Acute kidney injury (N17.9) SIRS without infection with organ dysfunction (R65.11) Type 2 diabetes mellitus with hyperglycemia (E11.65) Lactic acidosis (E87.20) Hypertriglyceridemia (E78.1) Alcohol abuse (F10.10) ?? _ Discharge Medications Amlodipine (amLODIPine 10 mg oral tablet)?TAKE 1 TABLET BY MOUTH ONCE DAILY Atorvastatin (atorvastatin 80 mg oral tablet)?1?tab(s)?80?Milligram?By Mouth?Daily at bedtime Fenofibrate (fenofibrate 130 mg oral capsule)?1?capsule?130?Milligram?By Mouth?Daily Gabapentin (gabapentin 100 mg oral capsule)?TAKE 1 TO 2 CAPSULES BY MOUTH AT BEDTIME Insulin Detemir (insulin detemir 100 units/mL subcutaneous solution)?20?unit(s)?Subcutaneous Injection?Daily at bedtime Thiamine (Vitamin B1 100 mg oral tablet)?TAKE 1 TABLET BY MOUTH EVERY DAY (VITAMIN ?? Medications Started Fenofibrate Medications Discontinued Lisinopril Metformin Trulicity Doses Changed Atorvastatin Insulin Detemir (dose decreased due to decreased PO and hypoglycemia) Allergies Allergies ?(Active and Proposed Allergies Only) NKA? (Severity: Unknown severity, Onset: Unknown) ? PCP Follow-Up/Heads-Up Pancreatitis likely secondary to etoh and hyperTG, now improved. Will order CBC, BMP and Lipid panel (for TGs)??to be done on Tuesday. His medications lisinopril, metformin were discontinued in setting of ELISABETH (metformin also associated with pancreatitis). Trulicity discontinued as patient had pancreatitis. Detemir dose decreased in setting of??decreased PO and a few episodes of??hypoglycemia to 60s . Patient instructed to check blood sugar??at least daily, recommend adjusting detemir??dosing as needed and would recommend initiation of SGLT-2 inhibitor. Please monitor his ascites, thought to be in setting of third spacing due to pancreatitis (no evidence cirrhosis on imaging).-- patient autodiuresing on discharge so anticipate will improve. Continue etoh cessation counseling. Hospital Course Satya is a 47-year-old man with medical history of type 2 diabetes mellitus, alcohol use disorder, cocaine use disorder, hyperlipidemia and hypertension who presented to [facility] on 11/11 with a complaint of nausea, vomiting and abdominal pain. A CT of the abdomen revealed peripancreatic stranding consistent with pancreatitis. He was initially treated with IV fluids, pain medication regimen, Zofran for nausea.Satya informed us that his mother recently so he was ingesting more alcohol than usual, which could be a potential cause for his pancreatitis but in addition his triglycerides were noted to be elevated at 1251. Given the findings on his lipid panel he was a s tarted on fenofibrate and his atorvastatin dose was increased to 80 mg daily. His diet was advancedas tolerated and fluids were discontinued on 11/15/2022 as he was able to tolerate solid foods. He was counseled on a low fat diet.?? US of the abdomen was obtained given that the patient has a distended abdomen which showed moderate ascites on the left, no plans for paracentesis as patient is asymptomanic, he does not have cirrhosis, and he did receive significant amount of IV fluids, seems to be autodiuresing on discharge. His insulin regimen??was modified as he was not tolerating PO intake and he had two episodes of hypoglycemia.?Today, he has been able to ambulate without restrictions,he is tolerating PO intake and requesting to leave the hospital as his mother's services are tomorrow. He is stable to discharge with disposition home. ?? Acute pancreatitis Hypertriglyceridemia Ascites Triglycerides elevated up to 1251 on admission. Probably component of hypertriglyceridemia and alcohol abuse what led to pancreatitis.?Recommendations: ??-??Continue fenofibrate and atorvastatin. ??- BMP, CBC and??Lipid panel to be done on Tuesday in outpatient setting.?- Will discontinue Trulicity as this has been linked to pancreatitis.?- Advised to follow a low-fat diet,??education provided. ??- Monitor ascites in outpatient. ??- Follow up with PCP within one week.? ELISABETH, improving Mild Hyponatremia, resolved Hyperkalemia: Resolved Lactic acidosis: Resolved Hypomagnesemia Hypocalcemia, improving He??was noted to have an acute kidney injury for which nephrology was consulted. An ultrasound of retroperitoneum showed normal kidneys and urinary bladder. He is FENa was noted to be 0.5% with the most likely etiology being renal hypoperfusion secondary to hypovolemia. Vasculitis serologies were sent per renal team as the patient did have recent cocaine abuse which can be associated with ANCA vasculitides, results are still penging but he had significant improvement in his renal function with IV fluid hydration. His electrolyte imbalances resolved (hyperkalemia) with Lokelma. ??FENa of 0.5%, pre-renal etiolgogy likely hypovolemia leading to renal hypoperfusion.?Corrected calcium is 8.3. ?Recommendations: ??- Encourage oral intake. ??- Follow up with PCP within 1 week. ??- Nephrology will arrange an outpatient follow up visit. ??-??Pending ANCA studies to be discussed in outpatient. ??- Will need to have a basic metabolic panel done on Tuesday. ? Hypertriglyceridemia ?Improved from 1000s to 700s. ?Recommendations: ??- Continue atorvastatin to 80 mg ??- Continue fenofibrate 130 mg daily ??- Recheck lipid panel outpatient - Counseled on low fat diet ? Thrombocytopenia Unclear etiology, low 4Ts score, HIT less likely. Possible some component dilutional and some component hx heavy etoh use. Imaging without evidence cirrhosis. No evidence bleeding. - Follow up with PCP, CBC on Tuesday. ? R foot wound -??Continue to follow at wound care clinic every Tuesday. Does not appear infected. ?? Sinus tachycardia ??Most likely in the setting of pancreatitis, EKG done on admission was nonischemic, troponin was 23. Patient not endorsing any chest pain, shortness of breath or any other symptoms ??- Follow up with PCP in outpatient setting.? Hyperglycemia History of type 2 diabetes, ??He is on Trulicity, detemir 42 units, metformin 1000 mg twice daily at home ? Recommendations: ??-??Will discharge??on 20 units of detemir given??that he was hypoglycemic today too.??Anticipate need for re-uptitration in outpatient setting as appetite improves. ??- Will??discontinue??Trulicity in setting of pancreatitis. ??-??Discontinue metformin given ELISABETH and presentation for pancreatitis.?- Would recommend initiation of SGLT-2 inhibitor therapy once renal function comes back to normal. ??- Follow up with PCP within one week. ??- Advised patient to monitor blood glucose level and notify his PCP if it is more than 400 or less than 70 ? Alcohol use??disorder Cocaine use disorder - States that he is decided??he will quit his alcohol and cocaine use. - Refused addiction medicine consult.?? - Encouraged alcohol and cocaine use cessation.?Hypertension:??Continue to hold lisinopril??for now given ELISABETH, continue home amlodipine.?? Objective Temperature?98.3 ?(11:03) Systolic Blood Pressure?141 ?(11:03) Diastolic Blood Pressure?57 ?(11:03) Pulse?102 ?(11:03) SpO2?97 ?(11:03) Respiratory Rate?20 ?(11:03) ?? . Physical Exam Constitutional:??47 year-old male??in no acute??distress. Mental Status: Oriented to person, place and time. Respiratory: Clear to auscultation. No wheezing, rales or rhonchi. Cardiovascular: S1 S2 regular. No murmurs, rubs or gallops. Extremities: No peripheral edema. R wound noted on medial aspect of 1st metatarsal, no purulence noted. Gastrointestinal: Abdomen soft, non-tender, protuberant and distended. Normal bowel sounds. Genitourinary: No costovertebral angle tenderness. Neurologic: No focal neurological deficits. Moves all extremities spontaneously. Skin: No rashes or lesions. No petechiae or purpura.?? Musculoskeletal: No cyanosis or clubbing. No gross deformities. Normal range of motion. Psychiatric: Normal mood and affect Consultants Nephrology Pending Results Add On Lab Order ordered on 11/11/2022 Add On Lab Order ordered on 11/11/2022 Add On Lab Order ordered on 11/12/2022 Add On Lab Order ordered on 11/13/2022 Add On Lab Order ordered on 11/13/2022 Add On Lab Order ordered on 11/14/2022 Anti PR3 ordered on 11/13/2022 Myeloperoxidase Ab ordered on 11/13/2022 Urea Nitrogen Urine ordered on 11/12/2022 Vasculitis Eval W/Reflex To ANCA ordered on 11/13/2022 Patient Education Titles Low-Fat Diet?? Fenofibrate Oral Tablet?? Discharge Instructions for Acute Pancreatitis?? Discharge Instructions for Acute Kidney Injury?? Follow-Up Appointments Added Follow Up ?Time Frame ?Comments Sandra WALLACE, Robert Guevara?1 to 2 weeks Patient Instructions Please follow up with your PCP within one week. You will need to have blood work to be done on Tuesday. ?? STOP taking this medications until your PCP advises you to continue: Lisinopril, Trulicity and metformin. ?? Your insulin will be decreased to 20 units at bedtime. Please follow up with your PCP for further instructions. ?? New medication includes fenofibrate 130 mg once daily please take it as prescribed and your atorvastatin was increased to 80 mg daily at bedtime. ?? Please follow a low-fat diet. Monitor blood glucose level and notify his PCP if it is more than 400or less than 70 ?? you are scheduled to see your PCP on Tuesday. Please follow up. Results Discharge Labs BLOOD COUNT & DIFF WBC 13.0 k/mm3 (High)?? 11/15/2022 00:13 RBC 2.68 m/mm3 (Low)?? 11/15/2022 00:13 Hgb 8.3 Gm/dL (Low)?? 11/15/2022 00:13 Hct 25.4 % (Low)?? 11/15/2022 00:13 MCV 94.8 femtoliters (High)?? 11/15/2022 00:13 MCH 31.0 pg ()?? 11/15/2022 00:13 MCHC 32.7 g/dL (Low)?? 11/15/2022 00:13 Platelet Count 128 k/mm3 (Low)?? 11/15/2022 00:13 RDW-SD 45.0 femtoliters ()?? 11/15/2022 00:13 MPV 11.1 femtoliters ()?? 11/15/2022 00:13 Nucleated RBC (Automated) 0.2 #/100 WBC'S ()?? 11/15/2022 00:13 Abs. NRBC 0.0 k/mm3 ()?? 11/15/2022 00:13 Abs. Neut 9.2 k/mm3 (High)?? 11/15/2022 00:13 Abs. Lymph 2.3 k/mm3 ()?? 11/15/2022 00:13 Abs. Pitkin 1.2 k/mm3 ()?? 11/15/2022 00:13 Abs. Eo 0.1 k/mm3 ()?? 11/15/2022 00:13 Abs. Baso 0.0 k/mm3 ()?? 11/15/2022 00:13 Neut % 70.5 % ()?? 11/15/2022 00:13 Lymph % 17.4 % ()?? 11/15/2022 00:13 Pitkin % 9.5 % ()?? 11/15/2022 00:13 Eos % 0.9 % ()?? 11/15/2022 00:13 Baso % 0.3 % ()?? 11/15/2022 00:13 Myelocytes % 2.0 % ()?? 11/13/2022 00:11 Metamyelocyte % 5.0 % (High)?? 11/13/2022 00:11 Band % 11.0 % (High)?? 11/13/2022 00:11 Platelet Estimate ADEQUATE ()?? 11/13/2022 00:11 Platelet Comment MODERATE ()?? 11/13/2022 00:11 Hemoglobin (POC) POC Cartridge 10.2 Gm/dL (Low)?? 11/12/2022 16:55 Hematocrit (POC) POC Cartridge 30 % (Low)?? 11/12/2022 16:55 Imm Gran 1.4 % ()?? 11/15/2022 00:13 Abs. Imm Gran 0.2 k/mm3 ()?? 11/15/2022 00:13 ? BLOOD GAS pH Venous (POC) POC Cartridge 7.31 (Low)?? 11/12/2022 16:55 pCO2 Venous (POC) POC Cartridge 46.0 mm Hg ()?? 11/12/2022 16:55 pO2 Venous (POC) POC Cartridge 17 mm Hg (Low)?? 11/12/2022 16:55 Est Bicarbonate (POC) POC Cartridge 23.3 mmol/L ()?? 11/12/2022 16:55 % O2 Sat Venous (POC) POC Cartridge 21 ()?? 11/12/2022 16:55 Base Excess (POC) POC Cartridge NEGATIVE 3 ()?? 11/12/2022 16:55 Specimen Type - Blood Gas VENOUS ()?? 11/12/2022 16:55 pH, Venous 7.30 (Low)?? 11/12/2022 07:17 ?? CARDIAC CK, Total 72 units/L ()?? 11/12/2022 07:14 High Sensitivity Troponin (HSTnT) 23 ng/L (High)?? 11/12/2022 16:53 ?? CHEM GENERAL Sodium 135 mmol/L ()?? 11/15/2022 00:13 Potassium 4.3 mmol/L ()?? 11/15/2022 00:13 Chloride 101 mmol/L ()?? 11/15/2022 00:13 Bicarbonate Level 22 mmol/L ()?? 11/15/2022 00:13 Anion Gap 12 ()?? 11/15/2022 00:13 Sodium (POC) POC Cartridge 133 mmol/L ()?? 11/12/2022 16:55 Potassium (POC) POC Cartridge 5.4 mmol/L (High)?? 11/12/2022 16:55 Glucose Level 91 mg/dL ()?? 11/15/2022 00:13 Glucose (POC) POC Cartridge 174 (High)?? 11/12/2022 16:55 Glucose, POC 78 mg/dL ()?? 11/15/2022 12:48 Hemoglobin A1C (Monitoring) 9.1 % (High)?? 11/12/2022 01:57 Beta Hydroxybutyrate 0.09 mmol/L ()?? 11/12/2022 01:58 BUN 18 mg/dL ()?? 11/15/2022 00:13 Creatinine-Blood 1.8 mg/dL (High)?? 11/15/2022 00:13 Estimated GFR Creatinine 48 ML/MIN/1.73 M2 ()?? 11/15/2022 00:13 Osmolality 301 mOs/kg (High)?? 11/12/2022 03:56 Calcium 7.4 mg/dL (Low)?? 11/15/2022 00:13 Ionized Calcium (POC) POC Cartridge 1.06 mmol/L (Low)?? 11/12/2022 16:55 Phosphorus 2.6 mg/dL ()?? 11/13/2022 00:11 Magnesium 1.6 mg/dL ()?? 11/15/2022 00:13 Protein, Total 5.4 Gm/dL (Low)?? 11/15/2022 00:13 Albumin 2.8 Gm/dL (Low)?? 11/15/2022 00:13 AG Ratio 1.1 ()?? 11/15/2022 00:13 LDH 504 units/L (High)?? 11/14/2022 00:18 Alkaline Phosphatase 75 units/L ()?? 11/15/2022 00:13 Lipase 1692 units/L (High)?? 11/11/2022 14:11 AST (SGOT) 43 units/L (High)?? 11/15/2022 00:13 ALT (SGPT) 18 units/L ()?? 11/15/2022 00:13 Bilirubin, Total 0.6 mg/dL ()?? 11/15/2022 00:13 Bilirubin, Direct 0.3 mg/dL ()?? 11/14/2022 10:47 Bilirubin, Indirect 0.4 mg/dL ()?? 11/14/2022 10:47 Lactate 2.1 mmol/L ()?? 11/13/2022 00:11 ?? ENDOCRINE/TUMOR MARKER TSH 0.50 uIU/mL ()?? 11/11/2022 14:11 ? HEME OTHER Hold Lavender Top SPECIMEN DISCARDED AFTER 24 HOURS. ()?? 11/12/2022 15:33 Hold Blue Top SPECIMEN DISCARDED AFTER 4 HOURS. ()?? 11/11/2022 14:11 ?? IMMUNOLOGY GENERAL Complement C3 73 mg/dL (Low)?? 11/13/2022 00:11 Complement C4 18 mg/dL ()?? 11/13/2022 00:11 Haptoglobin 262 mg/dL (High)?? 11/14/2022 00:18 ? LIPID STUDIES Cholesterol 154 mg/dL ()?? 11/12/2022 01:58 Triglycerides 713 mg/dL (High)?? 11/12/2022 01:58 HDL Cholesterol 30 mg/dL (Low)?? 11/12/2022 01:58 LDL Cholesterol Unable to calculate mg/dL ()?? 11/12/2022 01:58 Non HDL Cholesterol 124 mg/dL ()?? 11/12/2022 01:58 ? MISC. CHEMISTRY Hold Green Top SPECIMEN DISCARDED AFTER 1 WEEK ()?? 11/12/2022 03:56 Procalcitonin 0.45 ng/mL ()?? 11/13/2022 00:11 ?? TOXICOLOGY/TDM Ethanol, Serum or Plasma NONE DETECTED mg/dL ()?? 11/12/2022 01:58 Barbiturate Screen, Urine NONE DETECTED ()?? 11/12/2022 12:28 Cocaine Metabolite Screen, Urine POSITIVE (Abnormal)?? 11/12/2022 12:28 Benzodiazepine Screen, Urine NONE DETECTED ()?? 11/12/2022 12:28 Amphetamine Screen, Urine NONE DETECTED ()?? 11/12/2022 12:28 Opiate Screen, Urine POSITIVE (Abnormal)?? 11/12/2022 12:28 Fentanyl Screen, Urine Result NONE DETECTED ()?? 11/12/2022 12:28 ? UA/URINALYSIS Appear/Color, Urine YELLOW ()?? 11/12/2022 12:28 Specific [place], Urine 1.038 (High)?? 11/12/2022 12:28 pH, Urine 5.5 ()?? 11/12/2022 12:28 Albumin, Urine 1+ (Abnormal)?? 11/12/2022 12:28 Glucose, Urine 4+ (Abnormal)?? 11/12/2022 12:28 Ketones, Urine TRACE (Abnormal)?? 11/12/2022 12:28 Bilirubin, Urine NEGATIVE ()?? 11/12/2022 12:28 Hemoglobin, Urine TRACE (Abnormal)?? 11/12/2022 12:28 Nitrite, Urine NEGATIVE ()?? 11/12/2022 12:28 Leukocyte, Urine NEGATIVE ()?? 11/12/2022 12:28 Urobilinogen NORMAL mg/dL ()?? 11/12/2022 12:28 WBC's, Urine 2 /HPF ()?? 11/12/2022 12:28 RBC's, Urine 1 /HPF ()?? 11/12/2022 12:28 Bacteria SLIGHT HPF (Abnormal)?? 11/12/2022 12:28 Squamous Epith <1 /HPF ()?? 11/12/2022 12:28 Mucus SLIGHT /LPF ()?? 11/12/2022 12:28 ?? URINE OTHER Creatinine, Urine Random 111.0 mg/dL ()?? 11/12/2022 12:28 Sodium, Urine Random 24 mmol/L ()?? 11/12/2022 12:28 Chloride, Urine Random <20 mmol/L ()?? 11/12/2022 12:28 Urea Nitrogen, Urine Random 205.8 mg/dL ()?? 11/12/2022 12:28 Osmolality, Urine Random 464 mOsm/kg ()?? 11/12/2022 12:28 Protein, Total Urine Random 49 mg/dL ()?? 11/12/2022 12:28 TP/Cr Ratio 0.44 (High)?? 11/12/2022 12:28 Creatinine, Urine 111.0 mg/dL ()?? 11/12/2022 12:28 Malb/Creat Ratio 82.4 mg/Gm (High)?? 11/12/2022 12:28 Urine Creat For Micro Alb 111.0 mg/dL ()?? 11/12/2022 12:28 Micro-Albumin 91.5 mg/L (High)?? 11/12/2022 12:28 Est Creatinine Clearance 56.36 mL/min ()?? 11/15/2022 02:03 ?? VIROLOGY COVID-19 by RT-PCR NEGATIVE ()?? 11/11/2022 14:24 ? Microbiology ?? COVID-19 (Novel Coronavirus), Rapid PCR?? Completed?? Source: Nasal Body Site: Nose Collected Dt/Tm: 11/11/2022 14:24 Last Updated Dt/Tm: 11/11/2022 16:16 ?Patient case and plan discussed with ??Edinson. ?Rubén Nichole MD ?Internal Medicine PGY-1 37??minutes spent on discharge * Edinson BEAVER, Zabrina Blancas: PERFORM Event Display: Discharge/Transfer Note Hospital Authored Date: Attending Attestation:??I have seen and evaluated this patient.?I have discussed the case and its management with the resident and agree with the findings and plan as documented in the resident???s note except where modified. ? Zabrina Neves MD * Rubén Nichole MD: PERFORM Event Display: Patient Education Leaflets Authored Date: Low-Fat Diet ?? [id number] Low-Fat Diet A low-fat diet can help you lose weight. It also can help lower cholesterol and prevent symptoms ofgallbladder disease. In addition, choosing healthier unsaturated fats over less saturated healthy fats can help improve heart health. The average Citizen [place] diet contains up to 50% fat. This means thathalf of all calories come from fat (about 80 grams to 100 grams of fat per day). Choosing normal portions of foods from the list below can help lower your fat intake. Experts recommend that only 20% to 35% of your daily calories come from fat. The remaining 65% to 80% of calories will come from protein and carbohydrates. ?? Breads OK: Whole-wheat or rye bread, daniel or soda crackers, ashley toast, plain rolls, whole-wheat bagels, Vincentian muffins Don't have: Rolls and breads containing whole milk; waffles, pancakes, biscuits, corn bread; cheesecrackers, other flavored crackers, pastries, doughnuts ?? Cereals OK: Oatmeal, whole-wheat, bran, multigrain, rice Don't have:Granola or other cereals that have oil, coconut, or more than 2 grams of fat per serving ?? Cheese and eggs OK: Cheeses labeled low-fat; 3 whole eggs per week; egg whites and egg substitutes as desired Don't have: All other cheeses ?? Desserts OK: Gelatin, slushy, tegan food cake, meringues, nonfat yogurt, and puddings, or sherbet made with nonfat milk Don't have: Any other store-bought desserts, or desserts that have fat, whole milk, cream, chocolate, and coconut. Try to limit sweets and desserts. They may also contain high amounts of added sugars. ?? Drinks OK: Nonfat milk, coffee, tea, water Don't have:Whole and reduced-fat milk, evaporated and condensed milk, hot chocolate mixes, milk shakes, malts, eggnog ?? Fats OK: You may have up to 3 teaspoons of fat daily. This can be butter, margarine, mayonnaise, or healthy oils (canola or olive) Don't have: Cream, nondairy creams, cream cheese, gravies, and cream sauces ?? Fruits OK: All fruits made without fat Don't have: Coconut, olives ?? Meats, poultry, fish OK: Limit meat to 6 ounces daily (broiled, roasted, baked, grilled, or boiled). Buy lean cuts, and trim off the fat. Try beef, fish, sr, pork, and canned fish packed in water; also, chicken and turkey with the skin removed. Don't have: Fried meats, fish, or poultry; fried eggs, and fish canned in oils; fatty meats, such as florez, sausage, corned beef, hot dogs, and lunch meats; meats with gravies and sauces ?? Potatoes, beans, pasta OK: Dried beans, split peas, lentils, potatoes, rice, pasta made without added fat Don't have: Cuban fries, potato chips, potatoes prepared with butter, refried beans ?? Soups OK: Clear broth soups without fat and with allowed vegetables Don't have: Cream-based soups ?? Vegetables OK: Fresh, frozen, canned or dried vegetables, all made without added fat Don't have: Fried vegetables and those prepared with butter, cream, sauces ?? Other foods OK: Salsa, spices and herbs, mustard, ketchup, lemon, and vinegar. Though some foods like sugar, jelly, hard candy, marshmallows, honey, syrup, and salt contain no fat, it's still a good idea to watch portion sizes. The Dietary Guidelines for Americans recommend that less than 10% of daily caloriescome from added sugars. Don't have: Chocolate, nuts, coconut, and cream candies; sunflower, sesame, and other seeds; fried foods; cream sauces and gravies; pizza ?? Last Reviewed Date: 2022 ?? [employer]. All rights reserved. This information is not intended as a substitute for professional medical care. Always follow your healthcare professional's instructions. ?? * Rubén Nichole MD: PERFORM Event Display: Patient Education Leaflets Authored Date: [id number] Fenofibrate Oral Tablet ?? [address] Fenofibrate Oral Tablet Brands: [employer] Uses To lower high fat levels in blood. ?? Instructions This medicine may be taken with or without food. Keep the medicine at room temperature. Avoid heat and direct light. It is important that you keep taking each dose of this medicine on time even if you are feeling well. If you forget to take a dose on time, take it as soon as you remember. If it is almost time for thenext dose, do not take the missed dose. Return to your normal schedule. Do not take 2 doses at one time. Tell your doctor and pharmacist about all your medicines. Include prescription and yfav-bms-byzxewkoaxeobapl, vitamins, and herbal medicines. It is very important that you follow your doctor's instructions for all blood tests. ?? Cautions Tell your doctor and pharmacist if you ever had an allergic reaction to a medicine. Do not use the medication any more than instructed. Please check with your doctor before drinking alcohol while on this medicine. Contact your doctor if you notice a change in the amount or darkening of your urine. Tell the doctor or pharmacist if you are , planning to be , or . Do not breastfeed while on this medicine. Do not start or stop any other medicines without first speaking to your doctor or pharmacist. Do not share this medicine with anyone who has not been prescribed this medicine. ?? Side Effects Call your doctor or get medical help right away if you notice any of these more serious side effects: ??? swelling in the neck or throat ??? signs of liver damage (such as yellowing of eye or skin, dark urine, or unusual tiredness) ??? nausea ??? stomach upset or abdominal pain A few people may have an allergic reaction to this medicine. Symptoms can include difficulty breathing, skin rash, itching, swelling, or severe dizziness. If you notice any of these symptoms, seek medical help quickly. ?? Extra Please speak with your doctor, nurse, or pharmacist if you have any questions about this medicine. ?? [email or web address]/[email or web address] IMPORTANT NOTE: This document tells you briefly how to take your medicine, but it does not tell youall there is to know about it. Your doctor or pharmacist may give you other documents about your medicine. Please talk to them if you have any questions. Always follow their advice. There is a more complete description of this medicine available in [employer]. Scan this code on your smartphone or tablet or use the web address below. You can also ask your pharmacist for a printout. If you have any questions, please ask your pharmacist. The display and use of this drug information is subject to Terms of Use. Copyright(c) 2022 [employer]. ?? The [employer]. All rights reserved. This information is not intended as a substitute for professional medical care. Always follow your healthcare professional's instructions. ?? * Rubén Nichole MD: PERFORM Event Display: Patient Education Leaflets Authored Date: [id number] Discharge Instructions for Acute Pancreatitis ?? 67815 Discharge Instructions for Acute Pancreatitis You have been diagnosed with acute pancreatitis. The pancreas is an organ that makes digestive juices and hormones. Your pancreas is inflamed or swollen. Gallstones are a common cause of pancreatitis. These hard stones form in the gallbladder. The gallbladder shares a tube with the pancreas into the small intestine. If gallstones block this tube, fluid can???t leave the pancreas. The fluid backs up and causes redness and swelling (inflammation).??Alcohol use is another very common cause of pancreatitis. There are other causes. Make sure you understand the cause of your pancreatitis. Then you can try to stop it from happening again. Immediate home care ??? Find someone to drive you to appointments. Acute pancreatitis is a serious condition, and you should never drive if you have symptoms. ??? Stop drinking if your illness was caused by alcohol. o Ask your healthcare provider about alcohol abuse programs and support groups suchas Alcoholics Anonymous. o Ask your provider about prescription medicines that can help you stop drinking. o Tell your provider about the alcohol withdrawal symptoms you have when you stop drinking. This is very important. You may need close medical supervision and special medicines??when you stop drinking. This will depend on your alcohol withdrawal history.? Take your medicines exactly as directed. Don???t skip doses. ??? Eat a low-fat diet. Ask your provider for menus and other diet information. ??? Stop smoking. Smoking increases problems if you have pancreatitis. ??? Learn to take your own pulse. Keep a record of your results. Ask your provider which readings mean that you need medical attention. ?? Ongoing??care ??? Tell your provider about any medicines you are taking. Some medicines can cause this condition. ??? Before starting any new medicine, ask your provider if it will harm your pancreas. This includes any new kpnv-gmb-oyjfklg medicines, vitamins, or herbal supplements. ??? Tell your pr ovider if you lose weight without dieting. ??? Be aware of symptoms that may mean your pancreatitishas come back. These symptoms include belly pain, nausea and vomiting, and fever. ??? Keep all follow-up appointments with your provider. Problems can often show up later. ??? If your pancreatitis was caused by gallstones, gallbladder removal will likely be advised. ?? Follow-up Follow up with your healthcare provider as advised. ?? When to call your healthcare provider Call your healthcare provider right away or seek immediate medical attention if you have any of thefollowing: ??? Fever??of?? 100.4?? F??( 38.0??C) or higher, or as advised by your provider ??? Chills ??? Severe pain from your upper belly to your back ??? Nausea and vomiting ??? Feel dizzy or lightheaded ??? Yellowing of your skin or eyes (jaundice) ??? Bruises on your belly or back ??? Belly swe lling and tenderness ??? Rapid pulse ??? Shallow, fast breathing ?? Last Reviewed Date: 2021 ?? 8154-1315 The [employer]. All rights reserved. This information is not intended as a substitute for professional medical care. Always follow your healthcare professional's instructions. ?? CT Abdomen and Pelvis W contrast IV * BHSPowerscribe , CIS S: TRANSCRIBE Jeannette MD, Nghia P: VERIFY Ariel Fraser MD: SIGN Event Display: Result: Authored Date: [id number] CT Abd/Pelvis W/ IV Contrast Only Hx of Present Illness: hyperglycemic, has not been compliant with meds since mother unexpectidly . denies si, just reports havent been taking care of himself; Reason: Other:; LLQ abdominalpain; Clinical Question(s): Pancreatitis; Order Comment: TECHNIQUE: Spiral CT through the abdomen and pelvis with IV contrast formatted in 3 planes. 100 cc of Omnipaque 300 was administered intravenously. This study was performed without oral contrast. Weight-based protocol using automatic tube modulation was used to optimize exposure parameters. CTDIvol Body: 20.30 mGy, DLP Body: 1179 mGy*cm. COMPARISON: None. FINDINGS: Mild bilateral lower lobe groundglass may be atelectasis. Peripancreatic stranding. Pancreas enhances normally. No peripancreatic fluid collection. Small peripancreatic lymph nodes. IMPRESSION: Peripancreatic stranding is consistent with pancreatitis. Pancreas enhances normally. No evidence of necrotic pancreatitis. No focal fluid collections appreciated. I have personally reviewed the images and I agree with this report. WSN: [id number] Ordering Physician: Jerry Pina Dictated By: Ariel Fraser MD Dictated Date/Time: 11/11/22 4:36 pm Reviewed By: Nghia Machado MD Signed By: Nghia Machado MD Signed Date/Time: 11/11/22 4:41 pm Transcribed By: ELVIN Transcribed Date/Time: 11/11/22 4:26 pm US Abdomen * SMITH Ward S: Daquan Triana MD: VERIFY Event Display: Result: Authored Date: [id number] US Ascites Reason: Other:; Clinical Question(s): Ascites COMPARISON: None. TECHNIQUE: Grayscale limited abdominal ultrasound of the 4 quadrants. FINDINGS: Trace ascites in the right upper quadrant and right lower quadrant, with moderate ascites in the left lower quadrant and left upper quadrant. IMPRESSION: Moderate ascites on the left. WSN: [id number] Ordering Physician: Maddy Abraham Dictated By: Daquan Davis MD Dictated Date/Time: 11/13/22 2:38 pm Reviewed By: Daquan Davis MD Signed By: Daquan Davis MD Signed Date/Time: 11/13/22 2:38 pm Transcribed By: ELVIN Transcribed Date/Time: 11/13/22 2:38 pm US Retroperitoneum * DATowerscribe , CIS S: TRANSCMeng Samayoa MD: VERIFY Krystle Guevara MD: SIGN Event Display: Result: Authored Date: [id number] US Retroperitoneum Comp REASON: Renal Failure; Clinical Question(s): Renal Obstruction; COMPARISON: CT abdomen and pelvis from 11/11/2022 FINDINGS: Right kidney: 12.1 cm in length. No hydronephrosis. Normal parenchymal thickness and echotexture. No stones. No suspicious mass. Left kidney: 11.6 cm in length. No hydronephrosis. Normal parenchymal thickness and echotexture. Nostones. No suspicious mass. Urinary bladder: Normal morphology. No stone, mass, wall thickening or debris. Incidentally seen is small amount of ascites surrounding the liver and within Morison's pouch. Visualized liver parenchyma is echogenic likely related to hepatic steatosis. IMPRESSION: 1. Normal kidneys and urinary bladder. 2. Incidentally noted small amount of ascites and hepatic steatosis. I have personally reviewed the images and I agree with this report. WSN: [id number] Ordering Physician: Colin Billingsley Dictated By: Krystle Guevara MD Dictated Date/Time: 11/12/22 11:23 a Reviewed By: Meng Thomas MD Signed By: Meng Thomas MD Signed Date/Time: 11/12/22 11:28 am Transcribed By: ELVIN Transcribed Date/Time: 11/12/22 10:27 am XR Abdomen AP * Ed , CIS S: TRANSCRIJuan Miguel Ritchie MD S: VERIFY Event Display: Result: Authored Date: [id number] XR Abdomen AP 1 view INDICATION/CLINICAL QUESTION: Reason: Nausea Vomiting; Clinical Question(s): Other: COMPARISON: None FINDINGS: Exam limited due to body habitus. No evidence of obstruction. No evidence of pneumoperitoneum. No organomegaly, masses or calcifications. No acute bone findings. IMPRESSION: Limited exam. No evidence of obstruction. WSN: [id number] Ordering Physician: Kimberly Walter Dictated By: Juan Miguel Mack MD Dictated Date/Time: 11/12/22 5:57 pm Reviewed By: Juan Miguel Mack MD Signed By: Juan Miguel Mack MD Signed Date/Time: 11/12/22 5:57 pm Transcribed By: ELVIN Transcribed Date/Time: 11/12/22 5:56 pm Patient Care team information Care Team Personnel Name: Sandra WALLACE, Robert Guevara Position: Reference Physician Member Role: PCP Address: Address: [address] [place] [address]- [place] Name: Reza Marinelli RN Position: [facility] RN Member Role: Primary Care Nurse Name: Eneida Ferrari RN Position: [facility] RN Member Role: Primary Care Nurse Name: Erick Reyes MD Position: [facility] Renal MD Member Role: Lifetime Consulting Physician Address: Address: [address] [facility], [place] [address]- [place] Name: Tasia Neri RN Position: [facility] RN Member Role: Primary Care Nurse Name: Praneeth Pacheco MD Position: [facility] ED Medicine MD Member Role: ED Attending Physician Address: Address: [address] [place] [address]- Name: Jaxon Burden Position: [facility] ED TA [facility] Member Role: Employee Development Manager Name: Antonette Pennington Position: [facility] ED RN W/OE and Tasks Member Role: Patient Care Provider Name: Ferny Nicolas MD Position: [facility] Resident Member Role: ED Resident Address: Address: [address] [place] [address]- Care Team Related Persons Name: ROBERT PAZ Address: home [address] [address]
--- OUTSIDE RECORDS SUMMARY | 2024-01-25 20:19 | XMS_ITS | Continuity of Care Document ---
Author Organization Wound Care Address [address] [place] [address]- Care Team Providers Care Communications Field Technician Name Role Phone Sandra WALLACE, Robert Guevara Primary Care Physician Encounter [facility] Date(s): 06/11/23 - 07/13/23 Wound Care [address] [place] [id number] [...] 0 Refills, Maintenance, 11/15/22 15:38:00 EDT, Tablet, [facility] 3, Partial fill upon patient request if the prescription is for a schedule II opioid drug., 183, cm, 11/15/22 10:5... Start Date: 11/15/22 Status: Ordered Augmentin 875 mg-125 mg oral tablet 1 tablet, By Mouth, Every 12 hours, for 14 days, # 28 tablet, 0 Refills, Acute 07/14/23 10:44:00 EST, 06/30/23 10:44:00 EST, Tablet, [facility], Partial fill upon patient request if the prescription is for a schedule II opioid drug... Start Date: 06/30/23 Stop Date: 07/14/23 Status: Ordered Basic metabolic panel, lipid panel, CBC Basic metabolic panel, lipid panel, CBC, See Instructions, # 1 each, Refills 0, Tot. Refills 0, Maintenance, To be done on Tuesday11/22/2022. Please send results to PCP Robert Flores NP [address] [facility] [place], [place], 11/15/22 15:54:00 EDT, Supply Start Date: 11/15/22 Status: Ordered fenofibrate 130 mg oral capsule 1 capsule = 130 mg, By Mouth, Daily, # 30 capsule, 0 Refills, Maintenance, 11/15/22 15:39:00 EDT, Capsule, [facility], Partial fill upon patient [...] Physician Member Role: PCP Address: Address: [address] [place] [address]- Name: Eneida Ferrari RN Position: S RN Member Role: Primary Care Nurse Name: Erick Reyes MD Position: S Renal MD Member Role: Lifetime Consulting Physician Address: Address: [address] [facility] [address] [facility], [place] [address]- [place] Name: Tasia Neri RN Position: S RN Member Role: Primary Care Nurse Care Team Related Persons Name: ROBERT PAZ Address: home [address] [address]
--- OUTSIDE RECORDS SUMMARY | 2024-01-25 20:19 | XMS_ITS | Continuity of Care Document ---
Author Organization Wound Care Address [address] [place] [address]- Care Team Providers Care Staff Pharmacist Hospital Name Role Phone Sandra WALLACE, Robert Guevara Primary Care Physician Encounter [facility] Date(s): 04/29/23 - 06/04/23 Wound Care [address] [place] [id number] Attending Physician: Cristian WALLACE, Rashida Henry Admitting Physician: Cristian WALLACE, Rashida Henry Allergies, Adverse Reactions, Alerts No Known Allergies Medications amLODIPine 10 mg oral tablet TAKE 1 TABLET BY MOUTH ONCE DAILY Start Date: 11/15/22 Status: Ordered atorvastatin 80 mg oral tablet 1 tablet = 80 mg, By Mouth, Daily at bedtime, # 90 tablet, 0 Refills, Maintenance, 11/15/22 15:38:00 EDT, Tablet, [facility], Partial fill upon patient [...] results to PCP Robert Flores NP [address] [place], [place], 11/15/22 15:54:00 EDT, Supply Start Date: 11/15/22 Status: Ordered fenofibrate 130 mg oral capsule 1 capsule = 130 mg, By Mouth, Daily, # 30 capsule, 0 Refills, Maintenance, 11/15/22 15:39:00 EDT, Capsule, [facility], Partial fill upon patient [...] Physician Member Role: PCP Address: Address: [address] [place] [address]- Name: Eneida Ferrari RN Position: S RN Member Role: Primary Care Nurse Name: Erick Reyes MD Position: [facility] Renal MD Member Role: Lifetime Consulting Physician Address: Address: [address] [place] [address] [address] [facility], [place] [address]- [place] Name: Tasia Neri RN Position: S RN Member Role: Primary Care Nurse Care Team Related Persons Name: ROBERT PAZ Address: home [address] [address]
--- OUTSIDE RECORDS SUMMARY | 2024-01-25 20:19 | XMS_ITS | Continuity of Care Document ---
Author Organization Wound Care Address [address] [place] [address]- Care Team Providers Care Butt Presser Name Role Phone Sandra WALLACE, Robert Guevara Primary Care Physician Encounter [facility] [id number] Date(s): 05/09/23 - 06/12/23 Wound Care [address] [place] [address] Attending Physician: Daquan Andrews MD Admitting Physician: Daquan Andrews MD Allergies, Adverse Reactions, Alerts No Known Allergies Medications amLODIPine 10 mg oral tablet TAKE 1 TABLET BY MOUTH ONCE DAILY Start Date: 11/15/22 Status: Ordered atorvastatin 80 mg oral tablet 1 tablet = 80 mg, By Mouth, Daily at bedtime, # 90 tablet, 0 Refills, Maintenance, 11/15/22 15:38:00 EDT, Tablet, [facility], Partial fill upon patient request if the prescription is for a schedule II opioid drug., 183, cm, 11/15/22 10:5... Start Date: 11/15/22 Status: Ordered Bactrim DS 800 mg-160 mg oral tablet 1 tablet, By Mouth, 2 times a day, for 14 days, # 28 tablet, 0 Refills, Acute 06/21/23 12:10:00 EST, 06/07/23 12:10:00 EST, Tablet, [facility], Partial fill upon patient request if the prescription is for a schedule II opioid drug.... Start Date: 06/07/23 Stop Date: 06/21/23 Status: Ordered Basic metabolic panel, lipid panel, CBC Basic metabolic panel, lipid panel, CBC, See Instructions, # 1 each, Refills 0, Tot. Refills 0, Maintenance, To be done on Tuesday11/22/2022. Please send results to PCP Robert Flores NP [address] [facility] [place], [place], 11/15/22 15:54:00 EDT, Supply Start Date: 11/15/22 Status: Ordered fenofibrate 130 mg oral capsule 1 capsule = 130 mg, By Mouth, Daily, # 30 capsule, 0 Refills, Maintenance, 11/15/22 15:39:00 EDT, Capsule, [facility], Partial fill upon [...] Physician Member Role: PCP Address: Address: [address] [place] [address]- Name: Eneida Ferrari RN Position: S RN Member Role: Primary Care Nurse Name: Erick Reyes MD Position: S Renal MD Member Role: Lifetime Consulting Physician Address: Address: [address] [facility] [address] [facility], [place] [address]- [place] Name: Tasia Neri RN Position: S RN Member Role: Primary Care Nurse Care Team Related Persons Name: ROBERT PAZ Address: home [address] [address]
[2024-01-25] MEDS: oxyCODONE HCl Immed Release 5 MG TABLET 10 MG PO (20:20)
[2024-01-25] MEDS: Ibuprofen 600 MG TABLET PO (20:21)
[2024-01-25 21:15] VITALS: BP 137/73; PULSE 78; RESP 18; TEMP 37.1; O2SAT 97
== END 2024-01-25 21:16 | disposition home or self-care (01) ==
PROVIDERS: Emergency Provider Internal Medicine; PCP Registered Nurse
DX: M17.12 Unilateral primary osteoarthritis, left knee (principal); R60.0 Localized edema
CPT/HCPCS: 73562; 93971; 99284

== ENCOUNTER 2024-06-04 12:54 | Outpatient (REF) | payer MEDICAID, SELFPAY | END 2024-06-04 12:55 | disposition home or self-care (01) | LOC: HO.HOSX 12:54 | PROVIDERS: Visit Provider Physician Assistant | DX: Z13.89 Encounter for screening for other disorder (principal) ==

== ENCOUNTER 2024-06-12 14:57 | Emergency (ER) | payer MEDICAID, SELFPAY ==
--- NOTE | ~2024-06-12 | XR_ITS ---
EXAMINATION: XR FOOT, RIGHT CLINICAL INFORMATION: wound lateral foot COMPARISON: 09/22/2022 TECHNIQUE: AP, lateral, and oblique views of the right foot. FINDINGS: There is severe deformity with interval healing and callus formation of the fractures at the bases of the second through fifth metatarsals. Bunion formation with a marked hallux valgus deformity and subluxation at the first MTP joint. Generalized soft tissue swelling and edema seen of the foot. There is a shallow ulceration seen adjacent to the head of the first metatarsal. There is some new cortical lucency seen at the head of the first metatarsal compared to the prior exam concerning for acute osteomyelitis. XR/XR foot RT min 3V IMPRESSION: 1. Shallow ulceration adjacent to the head of the first metatarsal with new cortical lucency at the head of the first metatarsal concerning for acute osteomyelitis. 2. Interval healing of the fractures at the bases of the second through fifth metatarsals. 3. Marked hallux valgus deformity with subluxation at the first MTP joint. Electronically signed by: Speedy Lepe MD 06/12/2024 08:10 PM [facility]
[2024-06-12 15:10] VITALS: BP 132/65; PULSE 107; RESP 20; TEMP 37; O2SAT 97; BMI 34.7
--- NOTE | 2024-06-12 15:12 | ED.GENADULT ---
HPI - General Adult General Chief complaint: Wound/Laceration Stated complaint: Abscess R foot Related Data Home Medications ?Medication ?Instructions ?Recorded ?Confirmed fluticasone propionate 50 1 spray intranasal DAILY PRN Nasal 02/27/21 06/14/24 mcg/actuation nasal Congestion spray,suspension insulin detemir U-100 100 unit/mL 54 unit subcut BEDTIME 02/27/21 06/14/24 (3 mL) subcutaneous pen (Levemir FlexTouch U-100 Insulin) multivitamin 1 tab PO DAILY 02/27/21 06/14/24 amlodipine 5 mg-olmesartan 20 mg 1 tab PO BEDTIME 06/14/24 06/14/24 tablet atorvastatin 80 mg tablet 80 mg PO BEDTIME 06/14/24 06/14/24 empagliflozin 25 mg tablet 25 mg PO DAILY 06/14/24 06/14/24 (Jardiance) insulin lispro 100 unit/mL 4 unit subcut DAILY@1700 06/14/24 06/14/24 subcutaneous pen metoprolol succinate 25 mg 25 mg PO DAILY 06/14/24 06/14/24 tablet,extended release 24 hr thiamine HCl (vitamin B1) 100 mg 100 mg PO DAILY 06/14/24 06/14/24 tablet Previous Rx's ?Medication ?Instructions ?Recorded celecoxib 200 mg capsule (Celebrex) 200 mg PO BID 30 days #60 caps 10/14/23 Allergies Allergy/AdvReac Type Severity Reaction Status Date / Time glyburide Allergy Unknown weight gain Verified 06/13/24 23:05 [facility] Past Medical History 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 Patient is a 48-year-old male with history of DM, diabetic foot ulcer presenting with new ulcer to right lateral foot. Was previously followed by wound clinic for a different wound to left foot. Plan: labs, xray Medical Decision Making Lab Data 06/12/24 15:28 06/12/24 15:28 Labs: Lab Results 06/12/24 Range/Units 15:28 WBC 17.0 H (4.8-10.8) X10*3/uL RBC 3.75 L (4.60-5.80) X10*6/uL Hgb 11.9 L D (14.0-18.0) g/dl Hct 34.6 L D (42.0-52.0) % MCV 92.3 (80.0-98.0) fL MCH 31.7 (27.0-33.0) pg MCHC 34.4 (31.0-36.0) g/dl RDW 11.9 (11.0-16.0) % Plt Count 218 D (160-400) X10*3/uL MPV 10.5 (9.4-12.4) fL Immature Gran % (Auto) 0.6 H (0.0-0.4) % Neut % (Auto) 61.6 (45-73) % Lymph % (Auto) 27.2 (20-40) % Alfalfa % (Auto) 10.2 (2-11) % Eos % (Auto) 0.0 (0-4) % Baso % (Auto) 0.4 (0-2) % Lymph # (Auto) 4.6 (1.2-4.9) X10*3/uL Alfalfa # (Auto) 1.7 H (0.1-1.2) X10*3/uL Eos # (Auto) 0.0 (0.0-0.4) X10*3/uL Baso # (Auto) 0.1 (0.0-0.2) X10*3/uL Abs Immat Gran (auto) 0.11 H (0.00-0.03) X10*3/uL Absolute Neuts (auto) 10.5 H (2.0-8.3) x10*3/uL Absolute Nucleated RBC 0.000 (0.0-0.012) X10*3/uL Nucleated RBC % (auto) 0.0 (0.0-0.2) /100WBC Smear Tech's Comments VERIFIED ESR 88 H (0-15) MM/HR Hold Purple Top SEE NOTE Sodium 125 L (135-145) mmol/L Potassium 4.1 (3.3-5.1) mmol/L Chloride 91 L (96-108) mmol/L Carbon Dioxide 21 L (22-29) mmol/L Anion Gap 17 (12-20) BUN 19 H (9-16) mg/dL Creatinine 1.17 (0.5-1.4) mg/dL Estim Creat Clear Calc 85.3 Estimated GFR > 60 Random Glucose 325 H (60-115) mg/dL Calcium 9.1 D (8.4-10.2) mg/dL Total Bilirubin 0.6 (0.0-1.0) mg/dL AST 25 (5-37) U/L ALT 23 (0-40) U/L Alkaline Phosphatase 130 H (39-117) U/L C-Reactive Protein 21.34 H (< or = 0.50) mg/dL Total Protein 7.8 (6.5-8.0) g/dL Albumin 3.9 (3.5-5.0) g/dL Discharge Plan Discharge Clinical Impression: Wound of foot Patient Disposition: Left W/O Completing Treatment Prescriptions: No Action fluticasone propionate 50 mcg/actuation spray,suspension 1 spray intranasal DAILY PRN (Reason: Nasal Congestion) Levemir FlexTouch U100 Insulin 100 unit/mL (3 mL) insulin pen 54 unit subcut BEDTIME multivitamin Tablet 1 tab PO DAILY atorvastatin 80 mg tablet 80 mg PO BEDTIME thiamine HCl (vitamin B1) 100 mg tablet 100 mg PO DAILY metoprolol succinate 25 mg tablet extended release 24 hr 25 mg PO DAILY insulin lispro 100 unit/mL insulin pen 4 unit subcut DAILY@1700 amlodipine-olmesartan 5-20 mg tablet 1 tab PO BEDTIME Jardiance 25 mg tablet 25 mg PO DAILY celecoxib [Celebrex] 200 mg capsule 200 mg PO BID 30 Days Qty: 60 3RF Discharge Date/Time: 06/12/24 19:32
[2024-06-12 15:39] LABS: Basophils Absolute Auto 0.1 X10*3/uL (0.0-0.2); Basophils Percent Auto 0.4 % (0-2); Hematocrit 34.6 % (42.0-52.0); Hemoglobin 11.9 g/dl (14.0-18.0); Imm Gran Abs Auto 0.11 X10*3/uL (0.00-0.03); Imm Gran Pct Auto 0.6 % (0.0-0.4); Lymphocytes Absolute Auto 4.6 X10*3/uL (1.2-4.9); Lymphocytes Percent Auto 27.2 % (20-40); MANUAL DIFF FLAG SCAN; Mean Corpuscular HGB Conc 34.4 g/dl (31.0-36.0); Mean Corpuscular Hemoglobin 31.7 pg (27.0-33.0); Mean Corpuscular Volume 92.3 fL (80.0-98.0); Mean Platelet Volume 10.5 fL (9.4-12.4); Monocytes Absolute Auto 1.7 X10*3/uL (0.1-1.2); Monocytes Percent Auto 10.2 % (2-11); Neutrophils Absolute Auto 10.5 x10*3/uL (2.0-8.3); Neutrophils Percent Auto 61.6 % (45-73); Platelet Count 218 X10*3/uL (160-400); Red Blood Count 3.75 X10*6/uL (4.60-5.80); Red Cell Distribution Width 11.9 % (11.0-16.0); SCAN SMEAR FLAG 1
[2024-06-12 15:54] LABS: Alanine Aminotransferase 23 U/L (0-40); Albumin Level 3.9 g/dL (3.5-5.0); Alkaline Phosphatase 130 U/L (39-117); Anion Gap 17 (12-20); Aspartate Amino Transferase 25 U/L (5-37); Bilirubin Total 0.6 mg/dL (0.0-1.0); Blood Urea Nitrogen 19 mg/dL (9-16); C Reactive Protein 21.34 mg/dL (< or = 0.50); Calcium 9.1 mg/dL (8.4-10.2); Carbon Dioxide 21 mmol/L (22-29); Chloride 91 mmol/L (96-108); Creatinine Clr Calc Pharmacy 85.3; Estimated Glomerular Filt Rate > 60; Glucose Random 325 mg/dL (60-115); Potassium 4.1 mmol/L (3.3-5.1); Sodium 125 mmol/L (135-145); Total Protein 7.8 g/dL (6.5-8.0)
[2024-06-12 16:00] LABS: SLIDE REVIEW VERIFIED
[2024-06-12 18:22] LABS: Erythrocyte Sedimentation Rate 88 MM/HR (0-15)
== END 2024-06-12 19:32 | disposition left against medical advice (07) ==
LOC: HO.ED 19:14
PROVIDERS: Registered Nurse Emergency; Emergency Provider Internal Medicine
DX: L02.611 Cutaneous abscess of right foot (principal); Z79.899 Other long term (current) drug therapy
CPT/HCPCS: 36415; 73630; 80053; 85025; 85652; 86140; 99281

== ENCOUNTER 2024-06-13 22:47 | Inpatient (IN) | payer MEDICAID, SELFPAY ==
--- NOTE | ~2024-06-13 | XR_ITS ---
EXAMINATION: XR FOOT, RIGHT CLINICAL INFORMATION: diabetic ulcer to lateral foot, cellulitis COMPARISON: Right foot radiograph yesterday 06/12/2024 TECHNIQUE: AP, lateral, and oblique views of the right foot. FINDINGS: Since yesterday's exam, there has been no significant interval change. Again seen are healing fractures at the bases of the second through fifth metatarsals. There is soft tissue swelling laterally. Marked hallux valgus is seen. There is a superficial ulcer seen adjacent to the medial head of the first metatarsal with lateral subluxation at the first MTP joint. The cortical lucency seen in the study from yesterday is not as apparent on today's exam. No fractures. XR/XR foot RT min 3V IMPRESSION: 1. No significant interval change when compared to yesterday's exam. 2. Healing fractures at the bases of the second through fifth metatarsals. 3. Soft tissue ulcer adjacent to the medial head of the first metatarsal with lateral subluxation at the first MTP joint. MRI would be useful for further assessment if osteomyelitis is suspected to document the extent of disease. Electronically signed by: Ortiz Guo MD 06/14/2024 12:23 AM [place]
--- NOTE | ~2024-06-13 | MR_ITS ---
EXAMINATION: MR FOOT WITHOUT AND WITH CONTRAST, RIGHT CLINICAL INFORMATION: Right foot cellulitis/osteomyelitis. COMPARISON: Most recent right foot radiographs dated 06/13/2024. Right foot MRI dated 09/23/2022. TECHNIQUE: MRI of the right foot was performed before and after the intravenous administration of 10 mL Gadavist on a high-field scanner. FINDINGS: Soft tissue ulceration at the medial aspect of the 1st metatarsal head measuring up to 2.5 cm in AP dimension, increased in prominence when compared to the prior examination. This extends to the cortex of the 1st metatarsal head. Adjacent skin thickening and subcutaneous edema, consistent with cellulitis. No organized fluid collection or abscess formation. Increased T2 and decreased T1 marrow signal within the adjacent 1st metatarsal with extension proximally into the diaphysis. Associated postcontrast enhancement, consistent with acute osteomyelitis. Resolution of additional previously seen diffuse marrow edema. No acute fracture or dislocation. Redemonstration of chronic partially healed fractures through the 2nd through 5th metatarsals in unchanged anatomic alignment. Resolution of associated marrow edema. Bony remodeling of the 2nd metatarsal head is redemonstrated, consistent with chronic avascular necrosis. 1st metatarsophalangeal hallux valgus angulation and lateral subluxation of the hallux sesamoids is redemonstrated. Edema and atrophy throughout the intrinsic musculature of the foot which can be seen in diabetic patients. No transverse tendon tear or tendon retraction. Additional soft tissue ulceration along the lateral aspect of the midfoot measuring approximately 0.8 cm in craniocaudal dimension. Within the adjacent subcutaneous tissues there is a lobulated, slightly complex fluid collection with mild peripheral postcontrast enhancement measuring up to 8.2 x 4.2 x 2.1 cm in greatest dimension. Findings are new when compared to the prior examination and likely represent abscess formation. Additional prominent dorsal subcutaneous edema. MR/MR foot RT wo/w con IMPRESSION: 1. Soft tissue ulceration to the medial aspect of the 1st metatarsal head with adjacent cellulitis. No abscess formation. Underlying acute osteomyelitis within the 1st metatarsal. 2. Additional soft tissue ulceration along the lateral aspect of the midfoot with an adjacent subcutaneous fluid collection measuring up to 8.2 cm in greatest dimension. Findings are new when compared to the prior examination and likely represent abscess formation. 3. Resolution of additional previously seen diffuse marrow edema. 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 No acute fracture or dislocation. 4. Prominent dorsal subcutaneous edema. Electronically signed by: Elvin Quevedo MD 06/15/2024 03:43 PM [facility]
--- NOTE | ~2024-06-13 | XR_ITS ---
EXAMINATION: XR CHEST CLINICAL INFORMATION: shortness of breath, hypotension COMPARISON: June 13, 2024. TECHNIQUE: Frontal view of the chest was obtained. FINDINGS: No significant abnormality is noted involving the heart, lungs, mediastinum, bony thorax or soft tissues. XR/XR chest 1V IMPRESSION: Unremarkable examination. Electronically signed by: Huan Vazquez MD 06/14/2024 01:45 AM [facility]
--- NOTE | ~2024-06-13 | XR_ITS ---
EXAMINATION: XR CHEST CLINICAL INFORMATION: confirm central line placement COMPARISON: Most recent chest radiograph dated 06/14/2024. TECHNIQUE: Frontal view of the chest was obtained. FINDINGS: Interval placement of a right-sided central venous catheter with its tip in the region of the cavoatrial junction. No pleural effusion or pneumothorax. Stable cardiomediastinal silhouette. No airspace consolidation. XR/XR chest 1V IMPRESSION: 1. Right-sided central venous catheter with its tip in the region of the cavoatrial junction. 2. No pleural effusion or pneumothorax. Electronically signed by: Elvin Quevedo MD 06/14/2024 08:29 AM [facility]
--- NOTE | ~2024-06-13 | XR_ITS ---
EXAMINATION: XR CHEST CLINICAL INFORMATION: cough COMPARISON: 11/18/2022 TECHNIQUE: Frontal view of the chest was obtained. FINDINGS: No significant abnormality is noted involving the heart, lungs, mediastinum, bony thorax or soft tissues. There is been clearing of previously seen lingular atelectasis. XR/XR chest 1V IMPRESSION: Unremarkable examination. Electronically signed by: Ortiz Guo MD 06/14/2024 12:17 AM [facility]
[2024-06-13 22:57] VITALS: BP 132/67; PULSE 112; RESP 18; TEMP 37.7; O2SAT 97
[2024-06-13 23:02] VITALS: BP 146/74; PULSE 106; O2SAT 97; BMI 33.2
--- NOTE | 2024-06-13 23:10 | PC.NURSE ---
pt biba from home new wound to outer R. foot/red/swollen x 2 days. pt has previous wound see wound clinic on inner side of R. foot. hx diabetes. also reports cough/nausea x 1 day daughter sick at home. Paula JOHNSON made aware of sx/vitals and possible sepsis. bp wnl. IV established, labs obtained. pt ambulatory with steady gait to bathroom and back. pt aunt called for update, pt requested they text him instead.
[2024-06-13 23:17] LABS: Basophils Absolute Auto 0.1 X10*3/uL (0.0-0.2); Basophils Percent Auto 0.3 % (0-2); Eosinophils Percent Auto 0.1 % (0-4); Hematocrit 31.4 % (42.0-52.0); Hemoglobin 11.2 g/dl (14.0-18.0); Imm Gran Abs Auto 0.11 X10*3/uL (0.00-0.03); Imm Gran Pct Auto 0.6 % (0.0-0.4); Lymphocytes Absolute Auto 2.6 X10*3/uL (1.2-4.9); MANUAL DIFF FLAG NO; Mean Corpuscular HGB Conc 35.7 g/dl (31.0-36.0); Mean Corpuscular Hemoglobin 32.4 pg (27.0-33.0); Mean Corpuscular Volume 90.8 fL (80.0-98.0); Mean Platelet Volume 10.4 fL (9.4-12.4); Monocytes Absolute Auto 1.3 X10*3/uL (0.1-1.2); Monocytes Percent Auto 7.2 % (2-11); Neutrophils Absolute Auto 13.5 x10*3/uL (2.0-8.3); Neutrophils Percent Auto 76.8 % (45-73); Platelet Count 261 X10*3/uL (160-400); Red Blood Count 3.46 X10*6/uL (4.60-5.80); White Blood Count 17.6 X10*3/uL (4.8-10.8)
--- NOTE | 2024-06-13 23:21 | ED_ITS ---
HPI - Wound/Laceration General Chief Complaint: Wound/Laceration Stated Complaint: diabetic ulcers, r foot pain, cough Time Seen by Provider: 06/13/24 23:16 Source: patient, EMS, RN notes reviewed and old records reviewed Mode of arrival: EMS Limitations: no limitations History of Present Illness ED Provider: SHAWANDA SALDANA PA-C HPI narrative: 48-year-old male with pmhx significant for type 2 diabetes and osteomyelitis presents to the ED today via EMS from home for evaluation of wound to right foot x2 days. He reports chronic wound to medial aspect of right foot. Follows with wound care for this every 2 weeks. States that 2 days ago he began noticing redness, swelling, pain to the outer aspect of his right foot. Admits the area has been draining yellow/green discharge with foul odor. Endorses associated nausea without vomiting. Also reports dry cough. States that his daughter is ill with URI at home. No known diagnosis. Denies fever, chills, sore throat, chest pain, sob, abd pain. Related Data Home Medications ?Medication ?Instructions ?Recorded ?Confirmed fluticasone propionate 50 1 spray intranasal DAILY PRN Nasal 02/27/21 06/14/24 mcg/actuation nasal Congestion spray,suspension insulin detemir U-100 100 unit/mL 54 unit subcut BEDTIME 02/27/21 06/14/24 (3 mL) subcutaneous pen (Levemir FlexTouch U-100 Insulin) multivitamin 1 tab PO DAILY 02/27/21 06/14/24 amlodipine 5 mg-olmesartan 20 mg 1 tab PO BEDTIME 06/14/24 06/14/24 tablet atorvastatin 80 mg tablet 80 mg PO BEDTIME 06/14/24 06/14/24 empagliflozin 25 mg tablet 25 mg PO DAILY 06/14/24 06/14/24 (Jardiance) insulin lispro 100 unit/mL 4 unit subcut DAILY@1700 06/14/24 06/14/24 subcutaneous pen metoprolol succinate 25 mg 25 mg PO DAILY 06/14/24 06/14/24 tablet,extended release 24 hr thiamine HCl (vitamin B1) 100 mg 100 mg PO DAILY 06/14/24 06/14/24 tablet Previous Rx's ?Medication ?Instructions ?Recorded celecoxib 200 mg capsule (Celebrex) 200 mg PO BID 30 days #60 caps 10/14/23 Allergies Allergy/AdvReac Type Severity Reaction Status Date / Time glyburide Allergy Unknown weight gain Verified 06/13/24 23:05 Review of Systems 2 Review of Systems: Constitutional: No fever, chills, fatigue, night sweats, weight changes ENT/Mouth: No ear pain, hearing loss, nasal congestion, sinus pain, rhinorrhea, sore throat Eyes: No eye pain, swelling, redness, vision changes, discharge Cardio: No chest pain, palpitations, LEY, orthopnea, peripheral edema Pulm: No SOB, cough, sputum, wheezing, dyspnea, hemoptysis GI: No nausea, vomiting, hematemesis, abdominal pain, diarrhea, constipation, hematochezia, melena : No irregular bleeding, dysuria, frequency, urgency, hesitancy, hematuria, flank pain, urinary flow changes, urinary incontinence or retention MSK: No back pain, neck pain, joint pain, myalgias Skin: No lesions, rashes, +redness/swelling/drainage from right foot Neuro: No weakness, numbness, paresthesias, LOC, dizziness, headache Psych: No anxiety/panic, depression, SI/HI, AH/VH All other systems reviewed and are negative. [facility] Past Medical History Attestation statement: The following information was validated with the patient. 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 afebrile. General: Well appearing, in no acute distress. Skin: +see below Head: Normocephalic, atraumatic. EENT: Hearing is intact b/l. Conjunctiva clear. PERRLA. Moist mucous membranes.?? Cardiac: Chest wall symmetric. tachycardic, regular rhythm Lungs: Normal respiratory effort without accessory muscle use. CTA bilaterally Abdomen: Soft, non-tender, non-distended. No rebound tenderness or guarding. Positive BS x4. Back: No midline spinous or paraspinal tenderness. No step off deformity. Ext: +see below of right foot Neuro: AOx3. Normal speech. NV intact distally. Ambulating with steady gait. Psych: Appropriate mood and affect. Responds appropriately to questions. Course Course Course Narrative: 0152 -- CBC with leukocytosis to 17.6. Normocytic anemia. H&H appears to be around patient's baseline when compared to priors and above transfusion threshold. Chemistry showing hyponatremia to 127. Chloride 90, carbon dioxide 17, an anion gap of 25. Renal function elevated with BUN 25 and creatinine 1.53. Random glucose 410. Liver function around baseline. Beta hydroxybutyrate elevated to 4.81. CXR without infiltrate or consolidation. no effusion. no cardiomegaly. XR left foot without evidence of osteomyelitis > sepsis alert called at 2358 (tachycardic to 112, low grade temp 99.5, leukocytosis, lactic 2.6, concern for diabetic foot infection). Ceftriaxone and vanco ordered. 1L of IV fluids running. > Dr. Mendez and I were called to bedside. upon entrance into room, patient was lying on the floor next to the bed. Diaphoretic, pale, stating that he felt like he needed to pass a bowel movement. He had a brief episode of seizure- like activity which appeared more rigorus than true seizure however 2mf ativan administered at that time. patient alert during episode. POC was obtained at that time and was noted to be 306. patient was safely assisted onto the bed w/ seizure pads by ED staff and placed on cardiac monitoring. he has no signs of head trauma. denies headache or neck pain. he was reporting feeling short of breath however was not hypoxic. he was noted to be tachypnic to 30's and tachycardic to 120's-140's. EKG obtained at that time demonstrated sinus tachycardia without acute ischemic changes. > concern for septic shock. oral temp 102F. IV tylenol ordered. sepsis bolus of fluids running. Dr. Mendez at bedside attempting central line for continued hypotension..Levophed started via peripheral line in meantime. 0238 -- Dr. Conley has accepted admission to ICU Medications Administered Generic Name Dose Route Start Last Admin Trade Name Freq PRN Reason Stop Dose Admin Heparin Sodium (Porcine) 5,000 unit 06/14/24 03:00 06/14/24 03:52 Heparin Sodium,Porcine 5,000 Unit/Ml Vial SUBCUT 5,000 unit RQ8H LOURDES Administration Norepinephrine Bitartrate 8 mg in 250 mls @ 0 mls/hr 06/14/24 02:15 06/14/24 10:57 Levophed IVCONT 0 mcg/kg/min .Q0M LOURDES 0 mls/hr Titration Protocol Per Protocol Insulin Human Lispro 0 unit 06/14/24 07:30 06/14/24 12:01 Insulin Lispro 100 Unit/Ml 3 Ml Vial SUBCUT 10 unit QIDACHS LOURDES Administration Protocol Meropenem 1 gm 06/14/24 08:00 06/14/24 08:09 Meropenem 1 Gm Vial IVPUSH 1 gm Q8H LOURDES Administration Discontinued Medications Generic Name Dose Route Start Last Admin Trade Name Freq PRN Reason Stop Dose Admin Calcium Chloride 1 gm 06/14/24 07:19 06/14/24 08:01 Calcium Chloride 1 Gm/10 Ml Syringe IVPUSH 06/14/24 07:20 1 gm STAT STA Administration Ceftriaxone Sodium 1 gm 06/13/24 23:41 06/14/24 00:10 Ceftriaxone Sodium 1 Gm Vial IVPUSH 06/13/24 23:42 1 gm ONCE ONE Administration Vancomycin HCl 2,000 mg in 500 mls @ 250 mls/hr 06/13/24 23:41 06/14/24 03:49 Vancomycin/Ns IV 06/14/24 01:40 Infused ONCE ONE Infusion Sodium Chloride 1,000 mls @ 999 mls/hr 06/13/24 23:45 06/14/24 01:26 Ns IV 06/14/24 00:45 Not Given .Q1H1M LOURDES Sodium Chloride 3,330 mls @ 3,330 mls/hr 06/14/24 01:22 06/14/24 03:49 Ns 30 ml/kg infuse over 1 hr (3330 ml) 06/14/24 02:21 Infused IV Infusion .Q1H STA Acetaminophen 1,000 mg in 100 mls @ 400 mls/hr 06/14/24 01:32 06/14/24 02:00 Ofirmev IV 06/14/24 01:46 Infused ONCE ONE Infusion Piperacillin Sod/Tazobactam 100 mls @ 200 mls/hr 06/14/24 01:33 06/14/24 03:49 Sod 4.5 gm/ Sodium Chloride IV 06/14/24 02:02 Infused ONCE ONE Infusion Albumin Human 50 mls @ 100 mls/hr 06/14/24 07:19 06/14/24 09:05 Kedbumin 25 % IV 06/14/24 07:48 Infused ONCE ONE Infusion Insulin Human Regular 5 unit 06/13/24 23:57 06/14/24 00:09 Insulin Regular, Human 100 Unit/Ml 10 Ml Vial IVPUSH 06/13/24 23:58 5 unit ONCE ONE Administration Insulin Human Regular 5 unit 06/14/24 03:42 06/14/24 03:52 Insulin Regular, Human 100 Unit/Ml 10 Ml Vial IVPUSH 06/14/24 03:43 5 unit ONCE ONE Administration Insulin Human Regular 5 unit 06/14/24 07:14 06/14/24 08:02 Insulin Regular, Human 100 Unit/Ml 10 Ml Vial IVPUSH 06/14/24 07:15 5 unit ONCE ONE Administration Lorazepam 2 mg 06/14/24 00:44 06/14/24 00:34 Lorazepam 2 Mg/Ml Vial IVPUSH 06/14/24 00:45 2 mg STAT STA Administration Ondansetron HCl 4 mg 06/14/24 00:23 06/14/24 00:26 Ondansetron Hcl 4 Mg/2 Ml Vial IVPUSH 06/14/24 00:24 4 mg ONCE ONE Administration Medical Decision Making Medical Decision Making [facility] Narrative: 48-year-old male with pmhx significant for type 2 diabetes and osteomyelitis presents to the ED today via EMS from home for evaluation of wound to right foot x2 days. He is nontoxic appearing and in NAD. AOX3. Differential diagnosis includes cellulitis, osteomyelitis, abscess, sepsis, hyperglycemia, DKA, anemia, electrolyte abnormality Plan for labs, UA, UDS, CXR, xr left foot, Differential Diagnosis Differential Diagnoses: The differential diagnosis associated with the presentation includes As above Admission/Observation Consideration of admission/observation: Escalation of care including admission/observation considered Patient admitted to ICU for septic shock, diabetic foot infection Consult Healthcare Provider Management of the patient was discussed with: Apartment Rental Agent (Drafting Technician Dr. Conley) Lab Data [facility] Lab Attestation statement: I reviewed the patient's lab results. As above 06/14/24 05:27 06/14/24 05:27 Labs: Lab Results 06/13/24 06/14/24 06/14/24 Range/Units 23:13 00:02 00:09 WBC 17.6 H (4.8-10.8) X10*3/uL RBC 3.46 L (4.60-5.80) X10*6/uL Hgb 11.2 L (14.0-18.0) g/dl Hct 31.4 L (42.0-52.0) % MCV 90.8 (80.0-98.0) fL MCH 32.4 (27.0-33.0) pg MCHC 35.7 (31.0-36.0) g/dl RDW 12.0 (11.0-16.0) % Plt Count 261 (160-400) X10*3/uL MPV 10.4 (9.4-12.4) fL Immature Gran % (Auto) 0.6 H (0.0-0.4) % Neut % (Auto) 76.8 H (45-73) % Lymph % (Auto) 15.0 L (20-40) % Casey % (Auto) 7.2 (2-11) % Eos % (Auto) 0.1 (0-4) % Baso % (Auto) 0.3 (0-2) % Lymph # (Auto) 2.6 (1.2-4.9) X10*3/uL Casey # (Auto) 1.3 H (0.1-1.2) X10*3/uL Eos # (Auto) 0.0 (0.0-0.4) X10*3/uL Baso # (Auto) 0.1 (0.0-0.2) X10*3/uL Abs Immat Gran (auto) 0.11 H (0.00-0.03) X10*3/uL Absolute Neuts (auto) 13.5 H (2.0-8.3) x10*3/uL Absolute Nucleated RBC 0.000 (0.0-0.012) X10*3/uL Nucleated RBC % (auto) 0.0 (0.0-0.2) /100WBC VBG pH 7.33 (7.32-7.43) VBG pCO2 31 mmHg VBG pO2 67 mmHg VBG HCO3 17 L (22-26) mmol/L VBG O2 Saturation 89.0 % VBG Base Excess -7.6 mmol/L Sodium 127 L (135-145) mmol/L Potassium 4.6 (3.3-5.1) mmol/L Chloride 90 L (96-108) mmol/L Carbon Dioxide 17 L (22-29) mmol/L Anion Gap 25 H (12-20) BUN 25 H (9-16) mg/dL Creatinine 1.53 H (0.5-1.4) mg/dL Estim Creat Clear Calc 76.7 Estimated GFR 49 POC Glucose (60-115) mg/dL Random Glucose 410 H* (60-115) mg/dL Lactic Acid 2.6 H* (0.5-2.0) mmol/L Calcium 9.4 (8.4-10.2) mg/dL Total Bilirubin 0.6 (0.0-1.0) mg/dL AST 21 (5-37) U/L ALT 19 (0-40) U/L Alkaline Phosphatase 126 H (39-117) U/L Total Protein 8.0 (6.5-8.0) g/dL Albumin 3.9 (3.5-5.0) g/dL Beta-Hydroxybutyrate 4.81 H (0.02-0.27) mmol/L Procalcitonin 0.90 ng/mL Influenza Type A (PCR) NEGATIVE (Negative) Influenza Type B (PCR) NEGATIVE (Negative) RSV RNA Qual (PCR) NEGATIVE (Negative) SARS-CoV-2 RNA (RT-PCR) NEGATIVE (Negative) 06/14/24 Range/Units 00:37 WBC (4.8-10.8) X10*3/uL RBC (4.60-5.80) X10*6/uL Hgb (14.0-18.0) g/dl Hct (42.0-52.0) % MCV (80.0-98.0) fL MCH (27.0-33.0) pg MCHC (31.0-36.0) g/dl RDW (11.0-16.0) % Plt Count (160-400) X10*3/uL MPV (9.4-12.4) fL Immature Gran % (Auto) (0.0-0.4) % Neut % (Auto) (45-73) % Lymph % (Auto) (20-40) % Casey % (Auto) (2-11) % Eos % (Auto) (0-4) % Baso % (Auto) (0-2) % Lymph # (Auto) (1.2-4.9) X10*3/uL Casey # (Auto) (0.1-1.2) X10*3/uL Eos # (Auto) (0.0-0.4) X10*3/uL Baso # (Auto) (0.0-0.2) X10*3/uL Abs Immat Gran (auto) (0.00-0.03) X10*3/uL Absolute Neuts (auto) (2.0-8.3) x10*3/uL Absolute Nucleated RBC (0.0-0.012) X10*3/uL Nucleated RBC % (auto) (0.0-0.2) /100WBC VBG pH (7.32-7.43) VBG pCO2 mmHg VBG pO2 mmHg VBG HCO3 (22-26) mmol/L VBG O2 Saturation % VBG Base Excess mmol/L Sodium (135-145) mmol/L Potassium (3.3-5.1) mmol/L Chloride (96-108) mmol/L Carbon Dioxide (22-29) mmol/L Anion Gap (12-20) BUN (9-16) mg/dL Creatinine (0.5-1.4) mg/dL Estim Creat Clear Calc Estimated GFR POC Glucose 306 H (60-115) mg/dL Random Glucose (60-115) mg/dL Lactic Acid (0.5-2.0) mmol/L Calcium (8.4-10.2) mg/dL Total Bilirubin (0.0-1.0) mg/dL AST (5-37) U/L ALT (0-40) U/L Alkaline Phosphatase (39-117) U/L Total Protein (6.5-8.0) g/dL Albumin (3.5-5.0) g/dL Beta-Hydroxybutyrate (0.02-0.27) mmol/L Procalcitonin ng/mL Influenza Type A (PCR) (Negative) Influenza Type B (PCR) (Negative) RSV RNA Qual (PCR) (Negative) SARS-CoV-2 RNA (RT-PCR) (Negative) Independent Interpretation I performed an independent interpretation of an: EKG and Plain X-Ray Interpretation: EKG showing sinus tachycardia at a rate of 127 beats per minute, QT 310, QTC 450, no acute ischemic changes or ST elevations. Chest x-ray without infiltrate or consolidation xr right foot with soft tissue swelling Radiology Impression Discussion of test interpretation with radiology: I have reviewed the radiologist's reading. Radiologist Impression: EXAMINATION: XR FOOT, RIGHT CLINICAL INFORMATION: diabetic ulcer to lateral foot, cellulitis COMPARISON: Right foot radiograph yesterday 06/12/2024 TECHNIQUE: AP, lateral, and oblique views of the right foot. FINDINGS: Since yesterday's exam, there has been no significant interval change. Again seen are healing fractures at the bases of the second through fifth metatarsals. There is soft tissue swelling laterally. Marked hallux valgus is seen. There is a superficial ulcer seen adjacent to the medial head of the first metatarsal with lateral subluxation at the first MTP joint. The cortical lucency seen in the study from yesterday is not as apparent on today's exam. No fractures. XR/XR foot RT min 3V IMPRESSION: 1. No significant interval change when compared to yesterday's exam. 2. Healing fractures at the bases of the second through fifth metatarsals. 3. Soft tissue ulcer adjacent to the medial head of the first metatarsal with lateral subluxation at the first MTP joint. MRI would be useful for further assessment if osteomyelitis is suspected to document the extent of disease. Electronically signed by: Ortiz Guo MD 06/14/2024 12:23 AM EST RP EXAMINATION: XR CHEST CLINICAL INFORMATION: cough COMPARISON: 11/18/2022 TECHNIQUE: Frontal view of the chest was obtained. FINDINGS: No significant abnormality is noted involving the heart, lungs, mediastinum, bony thorax or soft tissues. There is been clearing of previously seen lingular atelectasis. XR/XR chest 1V IMPRESSION: Unremarkable examination. Electronically signed by: Ortiz Guo MD 06/14/2024 12:17 AM EST RP EXAMINATION: XR CHEST CLINICAL INFORMATION: shortness of breath, hypotension COMPARISON: June 13, 2024. TECHNIQUE: Frontal view of the chest was obtained. FINDINGS: No significant abnormality is noted involving the heart, lungs, mediastinum, bony thorax or soft tissues. XR/XR chest 1V IMPRESSION: Unremarkable examination. Electronically signed by: Huan Vazquez MD 06/14/2024 01:45 AM EST RP Independent Historian Clinical information obtained from an independent historian. History obtained from or confirmed by: EMS External Record Review External record reviewed: Inpatient record, Office record, Outpatient record, Prior outpatient labs, Prior outpatient radiology, Primary care record and Outside ED record Prescription Management I considered prescription management with: Pain Medication and Antibiotic Chronic Conditions Patient?s care impacted by: Diabetes Social Determinants Patient?s care significantly limited by Social Determinants of Health including: Other Social Determinant of Health Procedures Central Line Placement Right IJ: Time Out Performed: Yes Patient Placed on Monitor/Pulse Ox: Yes Prep: mask, gown and gloves Central Line Prep: Chlorhexidine scrub Local Anesthetic: lidocaine 1% Amount of anesthesia used (mL): 4 Ultrasound Used for Placement: Yes Central Line Lumen Inserted: triple Post Procedure: sutured in place, good blood return, all ports aspirated, flushed, capped and sterile dressing applied Post Procedure X-Ray: tip of catheter in good position and no pneumothorax seen Patient Tolerated Procedure: well Complications: none Critical Care Time Critical Care Time Critical Care Time: Yes Total Critical Care Time: 35 Attestation: The patient was critically ill with a high probability of imminent or life- threatening deterioration. ?I spent greater than 30 minutes of discontinuous time evaluating the patient, delivering critical care at the bedside, discussing evaluating data with consultants. ?Critical care time does not include time spent performing separately billable procedures or teaching. ?Time spent performing critical care with 35 minutes. Discharge Plan Discharge Clinical Impression: Septic shock, ELISABETH (acute kidney injury), Hyponatremia, Lactic acidosis Diabetic foot ulcer Qualifiers: Diabetic foot ulcer location: other Diabetes mellitus type: type 2 Laterality: right Non-pressure ulcer stage: unspecified non-pressure ulcer stage Qualified Code(s): E11.621 - Type 2 diabetes mellitus with foot ulcer Patient Disposition: Admitted As Inpatient Interventions: Admission Worksheet (ED) Last Done: 06/14/24 03:54 Discharge Date/Time: 06/14/24 03:45
[2024-06-13 23:37] LABS: Alanine Aminotransferase 19 U/L (0-40); Albumin Level 3.9 g/dL (3.5-5.0); Alkaline Phosphatase 126 U/L (39-117); Anion Gap 25 (12-20); Aspartate Amino Transferase 21 U/L (5-37); Bilirubin Total 0.6 mg/dL (0.0-1.0); Blood Urea Nitrogen 25 mg/dL (9-16); Calcium 9.4 mg/dL (8.4-10.2); Carbon Dioxide 17 mmol/L (22-29); Chloride 90 mmol/L (96-108); Creatinine Clr Calc Pharmacy 76.7; Estimated Glomerular Filt Rate 49; Glucose Random 410 mg/dL (60-115); Potassium 4.6 mmol/L (3.3-5.1); Sodium 127 mmol/L (135-145)
[2024-06-13 23:58] LABS: Influenza A PCR NEGATIVE (Negative); Influenza B PCR NEGATIVE (Negative); Resp Syncy Virus RNA Qual PCR NEGATIVE (Negative); SARS COV2 PCR INHOUSE NEGATIVE (Negative)
[2024-06-14] VITALS (43 sets, daily range): BP systolic 80–160; BP diastolic 7–93; PULSE 78–140; RESP 14–38; TEMP 36.4–38.8; O2SAT 91–98; BMI 34.4
[2024-06-14 00:08] LABS: Beta-Hydroxybutyrate 4.81 mmol/L (0.02-0.27)
[2024-06-14] MEDS: Insulin Regular, Human 100 UNIT/ML 10 ML VIAL IVPUSH ×3 (00:09→08:02)
[2024-06-14] MEDS: cefTRIAXone sodium 1 GM VIAL IVPUSH (00:10)
[2024-06-14] MEDS: vancomycin/NS 2,000 MG/500 ML PLAST..BAG 250 MG IV (00:11)
[2024-06-14 00:12] LABS: Venous Blood Gas Refer to POC result
[2024-06-14] MEDS: SODIUM CHLORIDE 3330 ML IV (00:12)
[2024-06-14 00:14] LABS: VBG Base Excess -7.6 mmol/L; VBG HCO3 17 mmol/L (22-26); VBG pCO2 31 mmHg; VBG pH 7.33 (7.32-7.43); VBG pO2 67 mmHg
[2024-06-14] MEDS: ondansetron HCL 4 MG/2 ML VIAL IVPUSH (00:26)
[2024-06-14 00:30] LABS: Lactic Acid 2.6 mmol/L (0.5-2.0)
[2024-06-14] MEDS: LORazepam 2 MG/ML VIAL IVPUSH (00:34)
--- NOTE | 2024-06-14 00:44 | ECG_ITS ---
Test Reason : SEIZURE Blood Pressure : / mmHG Vent. Rate : 127 BPM Atrial Rate : 127 BPM P-R Int : 142 ms QRS Dur : 090 ms QT Int : 310 ms P-R-T Axes : 038 016 029 degrees QTc Int : 450 ms Sinus tachycardia Possible Left atrial enlargement Borderline ECG When compared with ECG of 27-FEB-2021 12:03, No significant change was found Referred By: Paula Carpenter Electronically Signed By:HALEY SINGH
[2024-06-14 01:00] LABS: Glucose, Whole Blood 306 mg/dL (60-115)
--- NOTE | 2024-06-14 01:03 | PC.NURSE ---
pt reported some nausea with 1 episode of vomiting, no blood noted. Paula JOHNSON made aware and pt medicated per sep with zofran. at that time pt at baseline axox4 speaking full clear sentences skin warm and dry. approx 0030 heard pt fall, found on floor unwitnessed. pt diaphoretic stating i need to poop. Paula JOHNSON, MD Mendez and other staff to bedside. attempted to assist pt up and appeared to have seizure like activity, IVP ativan 2mg given per Paula verbal order. poc 306. vitals as documented. pt assisted back to stretcher and seizure precautions in place. placed on cardiac monitoring. ekg obtained. 2nd iv obtained. sats 95% on RA however pt reports sob placed on oxymask per MD order. pt does not recall events prior to fall, unsure of headstrike, denies any pain at this time, no lacerations/abrasions noted. no bruising/bump noted of head. MD and PA aware of BPs. pt is now axox4 speaking clear sentences. had 2 large bowel movements, soft/liquid stools brown, no blood/black tarry stools noted. pt visibly shivering reports feeling cold. rectal temp 99.9F. 0115 oxymask removed by sats remain 96% on RA. 0130 pt had another vomiting episode approx 300 cc MD aware. BPs low, MD aware. care ongoing.
[2024-06-14] MEDS: Acetaminophen 1,000 MG/100 ML PIGGYBACK 400 MG IV (01:45)
[2024-06-14 02:08] LABS: Reflex Lactate? Lactic Acid Added
[2024-06-14] MEDS: Norepinephrine Bitartrate/D5W 8 MG/250 ML PLAST..BAG 10.41 MG IVCONT (02:08)
[2024-06-14] MEDS: Piperacillin Sodium/Tazobactam 4.5 GM in 0.9 % Sodium Chloride 100 ML IV (02:09)
--- NOTE | 2024-06-14 02:14 | PC.NURSE ---
Addendum entered by Roya Machado 06/14/24 02:29: 0223 not 0233 Original Note: 0208 verbal order for norepi drip, started at bedscale weight of 111kg at 0.05mcg/kg/min 82/37 124 HR. MD aware of HR and to continue with infusion 0213 titration increased to 0.07mcg/kg/min 83/35 123HR 0218 no titration 112/42 116 hr. MD at bedside for central line placement. 0233 122/46 111hr.
[2024-06-14 03:08] LABS: MANUAL DIFF FLAG NO
[2024-06-14 03:11] LABS: Basophils Absolute Auto 0.1 X10*3/uL (0.0-0.2); Basophils Percent Auto 0.4 % (0-2); Eosinophils Percent Auto 0.1 % (0-4); Hematocrit 32.3 % (42.0-52.0); Hemoglobin 11.2 g/dl (14.0-18.0); Imm Gran Abs Auto 0.61 X10*3/uL (0.00-0.03); Imm Gran Pct Auto 3.6 % (0.0-0.4); Lymphocytes Absolute Auto 1.2 X10*3/uL (1.2-4.9); Lymphocytes Percent Auto 7.1 % (20-40); Mean Corpuscular HGB Conc 34.7 g/dl (31.0-36.0); Mean Corpuscular Hemoglobin 32.2 pg (27.0-33.0); Mean Corpuscular Volume 92.8 fL (80.0-98.0); Mean Platelet Volume 10.8 fL (9.4-12.4); Monocytes Absolute Auto 0.9 X10*3/uL (0.1-1.2); Neutrophils Absolute Auto 14.4 x10*3/uL (2.0-8.3); Neutrophils Percent Auto 83.8 % (45-73); Platelet Count 249 X10*3/uL (160-400); Red Blood Count 3.48 X10*6/uL (4.60-5.80); White Blood Count 17.1 X10*3/uL (4.8-10.8)
--- NOTE | 2024-06-14 03:11 | PC.NURSE ---
0301 central line placement confirmed by MD Mendez and infusions switched to central line.
[2024-06-14 03:22] LABS: Albumin Level 3.2 g/dL (3.5-5.0); Phosphorus 3.3 mg/dL (2.7-4.5)
[2024-06-14 03:30] LABS: ~Lactic Acid-LAB USE ONLY 2.7 mmol/L (0.5-2.0)
[2024-06-14 03:32] LABS: Appearance Urine Clear; Color Urine Yellow; Glucose Urine UA >=1000 mg/dL (Negative); Leukocyte Esterase Urine Negative (Negative); Nitrite Urine Negative (Negative); PH 5.5 (5.0-9.0); UMIC TRIGGER UACC YES; Urine Blood Negative (Negative); Urine Ketones 15 mg/dL (Negative); Urine Protein Negative (Neg-Trace)
[2024-06-14 03:40] LABS: Bacteria Urine None Seen (None Seen); Hyaline Casts Urine 0-2 /LPF (0-2); RBC Urine 0-2 /HPF (0-2); Squamous Epithelial Cell Urine 0-2 /HPF (0-2); WBC Urine 0-5 /HPF (0-5)
[2024-06-14 03:43] LABS: Amphetamine Screen Urine Not Detected (Not Detect); Barbiturates, Urine Not Detected (Not Detect); Benzodiazepines Screen Urine Not Detected (Not Detect); Buprenorphine Scr Not Detected (Not Detect); Cannabinoid Screen Urine Not Detected (Not Detect); Cocaine Screen Urine POSITIVE (Not Detect); Fentanyl, urine Not Detected (Not Detect); Methadone Screen, Urine Not Detected (Not Detect); Opiate Screen Urine Not Detected (Not Detect); Oxycodone Screen Urine Not Detected (Not Detect); Phencyclidine Screen Urine Not Detected (Not Detect)
[2024-06-14 03:48] LABS: Glucose, Whole Blood 352 mg/dL (60-115)
--- NOTE | 2024-06-14 03:48 | P.HPCC_ITS ---
History of Present Illness Date of Service: 06/14/24 Attending physician on admission: Jenny Conley Chief Complaint: Diabetic foot ulcer Mr. Medrano is a 48-year-old male with history of type 2 diabetes and osteomyelitis who? was initially seen in the ED yesterday but opted not to stay due to the long wait time.? Last evening he was brought in by ambulance for evaluation of redness, swelling and pain to the outer aspect of his right foot that began about 2 days ago. The area has been draining yellow / green discharge with a foul odor. He reported some associated nausea without vomiting and a dry cough. His daughter currently is ill with an upper respiratory infection. He reports that he has a chronic wound on the medial aspect of the right foot for which he is followed with the [facility] wound care center every 2 weeks. ? He denies any fever, chills, sore throat, chest pain, shortness of breath or abdominal pain. On arrival to the ER, his BP was? 132/67, heart rate 112, respiratory rate 18, O2 sat 97% on room air. Temp 99.9? F. Laboratory data significant for? WBC 17.6, hemoglobin 11.2, hematocrit 31.4, sodium 127, chloride 90, CO2 17, anion gap 25, BUN 25, creatinine 1.53, random glucose 410, lactic acid 2.6, alk-phos 126, beta hydroxybutyrate 4.81, procalcitonin 0.90. Tox screen positive for cocaine.? Respiratory panel negative. Imaging:? Chest x-ray unremarkable. Right foot x-ray showed soft tissue swelling in the lateral aspect of the foot with a superficial ulcer is seen adjacent to the medial head of the 1st metatarsal with lateral subluxation at the first MTP joint.? ED course: The patient was given 3330 mL normal saline per sepsis protocol.? He received ceftriaxone 1 g, vancomycin 2 g, Zosyn 4.5 g, acetaminophen 1 g, Zofran 4 mg. ? He remained hypotensive and was started on a norepinephrine drip. Per nursing report, the patient fell to the floor after getting up to have a bowel movement and had a brief episode of seizure-like activity lasting 4-5 seconds for which he received lorazepam 2 mg.? Review of Systems 2 Review of Systems: Yes all other systems are reviewed and are negative Constitutional: Constitutional: Reports chills and Reports fever(s) Eyes: Eyes: Denies change in vision and Denies eye pain ENT: Reports Normal hearing present, Denies nasal discharge and Denies sore throat Cardiovascular: Cardiovascular: Denies chest pain and Denies dyspnea Respiratory: Respiratory: Denies dyspnea Gastrointestinal: Gastrointestinal: Denies nausea and Denies vomiting Genitourinary: Genitourinary: Denies difficulty urinating and Denies dysuria Musculoskeletal: Musculoskeletal: Denies back pain, Denies arthralgias and Denies muscle weakness Integumentary/Breasts: Skin/Breast: Reports as per HPI, Reports swelling, Reports erythema, Reports skin pain and Reports skin ulcer Neurologic: Reports Normal hearing present Psychiatric: Psychiatric: Denies anxiety and Denies depression Endocrine: Endocrine: Reports polydipsia [facility] Past Medical History 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 Heparin Sodium (Porcine) (Heparin Sodium,Porcine 5,000 Unit/Ml Vial) 5,000 unit SUBCUT RQ8H LOURDES Norepinephrine Bitartrate (Levophed) 8 mg in 250 mls @ 0 mls/hr IVCONT .Q0M LOURDES; Protocol Last Titration: 06/14/24 03:45 Dose: 0.09 mcg/kg/min, 18.73 mls/hr Dextrose (D10) 250 mls @ 750 mls/hr IV Q15M PRN; Protocol PRN Reason: per Hypoglycemia Standing Ord. Piperacillin Sod/Tazobactam (Sod 3.375 gm/ Sodium Chloride) 50 mls @ 100 mls/hr IV Q6H LOURDES Insulin Human Lispro (Insulin Lispro 100 Unit/Ml 3 Ml Vial) 0 unit SUBCUT Q6H LOURDES; Protocol Insulin Human Regular (Insulin Regular, Human 100 Unit/Ml 10 Ml Vial) 5 unit IVPUSH ONCE ONE Stop: 06/14/24 03:43 Pharmacy Consult (Consult Rx Vancomycin Dosing) 1 each MISCELLANE DAILY PRN PRN Reason: Consult order Home Medications ?Medication ?Instructions ?Recorded ?Confirmed ?Last Taken ?Type cetirizine 10 mg tablet 1 tab PO DAILY allergies 02/27/21 12/31/23 09/21/22 History fluticasone propionate 50 1 spray intranasal DAILY PRN Nasal 02/27/21 12/31/23 02/26/21 History mcg/actuation nasal Congestion spray,suspension gabapentin 100 mg capsule 2 cap PO BEDTIME 02/27/21 12/31/23 09/21/22 History insulin detemir U-100 100 unit/mL 42 unit subcut BEDTIME 02/27/21 12/31/23 09/21/22 History (3 mL) subcutaneous pen (Levemir FlexTouch U-100 Insulin) multivitamin 1 tab PO DAILY 02/27/21 12/31/23 09/21/22 History lisinopril 20 mg tablet 20 mg PO DAILY 09/24/22 12/31/23 09/22/22 17:30 History Physical Exam 2 Vital Signs: Vital Signs: Last Vital Signs Temp 101.1 F H 06/14/24 03:00 Pulse 105 H 06/14/24 03:45 Resp 18 06/14/24 03:41 BP 160/57 H 06/14/24 03:45 Pulse Ox 98 06/14/24 03:41 O2 Del Method Room Air 06/14/24 03:41 O2 Flow Rate 4 06/14/24 00:59 BMI result Body Mass Index 33.2 Const: General: cooperative and alert; No acute distress Nutritional Appearance: obese Orientation/consciousness: patient oriented x3 HEENT: Head: Yes normocephalic and Yes atraumatic General nose exam: Normal external nose present (Nares patent, septum midline, sinuses nontender bilaterally.) Mouth: Normal oral and palatal mucosa present (No thrush, tongue in midline, mucosa moist.) Throat: Yes other Neck: Neck: Yes supple (no thyromegaly, trachea midline.) Carotids: normal carotid upstroke Resp: Auscultation: clear to auscultation bilaterally (normal work of breathing, no accessory muscle use) Cardio: Jugular venous distension: no JVD Rate: tachycardic Rhythm: r egular rhythm Heart sounds: no gallops, no murmurs and no rubs Peripheral pulses: Peripheral pulses 2+ throughout GI: Palpation (GI): Soft to palpation (nondistended.) and nontender Skin: Wounds: wounds noted ulceration right lateral foot drainage yellow, malodorous and with surrounding erythema Neuro: General: patient oriented x3 Cranial nerves: Yes Normal hearing present Extrem: General: Yes full ROM and Yes capillary refill normal Right lower extremity: foot Details: tenderness, warmth (erythematic) Location: of the lateral foot and edema; no crepitus Psych: Affect: normal affect Attitude: cooperative Results Labs 06/14/24 02:58 06/13/24 23:13 Labs: Laboratory Results - last 24 hr 06/13/24 06/14/24 06/14/24 23:13 00:02 00:09 MCV 90.8 MCH 32.4 MCHC 35.7 RDW 12.0 Plt Count 261 MPV 10.4 Immature Gran % (Auto) 0.6 H Neut % (Auto) 76.8 H Lymph % (Auto) 15.0 L [place] % (Auto) 7.2 Eos % (Auto) 0.1 Baso % (Auto) 0.3 Lymph # (Auto) 2.6 [place] # (Auto) 1.3 H Eos # (Auto) 0.0 Baso # (Auto) 0.1 Abs Immat Gran (auto) 0.11 H Absolute Neuts (auto) 13.5 H Absolute Nucleated RBC 0.000 Nucleated RBC % (auto) 0.0 VBG pH 7.33 VBG pCO2 31 VBG pO2 67 VBG HCO3 17 L VBG O2 Saturation 89.0 VBG Base Excess -7.6 Anion Gap 25 H Estim Creat Clear Calc 76.7 Estimated GFR 49 POC Glucose Random Glucose 410 H* Lactic Acid 2.6 H* Lactic Acid F/U @ 2Hr Calcium 9.4 Phosphorus Total Bilirubin 0.6 AST 21 ALT 19 Alkaline Phosphatase 126 H Total Protein 8.0 Albumin 3.9 Beta-Hydroxybutyrate 4.81 H Procalcitonin 0.90 Urine Color Urine Appearance Urine pH Ur Specific [place] Urine Protein Urine Glucose (UA) Urine Ketones Urine Blood Urine Nitrite Ur Leukocyte Esterase Urine RBC Urine WBC Ur Squamous Epith Cells Urine Bacteria Hyaline Casts Urine Opiates Screen Ur Buprenorphine Scrn Ur Oxycodone Screen Urine Methadone Screen Urine Fentanyl Screen Ur Barbiturates Screen Ur Phencyclidine Scrn Ur Amphetamines Screen U Benzodiazepines Scrn Urine Cocaine Screen U Marijuana (THC) Screen Influenza Type A (PCR) NEGATIVE Influenza Type B (PCR) NEGATIVE RSV RNA Qual (PCR) NEGATIVE SARS-CoV-2 RNA (RT-PCR) NEGATIVE 06/14/24 06/14/24 06/14/24 00:37 02:57 02:58 MCV 92.8 MCH 32.2 MCHC 34.7 RDW 12.0 Plt Count 249 MPV 10.8 Immature Gran % (Auto) 3.6 H Neut % (Auto) 83.8 H Lymph % (Auto) 7.1 L [place] % (Auto) 5.0 Eos % (Auto) 0.1 Baso % (Auto) 0.4 Lymph # (Auto) 1.2 [place] # (Auto) 0.9 Eos # (Auto) 0.0 Baso # (Auto) 0.1 Abs Immat Gran (auto) 0.61 H Absolute Neuts (auto) 14.4 H Absolute Nucleated RBC 0.000 Nucleated RBC % (auto) 0.0 VBG pH VBG pCO2 VBG pO2 VBG HCO3 VBG O2 Saturation VBG Base Excess Anion Gap Estim Creat Clear Calc Estimated GFR POC Glucose 306 H Random Glucose Lactic Acid Lactic Acid F/U @ 2Hr 2.7 H* Calcium Phosphorus 3.3 Total Bilirubin AST ALT Alkaline Phosphatase Total Protein Albumin 3.2 L Beta-Hydroxybutyrate Procalcitonin Urine Color Urine Appearance Urine pH Ur Specific [place] Urine Protein Urine Glucose (UA) Urine Ketones Urine Blood Urine Nitrite Ur Leukocyte Esterase Urine RBC Urine WBC Ur Squamous Epith Cells Urine Bacteria Hyaline Casts Urine Opiates Screen Ur Buprenorphine Scrn Ur Oxycodone Screen Urine Methadone Screen Urine Fentanyl Screen Ur Barbiturates Screen Ur Phencyclidine Scrn Ur Amphetamines Screen U Benzodiazepines Scrn Urine Cocaine Screen U Marijuana (THC) Screen Influenza Type A (PCR) Influenza Type B (PCR) RSV RNA Qual (PCR) SARS-CoV-2 RNA (RT-PCR) 06/14/24 03:25 MCV MCH MCHC RDW Plt Count MPV Immature Gran % (Auto) Neut % (Auto) Lymph % (Auto) [place] % (Auto) Eos % (Auto) Baso % (Auto) Lymph # (Auto) [place] # (Auto) Eos # (Auto) Baso # (Auto) Abs Immat Gran (auto) Absolute Neuts (auto) Absolute Nucleated RBC Nucleated RBC % (auto) VBG pH VBG pCO2 VBG pO2 VBG HCO3 VBG O2 Saturation VBG Base Excess Anion Gap Estim Creat Clear Calc Estimated GFR POC Glucose Random Glucose Lactic Acid Lactic Acid F/U @ 2Hr Calcium Phosphorus Total Bilirubin AST ALT Alkaline Phosphatase Total Protein Albumin Beta-Hydroxybutyrate Procalcitonin Urine Color Yellow Urine Appearance Clear Urine pH 5.5 Ur Specific [place] 1.020 Urine Protein Negative Urine Glucose (UA) >=1000 H Urine Ketones 15 Urine Blood Negative Urine Nitrite Negative Ur Leukocyte Esterase Negative Urine RBC 0-2 Urine WBC 0-5 Ur Squamous Epith Cells 0-2 Urine Bacteria None Seen Hyaline Casts 0-2 Urine Opiates Screen Not Detected Ur Buprenorphine Scrn Not Detected Ur Oxycodone Screen Not Detected Urine Methadone Screen Not Detected Urine Fentanyl Screen Not Detected Ur Barbiturates Screen Not Detected Ur Phencyclidine Scrn Not Detected Ur Amphetamines Screen Not Detected U Benzodiazepines Scrn Not Detected Urine Cocaine Screen POSITIVE H U Marijuana (THC) Screen Not Detected Influenza Type A (PCR) Influenza Type B (PCR) RSV RNA Qual (PCR) SARS-CoV-2 RNA (RT-PCR) Imaging Radiologist's Impressions: Impressions Foot X-Ray 06/13/24 23:20 IMPRESSION: 1. No significant interval change when compared to yesterday's exam. 2. Healing fractures at the bases of the second through fifth metatarsals. 3. Soft tissue ulcer adjacent to the medial head of the first metatarsal with lateral subluxation at the first MTP joint. MRI would be useful for further assessment if osteomyelitis is suspected to document the extent of disease. Electronically signed by: Ortiz Guo MD 06/14/2024 12:23 AM EST RP Chest X-Ray 06/13/24 23:40 IMPRESSION: Unremarkable examination. Electronically signed by: Ortiz Guo MD 06/14/2024 12:17 AM EST RP Chest X-Ray 06/14/24 00:52 IMPRESSION: Unremarkable examination. Electronically signed by: Huan Vazquez MD 06/14/2024 01:45 AM EST RP Assessment and Plan (1) Septic shock: Status: Acute (2) Lactic acidosis: Status: Acute (3) Cellulitis in diabetic foot: Status: Acute (4) Diabetic foot ulcer: Qualifiers: Diabetic foot ulcer location: other Diabetes mellitus type: type 2 L aterality: right Non-pressure ulcer stage: unspecified non-pressure ulcer stage Qualified Code(s): E11.621 - Type 2 diabetes mellitus with foot ulcer; L97.519 - Non-pressure chronic ulcer of other part of right foot with unspecified severity Status: Acute (5) ELISABETH (acute kidney injury): Status: Acute (6) Hyponatremia: Status: Acute Plan 48-year-old male with history of type 2 diabetes and osteomyelitis ? Presented to the emergency department on 06/13 with redness, swelling, and pain to the right foot;? in emergency department, patient found to be febrile, hypotensive, in setting of R foot ulcer, admitted to ICU with sepsis. Neuro: No acute issues Cardiac: Sepsis. Shock, likely distributive. Cellulitis/osteomyelitis of right foot likely source. Fluid resuscitated with 3330 L in ED. Norepinephrine gtt. Wean as tolerated. Pulmonary: No acute issues.? Renal:? ELISABETH, hyponatremia, likely related to hypoperfusion, non-oliguric. Monitor electrolytes, renal function, intake and output. Endo: ??Underlying DM 2. Monitor hypo-/hyper-glycemia. Sliding scale per protocol. GI: ?No acute issues. ID: Sepsis likely due to cellulitis/osteomylitis. Volume resuscitated in ED. Continue vancomycin. Zosyn. Cultures pending. MRI right foot. Wound consult placed. Heme/Onc: ??Chronic anemia, H&H at baseline. Psych: Substance abuse. Addiction medicine consult placed.? Prophylaxis: pneumatic hoses, Heparin Diet: Diabetic Patient's care was discussed in detail with Dr. Conley.? She is aware of all the above as well as the plan of care for this patient. Total time managing care of this patient today: 75 minutes.
[2024-06-14] MEDS: Heparin Sodium,Porcine 5,000 UNIT/ML VIAL 5000 UNIT SUBCUT ×3 (03:52→23:22)
--- NOTE | 2024-06-14 03:53 | PC.NURSE ---
pt transferred to ICU without issue vss at time of transfer. ivf infusing upon arrival to icu.
--- NOTE | 2024-06-14 04:32 | HO.SKINPHOTO ---
Location: R Lateral Foot Category: Stage: Length: Width: Depth: cm Location: R Medial Foot Category: Diabetic Ulcer Stage: Length: Width: Depth: cm
[2024-06-14 05:07] LABS: Reflex Lactate? 2 Y
[2024-06-14 05:14] LABS: C Reactive Protein 18.52 mg/dL (< or = 0.50)
[2024-06-14 05:27] LABS: Glucose, Whole Blood 271 mg/dL (60-115)
[2024-06-14 05:39] LABS: Basophils Absolute Auto 0.1 X10*3/uL (0.0-0.2); Basophils Percent Auto 0.5 % (0-2); Eosinophils Absolute Auto 0.1 X10*3/uL (0.0-0.4); Eosinophils Percent Auto 0.4 % (0-4); Hematocrit 31.9 % (42.0-52.0); Imm Gran Abs Auto 0.63 X10*3/uL (0.00-0.03); Imm Gran Pct Auto 2.5 % (0.0-0.4); Lymphocytes Absolute Auto 1.6 X10*3/uL (1.2-4.9); Lymphocytes Percent Auto 6.4 % (20-40); MANUAL DIFF FLAG SCAN; Mean Corpuscular HGB Conc 34.5 g/dl (31.0-36.0); Mean Corpuscular Hemoglobin 32.2 pg (27.0-33.0); Mean Corpuscular Volume 93.3 fL (80.0-98.0); Mean Platelet Volume 10.5 fL (9.4-12.4); Monocytes Absolute Auto 2.6 X10*3/uL (0.1-1.2); Monocytes Percent Auto 10.3 % (2-11); Neutrophils Absolute Auto 20.2 x10*3/uL (2.0-8.3); Neutrophils Percent Auto 79.9 % (45-73); Platelet Count 274 X10*3/uL (160-400); Red Blood Count 3.42 X10*6/uL (4.60-5.80); Red Cell Distribution Width 11.9 % (11.0-16.0); SCAN SMEAR FLAG 1; White Blood Count 25.3 X10*3/uL (4.8-10.8)
[2024-06-14 05:53] LABS: ~Lactic Acid-LAB USE ONLY 0.8 mmol/L (0.5-2.0)
[2024-06-14 05:56] LABS: Albumin Level 3.3 g/dL (3.5-5.0); Anion Gap 26 (12-20); Blood Urea Nitrogen 25 mg/dL (9-16); C Reactive Protein 19.76 mg/dL (< or = 0.50); Calcium 8.6 mg/dL (8.4-10.2); Carbon Dioxide 12 mmol/L (22-29); Chloride 98 mmol/L (96-108); Creatinine Clr Calc Pharmacy 67.6; Estimated Glomerular Filt Rate 41; Glucose Random 297 mg/dL (60-115); Magnesium 2.2 mg/dL (1.6-2.6); Phosphorus 3.5 mg/dL (2.7-4.5); Potassium 4.6 mmol/L (3.3-5.1); Sodium 131 mmol/L (135-145)
[2024-06-14 05:57] LABS: SLIDE REVIEW VERIFIED
[2024-06-14 07:48] LABS: Glucose, Whole Blood 291 mg/dL (60-115)
[2024-06-14] MEDS: Albumin Human 25 % 50 ML 100 ML IV (08:01)
[2024-06-14] MEDS: Calcium Chloride 1 GM/10 ML SYRINGE IVPUSH (08:01)
[2024-06-14] MEDS: Insulin Lispro 100 UNIT/ML 3 ML VIAL SUBCUT ×4 (08:02→20:59)
[2024-06-14] MEDS: Meropenem 1 GM VIAL IVPUSH ×3 (08:09→23:21)
[2024-06-14 09:12] LABS: Glucose, Whole Blood 255 mg/dL (60-115)
--- NOTE | 2024-06-14 10:06 | PHA.PROG ---
Admission Date/Time: June 14, 2024 02:29 Indication: skin & soft tissue Weight in k.2 kg Serum Creatinine - Last 168 Hours 06/13/24 06/14/24 23:13 05: Creatinine 1.53 H 1.77 H Estimated CrCl and GFR - Last 168 Hours 06/13/24 06/14/24 23:13 05:27 Estim Creat Clear Calc 76.7 67.6 Estimated GFR 49 41 Vancomycin Loading Dose: 2,000 mg Current Vancomycin Dosing Regimen: 1,500 mg q 24h Vancomycin Monitoring using AUC goal of 400 - 600 range with trough as surrogate marker: 441, predicted trough 13.2 Date and Time for next Vancomycin Level to be drawn: 06/16 @ 2100 Pharmacist Comments on Vancomycin Plan: Vancomycin dosing will take advantage of [employer] as a clinical decision support tool that uses Bayesian modeling to calculate individual patient's pharmacokinetic parameters and forecast the patient's drug concentration time course with the target goal AUC 24 range of 400 - 600 mg/L/hr.
--- NOTE | 2024-06-14 11:01 | PHA.MEDREC ---
Pharmacy Consult ? Medication Reconciliation Pharmacy has completed the medication reconciliation.Spoke with patient in ICU with minimal response. Med rec completed via claim history. Patient did say he take 54 units at bedtime of tresiba
[2024-06-14 11:44] LABS: Glucose, Whole Blood 333 mg/dL (60-115)
--- NOTE | 2024-06-14 14:14 | MHC.CM.PN ---
Attempted to meet w/ patient for CM assessment. Patient sleeping at this time. Will follow up when awake.
[2024-06-14 16:39] LABS: Glucose, Whole Blood 272 mg/dL (60-115)
[2024-06-14 18:45] LABS: Anion Gap 17 (12-20); Blood Urea Nitrogen 24 mg/dL (9-16); Calcium 9.4 mg/dL (8.4-10.2); Carbon Dioxide 21 mmol/L (22-29); Chloride 101 mmol/L (96-108); Creatinine Clr Calc Pharmacy 80.8; Estimated Glomerular Filt Rate 51; Glucose Random 291 mg/dL (60-115); Lactic Acid 0.9 mmol/L (0.5-2.0); Magnesium 2.3 mg/dL (1.6-2.6); Phosphorus 3.3 mg/dL (2.7-4.5); Potassium 4.5 mmol/L (3.3-5.1); Sodium 134 mmol/L (135-145)
[2024-06-14] MEDS: guaiFENesin 200 MG/10 ML 10 ML LIQUID PO ×2 (19:48→23:42)
[2024-06-14 20:56] LABS: Glucose, Whole Blood 301 mg/dL (60-115)
[2024-06-14] MEDS: Insulin Glargine,Hum.rec.anlog 100 UNIT/ML 10 ML VIAL 35 UNIT SUBCUT (20:59)
[2024-06-14] MEDS: vancomycin HCL 1,500 MG in 0.9 % Sodium Chloride 500 ML 333.33 MG IV (23:22)
[2024-06-15] VITALS (9 sets, daily range): BP systolic 109–152; BP diastolic 59–79; PULSE 87–98; RESP 14–20; TEMP 36–37.7; O2SAT 92–96
[2024-06-15 00:11] LABS: Glucose, Whole Blood 244 mg/dL (60-115)
[2024-06-15] MEDS: guaiFENesin 200 MG/10 ML 10 ML LIQUID PO ×3 (03:40→20:24)
[2024-06-15 07:32] LABS: Glucose, Whole Blood 202 mg/dL (60-115)
[2024-06-15 07:32] LABS: MANUAL DIFF FLAG NO
[2024-06-15 07:38] LABS: Basophils Absolute Auto 0.1 X10*3/uL (0.0-0.2); Basophils Percent Auto 0.5 % (0-2); Eosinophils Absolute Auto 0.1 X10*3/uL (0.0-0.4); Eosinophils Percent Auto 0.9 % (0-4); Hematocrit 27.7 % (42.0-52.0); Hemoglobin 9.4 g/dl (14.0-18.0); Imm Gran Abs Auto 0.06 X10*3/uL (0.00-0.03); Imm Gran Pct Auto 0.6 % (0.0-0.4); Lymphocytes Absolute Auto 2.2 X10*3/uL (1.2-4.9); Lymphocytes Percent Auto 21.4 % (20-40); Mean Corpuscular HGB Conc 33.9 g/dl (31.0-36.0); Mean Corpuscular Hemoglobin 31.9 pg (27.0-33.0); Mean Corpuscular Volume 93.9 fL (80.0-98.0); Mean Platelet Volume 10.8 fL (9.4-12.4); Neutrophils Absolute Auto 6.9 x10*3/uL (2.0-8.3); Neutrophils Percent Auto 66.6 % (45-73); Platelet Count 264 X10*3/uL (160-400); Red Blood Count 2.95 X10*6/uL (4.60-5.80); Red Cell Distribution Width 12.3 % (11.0-16.0); White Blood Count 10.4 X10*3/uL (4.8-10.8)
[2024-06-15] MEDS: Heparin Sodium,Porcine 5,000 UNIT/ML VIAL 5000 UNIT SUBCUT ×2 (07:43→17:01)
[2024-06-15] MEDS: Meropenem 1 GM VIAL IVPUSH ×2 (07:44→17:01)
[2024-06-15] MEDS: Insulin Lispro 100 UNIT/ML 3 ML VIAL SUBCUT ×4 (07:44→20:24)
[2024-06-15 08:02] LABS: Anion Gap 15 (12-20); Blood Urea Nitrogen 17 mg/dL (9-16); Calcium 8.6 mg/dL (8.4-10.2); Carbon Dioxide 22 mmol/L (22-29); Chloride 101 mmol/L (96-108); Creatinine Clr Calc Pharmacy 109.7; Estimated Glomerular Filt Rate > 60; Glucose Random 209 mg/dL (60-115); Phosphorus 2.6 mg/dL (2.7-4.5); Potassium 4.1 mmol/L (3.3-5.1); Sodium 134 mmol/L (135-145)
[2024-06-15] MEDS: Benzonatate 100 MG CAPSULE 200 MG PO ×2 (09:32→17:39)
--- NOTE | 2024-06-15 10:10 | P.PNIM_ITS ---
Subjective Subjective Date of Service: 06/15/24 Interval History: seen and evaluated this morning feels better, reporting pain in his foot creatinine improving no other events Review of Systems Review of Systems: Yes all other systems are reviewed and are negative Physical Exam 2 Vital Signs: Vital Signs: Last Vital Signs Temp 99.0 F 06/15/24 07:18 Pulse 91 06/15/24 07:18 Resp 14 06/15/24 07:18 BP 128/62 06/15/24 07:18 Pulse Ox 95 06/15/24 07:18 O2 Del Method Room Air 06/15/24 07:18 O2 Flow Rate 4 06/14/24 00:59 BMI result Body Mass Index 34.4 Const: Other: Constitutional : Awake, interactive, not in distress Neck : Normal inspection, Supple Cardiovascular : RRR, no JVP, no lower extremity edema Respiratory : good bilateral air entry, no crackles, wheezes or rhonchi Gastrointestinal: soft, lax, Normal bowel sounds, Non tender Skin : Warm, Dry, right foot lateral ulcer with surrounding erythema, chronic big toe base wound Neurological : Alert & oriented x3, No focal deficit Objective Data Active Medications Atorvastatin Calcium (Atorvastatin Calcium 80 Mg Tablet) 80 mg PO BEDTIME [facility]OUR[facility] Benzonatate (Benzonatate 100 Mg Capsule) 200 mg PO TID PRN PRN Reason: Cough Last Admin: 06/15/24 09:32 Dose: 200 mg Documented By: CORNELIO Glucose (Glucose Gel 15 Gm Gel..Gram.) 15 gm PO Q15M PRN; Protocol PRN Reason: per Hypoglycemia Standing Ord. Guaifenesin (Guaifenesin 200 Mg/10 Ml 10 Ml Liquid) 10 ml PO Q4H PRN PRN Reason: Cough Last Admin: 06/15/24 07:47 Dose: 10 ml Documented By: CORNELIO Heparin Sodium (Porcine) (Heparin Sodium,Porcine 5,000 Unit/Ml Vial) 5,000 unit SUBCUT RQ8H [facility] Last Admin: 06/15/24 07:43 Dose: 5,000 unit Documented By: CORNELIO Dextrose (D10) 250 mls @ 750 mls/hr IV Q15M PRN; Protocol PRN Reason: per Hypoglycemia Standing Ord. Vancomycin HCl 1,500 mg/ (Sodium Chloride) 500 mls @ 333.333 mls/hr IV Q24H [facility] Last Infusion: 06/15/24 01:02 Dose: Infused Documented By: LEODAN Insulin Glargine (Insulin Glargine,Hum.Rec.Anlog 100 Unit/Ml 10 Ml Vial) 35 unit SUBCUT BEDTIME [facility] Last Admin: 06/14/24 20:59 Dose: 35 unit Documented By: LEODAN Insulin Human Lispro (Insulin Lispro 100 Unit/Ml 3 Ml Vial) 0 unit SUBCUT QIDACHS [facility]; Protocol Last Admin: 06/15/24 07:44 Dose: 6 unit Documented By: CORNELIO Meropenem (Meropenem 1 Gm Vial) 1 gm IVPUSH Q8H [facility] Last Admin: 06/15/24 07:44 Dose: 1 gm Documented By: CORNELIO Pharmacy Consult (Consult Rx Vancomycin Dosing) 1 each MISCELLANE DAILY PRN PRN Reason: Consult order Labs 06/15/24 06:54 06/15/24 06:54 Labs: Laboratory Results - last 24 hr 06/14/24 06/14/24 06/14/24 11:36 16:35 18:20 MCV MCH MCHC RDW Plt Count MPV Immature Gran % (Auto) Neut % (Auto) Lymph % (Auto) [place] % (Auto) Eos % (Auto) Baso % (Auto) Lymph # (Auto) [place] # (Auto) Eos # (Auto) Baso # (Auto) Abs Immat Gran (auto) Absolute Neuts (auto) Absolute Nucleated RBC Nucleated RBC % (auto) Anion Gap 17 Estim Creat Clear Calc 80.8 Estimated GFR 51 POC Glucose 333 H 272 H Random Glucose 291 H Lactic Acid 0.9 Calcium 9.4 D Phosphorus 3.3 Magnesium 2.3 06/14/24 06/14/24 06/15/24 20:52 23:43 06:54 MCV 93.9 MCH 31.9 MCHC 33.9 RDW 12.3 Plt Count 264 MPV 10.8 Immature Gran % (Auto) 0.6 H Neut % (Auto) 66.6 Lymph % (Auto) 21.4 [place] % (Auto) 10.0 Eos % (Auto) 0.9 Baso % (Auto) 0.5 Lymph # (Auto) 2.2 [place] # (Auto) 1.0 Eos # (Auto) 0.1 Baso # (Auto) 0.1 Abs Immat Gran (auto) 0.06 H Absolute Neuts (auto) 6.9 Absolute Nucleated RBC 0.000 Nucleated RBC % (auto) 0.0 Anion Gap 15 Estim Creat Clear Calc 109.7 Estimated GFR > 60 POC Glucose 301 H 244 H Random Glucose 209 H Lactic Acid Calcium 8.6 D Phosphorus 2.6 L Magnesium 2.0 06/15/24 07:21 MCV MCH MCHC RDW Plt Count MPV Immature Gran % (Auto) Neut % (Auto) Lymph % (Auto) [place] % (Auto) Eos % (Auto) Baso % (Auto) Lymph # (Auto) [place] # (Auto) Eos # (Auto) Baso # (Auto) Abs Immat Gran (auto) Absolute Neuts (auto) Absolute Nucleated RBC Nucleated RBC % (auto) Anion Gap Estim Creat Clear Calc Estimated GFR POC Glucose 202 H Random Glucose Lactic Acid Calcium Phosphorus Magnesium Microbiology Microbiology Results: Microbiology 06/14/24 00:02 Blood Culture - Preliminary Blood - Venous No growth after 24 hours. 06/13/24 23:51 Blood Culture - Preliminary Blood - Venous No growth after 24 hours. Assessment and Plan (1) Lactic acidosis: Status: Acute (2) Hyponatremia: Status: Acute (3) ELISABETH (acute kidney injury): Status: Acute (4) Diabetic foot ulcer: Status: Acute Plan 48-year-old male with history of type 2 diabetes and osteomyelitis ? Presented to the emergency department on 06/13 with redness, swelling, and pain to the right foot;? in emergency department, patient found to be febrile, hypotensive, in setting of R foot ulcer, admitted to ICU with sepsis. diabetic foot ulcer complicated with Cellulitis of right foot, suspected osteomyelitis leukocytosis resolved Cultures pending. MRI right foot. ID and Wound consult pending Continue IV Vancomycin and Meropenem ELISABETH, hyponatremia, likely related to hypoperfusion, Na resolved Cr improving continue IVF follow BMP Type 2 DM , POC, Sliding scale per protocol. Chronic anemia, H&H at baseline. Substance abuse. Addiction medicine placed Prophylaxis: pneumatic hoses, Heparin Diet: Diabetic The patient will need overnight hospital stay pending blood cultures on IV antibiotics for suspected OM pending MRI and ID consult Quality Stroke Does the patient have a stroke diagnosis?: No VTE Prior VTE?: No VTE Risk Level:: Medical - moderate - high VTE Device Contraindication: N/A - Device Ordered VTE Drug Contraindication: N/A - Med Ordered
[2024-06-15 11:17] LABS: Estimated Average Glucose 246 mg/dL; Hemoglobin A1C 217.3465 umol/L; Hemoglobin A1c % 10.2 % (<6.0); Total Hemoglobin (HGBA1C) 2459.7437 umol/L
[2024-06-15 11:53] LABS: Glucose, Whole Blood 281 mg/dL (60-115)
--- NOTE | 2024-06-15 12:49 | MHC.RECOVRN ---
Attempted to meet with pt in 361 after receiving Addiction Medicine consult for UDS positive for cocaine. Pt had presented to the the ED from home with R foot wound, hx of DM, and cough/congestion. Upon evaluation, pt briefly admitted to ICU for sepsis. Stepped down to S3 today with diabetic foot ulcer complicated by cellulitis of right foot and suspected osteomyelitis as well as ELISABETH and hyponatremia. Pt laying in bed, difficult to engage in conversation. Does report cocaine use, [place], twice weekly, less than $20 each time. Pt does not disclose any other information. Pt declines resources, declines to discuss substance use further. Encouraged pt to notify RN if he would like to speak with Addiction/Recovery.
[2024-06-15] MEDS: Acetaminophen/Codeine 300-30mg Tablet 2 TAB PO ×2 (13:28→20:23)
--- NOTE | 2024-06-15 13:48 | MHC.CM.PN ---
[employer] AND CM MET WITH PT AND FAMILY AT BEDSIDE PT LIVES WITH S/O AND FAMILY AT HOME PT DOES NOT RECEIVE SERVICES PT DOES NOT USE DME PT HAS HCP ON FILE WITH [facility] PCP [facility] INS: MEDICAID PCC DCP HOME NO SERVICES VIA PRIVATE TRANSPORT
[2024-06-15] MEDS: gadobutroL 10 ML VIAL IVPUSH (15:08)
[2024-06-15 16:42] LABS: Glucose, Whole Blood 214 mg/dL (60-115)
[2024-06-15 20:15] LABS: Glucose, Whole Blood 203 mg/dL (60-115)
[2024-06-15] MEDS: Atorvastatin Calcium 80 MG TABLET PO (20:23)
[2024-06-15] MEDS: Insulin Glargine,Hum.rec.anlog 100 UNIT/ML 10 ML VIAL 35 UNIT SUBCUT (20:24)
[2024-06-15] MEDS: vancomycin HCL 1,500 MG in 0.9 % Sodium Chloride 500 ML 333.33 MG IV (22:22)
[2024-06-16] MEDS: Heparin Sodium,Porcine 5,000 UNIT/ML VIAL 5000 UNIT SUBCUT ×4 (00:09→23:10)
[2024-06-16] MEDS: Meropenem 1 GM VIAL IVPUSH ×3 (00:09→17:12)
[2024-06-16] MEDS: diphenhydrAMINE HCL 50 MG/ML VIAL 25 MG IVPUSH (01:31)
[2024-06-16] MEDS: Acetaminophen/Codeine 300-30mg Tablet 2 TAB PO ×2 (03:14→12:38)
[2024-06-16 03:42] VITALS: BP 127/58; PULSE 93; RESP 18; TEMP 38; O2SAT 95
[2024-06-16 04:14] VITALS: TEMP 37.4
[2024-06-16 07:21] LABS: MANUAL DIFF FLAG NO
[2024-06-16 07:35] LABS: Glucose, Whole Blood 157 mg/dL (60-115)
[2024-06-16 07:38] LABS: Basophils Absolute Auto 0.1 X10*3/uL (0.0-0.2); Basophils Percent Auto 0.5 % (0-2); Eosinophils Absolute Auto 0.2 X10*3/uL (0.0-0.4); Eosinophils Percent Auto 2.1 % (0-4); Hematocrit 29.2 % (42.0-52.0); Hemoglobin 9.8 g/dl (14.0-18.0); Imm Gran Abs Auto 0.05 X10*3/uL (0.00-0.03); Imm Gran Pct Auto 0.5 % (0.0-0.4); Lymphocytes Absolute Auto 3.1 X10*3/uL (1.2-4.9); Lymphocytes Percent Auto 27.6 % (20-40); Mean Corpuscular HGB Conc 33.6 g/dl (31.0-36.0); Mean Corpuscular Hemoglobin 31.9 pg (27.0-33.0); Mean Corpuscular Volume 95.1 fL (80.0-98.0); Mean Platelet Volume 10.5 fL (9.4-12.4); Monocytes Absolute Auto 1.4 X10*3/uL (0.1-1.2); Monocytes Percent Auto 12.4 % (2-11); Neutrophils Absolute Auto 6.3 x10*3/uL (2.0-8.3); Neutrophils Percent Auto 56.9 % (45-73); Platelet Count 297 X10*3/uL (160-400); Red Blood Count 3.07 X10*6/uL (4.60-5.80); Red Cell Distribution Width 12.4 % (11.0-16.0); White Blood Count 11.1 X10*3/uL (4.8-10.8)
[2024-06-16 07:47] VITALS: BP 134/65; PULSE 100; RESP 18; TEMP 37.8; O2SAT 95
[2024-06-16 07:58] LABS: Anion Gap 14 (12-20); Blood Urea Nitrogen 10 mg/dL (9-16); Calcium 8.4 mg/dL (8.4-10.2); Carbon Dioxide 26 mmol/L (22-29); Chloride 103 mmol/L (96-108); Creatinine Clr Calc Pharmacy 123.3; Estimated Glomerular Filt Rate > 60; Glucose Random 159 mg/dL (60-115); Phosphorus 3.3 mg/dL (2.7-4.5); Potassium 4.7 mmol/L (3.3-5.1); Sodium 138 mmol/L (135-145)
[2024-06-16] MEDS: guaiFENesin 200 MG/10 ML 10 ML LIQUID PO (08:03)
[2024-06-16] MEDS: Benzonatate 100 MG CAPSULE 200 MG PO (08:04)
[2024-06-16] MEDS: Insulin Lispro 100 UNIT/ML 3 ML VIAL SUBCUT ×4 (08:04→20:26)
[2024-06-16 11:08] LABS: Glucose, Whole Blood 159 mg/dL (60-115)
--- NOTE | 2024-06-16 12:34 | P.PNIM_ITS ---
Subjective Subjective Date of Service: 06/16/24 Interval History: seen and evaluated this morning feels better, reporting improving pain in his foot creatinine improving MR suspecious for abscess in his foot No other events Review of Systems Review of Systems: Yes all other systems are reviewed and are negative Physical Exam 2 Vital Signs: Vital Signs: Last Vital Signs Temp 100.1 F 06/16/24 07:47 Pulse 100 06/16/24 07:47 Resp 18 06/16/24 07:47 BP 134/65 06/16/24 07:47 Pulse Ox 95 06/16/24 07:47 O2 Del Method Room Air 06/16/24 07:47 O2 Flow Rate 4 06/14/24 00:59 BMI result Body Mass Index 34.4 Const: Other: Constitutional : Awake, interactive, not in distress Neck : Normal inspection, Supple Cardiovascular : RRR, no JVP, no lower extremity edema Respiratory : good bilateral air entry, no crackles, wheezes or rhonchi Gastrointestinal: soft, lax, Normal bowel sounds, Non tender Skin : Warm, Dry, right foot lateral ulcer with surrounding erythema, chronic big toe base wound Neurological : Alert & oriented x3, No focal deficit Objective Data Active Medications Acetaminophen/Codeine Phosphate (Acetaminophen/Codeine 300-30mg Tablet) 2 tab PO Q4H PRN PRN Reason: fever\cough Last Admin: 06/16/24 03:14 Dose: 2 tab Documented By: MANJINDER Atorvastatin Calcium (Atorvastatin Calcium 80 Mg Tablet) 80 mg PO BEDTIME [place] Last Admin: 06/15/24 20:23 Dose: 80 mg Documented By: ASHLEY Benzonatate (Benzonatate 100 Mg Capsule) 200 mg PO TID PRN PRN Reason: Cough Last Admin: 06/16/24 08:04 Dose: 200 mg Documented By: ELIZABETH Diphenhydramine HCl (Diphenhydramine Hcl 50 Mg/Ml Vial) 25 mg IVPUSH Q6H PRN PRN Reason: Itching Last Admin: 06/16/24 01:31 Dose: 25 mg Documented By: MANJINDER Glucose (Glucose Gel 15 Gm Gel..Gram.) 15 gm PO Q15M PRN; Protocol PRN Reason: per Hypoglycemia Standing Ord. Guaifenesin (Guaifenesin 200 Mg/10 Ml 10 Ml Liquid) 10 ml PO Q4H PRN PRN Reason: Cough Last Admin: 06/16/24 08:03 Dose: 10 ml Documented By: ELIZABETH Heparin Sodium (Porcine) (Heparin Sodium,Porcine 5,000 Unit/Ml Vial) 5,000 unit SUBCUT RQ8H [facility] Last Admin: 06/16/24 08:04 Dose: 5,000 unit Documented By: ELIZABETH Dextrose (D10) 250 mls @ 750 mls/hr IV Q15M PRN; Protocol PRN Reason: per Hypoglycemia Standing Ord. Vancomycin HCl 1,500 mg/ (Sodium Chloride) 500 mls @ 333.333 mls/hr IV Q24H [facility] Last Infusion: 06/15/24 23:53 Dose: Infused Documented By: MANJINDER Insulin Glargine (Insulin Glargine,Hum.Rec.Anlog 100 Unit/Ml 10 Ml Vial) 35 unit SUBCUT BEDTIME [facility] Last Admin: 06/15/24 20:24 Dose: 35 unit Documented By: ASHLEY Insulin Human Lispro (Insulin Lispro 100 Unit/Ml 3 Ml Vial) 0 unit SUBCUT QIDACHS [facility]; Protocol Last Admin: 06/16/24 08:04 Dose: 4 unit Documented By: ELIZABETH Meropenem (Meropenem 1 Gm Vial) 1 gm IVPUSH Q8H [facility] Last Admin: 06/16/24 08:02 Dose: 1 gm Documented By: ELIZABETH Pharmacy Consult (Consult Rx Vancomycin Dosing) 1 each MISCELLANE DAILY PRN PRN Reason: Consult order Labs 06/16/24 06:20 06/16/24 06:20 Labs: Laboratory Results - last 24 hr 06/15/24 06/15/24 06/16/24 16:37 20:11 06:20 MCV 95.1 MCH 31.9 MCHC 33.6 RDW 12.4 Plt Count 297 MPV 10.5 Immature Gran % (Auto) 0.5 H Neut % (Auto) 56.9 Lymph % (Auto) 27.6 [place] % (Auto) 12.4 H Eos % (Auto) 2.1 Baso % (Auto) 0.5 Lymph # (Auto) 3.1 [place] # (Auto) 1.4 H Eos # (Auto) 0.2 Baso # (Auto) 0.1 Abs Immat Gran (auto) 0.05 H Absolute Neuts (auto) 6.3 Absolute Nucleated RBC 0.000 Nucleated RBC % (auto) 0.0 Anion Gap 14 Estim Creat Clear Calc 123.3 Estimated GFR > 60 POC Glucose 214 H 203 H Random Glucose 159 H Calcium 8.4 Phosphorus 3.3 Magnesium 2.0 06/16/24 06/16/24 07:23 11:02 MCV MCH MCHC RDW Plt Count MPV Immature Gran % (Auto) Neut % (Auto) Lymph % (Auto) [place] % (Auto) Eos % (Auto) Baso % (Auto) Lymph # (Auto) [place] # (Auto) Eos # (Auto) Baso # (Auto) Abs Immat Gran (auto) Absolute Neuts (auto) Absolute Nucleated RBC Nucleated RBC % (auto) Anion Gap Estim Creat Clear Calc Estimated GFR POC Glucose 157 H 159 H Random Glucose Calcium Phosphorus Magnesium Microbiology Microbiology Results: Microbiology 06/14/24 00:02 Blood Culture - Preliminary Blood - Venous No growth after 48 hours. 06/13/24 23:51 Blood Culture - Preliminary Blood - Venous No growth after 48 hours. Assessment and Plan (1) Lactic acidosis: Status: Acute (2) Hyponatremia: Status: Acute (3) ELISABETH (acute kidney injury): Status: Acute (4) Diabetic foot ulcer: Status: Acute Plan 48-year-old male with history of type 2 diabetes and osteomyelitis ? Presented to the emergency department on 06/13 with redness, swelling, and pain to the right foot;? in emergency department, patient found to be febrile, hypotensive, in setting of R foot ulcer, admitted to ICU with sepsis. diabetic foot ulcer complicated with Cellulitis of right foot, suspected osteomyelitis leukocytosis resolved Cultures pending. MRI right foot. 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 Chronic anemia, H&H at baseline. Substance abuse. Addiction medicine placed Prophylaxis: pneumatic hoses, Heparin Diet: Diabetic The patient will need overnight hospital stay pending blood cultures on IV antibiotics for suspected OM pending MRI and ID consult Quality Stroke Does the patient have a stroke diagnosis?: No VTE Prior VTE?: No VTE Risk Level:: Medical - moderate - high VTE Device Contraindication: N/A - Device Ordered VTE Drug Contraindication: N/A - Med Ordered
[2024-06-16 15:35] VITALS: BP 130/61; PULSE 76; RESP 15; TEMP 36.9; O2SAT 95
[2024-06-16 16:29] LABS: Glucose, Whole Blood 168 mg/dL (60-115)
[2024-06-16 19:43] VITALS: BP 140/65; PULSE 90; RESP 18; TEMP 37; O2SAT 94
[2024-06-16] MEDS: Atorvastatin Calcium 80 MG TABLET PO (20:09)
[2024-06-16 20:12] LABS: Glucose, Whole Blood 226 mg/dL (60-115)
--- NOTE | 2024-06-16 20:14 | PM.CNGS ---
History of Present Illness Consult details Consult date: 06/16/24 Requesting physician: Melinda Munoz Narrative: The patient is a 48-year-old male diabetic with right diabetic foot abscess. He comes in with a significant infection and even that in the hospital it has gotten worse. He had an MRI yesterday did not reveal any bone infection. But it did show soft tissue infection. Surgical consult as being carried out for abscess care. Patient says his hemoglobin A1c is usually in the 8 range. 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 Meds Allergies Allergy/AdvReac Type Severity Reaction Status Date / Time glyburide Allergy Unknown weight gain Verified 06/13/24 23:05 Active Medications: Current Medications Acetaminophen/Codeine Phosphate (Acetaminophen/Codeine 300-30mg Tablet) 2 tab PO Q4H PRN PRN Reason: fever\cough Last Admin: 06/16/24 12:38 Dose: 2 tab Atorvastatin Calcium (Atorvastatin Calcium 80 Mg Tablet) 80 mg PO BEDTIME [facility] Last Admin: 06/16/24 20:09 Dose: 80 mg Benzonatate (Benzonatate 100 Mg Capsule) 200 mg PO TID PRN PRN Reason: Cough Last Admin: 06/16/24 08:04 Dose: 200 mg Diphenhydramine HCl (Diphenhydramine Hcl 50 Mg/Ml Vial) 25 mg IVPUSH Q6H PRN PRN Reason: Itching Last Admin: 06/16/24 01:31 Dose: 25 mg Glucose (Glucose Gel 15 Gm Gel..Gram.) 15 gm PO Q15M PRN; Protocol PRN Reason: per Hypoglycemia Standing Ord. Guaifenesin (Guaifenesin 200 Mg/10 Ml 10 Ml Liquid) 10 ml PO Q4H PRN PRN Reason: Cough Last Admin: 06/16/24 08:03 Dose: 10 ml Heparin Sodium (Porcine) (Heparin Sodium,Porcine 5,000 Unit/Ml Vial) 5,000 unit SUBCUT RQ8H [facility] Last Admin: 06/16/24 17:12 Dose: 5,000 unit Dextrose (D10) 250 mls @ 750 mls/hr IV Q15M PRN; Protocol PRN Reason: per Hypoglycemia Standing Ord. Vancomycin HCl 1,500 mg/ (Sodium Chloride) 500 mls @ 333.333 mls/hr IV Q24H [facility] Last Infusion: 06/15/24 23:53 Dose: Infused Insulin Glargine (Insulin Glargine,Hum.Rec.Anlog 100 Unit/Ml 10 Ml Vial) 35 unit SUBCUT BEDTIME [facility] Last Admin: 06/15/24 20:24 Dose: 35 unit Insulin Human Lispro (Insulin Lispro 100 Unit/Ml 3 Ml Vial) 0 unit SUBCUT QIDACHS [facility]; Protocol Last Admin: 06/16/24 17:13 Dose: 4 unit Meropenem (Meropenem 1 Gm Vial) 1 gm IVPUSH Q8H [facility] Last Admin: 06/16/24 17:12 Dose: 1 gm Pharmacy Consult (Consult Rx Vancomycin Dosing) 1 each MISCELLANE DAILY PRN PRN Reason: Consult order Home Medications ?Medication ?Instructions ?Recorded ?Confirmed ?Last Taken ?Type fluticasone propionate 50 1 spray intranasal DAILY PRN Nasal 02/27/21 06/14/24 02/26/21 History mcg/actuation nasal Congestion spray,suspension insulin detemir U-100 100 unit/mL 54 unit subcut BEDTIME 02/27/21 06/14/24 09/21/22 History (3 mL) subcutaneous pen (Levemir FlexTouch U-100 Insulin) multivitamin 1 tab PO DAILY 02/27/21 06/14/24 09/21/22 History amlodipine 5 mg-olmesartan 20 mg 1 tab PO BEDTIME 06/14/24 06/14/24 Unknown History tablet atorvastatin 80 mg tablet 80 mg PO BEDTIME 06/14/24 06/14/24 Unknown History empagliflozin 25 mg tablet 25 mg PO DAILY 06/14/24 06/14/24 Unknown History (Jardiance) insulin lispro 100 unit/mL 4 unit subcut DAILY@1700 06/14/24 06/14/24 Unknown History subcutaneous pen metoprolol succinate 25 mg 25 mg PO DAILY 06/14/24 06/14/24 Unknown History tablet,extended release 24 hr thiamine HCl (vitamin B1) 100 mg 100 mg PO DAILY 06/14/24 06/14/24 Unknown History tablet Physical Exam Vital Signs: Vital Signs: Last Vital Signs Temp 98.6 F 06/16/24 19:43 Pulse 90 06/16/24 19:43 Resp 18 06/16/24 19:43 BP 140/65 H 06/16/24 19:43 Pulse Ox 94 06/16/24 19:43 O2 Del Method Room Air 06/16/24 19:43 O2 Flow Rate 4 06/14/24 00:59 BMI result Body Mass Index 34.4 Skin: Other: Right lateral foot has a large obvious abscess that is pointing and draining and then this is a little more along the lateral dorsal aspect of the foot but there are some smaller areas which fluctuance running a little more distally and anteriorly. This is all consistent with a significant abscess and infection. Plan to drain. There cellulitic changes around the foot as well but not extending past the ankle Results Labs 06/16/24 06:20 06/16/24 06:20 Labs: Abnormal lab results 06/15/24 06/16/24 06/16/24 Range/Units 20:11 06:20 07:23 WBC 11.1 H (4.8-10.8) X10*3/uL RBC 3.07 L (4.60-5.80) X10*6/uL Hgb 9.8 L (14.0-18.0) g/dl Hct 29.2 L (42.0-52.0) % Immature Gran % (Auto) 0.5 H (0.0-0.4) % [place] % (Auto) 12.4 H (2-11) % [place] # (Auto) 1.4 H (0.1-1.2) X10*3/uL Abs Immat Gran (auto) 0.05 H (0.00-0.03) X10*3/uL POC Glucose 203 H 157 H (60-115) mg/dL Random Glucose 159 H (60-115) mg/dL 06/16/24 06/16/24 06/16/24 Range/Units 11:02 16:13 20:05 WBC (4.8-10.8) X10*3/uL RBC (4.60-5.80) X10*6/uL Hgb (14.0-18.0) g/dl Hct (42.0-52.0) % Immature Gran % (Auto) (0.0-0.4) % [place] % (Auto) (2-11) % [place] # (Auto) (0.1-1.2) X10*3/uL Abs Immat Gran (auto) (0.00-0.03) X10*3/uL POC Glucose 159 H 168 H 226 H (60-115) mg/dL Random Glucose (60-115) mg/dL Short CBC 06/16/24 Range/Units 06:20 WBC 11.1 H (4.8-10.8) X10*3/uL Hgb 9.8 L (14.0-18.0) g/dl Hct 29.2 L (42.0-52.0) % Plt Count 297 (160-400) X10*3/uL BMP 06/16/24 06:20 Sodium 138 Potassium 4.7 Chloride 103 Carbon Dioxide 26 BUN 10 Creatinine 0.97 Calcium 8.4 Urine 06/14/24 Range/Units 03:25 Urine Color Yellow Urine Appearance Clear Urine pH 5.5 (5.0-9.0) Ur Specific [place] 1.020 (1.005-1.025) Urine Protein Negative (Neg-Trace) mg/dL Urine Glucose (UA) >=1000 H (Negative) mg/dL All other labs normal. Imaging Additional studies: [facility] [place] [facility] [address] [place] [address] Magnetic Resonance Report Signed Patient: Satya Medrano MR#: [id number] : 1975 Acct:[id number] Age/Sex: 48 / M ADM Date: 06/14/24 Loc: HO.S3 361-[address]: Melinda Munoz MD Ordering Physician: Ashley Avila NP Date of Service: 06/15/24 Procedure(s): MR foot RT wo/w con Accession Number(s): [id number] cc: Ashley Avila CERTIFIED NOVELL ADMINISTRATOR; [facility]~ EXAMINATION: MR FOOT WITHOUT AND WITH CONTRAST, RIGHT CLINICAL INFORMATION: Right foot cellulitis/osteomyelitis. COMPARISON: Most recent right foot radiographs dated 06/13/2024. Right foot MRI dated 09/23/2022. TECHNIQUE: MRI of the right foot was performed before and after the intravenous administration of 10 mL Gadavist on a high-field scanner. FINDINGS: Soft tissue ulceration at the medial aspect of the 1st metatarsal head measuring up to 2.5 cm in AP dimension, increased in prominence when compared to the prior examination. This extends to the cortex of the 1st metatarsal head. Adjacent skin thickening and subcutaneous edema, consistent with cellulitis. No organized fluid collection or abscess formation. Increased T2 and decreased T1 marrow signal within the adjacent 1st metatarsal with extension proximally into the diaphysis. Associated postcontrast enhancement, consistent with acute osteomyelitis. Resolution of additional previously seen diffuse marrow edema. No acute fracture or dislocation. Redemonstration of chronic partially healed fractures through the 2nd through 5th metatarsals in unchanged anatomic alignment. Resolution of associated marrow edema. Bony remodeling of the 2nd metatarsal head is redemonstrated, consistent with chronic avascular necrosis. 1st metatarsophalangeal hallux valgus angulation and lateral subluxation of the hallux sesamoids is redemonstrated. Edema and atrophy throughout the intrinsic musculature of the foot which can be seen in diabetic patients. No transverse tendon tear or tendon retraction. Additional soft tissue ulceration along the lateral aspect of the midfoot measuring approximately 0.8 cm in craniocaudal dimension. Within the adjacent subcutaneous tissues there is a lobulated, slightly complex fluid collection with mild peripheral postcontrast enhancement measuring up to 8.2 x 4.2 x 2.1 cm in greatest dimension. Findings are new when compared to the prior examination and likely represent abscess formation. Additional prominent dorsal subcutaneous edema. MR/MR foot RT wo/w con IMPRESSION: 1. Soft tissue ulceration to the medial aspect of the 1st metatarsal head with adjacent cellulitis. No abscess formation. Underlying acute osteomyelitis within the 1st metatarsal. 2. Additional soft tissue ulceration along the lateral aspect of the midfoot with an adjacent subcutaneous fluid collection measuring up to 8.2 cm in greatest dimension. Findings are new when compared to the prior examination and likely represent abscess formation. 3. Resolution of additional previously seen diffuse marrow edema. 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 No acute fracture or dislocation. 4. Prominent dorsal subcutaneous edema. Electronically signed by: Elvin Quevedo MD 06/15/2024 03:43 PM [facility] Assessment and Plan (1) Diabetic foot infection: Status: Acute Plan 48-year-old male with diabetic foot infection significant along the lateral aspect. The area was opened up cultures taken significant amount of purulent drainage carried out. We will pack and re-evaluate tomorrow if not improving may consider going to the operating room for further debridement. He understands and agrees with the above plan. In the meantime continue IV antibiotics as per medical team and medical management. Procedures Date of Service Date of Service: 06/16/24 Abscess I/D Site: foot Side (if applicable): right Additional comments: Right foot has tooth 3 areas that were pointing and draining and fluctuance consistent with an abscess. These were cleaned with alcohol and then using the scissors the bubbled up skin was opened up and debrided and the areas underneath tunneled and connected with the each other. The area once opened up released a moderate amount of thick purulent material probably about 25-30 cc. Once the area was irrigated dissected out no loculated collections remained the area was packed and dressed. We will re-evaluate tomorrow and determine whether any further debridement needs to be carried out. In the meantime this was incision and drainage of complex right foot abscess
[2024-06-16] MEDS: Insulin Glargine,Hum.rec.anlog 100 UNIT/ML 10 ML VIAL 35 UNIT SUBCUT (20:25)
[2024-06-16] MEDS: vancomycin HCL 1,250 MG in 0.9 % Sodium Chloride 250 ML 166.67 MG IV (23:08)
[2024-06-17] MEDS: Meropenem 1 GM VIAL IVPUSH ×4 (00:56→23:53)
[2024-06-17] MEDS: Acetaminophen/Codeine 300-30mg Tablet 2 TAB PO (01:26)
[2024-06-17 04:00] VITALS: BP 124/59; PULSE 80; RESP 16; TEMP 36.8; O2SAT 94
[2024-06-17 06:33] LABS: MANUAL DIFF FLAG NO
[2024-06-17 06:41] LABS: Basophils Percent Auto 0.5 % (0-2); Eosinophils Absolute Auto 0.2 X10*3/uL (0.0-0.4); Eosinophils Percent Auto 3.1 % (0-4); Hematocrit 28.7 % (42.0-52.0); Hemoglobin 9.8 g/dl (14.0-18.0); Imm Gran Abs Auto 0.02 X10*3/uL (0.00-0.03); Imm Gran Pct Auto 0.3 % (0.0-0.4); Lymphocytes Absolute Auto 2.5 X10*3/uL (1.2-4.9); Mean Corpuscular HGB Conc 34.1 g/dl (31.0-36.0); Mean Corpuscular Hemoglobin 32.2 pg (27.0-33.0); Mean Corpuscular Volume 94.4 fL (80.0-98.0); Mean Platelet Volume 10.2 fL (9.4-12.4); Monocytes Absolute Auto 0.9 X10*3/uL (0.1-1.2); Monocytes Percent Auto 14.9 % (2-11); Neutrophils Absolute Auto 2.3 x10*3/uL (2.0-8.3); Neutrophils Percent Auto 39.2 % (45-73); Platelet Count 282 X10*3/uL (160-400); Red Blood Count 3.04 X10*6/uL (4.60-5.80); Red Cell Distribution Width 12.1 % (11.0-16.0); White Blood Count 5.8 X10*3/uL (4.8-10.8)
[2024-06-17 07:00] LABS: Anion Gap 13 (12-20); Blood Urea Nitrogen 8 mg/dL (9-16); Calcium 8.8 mg/dL (8.4-10.2); Carbon Dioxide 23 mmol/L (22-29); Chloride 105 mmol/L (96-108); Creatinine Clr Calc Pharmacy 145.9; Estimated Glomerular Filt Rate > 60; Glucose Random 213 mg/dL (60-115); Magnesium 1.9 mg/dL (1.6-2.6); Phosphorus 3.2 mg/dL (2.7-4.5); Potassium 4.2 mmol/L (3.3-5.1); Sodium 137 mmol/L (135-145)
[2024-06-17 07:09] VITALS: BP 138/65; PULSE 79; RESP 16; TEMP 36.1; O2SAT 93
[2024-06-17 07:32] LABS: Glucose, Whole Blood 179 mg/dL (60-115)
[2024-06-17] MEDS: Heparin Sodium,Porcine 5,000 UNIT/ML VIAL 5000 UNIT SUBCUT ×3 (08:01→23:53)
--- NOTE | 2024-06-17 08:17 | PC.NURSE ---
poc 179, per dr. Munoz hold insulin sliding scale dose
[2024-06-17 11:11] LABS: Glucose, Whole Blood 172 mg/dL (60-115)
[2024-06-17] MEDS: vancomycin HCL 1,250 MG in 0.9 % Sodium Chloride 250 ML 166.67 MG IV ×2 (11:15→22:22)
--- NOTE | 2024-06-17 11:26 | PM.PNGS ---
Subjective Subjective Date of Service: 06/17/24 Interval history: Patient feeling okay says he wants to go home but understands that he needs to stay for IV antibiotics. No fevers or chills Physical Exam Vital Signs: Vital Signs: Last Vital Signs Temp 97.0 F 06/17/24 07:09 Pulse 79 06/17/24 07:09 Resp 16 06/17/24 07:09 BP 138/65 06/17/24 07:09 Pulse Ox 93 06/17/24 07:09 O2 Del Method Room Air 06/17/24 07:09 O2 Flow Rate 4 06/14/24 00:59 BMI result Body Mass Index 34.4 Const: General: cooperative, healthy appearing, comfortable and no acute distress Skin: Other: Right lateral foot open wound areas look good chicken cleaner less edema less erythema and probing the open areas there is no undrained pockets and irrigation does not reveal any purulent material. The area was packed back with gauze and cover with dry dressings. Objective Data Active Medications Acetaminophen/Codeine Phosphate (Acetaminophen/Codeine 300-30mg Tablet) 2 tab PO Q4H PRN PRN Reason: fever\cough Last Admin: 06/17/24 01:26 Dose: 2 tab Documented By: MANJINDER Atorvastatin Calcium (Atorvastatin Calcium 80 Mg Tablet) 80 mg PO BEDTIME [facility] Last Admin: 06/16/24 20:09 Dose: 80 mg Documented By: MANJINDER Benzonatate (Benzonatate 100 Mg Capsule) 200 mg PO TID PRN PRN Reason: Cough Last Admin: 06/16/24 08:04 Dose: 200 mg Documented By: ELIZABETH Diphenhydramine HCl (Diphenhydramine Hcl 50 Mg/Ml Vial) 25 mg IVPUSH Q6H PRN PRN Reason: Itching Last Admin: 06/16/24 01:31 Dose: 25 mg Documented By: MANJINDER Glucose (Glucose Gel 15 Gm Gel..Gram.) 15 gm PO Q15M PRN; Protocol PRN Reason: per Hypoglycemia Standing Ord. Guaifenesin (Guaifenesin 200 Mg/10 Ml 10 Ml Liquid) 10 ml PO Q4H PRN PRN Reason: Cough Last Admin: 06/16/24 08:03 Dose: 10 ml Documented By: ELIZABETH Heparin Sodium (Porcine) (Heparin Sodium,Porcine 5,000 Unit/Ml Vial) 5,000 unit SUBCUT RQ8H [facility] Last Admin: 06/17/24 08:01 Dose: 5,000 unit Documented By: BEN Dextrose (D10) 250 mls @ 750 mls/hr IV Q15M PRN; Protocol PRN Reason: per Hypoglycemia Standing Ord. Vancomycin HCl 1,250 mg/ (Sodium Chloride) 250 mls @ 166.667 mls/hr IV Q12H [facility] Last Admin: 06/17/24 11:15 Dose: 166.67 mls/hr Documented By: BEN Insulin Glargine (Insulin Glargine,Hum.Rec.Anlog 100 Unit/Ml 10 Ml Vial) 35 unit SUBCUT BEDTIME [facility] Last Admin: 06/16/24 20:25 Dose: 35 unit Documented By: MANJINDER Insulin Human Lispro (Insulin Lispro 100 Unit/Ml 3 Ml Vial) 0 unit SUBCUT QIDACHS [facility]; Protocol Last Admin: 06/17/24 08:17 Dose: Not Given Documented By: BEN Non-Admin Reason: Physician Held Med Meropenem (Meropenem 1 Gm Vial) 1 gm IVPUSH Q8H [facility] Last Admin: 06/17/24 08:01 Dose: 1 gm Documented By: BEN Pharmacy Consult (Consult Rx Vancomycin Dosing) 1 each MISCELLANE DAILY PRN PRN Reason: Consult order Labs 06/17/24 05:33 06/17/24 05:33 Labs: Laboratory Results - last 24 hr 06/16/24 06/16/24 06/16/24 16:13 20:05 20:45 MCV MCH MCHC RDW Plt Count MPV Immature Gran % (Auto) Neut % (Auto) Lymph % (Auto) [place] % (Auto) Eos % (Auto) Baso % (Auto) Lymph # (Auto) [place] # (Auto) Eos # (Auto) Baso # (Auto) Abs Immat Gran (auto) Absolute Neuts (auto) Absolute Nucleated RBC Nucleated RBC % (auto) Anion Gap Estim Creat Clear Calc Estimated GFR POC Glucose 168 H 226 H Random Glucose Calcium Phosphorus Magnesium Vancomycin Trough 6.0 L 06/17/24 06/17/24 06/17/24 05:33 07:27 11:07 MCV 94.4 MCH 32.2 MCHC 34.1 RDW 12.1 Plt Count 282 MPV 10.2 Immature Gran % (Auto) 0.3 Neut % (Auto) 39.2 L Lymph % (Auto) 42.0 H [place] % (Auto) 14.9 H Eos % (Auto) 3.1 Baso % (Auto) 0.5 Lymph # (Auto) 2.5 [place] # (Auto) 0.9 Eos # (Auto) 0.2 Baso # (Auto) 0.0 Abs Immat Gran (auto) 0.02 Absolute Neuts (auto) 2.3 Absolute Nucleated RBC 0.000 Nucleated RBC % (auto) 0.0 Anion Gap 13 Estim Creat Clear Calc 145.9 Estimated GFR > 60 POC Glucose 179 H 172 H Random Glucose 213 H Calcium 8.8 Phosphorus 3.2 Magnesium 1.9 Vancomycin Trough Microbiology Microbiology Results: Microbiology 06/16/24 12:25 Gram Stain - Final Foot Right Routine Culture - Preliminary Culture in progress. Anaerobic Culture - Preliminary Culture in progress. Procedures Date of Service Date of Service: 06/17/24 Progress Note: A&P Assessment and plan (1) Diabetic foot infection: Status: Acute Assessment and Plan: 48-year-old male diabetic hemoglobin A1c in the 10 range coming in with right lateral foot acute infection with a lot of purulent material drained and debrided at bedside improving. Plan to continue packing daily and IV antibiotics. When discharge patient can follow up in Wound Care where he is known and may consider HBO to supplement as a Alexandra 3-4. Continue with IV Zosyn and vanco as per medical team and follow up on culture results Time Spent With Patient Time: Total time managing care of this patient today ____ minutes. Quality Stroke Does the patient have a stroke diagnosis?: No VTE Prior VTE?: No VTE Risk Level:: Medical - moderate - high VTE Device Contraindication: N/A - Device Ordered VTE Drug Contraindication: N/A - Med Ordered
[2024-06-17] MEDS: Insulin Lispro 100 UNIT/ML 3 ML VIAL SUBCUT ×3 (11:56→20:12)
--- NOTE | 2024-06-17 13:51 | P.PNIM_ITS ---
Subjective Subjective Date of Service: 06/17/24 Interval History: seen and evaluated this morning feels better, reporting improving pain in his foot creatinine improving had bedside drainage of abscess in his foot No other events Review of Systems Review of Systems: Yes all other systems are reviewed and are negative Physical Exam 2 Vital Signs: Vital Signs: Last Vital Signs Temp 97.0 F 06/17/24 07:09 Pulse 79 06/17/24 07:09 Resp 16 06/17/24 07:09 BP 138/65 06/17/24 07:09 Pulse Ox 93 06/17/24 07:09 O2 Del Method Room Air 06/17/24 07:09 O2 Flow Rate 4 06/14/24 00:59 BMI result Body Mass Index 34.4 Const: Other: Constitutional : Awake, interactive, not in distress Neck : Normal inspection, Supple Cardiovascular : RRR, no JVP, no lower extremity edema Respiratory : good bilateral air entry, no crackles, wheezes or rhonchi Gastrointestinal: soft, lax, Normal bowel sounds, Non tender Skin : Warm, Dry, right foot lateral ulcer with surrounding erythema covered with dressing post drainage, chronic big toe base wound Neurological : Alert & oriented x3, No focal deficit Objective Data Active Medications Acetaminophen/Codeine Phosphate (Acetaminophen/Codeine 300-30mg Tablet) 2 tab PO Q4H PRN PRN Reason: fever\cough Last Admin: 06/17/24 01:26 Dose: 2 tab Documented By: MANJINDER Atorvastatin Calcium (Atorvastatin Calcium 80 Mg Tablet) 80 mg PO BEDTIME [facility] Last Admin: 06/16/24 20:09 Dose: 80 mg Documented By: MANJINDER Benzonatate (Benzonatate 100 Mg Capsule) 200 mg PO TID PRN PRN Reason: Cough Last Admin: 06/16/24 08:04 Dose: 200 mg Documented By: ELIZABETH Diphenhydramine HCl (Diphenhydramine Hcl 50 Mg/Ml Vial) 25 mg IVPUSH Q6H PRN PRN Reason: Itching Last Admin: 06/16/24 01:31 Dose: 25 mg Documented By: MANJINDER Glucose (Glucose Gel 15 Gm Gel..Gram.) 15 gm PO Q15M PRN; Protocol PRN Reason: per Hypoglycemia Standing Ord. Guaifenesin (Guaifenesin 200 Mg/10 Ml 10 Ml Liquid) 10 ml PO Q4H PRN PRN Reason: Cough Last Admin: 06/16/24 08:03 Dose: 10 ml Documented By: ELIZABETH Heparin Sodium (Porcine) (Heparin Sodium,Porcine 5,000 Unit/Ml Vial) 5,000 unit SUBCUT RQ8H [facility] Last Admin: 06/17/24 08:01 Dose: 5,000 unit Documented By: BEN Dextrose (D10) 250 mls @ 750 mls/hr IV Q15M PRN; Protocol PRN Reason: per Hypoglycemia Standing Ord. Vancomycin HCl 1,250 mg/ (Sodium Chloride) 250 mls @ 166.667 mls/hr IV Q12H [facility] Last Infusion: 06/17/24 12:57 Dose: Infused Documented By: BEN Insulin Glargine (Insulin Glargine,Hum.Rec.Anlog 100 Unit/Ml 10 Ml Vial) 35 unit SUBCUT BEDTIME [facility] Last Admin: 06/16/24 20:25 Dose: 35 unit Documented By: MANJINDER Insulin Human Lispro (Insulin Lispro 100 Unit/Ml 3 Ml Vial) 0 unit SUBCUT QIDACHS [facility]; Protocol Last Admin: 06/17/24 11:56 Dose: 4 unit Documented By: BEN Meropenem (Meropenem 1 Gm Vial) 1 gm IVPUSH Q8H [facility] Last Admin: 06/17/24 08:01 Dose: 1 gm Documented By: BEN Pharmacy Consult (Consult Rx Vancomycin Dosing) 1 each MISCELLANE DAILY PRN PRN Reason: Consult order Labs 06/17/24 05:33 06/17/24 05:33 Labs: Laboratory Results - last 24 hr 06/16/24 06/16/24 06/16/24 16:13 20:05 20:45 MCV MCH MCHC RDW Plt Count MPV Immature Gran % (Auto) Neut % (Auto) Lymph % (Auto) [place] % (Auto) Eos % (Auto) Baso % (Auto) Lymph # (Auto) [place] # (Auto) Eos # (Auto) Baso # (Auto) Abs Immat Gran (auto) Absolute Neuts (auto) Absolute Nucleated RBC Nucleated RBC % (auto) Anion Gap Estim Creat Clear Calc Estimated GFR POC Glucose 168 H 226 H Random Glucose Calcium Phosphorus Magnesium Vancomycin Trough 6.0 L 1206/17/24 06/17/24 05:33 07:27 11:07 MCV 94.4 MCH 32.2 MCHC 34.1 RDW 12.1 Plt Count 282 MPV 10.2 Immature Gran % (Auto) 0.3 Neut % (Auto) 39.2 L Lymph % (Auto) 42.0 H [place] % (Auto) 14.9 H Eos % (Auto) 3.1 Baso % (Auto) 0.5 Lymph # (Auto) 2.5 [place] # (Auto) 0.9 Eos # (Auto) 0.2 Baso # (Auto) 0.0 Abs Immat Gran (auto) 0.02 Absolute Neuts (auto) 2.3 Absolute Nucleated RBC 0.000 Nucleated RBC % (auto) 0.0 Anion Gap 13 Estim Creat Clear Calc 145.9 Estimated GFR > 60 POC Glucose 179 H 172 H Random Glucose 213 H Calcium 8.8 Phosphorus 3.2 Magnesium 1.9 Vancomycin Trough Microbiology Microbiology Results: Microbiology 06/16/24 12:25 Gram Stain - Final Foot Right Routine Culture - Preliminary Culture in progress. Anaerobic Culture - Preliminary Culture in progress. Assessment and Plan (1) Diabetic foot infection: Status: Acute (2) Lactic acidosis: Status: Acute (3) Hyponatremia: Status: Acute (4) ELISABETH (acute kidney injury): Status: Acute (5) Diabetic foot ulcer: Status: Acute Plan 48-year-old male with history of type 2 diabetes and osteomyelitis ? Presented to the emergency department on 06/13 with redness, swelling, and pain to the right foot;? in emergency department, patient found to be febrile, hypotensive, in setting of R foot ulcer, admitted to ICU with sepsis. diabetic foot ulcer complicated with Cellulitis of right foot, suspected osteomyelitis leukocytosis resolved Cultures pending. MRI right foot. 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 Chronic anemia, H&H at baseline. Substance abuse. Addiction medicine placed Prophylaxis: pneumatic hoses, Heparin Diet: Diabetic The patient will need overnight hospital stay pending blood cultures on IV antibiotics for suspected OM pending clinical improvement and ID consult Quality Stroke Does the patient have a stroke diagnosis?: No VTE Prior VTE?: No VTE Risk Level:: Medical - moderate - high VTE Device Contraindication: N/A - Device Ordered VTE Drug Contraindication: N/A - Med Ordered
[2024-06-17 15:26] VITALS: BP 140/60; PULSE 79; RESP 18; TEMP 36.3; O2SAT 95
[2024-06-17 16:04] LABS: Glucose, Whole Blood 214 mg/dL (60-115)
[2024-06-17 19:32] VITALS: BP 167/80; PULSE 72; RESP 18; TEMP 36.7; O2SAT 96
[2024-06-17 20:06] LABS: Glucose, Whole Blood 220 mg/dL (60-115)
[2024-06-17] MEDS: Insulin Glargine,Hum.rec.anlog 100 UNIT/ML 10 ML VIAL 35 UNIT SUBCUT (20:11)
[2024-06-17] MEDS: Atorvastatin Calcium 80 MG TABLET PO (20:12)
[2024-06-17 21:40] LABS: Vancomycin Random 11.9 mcg/mL (15-20)
[2024-06-18] MEDS: Acetaminophen/Codeine 300-30mg Tablet 2 TAB PO (00:01)
[2024-06-18 03:03] VITALS: BP 159/73; PULSE 66; RESP 18; TEMP 36.9; O2SAT 98
[2024-06-18 06:02] LABS: MANUAL DIFF FLAG NO
[2024-06-18 06:13] LABS: Basophils Percent Auto 0.6 % (0-2); Eosinophils Absolute Auto 0.2 X10*3/uL (0.0-0.4); Eosinophils Percent Auto 2.9 % (0-4); Hematocrit 30.1 % (42.0-52.0); Hemoglobin 10.3 g/dl (14.0-18.0); Imm Gran Abs Auto 0.02 X10*3/uL (0.00-0.03); Imm Gran Pct Auto 0.4 % (0.0-0.4); Lymphocytes Absolute Auto 2.8 X10*3/uL (1.2-4.9); Lymphocytes Percent Auto 53.8 % (20-40); Mean Corpuscular HGB Conc 34.2 g/dl (31.0-36.0); Mean Corpuscular Hemoglobin 32.1 pg (27.0-33.0); Mean Corpuscular Volume 93.8 fL (80.0-98.0); Mean Platelet Volume 9.7 fL (9.4-12.4); Monocytes Absolute Auto 0.5 X10*3/uL (0.1-1.2); Monocytes Percent Auto 9.4 % (2-11); Neutrophils Absolute Auto 1.7 x10*3/uL (2.0-8.3); Neutrophils Percent Auto 32.9 % (45-73); Platelet Count 331 X10*3/uL (160-400); Red Blood Count 3.21 X10*6/uL (4.60-5.80); Red Cell Distribution Width 11.9 % (11.0-16.0); White Blood Count 5.2 X10*3/uL (4.8-10.8)
[2024-06-18 06:25] LABS: Anion Gap 13 (12-20); Blood Urea Nitrogen 7 mg/dL (9-16); Carbon Dioxide 27 mmol/L (22-29); Chloride 101 mmol/L (96-108); Estimated Glomerular Filt Rate > 60; Glucose Random 278 mg/dL (60-115); Magnesium 1.8 mg/dL (1.6-2.6); Phosphorus 3.2 mg/dL (2.7-4.5); Potassium 5.1 mmol/L (3.3-5.1); Sodium 136 mmol/L (135-145)
[2024-06-18 07:29] LABS: Glucose, Whole Blood 272 mg/dL (60-115)
[2024-06-18 07:45] VITALS: BP 158/74; PULSE 67; RESP 18; TEMP 36.7; O2SAT 97
[2024-06-18] MEDS: Insulin Lispro 100 UNIT/ML 3 ML VIAL SUBCUT (07:47)
[2024-06-18] MEDS: Heparin Sodium,Porcine 5,000 UNIT/ML VIAL 5000 UNIT SUBCUT (07:48)
[2024-06-18] MEDS: Meropenem 1 GM VIAL IVPUSH (07:48)
[2024-06-18 09:07] LABS: Anion Gap 11 (12-20); Blood Urea Nitrogen 8 mg/dL (9-16); Calcium 8.9 mg/dL (8.4-10.2); Carbon Dioxide 29 mmol/L (22-29); Chloride 99 mmol/L (96-108); Creatinine Clr Calc Pharmacy 128.6; Estimated Glomerular Filt Rate > 60; Glucose Random 276 mg/dL (60-115); Potassium 4.1 mmol/L (3.3-5.1); Sodium 135 mmol/L (135-145)
--- NOTE | 2024-06-18 09:40 | MHC.CLN ---
NUTRITION CONSULT FOR DM ULCERS. DIET=DIABETIC 2200 KCALS. INATKE APPEARS TO BE VERY GOOD, 75-100%. NO ADDITIONAL NUTRITION INTERVENTIONS AT THIS TIME.
--- NOTE | 2024-06-18 10:24 | MHC.CM.PN ---
Per MD rounds patient is ready to discharge today. UMANG has been referred for wound management education. The patient will receives Bariatric wound care at [facility] wound [facility]. Transportation has been set up with the [facility] shuttle. A coupon has been given to his nurse. She has been notified that the patient needs to be in the front loby at 11:25am for continuous pickling line pickler.
--- NOTE | 2024-06-18 10:26 | P.DS_ITS ---
DS: Providers Provider Date of Service: 06/18/24 Date of admission: 06/14/24 02:29 Date of discharge: 06/18/24 Primary care physician: EDEN Marrufo Consults: 06/14/24 04:18 Consult to Wound Care Routine Reason for consultation: Diabetic foot wound 06/14/24 05:13 Addiction Medicine Stat Consulting Provider: Addiction Covering Reason for consultation: Pos tox screen Has provider been notified: No 06/14/24 07:17 Consult to Infectious Diseases Routine Consulting Provider: MORIS COSTA Reason for consultation: Osteomyelitis, Previously Diagnosed Has provider been notified: No 06/16/24 08:47 Consult to General Surgery Routine Consulting [place] [facility] Reason for consultation: Lateral foot abscess for eval and rec. DS: Diagnosis Discharge Diagnosis (1) Diabetic foot infection: Status: Acute (2) Lactic acidosis: Status: Acute (3) Hyponatremia: Status: Acute (4) ELISABETH (acute kidney injury): Status: Acute (5) Septic shock: Status: Acute (6) Diabetic foot ulcer: Status: Acute (7) Osteomyelitis of great toe of right foot: Status: Acute DS: Summary Hospital Course Hospital Course: Admission note HPI Mr. Medrano is a 48-year-old male with history of type 2 diabetes and osteomyelitis who? was initially seen in the ED yesterday but opted not to stay due to the long wait time.? Last evening he was brought in by ambulance for evaluation of redness, swelling and pain to the outer aspect of his right foot that began about 2 days ago. The area has been draining yellow / green discharge with a foul odor. He reported some associated nausea without vomiting and a dry cough. His daughter currently is ill with an upper respiratory infection. He reports that he has a chronic wound on the medial aspect of the right foot for which he is followed with [place] [facility] [place] every 2 weeks. ? He denies any fever, chills, sore throat, chest pain, shortness of breath or abdominal pain. On arrival to the ER, his BP was? 132/67, heart rate 112, respiratory rate 18, O2 sat 97% on room air. Temp 99.9? F. Laboratory data significant for? WBC 17.6, hemoglobin 11.2, hematocrit 31.4, sodium 127, chloride 90, CO2 17, anion gap 25, BUN 25, creatinine 1.53, random glucose 410, lactic acid 2.6, alk-phos 126, beta hydroxybutyrate 4.81, procalcitonin 0.90. Tox screen positive for cocaine.? Respiratory panel negative. ED course: The patient was given 3330 mL normal saline per sepsis protocol.? He received ceftriaxone 1 g, vancomycin 2 g, Zosyn 4.5 g, acetaminophen 1 g, Zofran 4 mg. ? He remained hypotensive and was started on a norepinephrine drip. Per nursing report, the patient fell to the floor after getting up to have a bowel movement and had a brief episode of seizure-like activity lasting 4-5 seconds for which he received lorazepam 2 mg.? Hospital course The patient was admitted to the hospital for septic shock to ICU for diabetic foot ulcer complicated with Cellulitis of right foot and evidence of foot abscess as MRI right foot. 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 Treated with IV Vancomycin and Meropenem. 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 Surgery recommended follow up with the wound clinic and possible treatment with hyperbaric oxygen. He was treated for ELISABETH and hyponatremia, likely related to hypoperfusion, which resolved as Na and creatinine improved back to normal. Type 2 DM , POC, Sliding scale per protocol.. Advised better control of sugar at home. Substance abuse. UDS positive for cocaine. Addiction medicine saw him. he declined resources, declined to discuss substance use further. Discharge plan Continue Augmentin for 10 more days Wound care at home Follow with wound clinic for hyperbaric Oxygen Wound care at home: silver alginate over open areas can be utilized with Allevyn\Aquacel dressing or similar to be applied every other day. Plan to follow up with surgery team in [place] for partial amputation as planned Time Attestation Discharge Coordination Time (in mins): 42 Quality: Safe Use of Opioids Does Pt have an Active Cancer Diagnosis on the Problem List?: No Quality: Stroke Does the patient have a stroke diagnosis?: No Physical Exam Vital Signs: Vital Signs: Last Vital Signs Temp 98.1 F 06/18/24 07:45 Pulse 67 06/18/24 07:45 Resp 18 06/18/24 07:45 BP 158/74 H 06/18/24 07:45 Pulse Ox 97 06/18/24 07:45 O2 Del Method Room Air 06/18/24 07:45 O2 Flow Rate 4 06/14/24 00:59 BMI result Body Mass Index 34.4 Const: Other: Constitutional : Awake, interactive, not in distress Neck : Normal inspection, Supple Cardiovascular : RRR, no JVP, no lower extremity edema Respiratory : good bilateral air entry, no crackles, wheezes or rhonchi Gastrointestinal: soft, lax, Normal bowel sounds, Non tender Skin : Warm, Dry, right foot lateral diabetic ulcer with less erythema and swelling covered with dressing, chronic big toe base wound Neurological : Alert & oriented x3, No focal deficit DS: Data Data Completed and Pending Completed studies during hospitalization [Text1]: Procedures Insertion of Infusion Device into Superior Vena Cava, Percutaneous Approach (09/22/22) Ultrasonography of Superior Vena Cava, Guidance (09/22/22) Labs on day of discharge: Laboratory Results - last 24 hr 06/17/24 06/17/24 06/17/24 11:07 15:59 20:02 WBC RBC Hgb Hct MCV MCH MCHC RDW Plt Count MPV Immature Gran % (Auto) Neut % (Auto) Lymph % (Auto) [place] % (Auto) Eos % (Auto) Baso % (Auto) Lymph # (Auto) [place] # (Auto) Eos # (Auto) Baso # (Auto) Abs Immat Gran (auto) Absolute Neuts (auto) Absolute Nucleated RBC Nucleated RBC % (auto) Sodium Potassium Chloride Carbon Dioxide Anion Gap BUN Creatinine Estim Creat Clear Calc Estimated GFR POC Glucose 172 H 214 H 220 H Random Glucose Calcium Phosphorus Magnesium Random Vancomycin 06/17/24 06/18/24 06/18/24 21:00 05:42 07:16 WBC 5.2 RBC 3.21 L Hgb 10.3 L Hct 30.1 L MCV 93.8 MCH 32.1 MCHC 34.2 RDW 11.9 Plt Count 331 MPV 9.7 Immature Gran % (Auto) 0.4 Neut % (Auto) 32.9 L Lymph % (Auto) 53.8 H [place] % (Auto) 9.4 Eos % (Auto) 2.9 Baso % (Auto) 0.6 Lymph # (Auto) 2.8 [place] # (Auto) 0.5 Eos # (Auto) 0.2 Baso # (Auto) 0.0 Abs Immat Gran (auto) 0.02 Absolute Neuts (auto) 1.7 L Absolute Nucleated RBC 0.000 Nucleated RBC % (auto) 0.0 Sodium 136 Potassium 5.1 D Chloride 101 Carbon Dioxide 27 Anion Gap 13 BUN 7 L Creatinine 0.92 Estim Creat Clear Calc 130.0 Estimated GFR > 60 POC Glucose 272 H Random Glucose 278 H Calcium 9.0 Phosphorus 3.2 Magnesium 1.8 Random Vancomycin 11.9 L 06/18/24 08:13 WBC RBC Hgb Hct MCV MCH MCHC RDW Plt Count MPV Immature Gran % (Auto) Neut % (Auto) Lymph % (Auto) [place] % (Auto) Eos % (Auto) Baso % (Auto) Lymph # (Auto) [place] # (Auto) Eos # (Auto) Baso # (Auto) Abs Immat Gran (auto) Absolute Neuts (auto) Absolute Nucleated RBC Nucleated RBC % (auto) Sodium 135 Potassium 4.1 Chloride 99 Carbon Dioxide 29 Anion Gap 11 L BUN 8 L Creatinine 0.93 Estim Creat Clear Calc 128.6 Estimated GFR > 60 POC Glucose Random Glucose 276 H Calcium 8.9 Phosphorus Magnesium Random Vancomycin Preliminary micro results at discharge 06/16/24 12:25 Anaerobic Culture - Preliminary Foot Right Culture in progress. 06/14/24 00:02 Blood Culture - Preliminary Blood - Venous No growth after 48 hours. 06/13/24 23:51 Blood Culture - Preliminary Blood - Venous No growth after 48 hours. Imaging MRI Foot : Radiologist's impression: ITS Impressions Foot X-Ray 06/13/24 23:20 IMPRESSION: 1. No significant interval change when compared to yesterday's exam. 2. Healing fractures at the bases of the second through fifth metatarsals. 3. Soft tissue ulcer adjacent to the medial head of the first metatarsal with lateral subluxation at the first MTP joint. MRI would be useful for further assessment if osteomyelitis is suspected to document the extent of disease. Electronically signed by: Ortiz Guo MD 06/14/2024 12:23 AM EST RP Chest X-Ray 06/13/24 23:40 IMPRESSION: Unremarkable examination. Electronically signed by: Ortiz Guo MD 06/14/2024 12:17 AM EST RP Chest X-Ray 06/14/24 00:52 IMPRESSION: Unremarkable examination. Electronically signed by: Huan Vazquez MD 06/14/2024 01:45 AM EST RP Chest X-Ray 06/14/24 02:47 IMPRESSION: 1. Right-sided central venous catheter with its tip in the region of the cavoatrial junction. 2. No pleural effusion or pneumothorax. Electronically signed by: Elvin Quevedo MD 06/14/2024 08:29 AM EST RP Foot MRI 06/15/24 14:42 IMPRESSION: 1. Soft tissue ulceration to the medial aspect of the 1st metatarsal head with adjacent cellulitis. No abscess formation. Underlying acute osteomyelitis within the 1st metatarsal. 2. Additional soft tissue ulceration along the lateral aspect of the midfoot with an adjacent subcutaneous fluid collection measuring up to 8.2 cm in greatest dimension. Findings are new when compared to the prior examination and likely represent abscess formation. 3. Resolution of additional previously seen diffuse marrow edema. 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 No acute fracture or dislocation. 4. Prominent dorsal subcutaneous edema. Electronically signed by: Elvin Quevedo MD 06/15/2024 03:43 PM EST RP Discharge Plan Discharge Anticipated Discharge Date/Time: 06/18/24 10:13 Patient Disposition: Home Health Service Discharge Diagnosis: Diabetic foot infection Referrals: [facility] wound clinic [Other] - 1 Week (Bariatric wound treatment) [facility] [Outside] - 1 Week [place] FNP [Primary Care Provider] - 1 Week Discharge Medications: New amoxicillin-pot clavulanate 875-125 mg tablet 1 tab PO BID Qty: 20 0RF Continued fluticasone propionate 50 mcg/actuation spray,suspension 1 spray intranasal DAILY PRN (Reason: Nasal Congestion) Levemir FlexTouch U100 Insulin 100 unit/mL (3 mL) insulin pen 54 unit subcut BEDTIME multivitamin Tablet 1 tab PO DAILY atorvastatin 80 mg tablet 80 mg PO BEDTIME thiamine HCl (vitamin B1) 100 mg tablet 100 mg PO DAILY metoprolol succinate 25 mg tablet extended release 24 hr 25 mg PO DAILY insulin lispro 100 unit/mL insulin pen 4 unit subcut DAILY@1700 amlodipine-olmesartan 5-20 mg tablet 1 tab PO BEDTIME Jardiance 25 mg tablet 25 mg PO DAILY celecoxib [Celebrex] 200 mg capsule 200 mg PO BID 30 Days Qty: 60 3RF Discharge Orders: Discharge Order (Routine); Ordered 06/18/24 Ordered By: Melinda Munoz Diet: Advance to usual diet Activity on Discharge: As tolerated Stand Alone Forms: Patient Portal Discharge page Print Language: Other Activity Restrictions/Additional Instructions: silver alginate over open areas can be utilized with Allevyn\Aquacel dressing or similar to be applied. Care Plan Goals: Continue Augmentin for 10 more days Wound care at home Follow with wound clinic for hyperbaric Oxygen Health Concerns: Diabetic foot infection Plan of Treatment: Antibiotics wound care Assessment: as above Patient Instructions: Diabetic Foot Ulcers (DC) Discharge Date/Time: 06/18/24 10:38
== END 2024-06-18 10:38 | disposition home health service (06) | DRG 720 ==
LOC: HO.ED 06-14 02:28 → HO.EDOVER 06-14 02:36 → HO.ICU 06-14 03:17 → HO.EDOVER 06-15 03:29 → HO.S3 06-15 05:00
PROVIDERS: Internal Medicine Critical Care Medicine; Physician Assistant Medical; Admitting Provider Nurse Practitioner Family; Emergency Provider Emergency Medicine; PCP Registered Nurse; Visit Provider Student in an Organized Health Care Education/Training Program
DX: A41.9 Sepsis, unspecified organism (principal); R65.21 Severe sepsis with septic shock; N17.9 Acute kidney failure, unspecified; E87.1 Hypo-osmolality and hyponatremia; L97.419 Non-pressure chronic ulcer of right heel and midfoot with unspecified severity; E11.621 Type 2 diabetes mellitus with foot ulcer; L03.115 Cellulitis of right lower limb; D64.9 Anemia, unspecified; M86.9 Osteomyelitis, unspecified; B95.4 Other streptococcus as the cause of diseases classified elsewhere; E11.69 Type 2 diabetes mellitus with other specified complication; L02.611 Cutaneous abscess of right foot; Z20.822 Contact with and (suspected) exposure to COVID-19; Z79.4 Long term (current) use of insulin; Z79.899 Other long term (current) drug therapy
CPT/HCPCS: 0241U; 36415; 71045; 73630; 73720; 80048; 80053; 80202; 80307; 81001; 82010; 82040; 82803; 82947; 83036; 83605; 83735; 84100; 84145; 85025; 86140; 87040; 87070; 87073; 87205; 93005; 99285; A9585; J0131; J0696; J1200; J1644; J2060; J2185; J2405; J2543; J3370; J3371; P9047

== ENCOUNTER → 2024-06-14 00:44 | Outpatient (BNV) | payer MEDICAID, SELFPAY | PROVIDERS: Admitting Provider Nurse Practitioner Family; Emergency Provider Emergency Medicine; PCP Registered Nurse; Visit Provider Internal Medicine | DX: R00.0 Tachycardia, unspecified (principal) | CPT/HCPCS: 93010 ==

== ENCOUNTER → 2024-06-14 02:29 | Outpatient (BNV) | payer MEDICAID, SELFPAY | PROVIDERS: Admitting Provider Nurse Practitioner Family; Emergency Provider Emergency Medicine; PCP Registered Nurse; Visit Provider Surgery | DX: E11.628 Type 2 diabetes mellitus with other skin complications (principal); L08.9 Local infection of the skin and subcutaneous tissue, unspecified | CPT/HCPCS: 10060; 99024; 99222 ==

== ENCOUNTER → 2024-06-14 02:29 | Outpatient (BNV) | payer MEDICAID, SELFPAY | PROVIDERS: Admitting Provider Nurse Practitioner Family; Emergency Provider Emergency Medicine; PCP Registered Nurse; Visit Provider Student in an Organized Health Care Education/Training Program | DX: N17.9 Acute kidney failure, unspecified (principal); E11.621 Type 2 diabetes mellitus with foot ulcer; L97.519 Non-pressure chronic ulcer of other part of right foot with unspecified severity; E87.1 Hypo-osmolality and hyponatremia; E87.20 Acidosis, unspecified | CPT/HCPCS: 99232; 99239 ==

== ENCOUNTER → 2024-06-14 02:29 | Outpatient (BNV) | payer MEDICAID, SELFPAY | PROVIDERS: Admitting Provider Nurse Practitioner Family; Emergency Provider Emergency Medicine; PCP Registered Nurse; Visit Provider Nurse Practitioner Family | DX: A41.9 Sepsis, unspecified organism (principal); R65.21 Severe sepsis with septic shock; E11.628 Type 2 diabetes mellitus with other skin complications; E87.20 Acidosis, unspecified | CPT/HCPCS: 99223 ==

== ENCOUNTER 2024-06-27 08:22 | Outpatient (RCR) | payer MEDICAID, SELFPAY | END 2024-08-09 14:24 | disposition other institution (70) | LOC: HO.WCC 08:22 | PROVIDERS: PCP Registered Nurse; Visit Provider Surgery | DX: E11.621 Type 2 diabetes mellitus with foot ulcer (principal); L97.512 Non-pressure chronic ulcer of other part of right foot with fat layer exposed; E11.69 Type 2 diabetes mellitus with other specified complication; M86.071 Acute hematogenous osteomyelitis, right ankle and foot; E11.40 Type 2 diabetes mellitus with diabetic neuropathy, unspecified; I10 Essential (primary) hypertension; Z79.4 Long term (current) use of insulin; Z79.2 Long term (current) use of antibiotics | CPT/HCPCS: 11042 ==

== ENCOUNTER 2024-08-14 15:15 | Outpatient (REF) | payer MEDICAID, SELFPAY ==
--- OUTSIDE RECORDS SUMMARY | 2024-08-14 16:11 | XMS_ITS | Encounter Summary ---
Author Organization [employer] Address [address] [place] [address] [address] [place] [address] Care Team Providers Care Poultry Cutter Name Role Phone [facility] Primary Care Provider [phone] Emerita Parish PharmD Unavailable [phone] Reason for Visit * Reason Onset Date Comments Letter for School/Work 11/29/2023 Encounter Details Date Type Department Care Team ([facility] [address] Contact Info) Description 11/29/2023 Telephone [facility] MEDICINE [address] [place], [place] [phone] [facility], [facility] [address], [place] [phone] Letter for School/Work Social History Tobacco Use Types Packs/Day Years Used Date Smoking Tobacco: Never Smokeless Tobacco: Never Alcohol Use Standard Drinks/Week Comments Never 0 (1 standard drink = 0.6 oz pur e alcohol) Alcohol Answer Date Recorded Frequency of Alcohol Consumption Not on file 11/23/2023 Average Number of Drinks Not on file 024 Frequency of Binge Drinking Not on file 02/2024 Score 0 11/23/2023 Depression Answer Date Recorded Patient Health Questionnaire-9 Score 14 11/23/2023 Patient Health Questionnaire-9 Score 14 11/23/2023 Last PHQ-9: Questionnaire Data Not on file 0 11/23/2023 Housing Stability Answer Date Recorded What is your housing situation today? I have housing today, but I am worried about losing housing in the future 11/23/[address] you li ve. Do you have problems with any of the following? None of the above 11/23/2023 Food Insecurity Answer Date Recorded Within the past 12 months, y ou worried that your food would run out before you got money to buy more: Often true 11/23/2023 Within the past 12 months,th e food you bought just didn't last and you didn't have enough money to get more: Often true 02/2024 Transportation Answer Date Recorded In the past 12 months, has l ack of transportation kept you from medical appts, meetings, work or from getting things needed for daily living? No 05/12/2023 Utilities Answer Date Recorded In the past 12 months, has t he [employer], gas, oil or water [employer] threatened to shut off services in your home? Yes 11/23/2023 Depression Answer Date Recorded Patient Health Questionnaire-2 Score 4 11/23/2023 Sex and Gender Information Value Date Recorded Sex Assigned at Male 05/17/2022 10:19 AM EDT Legal Sex Male 10:19 AM EDT Gender Identity Male 05/17/2022 10:19 AM EDT Sexual Orientation Straight 05/17/2022 10 :19 AM EDT documented as of this encounter Miscellaneous Notes * Telephone Encounter - Laurie Mann - 11/29/2023 1:29 PM EDT Tc from pt requesting a letter stating pt medical conditions. Was discussed during 11/22 OV. Any questions, contact pt at [phone] documented in this encounter Plan of Treatment Upcoming Encounters Date Type Department Care Team (Late st Contact Info) Description 09/18/2024 1:30 PM EST Office Visit [facility] OPTOMETRY [address] [place] [address] Vanessa Lang, OD [address] [place] [address] documented as of this encounter Goals Goal Patient Goal Type Associated Problems Recent Progress Patient-Stated? Author Blood Pressure < 140/90 Blood Pressure 128/76(2024 8:57 AM EST) No Antoninos-Gambl e, Emerita, PharmD Hemoglobin A1c < 7 Result Component 9(08/10/2024 9:24 AM EST) No Antoninos-Gambl e, Emerita, PharmD documented as of this encounter Visit Diagnoses Not on filedocumented in this encounter Additional Health Concerns Assessment Noted Time PHQ-9 Depression Total Score: 14 024 2:40 PM EDT documented as of this encounter Care Teams Poultry Cutter Relationship Specialty Start Date End Date Devi Razo FNP [address] [place] [address] PCP - General Family Medicine 03/11/22 Emerita Parish, PharmD [address] [place] [address] Pharmacist Internal Medicine 11/14/23 Emil Jaylan 06/20/24 documented as of this encounter
--- OUTSIDE RECORDS SUMMARY | 2024-08-14 16:11 | XMS_ITS | Encounter Summary ---
Author Organization [employer] Address [address] [place] [address] [address] [place] [address] Care Team Providers Care Manager Of Human Resources Name Role Phone Devi Razo CONTROL OFFICER Primary Care Provider [phone] Emerita Parish PharmD Unavailable [phone] Reason for Visit * Reason Comments Follow-up Encounter Details Date Type Department Care Team (Latest Contact Info) Description 08/10/2024 9:00 AM EST Office Visit [facility] [address] [place] [address] Skye Ba CNP [address] [place], [place] [id number] Type 2 diabetes mellitus with hyperlipidemia (CMS/HCC) (CMS/HCC) (Primary Dx); Osteoarthritis of both knees, unspecified osteoarthritis type; Ulcer of right foot, unspecified ulcer stage (CMS/HCC) Social History Tobacco Use Types Packs/Day Years [...] Answer Date Recorded Patient Health Questionnaire-9 Score 16 01/16/2024 Patient Health Questionnaire-9 Score 16 01/16/2024 Last PHQ-9: Questionnaire Data Not on file 0 01/16/2024 Housing Stability Answer Date Recorded What is [...] the past 12 months, has t he electric, gas, oil or water company threatened to shut off services in your home? Yes 11/23/2023 Depression Answer Date Recorded Patient Health Questionnaire-2 Score 6 01/16/2024 Sex and Gender Information Value Date Recorded Sex Assigned at Male 05/17/2022 10:19 AM EDT Legal Sex Male 10:19 AM EDT Gender Identity Male 05/17/2022 10:19 AM EDT Sexual Orientation Straight 05/17/2022 10 :19 AM EDT documented as of this encounter Last Filed Vital Signs Vital Sign Reading Time Taken Comments Blood Pressure 128/76 08/10/2024 8:57 AM EST Pulse 78 08/10/2024 8:57 AM EST Temperature 36.8 ??C (98.2 ??F) 08/10/2024 8:57 AM ES T Respiratory Rate 16 08/10/2024 8:57 AM EST Oxygen Saturation 98% 08/10/2024 8:57 AM EST Inhaled Oxygen Concentration - - Weight 115 kg (253 lb 9.6 oz) 08/10/2024 8:57 AM EST Height - - Body Mass Index 35.37 01/06/2024 11:53 AM EDT documented in this encounter Progress Notes * Skye Ba CNP - 08/10/2024 9:00 AM EST Subjective Patient ID: Satya Medrano is a 49 y.o. male who presents for f/u on chronic conditions. Last seen by me 07/06/2024 for ED f/u for right foot ulcer At this time patient was getting [facility] wound care services as well as hyperbaric oxygen tx through [facility]. DME request was also placed for offloading healing shoe for right foot. R foot ulcer Pt reports that his right foot wound is closed, he is still receive [facility]. He is also starting appointments for hyperbaric oxygen starting next week 08/13. He is now able to wear normal shoes again. T2DM Medications: Lispro 6 units before dinner-added last appointment Tresiba 52 units at bedtime Jardiance 25 mg Pt reports he is taking Bgs at home and they are running in 100s-200s, denies poyphagia, polydipsia, polyuria, and denies episodes of hypoglycemia. Lastf/u with [facility] supposed to be 08/08/24 but was cancelled, patient will need to r/s Today his post prandial glucose is 145 Lab Results Component Value Date HGBA1C 9.0 (A) 08/10/2024 Component Ref Range & Units 1 mo ago (07/06/24) 1 mo ago (07/06/24) 4 mo ago (04/06/24) 9 mo ago (11/11/23) 1 yr ago (02/24/23) 1 yr ago (11/30/22) 1 yr ago (11/26/22) Hemoglobin A1C 4.0 - 6.0 % 10.8 OA of both knees Pt reports he takes meloxicam and tylenol prn for pain control and he reports it has been extremelyeffective. He reports he feels great and is able to be more active. Review of Systems Constitutional: Negative. HENT: Negative. Eyes: Negative. Respiratory: Negative for cough, chest tightness, shortness of breath and wheezing. Cardiovascular: Negative for chest pain and palpitations. Gastrointestinal: Negative. Endocrine: Negative. Genitourinary: Negative. Musculoskeletal: Positive for arthralgias. Negative for back pain, gait problem, joint swelling, myalgias, neck pain and neck stiffness. Skin: Negative for color change, pallor, rash and wound. Neurological: Negative. Psychiatric/Behavioral: Negative. Objective Vitals: 08/10/24 0857 BP: 128/76 Pulse: 78 Resp: 16 Temp: 98.2 ??F (36.8 ??C) SpO2: 98% Physical Exam Constitutional: General: He is not in acute distress. Appearance: Normal appearance. He is normal weight. He is not ill-appearing or toxic-appearing. HENT: Head: Normocephalic and atraumatic. Cardiovascular: Rate and Rhythm: Normal rate and regular rhythm. Pulses: Normal pulses. Dorsalis pedis pulses are 2+ on the right side. Posterior tibial pulses are 2+ on the right side. Heart sounds: Normal heart sounds. No murmur heard. No friction rub. No gallop. Pulmonary: Effort: Pulmonary effort is normal. No respiratory distress. Breath sounds: Normal breath sounds. No stridor. No wheezing or rhonchi. Musculoskeletal: General: No swelling, tenderness, deformity or signs of injury. Right lower leg: No edema. Left lower leg: No edema. Right foot: Normal range of motion. No deformity, bunion, Charcot foot, foot drop or prominent metatarsal heads. Comments: ROM limited in extension and flexion in bilateral knee joints Feet: Right foot: Skin integrity: Skin integrity normal. No ulcer, skin breakdown, erythema or warmth. Skin: General: Skin is warm and dry. Coloration: Skin is not jaundiced or pale. Findings: No bruising, erythema or lesion. Neurological: General: No focal deficit present. Mental Status: He is alert and oriented to person, place, and time. Cranial Nerves: No cranial nerve deficit. Sensory: No sensory deficit. Motor: No weakness. Coordination: Coordination normal. Gait: Gait normal. Deep Tendon Reflexes: Reflexes normal. Psychiatric: Mood and Affect: Mood normal. Behavior: Behavior normal. Assessment/Plan Problem List Items Addressed This Visit Type 2 diabetes mellitus with hyperlipidemia (CMS/HCC) ([facility]) - Primary Pt plans to r/s [facility] appointment Relevant Orders POCT Glucose (Completed) POCT HGB A1C (Completed) Basic Metabolic Panel CBC auto differential Lipid Panel, Standard Right foot ulcer (CMS/HCC) Wound is entirely closed, no s/sx of infection, almost fully healed Pt plans to attend hyperbaric oxygen therapy at [facility] starting next week 08/13, PT 1 requested Pt plans to continue with [facility]NA services Osteoarthritis of both knees Pt may continue with meloxicam and tylenol prn for pain control Acupuncture referral is pending Pt has requested DME in his home including supportive bars in the bathroom to help with mobility Pt has an intake with [facility] scheduled for additional home services Relevant Medications meloxicam (Mobic) 7.5 MG tablet acetaminophen (Tylenol 8 Hour) 650 MG ER tablet RTC in 3 months for f/u [facility] EVENT MARKETING SPECIALIST Attestation EVENT MARKETING SPECIALIST Resident Attestation: Patient was seen and evaluated by Skye Ba CNP, in collaboration with CHARLES Swartz whohas reviewed my assessment and plan. I, CHARLES Swartz, have reviewed the resident's note and agree with the assessment & plan of care as documented above. documented in this encounter Miscellaneous Notes * Assessment & Plan Note - Skye Ba CNP - 08/10/2024 9:48 AM EST Associated Problem(s): Type 2 diabetes mellitus with hyperlipidemia (CMS/HCC) (CMS/HCC) Pt plans to r/s [facility] appointment * Assessment & Plan Note - Syke Ba CNP - 08/10/2024 9:46 AM EST Associated Problem(s): Osteoarthritis of both knees Pt may continue with meloxicam and tylenol prn for pain control Acupuncture referral is pending Pt has requested DME in his home including supportive bars in the bathroom to help with mobility Pt has an intake with [facility] scheduled for additional home services * Assessment & Plan Note - Skye Ba CNP - 08/10/2024 9:44 AM EST Associated Problem(s): Right foot ulcer (CMS/HCC) Wound is entirely closed, no s/sx of infection, almost fully healed Pt plans to attend hyperbaric oxygen therapy at [facility] starting next week 08/13, PT 1 requested Pt plans to continue with [facility] services documented in this encounter Plan of Treatment Upcoming Encounters Date Type Department Care Team (Late st Contact Info) Description 09/18/2024 1:30 PM EST Office Visit [facility] OPTOM[facility] [address] [place] [address] Vanessa Lang, OD [address] [place] [address] Scheduled Orders Name Type Priority Associated Diagnoses Orde r Schedule Basic Metabolic Panel Lab Routine Type 2 diabetes mellitus with hyperlipidemia ([facility]/HCC) ([facility]) Expected: 08/10/2024 (Approximate), Expires: 08/10/2025 CBC auto differential Lab Routine Type 2 diabetes mellitus with hyperlipidemia ([facility]/HCC) ([facility]) Expected: 08/10/2024 (Approximate), Expires: 08/10/2025 Lipid Panel, Standard Lab Routine Type 2 diabetes mellitus with hyperlipidemia ([facility]/HCC) ([facility]) Expected: 08/10/2024 (Approximate), Expires: 08/10/2025 documented as of this encounter Goals Goal Patient Goal Type Associated Problems Recent Progress Patient-Stated? Author Blood Pressure < 140/90 Blood Pressure 128/76(2024 8:57 AM EST) No Emerita Cabrera, PharmD Hemoglobin A1c < 7 Result Component 9(08/10/2024 9:24 AM EST) No Emerita Cabrera PharmD documented as of this encounter Procedures Procedure Name Priority Date/Time Associated Diagnosis Comments POCT GLYCATED HEMOGLOBIN, TOTAL Routine 08/10/2024 9:24 AM EST Type 2 diabetes mellitus with hyperlipidemia ([facility]/HCC) ([facility]) POCT GLUCOSE Routine 08/10/2024 9:08 AM EST Type 2 diabetes mellitus with hyperlipidemia ([facility]/HCC) ([facility]) documented in this encounter Results * (ABNORMAL) POCT HGB A1C (08/10/2024 9:24 AM EST) Hemoglobin A1C 9.0(A) 4.0 - 6.0 % QC Media Lot # [id number] Lot# Expiration Date [id number] Blood 08/10/2024 9:24 AM EST [facility] POINT OF CARE TEST ENTER/ EDIT ORDERABLES Final Result * POCT Glucose (08/10/2024 9:08 AM EST) Glucose Blood, POC 145 60 - 200 mg/dL QC Media Lot # [id number] Lot# Expiration Date [id number] Blood Capillary blood specimen / Unknown 08/10/2024 9:08 AM EST [facility] POINT OF CARE TEST ENTER/ EDIT ORDERABLES Final Result documented in this encounter Visit Diagnoses Diagnosis Type 2 diabetes mellitus with hyperlipidemia (CMS/HCC) (CMS/HCC)- Primary Osteoarthritis of both knees, unspecified osteoarthritis type Ulcer of right foot, unspecified ulcer stage (CMS/HCC) documented in this encounter Additional Health Concerns Assessment Noted Time PHQ-9 Depression Total Score: 16 024 2:43 PM EDT documented as of this encounter Care Teams Manager Of Human Resources Relationship Specialty Start Date End Date Devi Razo FNP [address] [place] [address] PCP - General Family Medicine 03/11/22 Emerita Parish PharmD [address] [place] [id number] Pharmacist Internal Medicine 11/14/23 [facility] 06/20/24 documented as of this encounter
--- OUTSIDE RECORDS SUMMARY | 2024-08-14 16:11 | XMS_ITS | Encounter Summary ---
Author Organization [employer] Address [address] [place] [address] Care Team Providers Care Senior Program Analyst Name Role Phone [facility] Primary Care Provider [phone] Emerita Parish PharmD Unavailable [phone] Encounter Details Date Type Department Care Team ([facility] st Contact Info) Description 07/04/2023 Telephone [facility] MED[facility]INE [address] [place], [place] [phone] [facility] [address] [place], [place] [phone] Social History Tobacco Use Types Packs/Day Years Used Date Smoking Tobacco: Never Smokeless Tobacco: Never Alcohol Use Standard Drinks/Week Comments Never 0 (1 standard drink = 0.6 oz pur e alcohol) Depression Answer Date Recorded Patient Health Questionnaire-9 Score 0 02/24/2023 Housing Stability Answer Date Recorded What is your housing situation today? I have boone early 05/12/[address] you li ve. Do you have problems with any of the following? None of the above 05/12/2023 Food Insecurity Answer Date Recorded Within the past 12 months, y ou worried that your food would run out before you got money to buy more: Never True 05/12/2023 Within the past 12 months,th e food you bought just didn't last and you didn't have enough money to get more: Never True Transportation Answer Date Recorded In the past 12 months, has l ack of transportation kept you from medical appts, meetings, work or from getting things needed for daily living? No 05/12/2023 Utilities Answer Date Recorded In the past 12 months, has t he electric, gas, oil or water company threatened to shut off services in your home? No 05/12/2023 Depression Answer Date Recorded Patient Health Questionnaire-2 Score 0 02/24/2023 Sex and Gender Information Value Date Recorded Sex Assigned at Male 05/17/2022 10:19 AM EDT Legal Sex Male 10:19 AM EDT Gender Identity Male 05/17/2022 10:19 AM EDT Sexual Orientation Straight 05/17/2022 10 :19 AM EDT documented as of this encounter Plan of Treatment Upcoming Encounters Date Type Department Care Team (Late st Contact Info) Description 09/18/2024 1:30 PM EST Office Visit [facility] OPTOMETRY [address], [place] [phone] RickeyVanessa ramirez, OD [address] [place] [address] documented as of this encounter Visit Diagnoses Not on filedocumented in this encounter Additional Health Concerns Assessment Noted Time PHQ-9 Depression Total Score: 0 02/25/20 23 4:10 PM EDT documented as of this encounter Care Teams Senior Program Analyst Relationship Specialty Start Date End Date Devi Razo, PASSPORT SUPPORT ASSOCIATE [address] [place] [address] PCP - General Family Medicine 03/11/22 Emerita Parish PharmD [address] [place] [address] Pharmacist Internal Medicine 11/14/23 [facility] 06/20/24 documented as of this encounter
--- OUTSIDE RECORDS SUMMARY | 2024-08-14 16:11 | XMS_ITS | Encounter Summary ---
Author Organization [employer] Address [address] [place] [address] Care Team Providers Care Stenciling Machine Tender Name Role Phone Devi Razo PATIENT TRANSITION SPECIALIST Primary Care Provider [phone] Emerita Parish PharmD Unavailable [phone] Encounter Details Date Type Department Care Team (Late st Contact Info) Description 07/02/2022 Orders Only [facility] [address] [place], [place] [phone] Kelsy Barrios LPN Social History Tobacco Use Types Packs/Day Years Used Date Smoking Tobacco: Never Assessed Sex and Gender Information Value Date Recorded Sex Assigned at Male 05/17/2022 10:19 AM EDT Legal Sex Male 10:19 AM EDT Gender Identity Male 05/17/2022 10:19 AM EDT Sexual Orientation Straight 05/17/2022 10 :19 AM EDT documented as of this encounter Plan of Treatment Upcoming Encounters Date Type Department Care Team (Late Contact Info) Description 09/18/2024 1:30 PM EST Office Visit [facility] [address] [place] [address] Rickey, Vanessa, OD [address] [place] [address] documented as of this encounter Procedures Procedure Name Priority Date/Time Associated Diagnosis Comments CBC WITH AUTO DIFFERENTIAL Routine 10/28/2022 3:24 PM EDT COMPREHENSIVE METABOLIC PANEL Routine 10/28/2022 3:24 PM EDT CBC WITH AUTO DIFFERENTIAL Routine 10/21/2022 2:49 PM EDT COMPREHENSIVE METABOLIC PANEL Routine 10/21/2022 2:49 PM EDT CBC WITH AUTO DIFFERENTIAL Routine 10/13/2022 2:56 PM EDT BASIC METABOLIC PANEL Routine 10/13/2022 2:56 PM EDT CBC WITH AUTO DIFFERENTIAL Routine 10/05/2022 1:03 PM EDT COMPREHENSIVE METABOLIC PANEL Routine 10/05/2022 1:03 PM EDT GLUCOSE, WHOLE BLOOD Routine 09/22/2022 9:34 PM EST GLUCOSE, WHOLE BLOOD Routine 09/22/2022 9:32 PM EST COVID-19 ID NOW (GUILLERMO) Routine 09/22/2022 8:53 PM EST CBC WITH AUTO DIFFERENTIAL Routine 09/22/2022 8:53 PM EST C-REACTIVE PROTEIN Routine 09/22/2022 8: 53 PM EST MAGNESIUM Routine 09/22/2022 8:53 PM EST LACTIC ACID Routine 09/22/2022 8:53 PM EST HEPATIC FUNCTION PANEL Routine 8:53 PM EST BASIC METABOLIC PANEL Routine 09/22/2022 8:53 PM EST SED RATE BY MODIFIED WESTERGREN Routine 09/22/2022 3:03 AM EST documented in this encounter Results * (ABNORMAL) Comprehensive Metabolic Panel (10/28/2022 3:24 PM EDT) [facility] Sodium 137 135 - 145 mmol/L [facility] Potassium 4.0 3.3 - 5.1 mmol/L [facility] Chloride 103 96 - 108 mmol/L [facility] Carbon Dioxide 25 22 - 29 mmol/L [facility] Anion Gap 13 12 - 20 [facility] Urea Nitrogen (BUN) 11 9 - 16 mg/dL [facility] Creatinine, Serum 1.29 0.5 - 1.4 mg/dL [facility] Estimated Glomerular Filt Rate 60 [facility] Comment:NOTE: For -Am erican individuals, multiply the result by 1.210.Chronic Kidney Disease: Estimated GFR < 60 mL/min/[id number] Kidney Disease: Estimated GFR < 15 mL/min/1.73m2 Glucose 152(H) 60 - 115 mg/dL [facility] Calcium 8.6 8.4 - 10.2 mg/dL [facility] Bilirubin, Total 0.4 0.0 - 1.0 mg/dL [facility] Aspartate Amino Transferase 123(H) 5 - 37 U/L [facility] Alanine Aminotransferase 113(H) 0 - 40 U/L [facility] Total Protein 7.0 6.5 - 8.0 g/dL [facility] Albumin Level 3.6 3.5 - 5.0 g/dL [facility] Alkaline Phosphatase 117 39 - 117 U/L [facility] 10/28/2022 3:24 PM EDT 10/28/2022 3:44 PM EDT [facility] External Provider LAB BLO OD ORDERABLES Final Result [facility] [address] [place] [address] [phone] * (ABNORMAL) CBC auto differential (10/28/2022 3:24 PM EDT) White Blood Count 9.2 4.8 - 10.8 X10*3/uL [facility] Red Blood Count 3.22(L) 4.60 - 5.80 X10*6/uL [facility] Hemoglobin 9.8(L) 14.0 - 18.0 g/dl [facility] Hematocrit 28.4(L) 42.0 - 52.0 % [facility] Mean Corpuscular Volume 88.2 80.0 - 98.0 fL [facility] Mean Corpuscular Hemoglobin 30.4 27.0 - 33.0 pg [facility] Mean Corpuscular HGB Conc 34.5 31.0 - 36.0 g/dl [facility] Red Cell Distribution Width 11.2 11.0 - 16.0 % [facility] Platelet Count 312 160 - 400 X10*3/uL [facility] Mean Platelet Volume 10.2 9.4 - 12.4 fL [facility] Neutrophils Percent Auto 49.1 45 - 73 % [facility] Imm Gran Pct Auto 0.2 0.0 - 0.4 % [facility] Lymphocytes Percent Auto 42.2(H) 20 - 40 % [facility] Monocytes Percent Auto 5.3 2 - 11 % [facility] Eosinophils Percent Auto 2.4 0 - 4 % [facility] Basophils Percent Auto 0.8 0 - 2 % [facility] NRBC Pct Auto 0.0 0.0 - 0.2 /100WBC [facility] Neutrophils Absolute Auto 4.5 2.0 - 8.3 x10*3/uL [facility] Imm Gran Abs Auto 0.02 0.00 - 0.03 X10*3/uL [facility] Lymphocytes Absolute Auto 3.9 1.2 - 4.9 X10*3/uL [facility] Monocytes Absolute Auto 0.5 0.1 - 1.2 X10*3/uL [facility] Eosinophils Absolute Auto 0.2 0.0 - 0.4 X10*3/uL [facility] Basophils Absolute Auto 0.1 0.0 - 0.2 X10*3/uL [facility] NRBC Abs Auto 0.000 0.0 - 0.012 X10*3/uL [facility] 10/28/2022 3:24 PM EDT 10/28/2022 3:44 PM EDT [facility] External Provider LAB BLO OD ORDERABLES Final Result [facility] [address] [place] [address] [phone] * (ABNORMAL) Comprehensive Metabolic Panel (10/21/2022 2:49 PM EDT) Sodium 138 135 - 145 mmol/L [facility] Potassium 4.1 3.3 - 5.1 mmol/L [facility] Chloride 98 96 - 108 mmol/L [facility] Carbon Dioxide 28 22 - 29 mmol/L [facility] Anion Gap 16 12 - 20 [facility] Urea Nitrogen (BUN) 13 9 - 16 mg/dL [facility] Creatinine, Serum 1.51(H) 0.5 - 1.4 mg/dL [facility] Estimated Glomerular Filt Rate 50 [facility] Comment:NOTE: For -Am erican individuals, multiply the result by 1.210.Chronic Kidney Disease: Estimated GFR < 60 mL/min/1.37d6Gprhwl Kidney Disease: Estimated GFR < 15 mL/min/1.73m2 Glucose 322(H) 60 - 115 mg/dL [facility] Calcium 8.7 8.4 - 10.2 mg/dL [facility] Bilirubin, Total 0.3 0.0 - 1.0 mg/dL [facility] Aspartate Amino Transferase 18 5 - 37 U/L [facility] Alanine Aminotransferase 30 0 - 40 U/L [facility] Total Protein 7.0 6.5 - 8.0 g/dL [facility] Albumin Level 3.5 3.5 - 5.0 g/dL [facility] Alkaline Phosphatase 105 39 - 117 U/L [facility] 10/21/2022 2:49 PM EDT 10/21/2022 3:01 PM EDT [facility] External Provider LAB BLO OD ORDERABLES Final Result [facility] [address] [place] [address], [place] [phone] * (ABNORMAL) CBC auto differential (10/21/2022 2:49 PM EDT) White Blood Count 7.2 4.8 - 10.8 X10*3/uL [facility] Red Blood Count 3.22(L) 4.60 - 5.80 X10*6/uL [facility] Hemoglobin 10.1(L) 14.0 - 18.0 g/dl [facility] Hematocrit 28.2(L) 42.0 - 52.0 % [facility] Mean Corpuscular Volume 87.6 80.0 - 98.0 fL [facility] Mean Corpuscular Hemoglobin 31.4 27.0 - 33.0 pg [facility] Mean Corpuscular HGB Conc 35.8 31.0 - 36.0 g/dl [facility] Red Cell Distribution Width 10.9(L) 11.0 - 16.0 % [facility] Platelet Count 372 160 - 400 X10*3/uL [facility] Mean Platelet Volume 9.8 9.4 - 12.4 fL [facility] Neutrophils Percent Auto 41.6(L) 45 - 73 % [facility] Imm Gran Pct Auto 0.1 0.0 - 0.4 % [facility] Lymphocytes Percent Auto 46.4(H) 20 - 40 % [facility] Monocytes Percent Auto 7.6 2 - 11 % [facility] Eosinophils Percent Auto 3.5 0 - 4 % [facility] Basophils Percent Auto 0.8 0 - 2 % [facility] NRBC Pct Auto 0.0 0.0 - 0.2 /100WBC [facility] Neutrophils Absolute Auto 3.0 2.0 - 8.3 x10*3/uL [facility] Imm Gran Abs Auto 0.01 0.00 - 0.03 X10*3/uL [facility] Lymphocytes Absolute Auto 3.3 1.2 - 4.9 X10*3/uL [facility] Monocytes Absolute Auto 0.6 0.1 - 1.2 X10*3/uL [facility] Eosinophils Absolute Auto 0.3 0.0 - 0.4 X10*3/uL [facility] Basophils Absolute Auto 0.1 0.0 - 0.2 X10*3/uL [facility] NRBC Abs Auto 0.000 0.0 - 0.012 X10*3/uL [facility] 10/21/2022 2:49 PM EDT 10/21/2022 3:01 PM EDT [facility] External Provider LAB BLO OD ORDERABLES Final Result [facility] [address] [place] [address] [phone] * (ABNORMAL) Basic Metabolic Panel (10/13/2022 2:56 PM EDT) Sodium 135 135 - 145 mmol/L [facility] Potassium 4.3 3.3 - 5.1 mmol/L [facility] Chloride 99 96 - 108 mmol/L [facility] Carbon Dioxide 23 22 - 29 mmol/L [facility] Anion Gap 17 12 - 20 [facility] Urea Nitrogen (BUN) 14 9 - 16 mg/dL [facility] Creatinine, Serum 1.99(H) 0.5 - 1.4 mg/dL [facility] Estimated Glomerular Filt Rate 36 [facility] Comment:NOTE: For -Am erican individuals, multiply the result by 1.210.Chronic Kidney Disease: Estimated GFR < 60 mL/min/1.12u9Zrbgth Kidney Disease: Estimated GFR < 15 mL/min/1.73m2 Glucose 170(H) 60 - 115 mg/dL [facility] Calcium 8.8 8.4 - 10.2 mg/dL [facility] 10/13/2022 2:56 PM EDT 10/13/2022 3:18 PM EDT [facility] External Provider LAB BLO OD ORDERABLES Final Result [facility] [address] [place] [phone] [phone] * (ABNORMAL) CBC auto differential (10/13/2022 2:56 PM EDT) White Blood Count 23.6(H) 4.8 - 10.8 X10*3/uL [facility] Red Blood Count 3.78(L) 4.60 - 5.80 X10*6/uL [facility] Hemoglobin 11.9(L) 14.0 - 18.0 g/dl [facility] Hematocrit 33.0(L) 42.0 - 52.0 % [facility] Mean Corpuscular Volume 87.3 80.0 - 98.0 fL [facility] Mean Corpuscular Hemoglobin 31.5 27.0 - 33.0 pg [facility] Mean Corpuscular HGB Conc 36.1(H) 31.0 - 36.0 g/dl [facility] Red Cell Distribution Width 10.8(L) 11.0 - 16.0 % [facility] Platelet Count 319 160 - 400 X10*3/uL [facility] Mean Platelet Volume 10.2 9.4 - 12.4 fL [facility] Neutrophils Percent Auto 80.7(H) 45 - 73 % [facility] Imm Gran Pct Auto 0.6(H) 0.0 - 0.4 % [facility] Lymphocytes Percent Auto 13.1(L) 20 - 40 % [facility] Monocytes Percent Auto 4.9 2 - 11 % [facility] Eosinophils Percent Auto 0.4 0 - 4 % [facility] Basophils Percent Auto 0.3 0 - 2 % [facility] NRBC Pct Auto 0.0 0.0 - 0.2 /100WBC [facility] Neutrophils Absolute Auto 19.1(H) 2.0 - 8.3 x10*3/uL [facility] Imm Gran Abs Auto 0.13(H) 0.00 - 0.03 X10*3/uL [facility] Lymphocytes Absolute Auto 3.1 1.2 - 4.9 X10*3/uL [facility] Monocytes Absolute Auto 1.2 0.1 - 1.2 X10*3/uL [facility] Eosinophils Absolute Auto 0.1 0.0 - 0.4 X10*3/uL [facility] Basophils Absolute Auto 0.1 0.0 - 0.2 X10*3/uL [facility] NRBC Abs Auto 0.000 0.0 - 0.012 X10*3/uL [facility] 10/13/2022 2:56 PM EDT 10/13/2022 3:18 PM EDT [facility] External Provider LAB BLO OD ORDERABLES Final Result [facility] [address] [place] [address] [phone] * (ABNORMAL) Comprehensive Metabolic Panel (10/05/2022 1:03 PM EDT) Sodium 142 135 - 145 mmol/L [facility] Potassium 5.3(H) 3.3 - 5.1 mmol/L [facility] Chloride 104 96 - 108 mmol/L [facility] Carbon Dioxide 29 22 - 29 mmol/L [facility] Anion Gap 14 12 - 20 [facility] Urea Nitrogen (BUN) 30(H) 9 - 16 mg/dL [facility] Creatinine, Serum 3.58(H) 0.5 - 1.4 mg/dL [facility] Estimated Glomerular Filt Rate 18 [facility] Comment:NOTE: For -Am erican individuals, multiply the result by 1.210.Chronic Kidney Disease: Estimated GFR < 60 mL/min/[id number] Kidney Disease: Estimated GFR < 15 mL/min/1.73m2 Glucose 93 60 - 115 mg/dL [facility] Calcium 8.6 8.4 - 10.2 mg/dL [facility] Bilirubin, Total 0.5 0.0 - 1.0 mg/dL [facility] Aspartate Amino Transferase 16 5 - 37 U/L [facility] Alanine Aminotransferase 17 0 - 40 U/L [facility] Total Protein 6.9 6.5 - 8.0 g/dL [facility] Albumin Level 3.6 3.5 - 5.0 g/dL [facility] Alkaline Phosphatase 101 39 - 117 U/L [facility] 10/05/2022 1:03 PM EDT 10/05/2022 1:25 PM EDT [facility] External Provider LAB BLO OD ORDERABLES Final Result [facility] [address] [place] [phone] * (ABNORMAL) CBC auto differential (10/05/2022 1:03 PM EDT) White Blood Count 12.3(H) 4.8 - 10.8 X10*3/uL [facility] Red Blood Count 3.43(L) 4.60 - 5.80 X10*6/uL [facility] Hemoglobin 10.9(L) 14.0 - 18.0 g/dl [facility] Hematocrit 31.5(L) 42.0 - 52.0 % [facility] Mean Corpuscular Volume 91.8 80.0 - 98.0 fL [facility] Mean Corpuscular Hemoglobin 31.8 27.0 - 33.0 pg [facility] Mean Corpuscular HGB Conc 34.6 31.0 - 36.0 g/dl [facility] Red Cell Distribution Width 11.4 11.0 - 16.0 % [facility] Platelet Count 372 160 - 400 X10*3/uL [facility] Mean Platelet Volume 9.9 9.4 - 12.4 fL [facility] Neutrophils Percent Auto 64.5 45 - 73 % [facility] Imm Gran Pct Auto 0.2 0.0 - 0.4 % [facility] Lymphocytes Percent Auto 24.9 20 - 40 % [facility] Monocytes Percent Auto 6.4 2 - 11 % [facility] Eosinophils Percent Auto 3.3 0 - 4 % [facility] Basophils Percent Auto 0.7 0 - 2 % [facility] NRBC Pct Auto 0.0 0.0 - 0.2 /100WBC [facility] Neutrophils Absolute Auto 7.9 2.0 - 8.3 x10*3/uL [facility] Imm Gran Abs Auto 0.03 0.00 - 0.03 X10*3/uL [facility] Lymphocytes Absolute Auto 3.1 1.2 - 4.9 X10*3/uL [facility] Monocytes Absolute Auto 0.8 0.1 - 1.2 X10*3/uL [facility] Eosinophils Absolute Auto 0.4 0.0 - 0.4 X10*3/uL [facility] Basophils Absolute Auto 0.1 0.0 - 0.2 X10*3/uL [facility] NRBC Abs Auto 0.000 0.0 - 0.012 X10*3/uL [facility] 10/05/2022 1:03 PM EDT 10/05/2022 1:25 PM EDT [facility] External Provider LAB BLO OD ORDERABLES Final Result [facility] [address] [place] [phone] * (ABNORMAL) GLUCOSE, WHOLE BLOOD (09/22/2022 9:34 PM EST) Glucose, Whole Blood 143(H) 60 - 115 mg/dL [facility] Comment:METER #: [id number] 1 09/22/2022 9:34 PM EST 09/22/2022 9:37 PM EST [facility] External Provider LAB BLO OD ORDERABLES Final Result Performing Organization Address [facility] Co de Phone Number [facility] [address] [place] [phone] * (ABNORMAL) GLUCOSE, WHOLE BLOOD (09/22/2022 9:32 PM EST) Glucose, Whole Blood 142(H) 60 - 115 mg/dL [facility] Comment:METER #: [id number] 1 09/22/2022 9:32 PM EST 09/22/2022 9:37 PM EST [facility] External Provider LAB BLO OD ORDERABLES Final Result Performing Organization Address [facility] de Phone Number [facility] [address] [place] [phone] * (ABNORMAL) Lactic Acid (09/22/2022 8:53 PM EST) Lactic Acid 2.1(HH) 0.5 - 2.0 mmol/L [facility] Comment:Critical value for t est(s): LACTA Results called to rubio back by: CAITLIN Person calling: JESSICA Date: 09/22/22Time: 2134 09/22/2022 8:53 PM EST 09/22/2022 9:19 PM EST [facility] External Provider LAB BLO OD ORDERABLES Final Result Performing Organization Address [facility] de Phone Number [facility] [address] [place] [address] [phone] * (ABNORMAL) C-reactive Protein (09/22/2022 8:53 PM EST) C Reactive Protein 1.42(H) < or = 0.50 mg/dL [facility] 09/22/2022 8:53 PM EST 09/22/2022 8:57 PM EST [facility] External Provider LAB BLO OD ORDERABLES Final Result Performing Organization Address [facility] de Phone Number [facility] [address] [place] [phone] * (ABNORMAL) Magnesium (09/22/2022 8:53 PM EST) Pathologist [facility] Magnesium 1.4(LL) 1.6 - 2.6 mg/dL [facility] Comment:Critical value for t est(s): MAGS Results called to and readback by: CAITLIN Person calling: JESSICA Date: 09/22/22 Time:2133 09/22/2022 8:53 PM EST 09/22/2022 8:57 PM EST [facility] External Provider LAB BLO OD ORDERABLES Final Result Performing Organization Address [facility] de Phone Number [facility] [address] [place] [phone] * (ABNORMAL) Basic Metabolic Panel (09/22/2022 8:53 PM EST) Pathologist [facility] Sodium 138 135 - 145 mmol/L [facility] Potassium 3.7 3.3 - 5.1 mmol/L [facility] Chloride 102 96 - 108 mmol/L [facility] Carbon Dioxide 26 22 - 29 mmol/L [facility] Anion Gap 14 12 - 20 [facility] Urea Nitrogen (BUN) 13 9 - 16 mg/dL [facility] Creatinine, Serum 0.94 0.5 - 1.4 mg/dL [facility] Creatinine Clr Calc Pharmacy 129.5 [facility] Comment:eGFR (calculated fro m the MDRD study equation) and eCrCl(calculated from the Cockcroft-Gault equation) are based ondifferent parameters and may not yield comparable results.If eCrCl result is absurd, please check patient'sheight/weight. Estimated Glomerular Filt Rate >60 [facility] Comment:NOTE: For -Am erican individuals, multiply the result by 1.210.Chronic Kidney Disease: Estimated GFR < 60 mL/min/1.65q2Wwyixn Kidney Disease: Estimated GFR < 15 mL/min/1.73m2 Glucose 186(H) 60 - 115 mg/dL [facility] Calcium 9.1 8.4 - 10.2 mg/dL [facility] 09/22/2022 8:53 PM EST 09/22/2022 8:57 PM EST [facility] External Provider LAB BLO OD ORDERABLES Final Result Performing Organization Address [facility] de Phone Number [facility] [address] [place] [phone] * Hepatic Function Panel (09/22/2022 8:53 PM EST) Bilirubin, Total 0.7 0.0 - 1.0 mg/dL [facility] Bilirubin, Direct 0.2 0.0 - 0.5 mg/dL [facility] Aspartate Amino Transferase 21 5 - 37 U/L [facility] Alanine Aminotransferase 27 0 - 40 U/L [facility] Total Protein 7.5 6.5 - 8.0 g/dL [facility] Albumin Level 4.2 3.5 - 5.0 g/dL [facility] Alkaline Phosphatase 104 39 - 117 U/L [facility] 09/22/2022 8:53 PM EST 09/22/2022 8:57 PM EST [facility] External Provider LAB BLO OD ORDERABLES Final Result Performing Organization Address [facility] de Phone Number [facility] [address] [place] [phone] * COVID-19 ID NOW (GUILLERMO) (09/22/2022 8:53 PM EST) IDNOW SERIAL# [id number] [facility] COVID-19 TEST Negative Negative [facility] COVID-19 NOTE See Note [facility] Comment: Results are for the identification of SARS-CoV2 RNA. TheSARS-CoV2 RNA is generally detectable in respiratory samplesduring the acute phase of infection. Positive results areindicative of the presence of SARS-CoV-2 RNA; clinicalcorrelation with patient history and other diagnosticinformation is necessary to determine patient infectionstatus. Positive results do not rule out bacterial infectionor co- infection with other viruses.Testing facilities within the [facility] are required to report all positive results tothe appropriate public health authorities.Negative results should be treated as presumptive and, ifinconsistent with clinical signs and symptoms or necessaryfor patient management, should be tested with differentauthorized or cleared molecular tests. Negative results donot preclude SARS-CoV2 RNA infection and should not be usedas the sole basis for patient management decisions. Negativeresults should be considered in the context of a patient'srecent exposures, history and the presence of clinical signsand symptoms consistent with COVID-19.This test has been authorized by the FDA under an EmergencyUse Authorization (EUA) for use by authorized laboratories.Testing performed on the [employer] NOW utilizing NAAT. 09/22/2022 8:53 PM EST 09/22/2022 8:57 PM EST [facility] Exter nal Provider LAB MOLECULAR DIAGNOSTICS ORDERABLES Final Result [facility] [address] [place] [phone] * (ABNORMAL) CBC auto differential (09/22/2022 8:53 PM EST) White Blood Count 11.4(H) 4.8 - 10.8 X10*3/uL [facility] Red Blood Count 3.75(L) 4.60 - 5.80 X10*6/uL [facility] Hemoglobin 11.7(L) 14.0 - 18.0 g/dl [facility] Hematocrit 33.8(L) 42.0 - 52.0 % [facility] Mean Corpuscular Volume 90.1 80.0 - 98.0 fL [facility] Mean Corpuscular Hemoglobin 31.2 27.0 - 33.0 pg [facility] Mean Corpuscular HGB Conc 34.6 31.0 - 36.0 g/dl [facility] Red Cell Distribution Width 11.8 11.0 - 16.0 % [facility] Platelet Count 274 160 - 400 X10*3/uL [facility] Mean Platelet Volume 9.6 9.4 - 12.4 fL [facility] Neutrophils Percent Auto 57.0 45 - 73 % [facility] Imm Gran Pct Auto 0.3 0.0 - 0.4 % [facility] Lymphocytes Percent Auto 36.1 20 - 40 % [facility] Monocytes Percent Auto 5.8 2 - 11 % [facility] Eosinophils Percent Auto 0.5 0 - 4 % [facility] Basophils Percent Auto 0.3 0 - 2 % [facility] NRBC Pct Auto 0.0 0.0 - 0.2 /100WBC [facility] Neutrophils Absolute Auto 6.5 2.0 - 8.3 x10*3/uL [facility] Imm Gran Abs Auto 0.03 0.00 - 0.03 X10*3/uL [facility] Lymphocytes Absolute Auto 4.1 1.2 - 4.9 X10*3/uL [facility] Monocytes Absolute Auto 0.7 0.1 - 1.2 X10*3/uL [facility] Eosinophils Absolute Auto 0.1 0.0 - 0.4 X10*3/uL [facility] Basophils Absolute Auto 0.0 0.0 - 0.2 X10*3/uL [facility] NRBC Abs Auto 0.000 0.0 - 0.012 X10*3/uL [facility] 09/22/2022 8:53 PM EST 09/22/2022 8:57 PM EST us [facility] External Provider LAB BLO OD ORDERABLES Final Result Performing Organization Address [facility]/ZIP Co de Phone Number [facility] [address] [place] [address] [phone] (ABNORMAL) Sed Rate by Modified Jerri (09/22/2022 3:03 AM EST) Erythrocyte Sedimentation Rate 59(H) 0 - 15 MM/HR [facility] Comment:Patients with polycy themia and many hemoglobin abnormalitiesmay have depressed sed rates whereas patients with anemiamay have elevated sed rates. 09/22/2022 3:03 AM EST 09/22/2022 8:57 PM EST [facility] External Provider LAB BLO OD ORDERABLES Final Result Performing Organization Address [facility] Co de Phone Number [facility] [address] [place] [address] [phone] documented in this encounter Visit Diagnoses Not on filedocumented in this encounter Care Teams Stenciling Machine Tender Relationship Specialty Start Date End Date Devi Razo FNP [address] [place] [phone] PCP - General Family Medicine 03/11/22 Emerita Parish PharmD [address] [place] [address] Pharmacist Internal Medicine [facility] documented as of this encounter
--- OUTSIDE RECORDS SUMMARY | 2024-08-14 16:11 | XMS_ITS | Clinical Summary ---
Author Organization [employer] Address [address] [facility] [address] [place] [address] Care Team Providers Care Flyer Builder Name Role Phone Devi Razo ASSISTANT QUALITY MANAGER Primary Care Provider [phone] Emerita Parish PharmD Unavailable [phone] Allergies No known active allergies Medications * This document contains information received from the source organization and may not represent a complete record from that organization. Alcohol Swabs (Alcohol Prep) 70 % pads USE WITH INSULIN 023 Active atorvastatin (Lipitor) 80 MG tabletIndication s:Type 2 diabetes mellitus with hyperlipidemia (CMS/HCC) ([facility]) Take 1 tablet (80 mg) by mouth Once daily. 90 tablet 3 024 Active insulin degludec (Tresiba FlexTouch) 100 UNIT/ML injectionIndicat ions:Type 2 diabetes mellitus with hyperglycemia, with long-term current use of insulin ([facility]) Inject 50 units by subcutaneous route every evening 3 mL 12 024 Active Additional Information Patient taking differently: Per CDTM instruction: Inject 52 units by subcutaneous route every evening, Reported on 11/29/2023 Blood Pressure Monitor kitIndications:E ssential hypertension Use as directed 1 kit 024 Active TRUEplus Lancets 33G misc TEST BLOOD SUGAR THREE TIMES DAILY 100 each 11 Active Jardiance 25 MGIndications:Ty pe 2 diabetes mellitus with hyperglycemia, with long-term current use of insulin (CMS/HCC) TAKE 1 TABLET BY MOUTH EVERY MORNING 90 tablet 3 024 Active thiamine (Vitamin B-1) 100 MG tablet TAKE 1 TABLET BY MOUTH EVERY MORNING 90 tablet 1 10/04/2 024 Active Blood Glucose Monitoring Suppl (FreeStyle Lite) w/Device kitIndications:T ype 2 diabetes mellitus with hyperglycemia, with long-term current use of insulin ([facility]) 1 each 3 times daily. Test blood sugar every 8 hours as directed. 1 kit Active Continuous Glucose Knifer Up (FreeStyle Abraham 2 [place]) deviceIndication s:Type 2 diabetes mellitus with hyperglycemia, with long-term current use of insulin ([facility]) Use as directed 1 each 024 Active Continuous Glucose Sensor (FreeStyle Abraham 2 Sensor) miscIndications: Type 2 diabetes mellitus with hyperglycemia, with long-term current use of insulin ([facility]) USE DIRECTED, CHANGE EVERY 14 DAYS 2 each 3 Active glucose blood (FreeStyle Precision Luis Test) test strip Test blood sugar every 8 hours 100 each 11 024 2024 Active insulin lispro (HumaLOG KWIKPEN) 100 UNIT/ML injectionIndicat ions:Type 2 diabetes mellitus with hyperglycemia, with long-term current use of insulin ([facility]) Inject 6 units subcutaneously before dinner. Do not use if skipping meal. 15 mL 1 Active metoprolol succinate XL (Toprol-XL) 25 MG 24 hr tablet TAKE 1 TABLET BY MOUTH EVERY MORNING DO NOT BREAK, CRUSH, DISSOLVE OR CHEW 90 tablet 1 Active insulin pen needle (Pentips) 32G x 4 mm misc USE FOR INSULIN ADMINISTRATION TWICE DAILY 100 each 3 Active meloxicam (Mobic) 7.5 MG tabletIndication s:Osteoarthritis of both knees, unspecified osteoarthritis type Take 2 tablets (15 mg) by mouth Once per day. 60 tablet 11 025 2025 Active acetaminophen (Tylenol 8 Hour) 650 MG ER tabletIndication s:Osteoarthritis of both knees, unspecified osteoarthritis type Take 1 tablet (650 mg) by mouth every 8 (eight) hours if needed for mild pain for up to 10 days. Do not crush, chew, or split. 30 tablet 025 2024 Active insulin pen needle (Pentips) 32G x 4 mm misc USE FOR INSULIN ADMINISTRATION TWICE DAILY 100 each 3 05/31/08 Discontinued(R eorder (will not trigger notification to Pharmacy)) metoprolol succinate XL (Toprol-XL) 25 MG 24 hr tablet TAKE 1 TABLET BY MOUTH EVERY MORNING DO NOT BREAK, CRUSH, DISSOLVE OR CHEW 90 tablet 1 2024 Discontinued(R eorder (will not trigger notification to Pharmacy)) meloxicam (Mobic) 7.5 MG tabletIndication s:Osteoarthritis of both knees, unspecified osteoarthritis type Take 2 tablets (15 mg) by mouth Once per day. 60 tablet 11 2024 Discontinued(R eorder (will not trigger notification to Pharmacy)) Active Problems Problem Noted Date Diagnosed Date Osteoarthritis of both knees 07/06/2024 Assessment & Plan (08/10/2024 9:46 AM EST): Pt may continue with meloxicam and tylenol prn for pain control Acupuncture referral is pending Pt has requested DME in his home including supportive bars in the bathroom to help with mobility Pt has an intake with [facility]ma scheduled for additional home services Assessment & Plan (07/06/2024 11:16 AM EST): Physical exam consistent with DJD Will send rx for meloxicam 15 mg daily and tylenol 650 prn for pain Pt will continue with PT Sent referral for acupuncture for pain management Pt plans to f/u with ortho once foot ulcer is completely healed. Hospital discharge follow-up 07/06/2024 Assessment & Plan (07/06/2024 11:25 AM EST): Pt foot ulcer is healing well Seeing wound nurse and wound clinic to treat with hyperbaric oxygen Pt BP is adequately controlled without meds, <140/90 since stopping Ken 2 weeks ago Will formally discontinue Ken today, pt will continue to take home BPs and f/u in 1 month with PCP for chronic conditions Diabetic ulcer of foot assoc iated with diabetes mellitus due to underlying condition, limited to breakdown of skin 07/04/2024 Osteomyelitis of foot 07/04/2024 Severe obesity (BMI 35.0-39.9) with comorbidity 04/06/2024 Cocaine use 01/24/2024 Depression, unspecified 01/16/2024 Left knee pain 01/06/2024 Assessment & Plan (01/06/2024 4:37 PM EDT): -pt was evaluated today in office -completed form today for DTA prefilled by medical records staff and handed today to pt by Jacki Bowman RN -continue care w orthopedic and surgeon /wound care for right foot ulcer planned for amputation ,no date yet -in proces to get medbox Right foot ulcer 01/06/2024 Assessment & Plan (08/10/2024 9:44 AM EST): Wound is entirely closed, no s/sx of infection, almost fully healed Pt plans to attend hyperbaric oxygen therapy at [facility] starting next week 08/13, PT 1 requested Pt plans to continue with VNA services Assessment & Plan (07/06/2024 11:10 AM EST): Ulcer is healing well Patient will continue with VNA services, wound site care twice a week Patient plans to go to [facility] for hyperbaric oxygen treatment Will send DME request for forefoot offloading healing shoe for right foot. History of pancreatitis 03/18/2023 Hypertriglyceridemia 03/18/2023 Inactive tuberculosis 11/19/2022 Overview (11/14/2023): case clsoedPt. NOS x2 scheduled TB clinic appts. case clsoedPt. NOS x2 scheduled TB clinic appts. case clsoedPt. NOS x2 scheduled TB clinic appts. Class 1 obesity 07/20/2018 Hyperlipidemia 08/15/2015 Overview (12/05/2022): ?? Atorvastatin 80mg ?? Fenofibrate 130mg daily Assessment & Plan (12/05/2022 6:24 PM EDT): ?? Continue current regime ?? Repeat labs today Type 2 diabetes mellitus with hyperlipidemia (CM S/HCC) 08/15/2015 Overview (08/10/2024): A1c came down today from last appointment it is 9 today. Still above goal of 7% Tresiba 52 units Jardiance 25mg Lispro 6 units Metformin discontinued d/t hx of ELISABETH and GI intolerance Trulicity discontinued d/t hx of pancreatitis Maintenance BMP: 11/2022, creatinine elevated 1.39 Microalbumin: Ordered today Foot Exam: Complete at follow up Eye Exam: Referral placed today Lipid panel: 11/2022 Statin: Yes ASA: Yes ALYSON/ARB: Yes Encouraged regular aerobic exercise for improved glycemic control Encouraged daily foot checks Encouraged lean protein snacks and to avoid foods high in sugar and simple carbohydrates Treatment Goals: A1c goal: <7% FBG goal: <130 2 hour post prandial goal: <180 Assessment & Plan (08/10/2024 9:48 AM EST): Pt plans to r/s CDTM appointment Assessment & Plan (07/06/2024 11:20 AM EST): Pt is checking Bgs at home, reports that fasting glucose often running in 200s and 300s. Glucose today 325 and A1c 10.8 Will increase lispro to 6 units before dinner Pt needs new freestyle device, rx sent Referral to CDTM F/u in 1 month with PCP for chronic conditions Assessment & Plan (03/18/2023 9:36 AM EDT): Lab Results Component Value Date HGBA1C 15.0 (A) 02/24/2023 ?? STOP levemir ?? START tresiba 44 units at bedtime. Plan to titrate up 2 units q. 3 days ?? INCREASE jardiance to 25mg ?? Referral to [facility] DM educator ?? PA initiated for CGM Assessment & Plan (12/05/2022 6:22 PM EDT): Lab Results Component Value Date HGBA1C 10.1 (A) 11/30/2022 Increased A1c from 8.8% 11/2022 Suspect hyperglycemia s/t boost energy drinks. Patient will discontinue immediately. START jardiance 10mg daily Reviewed administration, risks, side effects Continue 42 units levemir at bedtime Resolved Problems Problem Noted Date Diagnosed Date Resolved Date COVID-19 11/19/2022 03/18/2023 Essential hypertension 08/15/201507/06 Overview (11/23/2023): Amlodipine 10mg daily Lisinopril 5mg Maintenance: BMP: 11/2022 Lipid Panel: 11/2022 - Aerobic exercise to reduce BP. Initial goal of 30 min walk 3-5x/week. Increase as tolerated. - low-sodium diet (goal: <2g/day) and heart healthy diet such as DASH to reduce BP and prevent ASCVD. - Home BP monitoring 1-2 x day with goal of <140/90. - Seek immediate medical attention for chest pain, palpitations, SOB, syncope, or sudden changes in mental status. - Do not change or discontinue current prescriptions without first consulting health care provider Assessment & Plan (01/06/2024 4:38 PM EDT): Uncontrolled BP today -not taking BP meds for last 6 days -advised pt to get home today and take his home BP meds, resume insulin -explained in length importance to be complaint and to avoid missing doses of meds -apt w CDTM 01/26/2024 -apt w PCP 03/07/2024 Assessment & Plan (03/18/2023 9:33 AM EDT): ?? Continue current regimen ?? BP well controlled Assessment & Plan (12/05/2022 6:25 PM EDT): ?? Continue current regimen ?? BP well controlled Encounters Date Type Department Care Team Description 08/10/2024 9:00 AM EST Office Visit [facility] MEDICINE [address] [place] [address] Skye Ba CNP Type 2 diabetes mellitus with hyperlipidemia (CMS/HCC) (CMS/HCC) (Primary Dx); Osteoarthritis of both knees, unspecified osteoarthritis type; Ulcer of right foot, unspecified ulcer stage (CMS/HCC) 08/10/2024 Telephone [facility] MEDICINE [address] [place] [address] Devi Razo FNP PT1 Submitted 08/10/2024 Telephone [facility] MEDICINE [address] [place] [address] Celina Devi [facility] transfer patient appointment 08/10/2024 Travel 08/09/2024 Travel 08/08/2024 Telephone [facility] [place] [address] CelinaDevi FNP 07/23/2024 Refill [facility] [place] [address] Emerita Parish PharmD 07/12/2024 [address] [place] [address] [facility] Chart Prep 07/09/2024 Telephone [facility] [place] [address] CelinaDevi [facility] Durable Medical Equipment (AMS Form: Raised Toilet Seat and Grab Bars) 07/06/2024 9:45 AM EST Office Visit [facility] [place] [address] Skye Ba CNP Hospital discharge follow-up (Primary Dx); Ulcer of right foot, unspecified ulcer stage ([facility]); Osteoarthritis of both knees, unspecified osteoarthritis type; Type 2 diabetes mellitus with hyperglycemia, with long-term current use of insulin (CMS/HCC) 07/06/2024 Travel 07/05/2024 Telephone [facility] [place] [address] Cesar Bella [place] DME from [facility] 07/04/2024 Orders Only [facility] [place] [address] [facility] Osteomyelitis of foot, unspecified laterality, unspecified type (CMS/HCC) (Primary Dx); Diabetic ulcer of foot associated with diabetes mellitus due to underlying condition, limited to breakdown of skin, unspecified laterality, unspecified part of foot (CMS/HCC) 07/02/2024 Telephone [facility] [place] [address] CelinaDevi FNP FYI 07/02/2024 Telephone [facility] [place] [address] Alex Owne MA Chart prep 06/27/2024 Telephone [facility] [place] [address] [facility] Durable Medical Equipment 06/26/2024 Patient Outreach [facility] [place] [address] [facility] Transition Of Care (Tcm) (HDF- Scheduled) 06/26/2024 Telephone [facility] [place] [address] [facility] Hospital Follow-up 06/20/2024 Telephone [facility] [place] [address] [facility] Request For Order(s) 06/20/2024 Telephone [facility] [place] [address] [facility] FYI 06/14/2024 Orders Only GENERIC EXTERNAL DATA DEPARTMENT Provider, Generic External Data 06/13/2024 Orders Only [facility] External Provider, [facility] 05/16/2024 Refill [facility] [place] [address] Kelsy Nunez DO Type 2 diabetes mellitus with hyperglycemia, with long-term current use of insulin ([facility]) 05/15/2024 Orders Only [facility] [place] [address] Mela Gurrola MD Type 2 diabetes mellitus without complication, with long-term current use of insulin ([facility]) (Primary Dx) 05/14/2024 Refill [facility] [place] [address] Emerita Parish, FadyD from Last 3 Months Immunizations Name Administration Dates Next Due DT (pediatric) 09/21/2008 Hep B, adult 04/06/2024,01/26/2024,02/13/2021 Influenza injectable quadriv alent preservative free 04/13/2018 Influenza, IIV3, injectable 05/14/2024, 8 Influenza, seasonal, injecta ble, preservative free 05/14/2024 Moderna Covid-19 Vaccine 12+ 12/09/2020,11/12/19 21 Pneumococcal Conjugate PCV 20 11/30/2022 Pneumococcal Polysaccharide PPSV23 07/20/2018 Td (adult), 5 Lf tetanus tox oid, preservative free, adsorbed 01/14/2012 Tdap 07/20/2018 Social History Tobacco Use Types Packs/Day Years Used Date Smoking Tobacco: Never Smokeless Tobacco: Never Tobacco Cessation:Counseling Given: Not Answered Alcohol Use Standard Drinks/Week Comments Never 0 [...] Orientation Straight 05/17/2022 10 :19 AM EDT Last Filed Vital Signs Vital Sign Reading [...] 9.6 oz) 08/10/2024 8:57 AM EST Height 180.3 cm (5' 11 ) 01/06/2024 11:53 AM EDT Body Mass Index 35.37 01/06/2024 11:53 AM EDT Plan of Treatment Upcoming Encounters Date Type Department Care Team (Late st Contact Info) Description 09/18/2024 1:30 PM EST Office Visit [facility] OPTOMETRY [address] [place] [address] Rickey, Vanessa, OD [address] [place] [address] Health Maintenance Due Date Last Done Comments CT Colonography 1975 Colonoscopy 1975 Colorectal Cancer Screening 1975 FIT DNA/Cologuard 1975 FIT 1975 FOBT 1975 Sigmoidoscopy 1975 Family Planning (PISQ) 1991 Dental Oral Exam 11/18/2015 05/19/2015 Dental X-Ray: Bitewings 05/20/2016 05/19/2015 Dental Prophylaxis 04/20/2017 10/18/2016, 0 02/11/2016, 05/30/2015 Dental X-Ray: Full Mouth 05/20/2018 05/19/2015 Diabetes: Urine Protein Screening 01/26/2023 01/26/2022, 02/12/2021 COVID-19 Vaccine ( season) 2024 08/17/2021, 12/09/2020, 11/11/2020 Eye Exam 04/08/2024 04/08/2023, 03/19, 04/08/2023, Additional history exists Depression Monitoring (PHQ-9) 07/18/2024 01/16/2024, 01/16/2024 Diabetes: Hemoglobin A1C 11/08/2024 025, 07/06/2024, 04/06/2024, Additional history exists Alcohol/Substance Use Screening 11/22/2024 11/23/2023 SDOH Screening 11/22/2024 11/23/2023 Lipid Panel 12/26/2024 12/27/2023, 11/15, 01/26/2022, Additional history exists Tobacco Screening 01/05/2025 01/06/2024 Depression Screening 01/15/2025 01/16/2024, 01/16/20 Diabetes: Foot Exam 08/10/2025 08/10/2024, 08/10/2024, 08/10/2024, Additional history exists Zoster Vaccines (1 of 2) 2026 DTaP/Tdap/Td Vaccines (2 - Td or Tdap) 07/20/2028 07/20/2018, 01/14/2012 RSV Patients and Patients Aged 60 years or older (1 - 1-dose 75+ series) 2051 HIV Screening Completed 02/12/2021 Hepatitis C Screening Completed 02/12/2021 Pneumococcal Vaccine: Pediatrics (0 to 5 Years) and At-Risk Patients (6 to 64 Years) Completed 11/30/2022, 07/20/2018 Hepatitis B Vaccines Completed 04/06/2024, 01/26/2024, 02/13/2021 Influenza Vaccine Completed 05/14/2024, , 04/13/2018, Additional history exists HIB Vaccines Aged Out No longer eligi ble based on patient's age to complete this topic HPV Vaccines Aged Out No longer eligi ble based on patient's age to complete this topic Hepatitis A Vaccines Aged Out No long er eligible based on patient's age to complete this topic IPV Vaccines Aged Out No longer eligi ble based on patient's age to complete this topic Meningococcal Vaccine Aged Out No rimma deepti eligible based on patient's age to complete this topic RSV under 20 months Aged Out No longe r eligible based on patient's age to complete this topic Rotavirus Vaccines Aged Out No longer eligible based on patient's age to complete this topic Goals Goal Patient Goal Type Associated Problems Recent Progress Patient-Stated? Author Blood Pressure < 140/90 Blood Pressure 128/76(2024 8:57 AM EST) No Emerita Cabrera PharmD Hemoglobin A1c < 7 Result Component 9(08/10/2024 9:24 AM EST) No Emerita Cabrera PharmD Procedures Procedure Name Priority Date/Time Associated Diagnosis Comments POCT GLYCATED HEMOGLOBIN, TOTAL Routine 08/10/2024 9:24 AM EST Type 2 diabetes mellitus with hyperlipidemia (CMS/HCC) ([facility]) POCT GLUCOSE Routine 08/10/2024 9:08 AM EST Type 2 diabetes mellitus with hyperlipidemia (CMS/HCC) ([facility]) POCT GLYCATED HEMOGLOBIN, TOTAL Routine 07/06/2024 9:56 AM EST Hospital discharge follow-up POCT GLUCOSE Routine 07/06/2024 9:54 AM EST Hospital discharge follow-up MR FOOT W AND WO CONTRAST RIGHT Routine 06/15/2024 2:42 PM EST XR CHEST 1 VIEW Routine 06/14/2024 2:47 AM EST XR CHEST 1 VIEW Routine 06/14/2024 12:52 AM EST GLUCOSE, WHOLE BLOOD Routine 06/14/2024 12:37 AM EST VENOUS BLOOD GAS Routine 06/14/2024 12:0 9 AM EST LACTIC ACID Routine 06/14/2024 12:02 AM EST XR CHEST 1 VIEW Routine 06/13/2024 11:40 PM EST XR FOOT 3+ VIEWS RIGHT Routine 06/13/2024 11:20 PM EST LIPID PANEL, STANDARD Routine 12/27/2023 9:19 AM EDT ALBUMIN, RANDOM URINE W/CREATININE Routine 01/26/2022 4:13 PM EDT ZZZ HISTORICAL HEPATITIS C AB W/REFL TO HCV RNA, QN, PCR Routine 02/12/2021 2:51 PM EDT HIV 1/2 ANTIGEN/ANTIBODY, FOURTH GENERATION W/RFL Routine 02/12/2021 2:51 PM EDT PROPHYLAXIS - ADULT Routine 10/18/2016 1 2:00 AM EDT DIAGNOSTIC - DIAGNOSTIC IMAGING - INTRAORAL - COMPREHENSIVE SERIES OF RADIOGRAPHIC IMAGES Routine 05/19/2015 12:00 AM EST COMPREHENSIVE ORAL EVALUATION - NEW OR ESTABLISHED PATIENT Routine 05/19/2015 12:00 AM EST from Last 3 Months or Most Recently Relevant to Health Maintenance Results * (ABNORMAL) POCT HGB A1C (08/10/2024 9:24 AM EST) Only the most recent of2 resultswithin the time period is included. Hemoglobin A1C 9.0(A) 4.0 - 6.0 % QC Media Lot # [id number] Lot# Expiration Date Blood 08/10/2024 9:24 AM EST [facility] POINT OF CARE TEST ENTER/ EDIT ORDERABLES Final Result * POCT Glucose (08/10/2024 9:08 AM EST) Only the most recent of2 resultswithin the time period is included. Glucose Blood, POC 145 60 - 200 mg/dL QC Media Lot # [id number] Lot# Expiration Date Blood Capillary blood specimen / Unknown 08/10/2024 9:08 AM EST [facility] POINT OF CARE TEST ENTER/ EDIT ORDERABLES Final Result * MR Foot w/ and w/o Contrast Right (06/15/2024 2:42 PM EST) Anatomical Region Laterality Modality Lower Extremities, Foot Right Magnetic Resonance 06/15/2024 2:42 PM EST Narrative 06/15/2024 3:46 PM EST ? [facility] ?[address] ?[place] [address] ? Magnetic Resonance Report ? Signed ? Patient: Medrano,Satya ?MR#: [id number] ?? [id number] ? : 1975 ?Acct:[id number] ? Age/Sex: 48 / M ?ADM Date: 06/14/24 ? Loc: HO.S3 ?361-1 ? Attending Dr: Melinda Munoz MD ? Ordering Physician: Ashley Avila NP ?? Date of Service: 06/15/24 ?? Procedure(s): MR foot RT wo/w con ?? Accession Number(s): [id number] ? cc: Ashley Avila NP; CelinaDevi [facility] ? EXAMINATION: ?? MR FOOT WITHOUT AND WITH CONTRAST, RIGHT ? CLINICAL INFORMATION: ?? Right foot cellulitis/osteomyelitis. ? COMPARISON: ?? Most recent right foot radiographs dated 06/13/2024. Right foot MRI ?? dated 09/23/2022. ? TECHNIQUE: ?? MRI of the right foot was performed before and after the intravenous ?? administration of 10 mL Gadavist on a high-field scanner. ? FINDINGS: ?? Soft tissue ulceration at the medial aspect of the 1st metatarsal head ?? measuring up to 2.5 cm in AP dimension, increased in prominence when ?? compared to the prior examination. This extends to the cortex of the ?? 1st metatarsal head. Adjacent skin thickening and subcutaneous edema, ?? consistent with cellulitis. No organized fluid collection or abscess ?? formation. ? Increased T2 and decreased T1 marrow signal within the adjacent 1st ?? metatarsal with extension proximally into the diaphysis. Associated ?? postcontrast enhancement, consistent with acute osteomyelitis. ?? Resolution of additional previously seen diffuse marrow edema. ? No acute fracture or dislocation. Redemonstration of chronic partially ?? healed fractures through the 2nd through 5th metatarsals in unchanged ?? anatomic alignment. Resolution of associated marrow edema. Bony ?? remodeling of the 2nd metatarsal head is redemonstrated, consistent ?? with chronic avascular necrosis. 1st metatarsophalangeal hallux valgus ?? angulation and lateral subluxation of the hallux sesamoids is ?? redemonstrated. ? Edema and atrophy throughout the intrinsic musculature of the foot ?? which can be seen in diabetic patients. No transverse tendon tear or ?? tendon retraction. ? Additional soft tissue ulceration along the lateral aspect of the ?? midfoot measuring approximately 0.8 cm in craniocaudal dimension. ?? Within the adjacent subcutaneous tissues there is a lobulated, slightly ?? complex fluid collection with mild peripheral postcontrast enhancement ?? measuring up to 8.2 x 4.2 x 2.1 cm in greatest dimension. Findings are ?? new when compared to the prior examination and likely represent abscess ?? formation. Additional prominent dorsal subcutaneous edema. ? MR/MR foot RT wo/w con ?? IMPRESSION: ?? 1. Soft tissue ulceration to the medial aspect of the 1st metatarsal ?? head with adjacent cellulitis. No abscess formation. Underlying acute ?? osteomyelitis within the 1st metatarsal. ? 2. Additional soft tissue ulceration along the lateral aspect of the ?? midfoot with an adjacent subcutaneous fluid collection measuring up to ?? 8.2 cm in greatest dimension. Findings are new when compared to the ?? prior examination and likely represent abscess formation. ? 3. Resolution of additional previously seen diffuse marrow edema. ?? Redemonstration of chronic partially healed fractures through the 2nd ?? through 5th metatarsals with chronic avascular necrosis of the 2nd ?? metatarsal head, unchanged. No acute fracture or dislocation. ? 4. Prominent dorsal subcutaneous edema. ? Electronically signed by: ??Elvin Quevedo MD ??06/15/2024 03:43 PM EST ?? Workstation: [place] [id number] ? Dictated By: ?Elvin Quevedo MD ? Signed By: ?<Electronically signed by Elvin Quevedo MD in OV> ?06/15/24 1543 ? DD/ 1442 ? TD/TT: 06/15/24 1511 ? Meal Room Hand: SR ? Procedure Note Catie Shaikh - 06/15/[address] [address] Magnetic Resonance Report Signed Patient: Satya Medrano#: [id number] : 1975Acct:[id number] Age/Sex: 48 / MADM Date: 06/14/24 Loc: HO.S3 361-[address]: Melinda Munoz MD Ordering Physician: Ashley Avila NP Date of Service: 06/15/24 Procedure(s): MR foot RT wo/w con Accession Number(s): [id number] cc: Ashley Avila PHOTOGRAPHIC SPECIALIST; [facility] EXAMINATION: MR FOOT WITHOUT AND WITH CONTRAST, RIGHT CLINICAL INFORMATION: Right foot cellulitis/osteomyelitis. COMPARISON: Most recent right foot radiographs dated 06/13/2024. Right foot MRI dated 09/23/2022. TECHNIQUE: MRI of the right foot was performed before and after the intravenous administration of 10 mL Gadavist on a high-field scanner. FINDINGS: Soft tissue ulceration at the medial aspect of the 1st metatarsal head measuring up to 2.5 cm in AP dimension, increased in prominence when compared to the prior examination. This extends to the cortex of the 1st metatarsal head. Adjacent skin thickening and subcutaneous edema, consistent with cellulitis. No organized fluid collection or abscess formation. Increased T2 and decreased T1 marrow signal within the adjacent 1st metatarsal with extension proximally into the diaphysis. Associated postcontrast enhancement, consistent with acute osteomyelitis. Resolution of additional previously seen diffuse marrow edema. No acute fracture or dislocation. Redemonstration of chronic partially healed fractures through the 2nd through 5th metatarsals in unchanged anatomic alignment. Resolution of associated marrow edema. Bony remodeling of the 2nd metatarsal head is redemonstrated, consistent with chronic avascular necrosis. 1st metatarsophalangeal hallux valgus angulation and lateral subluxation of the hallux sesamoids is redemonstrated. Edema and atrophy throughout the intrinsic musculature of the foot which can be seen in diabetic patients. No transverse tendon tear or tendon retraction. Additional soft tissue ulceration along the lateral aspect of the midfoot measuring approximately 0.8 cm in craniocaudal dimension. Within the adjacent subcutaneous tissues there is a lobulated, slightly complex fluid collection with mild peripheral postcontrast enhancement measuring up to 8.2 x 4.2 x 2.1 cm in greatest dimension. Findings are new when compared to the prior examination and likely represent abscess formation. Additional prominent dorsal subcutaneous edema. MR/MR foot RT wo/w con IMPRESSION: 1. Soft tissue ulceration to the medial aspect of the 1st metatarsal head with adjacent cellulitis. No abscess formation. Underlying acute osteomyelitis within the 1st metatarsal. 2. Additional soft tissue ulceration along the lateral aspect of the midfoot with an adjacent subcutaneous fluid collection measuring up to 8.2 cm in greatest dimension. Findings are new when compared to the prior examination and likely represent abscess formation. 3. Resolution of additional previously seen diffuse marrow edema. 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 No acute fracture or dislocation. 4. Prominent dorsal subcutaneous edema. Electronically signed by: Elvin Quevedo MD 06/15/2024 03:43 PM EST Dictated By: Elvin Quevedo MD Signed By: <Electronically signed by Elvin Quevedo MD in OV> 06/15/24 1543 DD/ 1442 TD/TT: 06/15/24 1511 Meal Room Hand: [facility] External Provider IMG MRI PROCEDURES Edited Result - Final * XR Chest 1 View (06/14/2024 2:47 AM EST) Only the most recent of3 resultswithin the time period is included. Anatomical Region Laterality Modality Chest Radiographic Юлия ging 06/14/2024 2:47 AM EST Narrative 06/14/2024 8:32 AM EST ? [facility] ?[address] ?[place] [address] ?XRay Report ? Signed ? Patient: Medrano,Satya ?MR#: [id number] ?? 5813 ? : 1975 ?Acct:[id number] ? Age/Sex: 48 / M ?ADM Date: 11/28/24 ? Loc: HO.ICU ?261-1 ? Attending Dr: Jenny Conley MD ? Ordering Physician: Paula Carpenter ?? Date of Service: 06/14/24 ?? Procedure(s): XR chest 1V ?? Accession Number(s): [id number] ? cc: Paula Carpenter; [facility] ? EXAMINATION: ?? XR CHEST ? CLINICAL INFORMATION: ?? confirm central line placement ? COMPARISON: ?? Most recent chest radiograph dated 06/14/2024. ? TECHNIQUE: ?? Frontal view of the chest was obtained. ? FINDINGS: ?? Interval placement of a right-sided central venous catheter with its ?? tip in the region of the cavoatrial junction. No pleural effusion or ?? pneumothorax. Stable cardiomediastinal silhouette. No airspace ?? consolidation. ? XR/XR chest 1V ?? IMPRESSION: ?? 1. ??Right-sided central venous catheter with its tip in the region of ?? the cavoatrial junction. ?? 2. ??No pleural effusion or pneumothorax. ? Electronically signed by: ??Elvin Quevedo MD ??06/14/2024 08:29 AM EST ? Dictated By: ?Elvin Quevedo MD ? Signed By: ?<Electronically signed by Elvin Quevedo MD in OV> ?06/14/24 0829 ? DD/ 0247 ? TD/TT: 06/14/24 0302 ? Meal Room Hand: SR ? Procedure Note Catie Shaikh - 06/14/[address] [address] XRay Report Signed Patient: Satya MedranoMR#: [id number] : 1975Acct:[id number] Age/Sex: 48 / MADM Date: 06/14/24 Loc: HO.ICU 261-[address]: Jenny Conley MD Ordering Physician: Paula Carpenter Date of Service: 06/14/24 Procedure(s): XR chest 1V Accession Number(s): [id number] cc: Paula Carpenter; [facility] EXAMINATION: XR CHEST CLINICAL INFORMATION: confirm central line placement COMPARISON: Most recent chest radiograph dated 06/14/2024. TECHNIQUE: Frontal view of the chest was obtained. FINDINGS: Interval placement of a right-sided central venous catheter with its tip in the region of the cavoatrial junction. No pleural effusion or pneumothorax. Stable cardiomediastinal silhouette. No airspace consolidation. XR/XR chest 1V IMPRESSION: 1. Right-sided central venous catheter with its tip in the region of the cavoatrial junction. 2. No pleural effusion or pneumothorax. Electronically signed by: Elvin Quevedo MD 06/14/2024 08:29 AM EST Dictated By: Elvin Quevedo MD Signed By: <Electronically signed by Elvin Quevedo MD in OV> 06/14/24 0829 DD/ 6 TD/TT: 06/14/24 0302 Meal Room Hand: SR [facility] External Provider IMG XR PROCEDURES Final Result * (ABNORMAL) Glucose, Whole Blood (06/14/2024 12:37 AM EST) Pathologist [facility] Glucose, Whole Blood 306(H) 60 - 115 mg/dL [facility] Comment:METER #: [id number] 06/14/2024 12:3 7 AM EST 06/14/2024 1:00 AM EST Generic External Data Provider LAB BLOOD ORDERAB LES Final Result [facility] [address] [place], [place] [phone] * (ABNORMAL) VENOUS BLOOD GAS (06/14/2024 12:09 AM EST) Pathologist [facility] VBG pH 7.33 7.32 - 7.43 [facility] Comment:METER #: [id number] additional_comment: CB Matosa VBG PCO2 31 mmHg [facility] Comment:METER #: [id number] additional_comment: CB Matosa VBG PO2 67 mmHg [facility] Comment:METER #: [id number] additional_comment: CB Matosa VBG Base Excess -7.6 mmol/L [facility] Comment:METER #: [id number] additional_comment: CB Matosa VBG HCO3 17(L) 22 - 26 mmol/L [facility] Comment:METER #: [id number] additional_comment: CB Matosa O2 Sat, Luis 89.0 % [facility] Comment:METER #: [id number] additional_comment: CB Matosa 06/14/2024 12:0 9 AM EST 06/14/2024 12:13 AM EST us Generic External Data Provider LAB BLOOD ORDERAB LES Final Result Performing Organization Address [facility] de Phone Number [facility] [address] [place] [address] [phone] * (ABNORMAL) Lactic Acid (06/14/2024 12:02 AM EST) Lactic Acid 2.6(HH) 0.5 - 2.0 mmol/L [facility] Comment:Critical value for t est(s): LACTA Results called to rubio back by: ANWM Person calling: VYASRID Date: [id number] 06/14/2024 12:0 2 AM EST 06/14/2024 12:08 AM EST us Generic External Data Provider LAB BLOOD ORDERAB LES Final Result Performing Organization Address [facility] de Phone Number [facility] [address] [place] [phone] * XR Foot 3+ Views Right (06/13/2024 11:20 PM EST) Anatomical Region Laterality Modality Lower Extremities, Foot Right Radiogra phic Imaging 06/13/2024 11:2 0 PM EST Narrative 06/14/2024 12:25 AM EST ? [facility] ?[address] ?[place] [address] ?XRay Report ? Signed ? Patient: Medrano,Satya ?MR#: [id number] ?? 5813 ? : 1975 ?Acct:[id number] ? Age/Sex: 48 / M ?ADM Date: 11/27/24 ? Loc: HO.ED ? Attending Dr: ? Ordering Physician: Paula Carpenter ?? Date of Service: 06/13/24 ?? Procedure(s): XR foot RT min 3V ?? Accession Number(s): [id number] ? cc: Paula Carpenter; [facility] ASSISTANT QUALITY MANAGER ? EXAMINATION: ?? XR FOOT, RIGHT ? CLINICAL INFORMATION: ?? diabetic ulcer to lateral foot, cellulitis ? COMPARISON: ?? Right foot radiograph yesterday 06/12/2024 ? TECHNIQUE: ?? AP, lateral, and oblique views of the right foot. ? FINDINGS: ?? Since yesterday's exam, there has been no significant interval change. ?? Again seen are healing fractures at the bases of the second through ?? fifth metatarsals. There is soft tissue swelling laterally. Marked ?? hallux valgus is seen. There is a superficial ulcer seen adjacent to ?? the medial head of the first metatarsal with lateral subluxation at the ?? first MTP joint. The cortical lucency seen in the study from yesterday ?? is not as apparent on today's exam. No fractures. ? XR/XR foot RT min 3V ?? IMPRESSION: ?? 1. ??No significant interval change when compared to yesterday's exam. ?? 2. ??Healing fractures at the bases of the second through fifth ?? metatarsals. ?? 3. ??Soft tissue ulcer adjacent to the medial head of the first ?? metatarsal with lateral subluxation at the first MTP joint. MRI would ?? be useful for further assessment if osteomyelitis is suspected to ?? document the extent of disease. ? Electronically signed by: ??Ortiz Guo MD ??06/14/2024 12:23 AM EST ? Dictated By: ?Ortiz Guo MD ? Signed By: ?<Electronically signed by Ortiz Guo MD in OV> ? 06/14/24 0023 ? DD/ 2320 ? TD/TT: 06/13/24 2350 ? Meal Room Hand: SS ? Procedure Note Catie Shaikh - 06/14/[address] [address] XRay Report Signed Patient: Satya MedranoMR#: [id number] 5813 : 1975Acct:[id number] Age/Sex: 48 / MADM Date: 06/13/24 Loc: HO.ED Attending Dr: Ordering Physician: Paula Carpenter Date of Service: 06/13/24 Procedure(s): XR foot RT min 3V Accession Number(s): [id number] cc: Paula Carpenter; [facility] EXAMINATION: XR FOOT, RIGHT CLINICAL INFORMATION: diabetic ulcer to lateral foot, cellulitis COMPARISON: Right foot radiograph yesterday 06/12/2024 TECHNIQUE: AP, lateral, and oblique views of the right foot. FINDINGS: Since yesterday's exam, there has been no significant interval change. Again seen are healing fractures at the bases of the second through fifth metatarsals. There is soft tissue swelling laterally. Marked hallux valgus is seen. There is a superficial ulcer seen adjacent to the medial head of the first metatarsal with lateral subluxation at the first MTP joint. The cortical lucency seen in the study from yesterday is not as apparent on today's exam. No fractures. XR/XR foot RT min 3V IMPRESSION: 1. No significant interval change when compared to yesterday's exam. 2. Healing fractures at the bases of the second through fifth metatarsals. 3. Soft tissue ulcer adjacent to the medial head of the first metatarsal with lateral subluxation at the first MTP joint. MRI would be useful for further assessment if osteomyelitis is suspected to document the extent of disease. Electronically signed by: Ortiz Guo MD 06/14/2024 12:23 AM [facility] Dictated By: Ortiz Guo MD Signed By: <Electronically signed by Ortiz Guo MD in OV> 06/14/24 0023 DD/ 2320 TD/TT: 06/13/24 2350 Meal Room Hand: HENRI [facility] External Provider IMG XR PROCEDURES Edited Result - Final * Lipid Panel, Standard (12/27/2023 9:19 AM EDT) Triglycerides 145 <150 mg/dL [facility] Comment:Desirable Triglyceri de: less than 150 mg/dLBorderline High Triglyceride 150-199 mg/dLHigh Triglyceride: 200-499 mg/dLVery High Triglyceride: greater than or equal to 5OO mg/dL Cholesterol 153 <200 mg/dL [facility] Comment:Desirable Cholestero l: less than 200 mg/dLBorderline High Cholesterol: 200-239 mg/dLHigh Cholesterol: greater than 239 mg/dL LDL Cholesterol Calculated 80 <100 mg/dL [facility] Comment:Desirable LDL: less than 100 mg/dLNear Optimal/Above Optimal LDL: 110- 129 mg/dLBorderline High LDL: 130-159 mg/dLHigh LDL: 160-189 mg/dLVery High LDL: greater than or equal to 190 mg/dL HDL Cholesterol 44 >40 mg/dL [facility] Comment:Desirable HDL: great er than 40 mg/dL Note: This HDL assay may give artificially low results in patients with liver disease. 12/27/2023 9:19 AM EDT 12/27/2023 11:09 AM EDT [facility] ASSISTANT QUALITY MANAGER LAB BLOOD ORDERABLES Final Re sult [facility] [address] [place] [phone] [phone] * ALBUMIN, RANDOM URINE W/CREATININE (01/26/2022 4:13 PM EDT) Microalbumin Urine 0.3 See Note: mg/dL [facility] Comment: Reference Range: ?? Reference Range Not established Microalb/Creat Ratio 10 <30 mcg/mg creat [facility] Comment: ?? The ADA defines abnormalities in albumin excretion as follows: ?? Albuminuria Category ?Result (mcg/mg creatinine) ?? Normal to Mildly increased ?? <30 Moderately increased ? 30-299 ?? Severely increased ? > OR = 300 ?? The ADA recommends that at least two of three specimens collected within a 3-6 month period be abnormal before considering a patient to be within a diagnostic category. Creatinine, Urine 30 20 - 320 mg/dL [facility] 01/26/2022 4:13 PM EDT Evon Flores NP LAB URINE ORDERABLES Final Resu lt Performing Organization Address [facility] Phone Number [facility] [address] [place] [address], * HEPATITIS C AB W/REFL TO HCV RNA, QN, PCR (02/12/2021 2:51 PM EDT) HEPATITIS C ANTIBODY NON-REACT HUNTER NON-REACT HUNTER [facility] INDEX 0.02 <1.00 [facility] Comment: ?? HCV antibody was non-reactive. There is no laboratory ?? evidence of HCV infection. ?? In most cases, no further action is required. However, if recent HCV exposure is suspected, a test for HCV RNA (test code 94630) is suggested. ?? For additional information please refer to http://Visier.mimoOn/faq/VJG75j9 (This link is being provided for informational/ educational purposes only.) ?? 02/12/2021 2:51 PM EDT Evon Flores NP HISTORICAL/NON ORDERABLE LABS F inal Result Performing Organization Address [facility] Phone Number [facility] [address] [place] [address], * HIV 1/2 ANTIGEN/ANTIBODY,FOURTH GENERATION W/RFL (02/12/2021 2:51 PM EDT) HIV-1/2 ANTIGEN AND ANTIBODIES, 4TH GENERATION W/ REFLEX NON-REACT HUNTER NON-REACT HUNTER [facility] Comment: HIV-1 antigen and HIV-1/HIV-2 antibodies were not detected. There is no laboratory evidence of HIV infection. ?? PLEASE NOTE: This information has been disclosed to you from records whose confidentiality may be protected by state law. ??If your state requires such protection, then the state law prohibits you from making any further disclosure of the information without the specific written consent of the person to whom it pertains, or as otherwise permitted by law. A general authorization for the release of medical or other information is NOT sufficient for this purpose. ? For additional information please refer to http://education.[employer].Feast/faq/AAN970 (This link is being provided for informational/ educational purposes only.) ? The performance of this assay has not been clinically validated in patients less than 2 years old. ?? 02/12/2021 2:51 PM EDT us Evon Flores PHOTOGRAPHIC SPECIALIST LAB BLOOD ORDERABLES Final Resu lt [facility] [address] from Last 3 Months or Most Recently Relevant to Health Maintenance Insurance [facility] C3 DENTAL-[facility] MEDICAID STAND ADULT Care Teams Flyer Builder Relationship Specialty Start Date End Date Celina Devi, [facility] [address] [place] [address] PCP - General Family Medicine 03/11/22 Emerita Parish, Jacques [address] [place] [address] Pharmacist Internal Medicine 11[facility]23 [facility]
--- OUTSIDE RECORDS SUMMARY | 2024-08-14 16:11 | XMS_ITS | Encounter Summary ---
Author Organization [employer] Address [address] [place] [address] [facility] [place] [address] Care Team Providers Care Manager Trade Marketing Name Role Phone [facility] Primary Care Provider [phone] Emerita Parish PharmD Unavailable [phone] Reason for Visit * Reason Comments Med Refill Encounter Details Date Type Department Care Team (Late st Contact Info) Description 03/23/2023 Refill [facility] MEDICINE [address] [place] [address] [facility] [address] [place] [address] Type 2 diabetes mellitus with other specified complication, with long-term current use of insulin ([facility]) Social History Tobacco Use Types Packs/Day Years Used Date Smoking Tobacco: Never Smokeless Tobacco: Never Alcohol Use Standard Drinks/Week Comments Never 0 (1 standard drink = 0.6 oz pur e alcohol) Depression Answer Date Recorded Patient Health Questionnaire-9 Score 0 02/24/2023 Depression Answer Date Recorded Patient Health Questionnaire-2 [...] Description 09/18/2024 1:30 PM EST Office Visit [facility] OPTOMETRY [address] [place], [place] [phone] Vanessa Lagn, OD [address] [place] [address] documented as of this encounter Visit Diagnoses Diagnosis Type 2 diabetes mellitus with other specified complication, with long-term current use of insulin ([facility]) documented in this encounter Additional Health Concerns Assessment Noted Time PHQ-9 Depression Total Score: 0 02/25/20 23 4:10 PM EDT documented as of this encounter Care Teams Manager Trade Marketing Relationship Specialty Start Date End Date Devi Razo FNP [address] [place] [address] PCP - General Family Medicine 03/11/22 Emerita Parish PharmD [address] [place] [address] Pharmacist Internal Medicine 11/14/23 [place] Jaylan 06/20/24 documented as of this encounter
--- OUTSIDE RECORDS SUMMARY | 2024-08-14 16:11 | XMS_ITS | Encounter Summary ---
Author Organization [employer] Address [address] [place] [address] Care Team Providers Care Flavor Tank Tender Name Role Phone Devi Razo LEAD DATABASE ADMINISTRATOR Primary Care Provider [phone] Emerita Parish PharmD Unavailable [phone] Encounter Details Date Type Department Care Team (Latest Contact Info) Description 08/09/2024 Travel Social History Tobacco Use Types Packs/Day Years [...] Description 09/18/2024 1:30 PM EST Office Visit [facility] OPTOMETRY [address] [place], [place] [phone] Rickey, Vanessa, OD [address] [place] [address] documented as of this encounter Goals Goal Patient Goal Type Associated Problems Recent Progress Patient-Stated? Author Blood Pressure < 140/90 Blood Pressure 128/76(2024 8:57 AM EST) No Emerita Cabrera, PharmD Hemoglobin A1c < 7 Result Component 9(08/10/2024 9:24 AM EST) No Emerita Cabrera, PharmD documented as of this encounter Visit Diagnoses Not on filedocumented in this encounter Additional Health Concerns Assessment Noted Time PHQ-9 Depression Total Score: 16 024 2:43 PM EDT documented as of this encounter Care Teams Flavor Tank Tender Relationship Specialty Start Date End Date Devi Razo FNP [address] [place] [address] PCP - General Family Medicine 03/11/22 Emerita Parish, PharmD [address] [place] [address] Pharmacist Internal Medicine 11/14/23 [facility] documented as of this encounter
--- OUTSIDE RECORDS SUMMARY | 2024-08-14 16:11 | XMS_ITS | Encounter Summary ---
Author Organization [employer] Address [address] [place] [address] 7 [place] [address] Care Team Providers Care Edger Operator Name Role Phone [facility] Primary Care Provider [phone] Emerita Parish PharmD Unavailable [phone] Reason for Visit * Reason Onset Date Comments transfer patient appointment 08/10/2024 Encounter Details Date Type Department Care Team ([facility] st Contact Info) Description 08/10/2024 Telephone [facility] MEDICINE [address] [place], [place] [phone] [facility] [address] [place] [address] transfer patient appointment Social History Tobacco Use Types Packs/Day Years [...] the past 12 months, has t he [employer], gas, oil or water [employer] threatened to shut off services in your [...] encounter Miscellaneous Notes * Telephone Encounter - Patricia Mann - 08/10/2024 9:52 AM EST Patient came to appointment today with Skye Ba and on the process of checking out on notes Skye states that patient wants to get a TP appointment because he wants Mathieus as PCP. Pleasecontact patient to number to proceed with the process. documented in this encounter Plan of Treatment Upcoming Encounters Date Type Department Care Team (Late st Contact Info) Description 09/18/2024 1:30 PM EST Office Visit [facility] OPTOMETRY [address] [place] [address] Vanessa Lang, OD [address] [place] [address] documented as of this encounter Goals Goal [...] documented as of this encounter Care Teams Edger Operator Relationship Specialty Start Date End Date Dung EDEN Quinonez [address] [place] [address] PCP - General Family Medicine 03/11/22 Emerita Parish, PharmD [address] [place] [address] Pharmacist Internal Medicine 11/14/23 [place] Jaylan 06/20/24 documented as of this encounter
--- OUTSIDE RECORDS SUMMARY | 2024-08-14 16:11 | XMS_ITS | Encounter Summary ---
Author Organization [employer] Address [address] [facility] 7t [place] [address] Care Team Providers Care Personalized Living Manager Name Role Phone Devi Razo OFFICE MANAGER RECEPTIONIST Primary Care Provider [phone] Emerita Parish PharmD Unavailable [phone] Encounter Details Date Type Department Care Team (Late st Contact Info) Description 07/23/2024 Refill [facility] MEDICINE [address] [place] [address] Emerita Parish, PharmD [address] [place] [address] Social History Tobacco Use Types Packs/Day Years [...] encounter Miscellaneous Notes * Telephone Encounter - Emerita Parish PharmD - 07/23/2024 10:08 AM EST Patient was last seen in [facility] for DM2 in 03/2024 and patient no showed following 2 visits. Patient will not be re-outreached by [facility] team for reschedule follow up visit due to no shows however if patient requests follow up visit, please have him reach out the [facility] team or present to Green team to request assistance to re-enroll in program. Current prescriptions prescribed by [facility] are metoprololand pen needles which have been que'd to PCP for further refills. documented in this encounter Plan of Treatment Upcoming Encounters Date Type Department Care Team (Late st Contact Info) Description 09/18/2024 1:30 PM EST Office Visit [facility] OPTOMETRY [address] [place] [address] Vanessa Lang, OD [address] [place] [address] documented as of this encounter Goals Goal Patient Goal Type Associated Problems Recent Progress Patient-Stated? Author Blood Pressure < 140/90 Blood Pressure 128/76(2024 8:57 AM EST) No Emerita Cabrera PharmD Hemoglobin A1c < 7 Result Component 9(08/10/2024 9:24 AM EST) No Emerita Cabrera PharmD documented as of this encounter Visit Diagnoses Not on filedocumented in this encounter Additional Health Concerns Assessment Noted Time PHQ-9 Depression Total Score: 16 024 2:43 PM EDT documented as of this encounter Care Teams Personalized Living Manager Relationship Specialty Start Date End Date Devi Razo FNP [address] [place] [address] PCP - General Family Medicine 03/11/22 Emerita Parish PharmD [address] [place] [address] Pharmacist Internal Medicine 11/14/23 [facility] 06/20/24 documented as of this encounter
--- OUTSIDE RECORDS SUMMARY | 2024-08-14 16:11 | XMS_ITS | Encounter Summary ---
Author Organization [employer] Address [address] [facility] [address] 7t [place] [address] Care Team Providers Care Bioinformatics Programmer Name Role Phone Devi Razo SPECIALIST WOUND CARE Primary Care Provider [phone] Emerita Parish PharmD Unavailable [phone] Encounter Details Date Type Department Care Team (Latest Contact Info) Description 08/10/2024 Travel Social History Tobacco Use Types Packs/Day [...] Description 09/18/2024 1:30 PM EST Office Visit [facility] OPTOMETRY [address] [place], [place] [id number] Rickey, Vanessa, OD [address] [place] [address] documented as of this encounter Goals Goal [...] documented as of this encounter Care Teams Bioinformatics Programmer Relationship Specialty Start Date End Date Devi Razo FNP [address] [place] [address] PCP - General Family Medicine 03/11/22 Emerita Parish, PharmD [address] [place] [address] Pharmacist Internal Medicine 11[facility] documented as of this encounter
--- OUTSIDE RECORDS SUMMARY | 2024-08-14 16:11 | XMS_ITS | Patient Health Record ---
Author Organization [facility] Address [address] [place], [place] [id number] Care Team Providers Care Microbiological Lab Technician Name Role Phone No, PCP Primary Care Provider Chhaya Cochran Unavailable [phone] Reason For Referral No Information Social History Sex Assigned At : Social History Observation Description Sex Assigned At Male Encounters Encounter Location Date Provider Diagnosis [facility] [address] [place], [place] [id number] 06/19/2024 Chhaya Lucas Plan Of Treatment No Information Insurance Providers Payer Name Payer Address Payer Phone Subscriber Number Group Number Insured Name Patient Relationship to Insured Coverage Start Date Coverage End Date [place] C3 [address] [place], [place] [id number] Satya Medrano Self - patient is the insured 4
--- OUTSIDE RECORDS SUMMARY | 2024-08-14 16:11 | XMS_ITS | Clinical Summary ---
Author Organization [facility] Address [address] [place] [address] Phone Care Team Providers Care Belt Loop Machine Operator Name Role Phone [facility] Primary Care Provider [phone] Allergies No known active allergies Medications amLODIPine (NORVASC) 10 MG tablet Take 10 mg by mouth 1 (one) time each day Active cetirizine (ZyrTEC) 10 MG tablet Take 10 mg by mouth 1 (one) time each day Active gabapentin (NEURONTIN) 100 MG capsule Take 200 mg by mouth at bed time Active fluticasone (FLONASE) 50 MCG/ACT nasal spray Administer 1 spray into each nostril 1 (one) time each day Active insulin detemir (LEVEMIR) 100 UNIT/ML injection Inject 42 Units under the skin every night Active Multiple Vitamin (multivitamin) tablet Take 1 tablet by mouth 1 (one) time each day Active atorvastatin (LIPITOR) 80 MG tablet Take 80 mg by mouth at bed time 3 Active Diclofenac Sodium 1 % gel APPLY 2 GRAMS TO AFFECTED AREA(S) FOUR TIMES DAILY 3 Active Jardiance 10 MG tablet Take 10 mg by mouth every morning 3 Active lisinopril 5 MG tablet Take 1 tablet (5 mg total) by mouth 1 (one) time each day 30 tablet 11 3 Active Active Problems Problem Noted Date Diagnosed Date Inactive tuberculosis 02/17/2023 02/17/2023 Overview (02/17/2023): case clsoedPt. NOS x2 scheduled TB clinic appts. COVID-19 11/19/2022 02/24/2023 Obese class I 07/20/2018 02/17/2023 Essential hypertension 08/15/2015 Hyperlipidemia 08/15/2015 02/17/2023 Type 2 diabetes mellitus 08/15/2015 023 Immunizations Name Administration Dates Next Due Hepatitis B 02/13/2021 Influenza, Quadrivalent, Preservative Free 04/13 Moderna SARS-COV-2 12/09/2020,11/11/2020 Pneumococcal Conjugate Pcv 20 11/30/2022 Pneumococcal Polysaccharide 07/20/2018 Tdap 07/20/2018 Family History Medical History Relation Comments Diabetes Maternal Grandmother Hypertension Maternal Grandmother Relation Status Comments Father Maternal Grandmother Mother Social History Tobacco Use Types Packs/Day Years Used Date Smoking Tobacco: Never Smokeless Tobacco: Never Alcohol Use Standard Drinks/Week Comments Not Currently 0 (1 standard drink = 0.6 oz pur e alcohol) Sex and Gender Information Value Date Recorded Sex Assigned at Not on file Legal Sex Male 9:17 AM EDT Gender Identity Not on file Sexual Orientation Not on file Last Filed Vital Signs Vital Sign Reading Time Taken Comments Blood Pressure 140/80 02/24/2023 1:31 PM EDT Pulse 108 02/24/2023 1:31 PM EDT Temperature - - Respiratory Rate - - Oxygen Saturation - - Inhaled Oxygen Concentration - - Weight 104 kg (228 lb 6.4 oz) 02/24/2023 1:31 PM EDT Height - - Body Mass Index - - Plan of Treatment Health Maintenance Due Date Last Done Comments Hepatitis B Vaccine (1 of 3 - 19+ 3-dose series) 1995 02/13/2021 Diabetes: Ophthalmology Exam 10/01/2022 Diabetes: Pedal Pulse Checked 10/01/2022 Diabetes: Sensory Foot Exam 10/01/2022 Diabetes: Visual Foot Exam 10/01/2022 Diabetes: Hemoglobin A1C 03/02/2023 11/30/2022, 11/15 Influenza Vaccine (#1) 2024 04/13/2018 Pneumococcal Vaccine: Pediat rics (0 to 5 Years) and At-Risk Patients (6 to 64 Years) Completed 11/30/2022, 07/20/2018 [place] Care Teams Belt Loop Machine Operator Relationship Specialty Start Date End Date Devi Razo [address] [place] [address] PCP - General 02/24/23
--- OUTSIDE RECORDS SUMMARY | 2024-08-14 16:11 | XMS_ITS | Encounter Summary ---
Author Organization [employer] Address [address] [place] [address] 7 [place] [address] Care Team Providers Care Pot Sander Name Role Phone [facility] Primary Care Provider [phone] Emerita Parish PharmD Unavailable [phone] Reason for Visit * Reason Onset Date Comments PT1 Submitted 08/10/2024 Encounter Details Date Type Department Care Team ([facility] st Contact Info) Description 08/10/2024 Telephone [facility] MEDICINE [address] [place], [place] [phone] [facility] [address] [place] [address] PT1 Submitted Social History Tobacco Use Types Packs/Day Years [...] encounter Miscellaneous Notes * Telephone Encounter - Gavi Cotto - 08/10/2024 10:23 AM EST PT-1 submitted for patient. They will receive a letter of approval or denial in the mail. PT-1 Request Number [id number] is Pending. Location: [place] [address] documented in this encounter Plan of Treatment Upcoming Encounters Date Type Department Care Team (Late st Contact Info) Description 09/18/2024 1:30 PM EST Office Visit [facility] OPTOMETRY [address] [place] [address] Vanessa Lang, OD [address] [place] [address] documented as of this encounter Goals Goal [...] documented as of this encounter Care Teams Pot Sander Relationship Specialty Start Date End Date Devi Razo ASSISTANT FRONT DESK MANAGER [address] [place] [address] PCP - General Family Medicine 03/11/22 Emerita Parish, PharmD [address] [place] [address] Pharmacist Internal Medicine 11/14/23 Emil MOREIRA 06/20/24 documented as of this encounter
--- OUTSIDE RECORDS SUMMARY | 2024-08-14 16:11 | XMS_ITS | Encounter Summary ---
Author Organization [employer] Address [address] [facility] 7t [place] [address] Care Team Providers Care Back Tender Cylinder Name Role Phone [facility] Primary Care Provider [phone] Emerita Parish PharmD Unavailable [phone] Encounter Details Date Type Department Care Team ([facility] st Contact Info) Description 08/08/2024 Telephone [facility] MEDICINE [address] [place], [place] [phone] [facility] [address] [place], [place] [phone] Social History Tobacco Use Types Packs/Day Years [...] encounter Miscellaneous Notes * Telephone Encounter - Guillermina Hopkins - 08/08/2024 10:48 AM EST CHW Guillermina Rogers has tried to contact the patient several times to change the CDTM appointment for today 08/08/24 since the Pharmacist Emerita Parish is out today, a message was left for the patientto contact ext [phone] to change the appointment for another day. Thanks documented in this encounter Plan of Treatment Upcoming Encounters Date Type Department Care Team (Late st Contact Info) Description 09/18/2024 1:30 PM EST Office Visit [facility] OPTOMETRY [address] [place] [address] Rickey, Vanessa, OD [address] [place] [address] documented as of this encounter Goals Goal [...] documented as of this encounter Care Teams Back Tender Cylinder Relationship Specialty Start Date End Date Devi RazoEDEN [address] [place] [address] PCP - General Family Medicine 03/11/22 Emerita Parish, PharmD [address] [place] [address] Pharmacist Internal Medicine 11/14/23 [place] [facility] 06/20/24 documented as of this encounter
--- OUTSIDE RECORDS SUMMARY | 2024-08-14 16:12 | XMS_ITS ---
Author Organization [facility] Address [address] [place], [place] [id number] Care Team Providers Care Page Designer Name Role Phone No, PCP Primary Care Provider Chhaya Cochran Unavailable [phone] REASON FOR VISIT Call [employer] to update [facility] to [facility]STD Social History Sex Assigned At : Social History Observation Description Sex Assigned At Male Encounters Encounter Location Date Provider Diagnosis [address] [phone] 06/19/2024 Chhaya Lucas Plan Of Treatment No Information Progress Notes * Satya PAZDOB: [birth year] (48 yo M)Acc No.[id number]:06/19/2024 Case Management New Patient:?Satya PAZ Provider:?Chhaya Lucas :1975???Age:48 Y???Sex:Male Martir e:06/19/2024 Address:[address] [place] [address], [address] , [id number] Pcp:PCP No Subjective: * Chief Complaints: * ???1. Call [employer] to up date [facility] to MHSTD. * HPI: ???Social Service:?Action Taken?[employer]Share? Called [employer] with client and updated [facility] to [facility] due to client having Medical issues. MHSTD will be updated into the system within 24 hours. Client understanding that he has to wait for a few days to call [employer] and enroll to receive services. 06/19/24 gd2.? Objective: * Vitals:? Assessment: Plan: * Treatment: * Images: Billing Information: * Visit Code:? * Procedure Codes:? Care Plan Details* * Sign off status: Completed true * Provider:?Chhaya Lucas Date:?06/19/2024 Generated for Veronika cloud/Mohsen/Sanjuana on:?08/14/2024 04:11 PM EST History and Physical Notes * HPI (History of Present Illness) Category Sub-Category Detail Notes [facility] Called [facility] with client and updated [facility] to [facility] Standard due to client having Medical issues. MHSTD will be updated into the system within 24 hours. Client understanding that he has to wait for a few days to call [employer] and enroll to receive services. 06/19/24 gd2
--- OUTSIDE RECORDS SUMMARY | 2024-08-14 16:12 | XMS_ITS | Encounter Summary ---
Author Organization [employer] Address [address] [place] [address] 7t [place] [address] Care Team Providers Care Grinding And Polishing Laborer Name Role Phone [facility] Primary Care Provider [phone] Emerita Parish PharmD Unavailable [phone] Reason for Visit * Reason Onset Date Comments Durable Medical Equipment 07/09/2024 AMS Fo rm: Raised Toilet Seat and Grab Bars Encounter Details Date Type Department Care Team (Late st Contact Info) Description 07/09/2024 Telephone [facility] MEDICINE [address] [place] [address] [facility] [address] [place] [address] Durable Medical Equipment (AMS Form: Raised Toilet Seat and Grab Bars) Social History Tobacco Use Types Packs/Day Years [...] encounter Miscellaneous Notes * Telephone Encounter - Sandhya Tovar [place] - 07/23/2024 10:11 AM EST Received forms below signed by PCP and faxed them back to [employer] * Telephone Encounter - Arielle Cruz - 07/09/2024 11:28 AM EST Confirmation of order for Raised Toilet Seat and Grab Bars [facility] [employer] received and is being processed. documented in this encounter Plan of Treatment Upcoming Encounters Date Type Department Care Team (Late st Contact Info) Description 09/18/2024 1:30 PM EST Office Visit [facility] OPTOMETRY [address] [place] [address] Vanessa Lang, OD [address] [place], [place] [phone] documented as of this encounter Goals Goal [...] documented as of this encounter Care Teams Grinding And Polishing Laborer Relationship Specialty Start Date End Date Devi Razo FNP [address] [place] [address] PCP - General Family Medicine 03/11/22 Emerita Parish PharmD [address] [place] [address] Pharmacist Internal Medicine 11/14/23 Emil MOREIRA 06/20/24 documented as of this encounter
--- OUTSIDE RECORDS SUMMARY | 2024-08-14 16:12 | XMS_ITS | Encounter Summary ---
Author Organization [employer] Address [address] [place] [address] 7 [place] [address] Care Team Providers Care Marble Setter Helper Name Role Phone [facility] Primary Care Provider [phone] Emerita Parish PharmD Unavailable [phone] Reason for Visit * Reason Onset Date Comments Hospital Follow-up 06/26/2024 Encounter Details Date Type Department Care Team ([facility] Contact Info) Description 06/26/2024 Telephone [facility] MEDICINE [address] [place], [place] [phone] [facility], [facility] [address] [place] [address] Hospital Follow-up Social History Tobacco Use Types Packs/Day Years [...] the past 12 months, has t he [employer], gas, oil or water [employer] threatened to shut off services in your [...] encounter Miscellaneous Notes * Telephone Encounter - Kaleb Cruz - 06/26/2024 4:07 PM EST Tc from pt requesting a HDF appt. Hospital: [facility] Date of admission: 06/13/24 Discharge date: 06/18/24 Diagnosed: Foot Ulcer *Send message to [place] Clinical Care Coordinators documented in this encounter Plan of Treatment Upcoming Encounters Date Type Department Care Team (Late st Contact Info) Description 09/18/2024 1:30 PM EST Office Visit [facility] OPTOMETRY [address] [place] [address] Vanessa Lang, OD [address] [place] [address] documented as of this encounter Goals Goal [...] documented as of this encounter Care Teams Marble Setter Helper Relationship Specialty Start Date End Date Devi Razo OIL FILTERS INSPECTOR [address] [place] [address] PCP - General Family Medicine 03/11/22 Emerita Parish, PharmD [address] [place] [address] Pharmacist Internal Medicine 11/14/23 Emil MOREIRA 06/20/24 documented as of this encounter
--- OUTSIDE RECORDS SUMMARY | 2024-08-14 16:12 | XMS_ITS | Encounter Summary ---
Author Organization [employer] Address [address] [facility] 7t [place] [address] Care Team Providers Care Exterior Designer Name Role Phone Devi Razo SCIENTIFIC PUBLICATIONS EDITOR Primary Care Provider [phone] Emerita Parish PharmD Unavailable [phone] Encounter Details Date Type Department Care Team ([facility] st Contact Info) Description 04/06/2024 Telephone [facility] MEDICINE [address] [place] [address] Emerita Parish, PharmD [address] [place] [address] Social History Tobacco Use Types Packs/Day Years [...] Telephone Encounter - Emerita Parish PharmD - 04/06/2024 2:28 PM EDT Please provide a new referral (pended to this TC) for CDTM DM2 and HTN as referral is required to be signed off on supervising physician (PCP of [facility]). Thank you! documented in this encounter Plan of Treatment Upcoming Encounters Date Type Department Care Team (Late st Contact Info) Description 09/18/2024 1:30 PM EST Office Visit [facility] OPTOMETRY [address] [place] [address] Vanessa Lang, OD [address] [place] [address] documented as of this encounter Goals Goal Patient Goal Type Associated Problems Recent Progress Patient-Stated? Author Blood Pressure < 140/90 Blood Pressure 128/76(2024 8:57 AM EST) No Emerita Cabrera PharmD Hemoglobin A1c < 7 Result Component 9(08/10/2024 9:24 AM EST) No Piers-Gambl e, Emerita, PharmD documented as of this encounter Visit Diagnoses Not on filedocumented in this encounter Additional Health Concerns Assessment Noted Time PHQ-9 Depression Total Score: 16 024 2:43 PM EDT documented as of this encounter Care Teams Exterior Designer Relationship Specialty Start Date End Date Devi Razo FNP [address] [place] [address] PCP - General Family Medicine 03/11/22 Emerita Parish, PharmD [address] [place] [address] Pharmacist Internal Medicine 11/14/23 Emil Jaylan 06/20/24 documented as of this encounter
--- OUTSIDE RECORDS SUMMARY | 2024-08-14 16:12 | XMS_ITS | Encounter Summary ---
Author Organization [employer] Address [address] [place] [address] 7 [place] [address] Care Team Providers Care Fuels Engineer Name Role Phone Devi Razo [facility] Primary Care Provider [phone] Emerita Parish PharmD Unavailable [phone] Reason for Referral * Consultation (Routine) - Authorized Specialty Diagnoses / Procedures Referred By Contac t Referred To Contact Pharmacy Diagnoses Type 2 diabetes mellitus without complication, with long-term current use of insulin (CMS/HCC) Mela Gurrola MD [address] [place] [address] Phone: tel: fax: Referral ID Status Reason Start Date Expiration Date Visits Requested Visits Authorized [id number] Authorized Consult and Treat 05/15/2024 05/15/2025 6 6 Encounter Details Date Type Department Care Team (Late st Contact Info) Description 05/15/2024 Orders Only [facility] MEDICINE [address] [place] [phone] Mela Gurrola MD [address] [place], [place] [phone] Type 2 diabetes mellitus without complication, with long-term current use of insulin (CMS/HCC) (Primary Dx) Social History Tobacco Use Types Packs/Day Years Used Date Smoking Tobacco: Never Smokeless Tobacco: Never Alcohol Use Standard Drinks/Week Comments Never 0 (1 standard drink = 0.6 oz pur e alcohol) Alcohol Answer Date Recorded Frequency of Alcohol Consumption Not on file 11/23/2023 Average Number of Drinks Not on file 024 Frequency of Binge Drinking Not on file 0 02/2024 Score 0 11/23/2023 Depression Answer Date [...] Description 09/18/2024 1:30 PM EST Office Visit [facility] OPTOMETRY [address] [place] [address] Vanessa Lang, OD [address] [place] [address] Scheduled Referrals Name Type Priority Associated Diagnoses Orde r Schedule Referral to Pharmacy CDTM Outpatient Referral Routine Type 2 diabetes mellitus without complication, with long-term current use of insulin ([facility]) Ordered: 05/15/2024 documented as of this encounter Goals Goal Patient Goal Type Associated Problems Recent Progress Patient-Stated? Author Blood Pressure < 140/90 Blood Pressure 128/76(2024 8:57 AM EST) No Emerita Cabrera PharmD Hemoglobin A1c < 7 Result Component 9(08/10/2024 9:24 AM EST) No Emerita Cabrera PharmD documented as of this encounter Visit Diagnoses Diagnosis Type 2 diabetes mellitus without complication, with long-term current use of insulin (CMS/[facility])- Primary documented in this encounter Additional Health Concerns Assessment Noted Time PHQ-9 Depression Total Score: 16 024 2:43 PM EDT documented as of this encounter Care Teams Fuels Engineer Relationship Specialty Start Date End Date Devi Razo FNP [address] [place] [address] PCP - General Family Medicine 03/11/22 Emerita Parish PharmD [address] [place] [address] Pharmacist Internal Medicine 11/14/23 Emil MOREIRA 06/20/24 documented as of this encounter
--- OUTSIDE RECORDS SUMMARY | 2024-08-14 16:12 | XMS_ITS | Encounter Summary ---
Author Organization [employer] Address [address] [place] [address] 7 [place] [address] Care Team Providers Care Tax Economist Name Role Phone [facility] Primary Care Provider Emerita Parish PharmD Unavailable [phone] Reason for Visit * Reason Onset Date Comments Nurse Triage 07/19/2023 Encounter Details Date Type Department Care Team ([facility] st Contact Info) Description 07/19/2023 Telephone [facility] [address] [place], [place] [phone] [facility], [facility] [address] [place] [address] Nurse Triage Social History Tobacco Use Types Packs/Day Years [...] encounter Miscellaneous Notes * Telephone Encounter - Ashlee Jacobs RN - 08/03/2023 11:35 AM EST Triage call Pt missed apt today due to not feeling well. Flu like sx. Pt is rescheduled to see SODIUM METHYLATE OPERATOR Nas 08/12/23 @ 1130am. Protocol Used: Information Only Call - No Triage (Adult) Protocol-Based Disposition: Home Care Positive Triage Question: * Follow-up information-only call to recent contact, no triage required * All higher-acuity triage questions were negative Care Advice Discussed: * Reasons To Call Back - New symptoms develop - You have more questions - You become worse * Telephone Encounter - Thiago Mccord - 08/03/2023 10:35 AM EST Tc from pt requesting to r/s sick onsite appt scheduled for 08/03/23. Please contact at [phone] * Telephone Encounter - Ashlee Jacobs RN - 07/19/2023 11:18 AM EST Triage call Pt reports left knee pain which is of chronic nature but, has gotten worse over the last year. Pt reports left knee has some swelling but, no redness or warmth. Pt reports having fluid removed from knee before and may need that again. Pt is able to ambulate but, with a limp. Pt is not taking any pain medication po but, is using biofreeze topically which has helped. Pt is aware of homecare advised. Apt with SODIUM METHYLATE OPERATOR Wade 08/03/23 @ 1130am. Insurance is verified as active prior to booking. Protocol Used: Knee Pain (Adult) Protocol-Based Disposition: See in Office or Video Visit within 2 Weeks Video visit not offered Positive Triage Question: * Knee pain is a chronic symptom (recurrent or ongoing AND lasting > 4 weeks) * All higher-acuity triage questions were negative Care Advice Discussed: * Reassurance and Education - Knee Pain * Pain Medicines * Pain Medicines - Extra Notes and Warnings * Reasons To Call Back - Moderate pain (e.g., limping) lasts more than 3 days - Mild pain lasts more than 7 days - Signs of infection occur (e.g., spreading redness, warmth, fever) - You become worse * Use a Cold Pack for Pain * Use Heat After 48 Hours for Pain * Telephone Encounter - Yinka Cotto - 07/19/2023 10:56 AM EST Symptom: Knee Pain - Not From Injury Outcome: Schedule an urgent appointment (within 4 hours) or talk to a nurse or provider soon Reason: Swelling The caller accepted this outcome documented in this encounter Plan of Treatment Upcoming Encounters Date Type Department Care Team (Late st Contact Info) Description 09/18/2024 1:30 PM EST Office Visit [facility] [address] [place] [address] Rickey, Vanessa, OD [address] [place] [address] documented as of this encounter Visit Diagnoses Not on filedocumented in this encounter Additional Health Concerns Assessment Noted Time PHQ-9 Depression Total Score: 0 02/25/20 23 4:10 PM EDT documented as of this encounter Care Teams Tax Economist Relationship Specialty Start Date End Date Devi Razo FNP [address] [place] [address] PCP - General Family Medicine 03/11/22 Emerita Parish, FadyD [address] [place] [address] [place] [address] Pharmacist Internal Medicine 11/14/23 Emil MOREIRA 06/20/24 documented as of this encounter
--- OUTSIDE RECORDS SUMMARY | 2024-08-14 16:12 | XMS_ITS | Encounter Summary ---
Author Organization [employer] Address [address] [place] [address] 7 [place] [address] Care Team Providers Care Bridge Leverman Name Role Phone Devi Razo FRONT END ARCHITECT Primary Care Provider [phone] Emerita Parish PharmD Unavailable [phone] Reason for Referral * Consultation (Routine) - Authorized Specialty Diagnoses / Procedures Referred By Contvivian t Referred To Contact Pharmacy Diagnoses Type 2 diabetes mellitus without complication, with long-term current use of insulin (CMS/HCC) Essential hypertension Mela Gurrola MD [address] [place] [address] Phone: tel: fax: Referral ID Status Reason Start Date Expiration Date Visits Requested Visits Authorized [id number] Authorized Consult and Treat 04/11/2024 04/11/2025 6 6 Encounter Details Date Type Department Care Team (Late st Contact Info) Description 04/11/2024 Orders Only [facility] [address] [place] [id number] Mela Gurrola MD [address] [place], [place] [phone] Type 2 diabetes mellitus without complication, with long-term current use of insulin (CMS/HCC) (Primary Dx); Essential hypertension Social History Tobacco Use Types Packs/Day Years Used Date Smoking Tobacco: Never Smokeless Tobacco: Never Alcohol Use Standard Drinks/Week Comments Never 0 (1 standard drink = 0.6 oz pur e alcohol) Alcohol Answer Date Recorded Frequency of Alcohol Consumption Not on file 11/23/2023 Average Number of Drinks Not on file 024 Frequency of Binge Drinking Not on file 050 02/2024 Score 0 11/23/2023 Depression Answer Date [...] Description 09/18/2024 1:30 PM EST Office Visit [facility] [address] [place], [place] [phone] Rickey, Vanessa, OD [address] [place] [address] Scheduled Referrals Name Type Priority Associated Diagnoses Orde r Schedule Referral to Pharmacy CDTM Outpatient Referral Routine Type 2 diabetes mellitus without complication, with long-term current use of insulin ([facility]) Essential hypertension Ordered: 04/11/2024 documented as of this encounter Goals Goal [...] complication, with long-term current use of insulin ([facility])- Primary Essential hypertension Unspecified essential hypertension documented in this encounter Additional Health Concerns Assessment Noted Time PHQ-9 Depression Total Score: 16 024 2:43 PM EDT documented as of this encounter Care Teams Bridge Leverman Relationship Specialty Start Date End Date EurekaDevi FNP [address] [place] [address] PCP - General Family Medicine 03/11/22 Emerita Parish PharmD [address] [place] [address] Pharmacist Internal Medicine 11/14/23 Emil MOREIRA 06/20/24 documented as of this encounter
--- OUTSIDE RECORDS SUMMARY | 2024-08-14 16:12 | XMS_ITS | Encounter Summary ---
Author Organization [employer] Address [address] [place] [address] 7 [place] [address] Care Team Providers Care Customer Experience Leader Name Role Phone [facility] Primary Care Provider [phone] Emerita Parish PharmD Unavailable [phone] Reason for Visit * Reason Onset Date Comments Appointment Request 11/23/2022 Encounter Details Date Type Department Care Team ([facility] st Contact Info) Description 11/23/2022 Telephone [facility] [address] [place], [place] [phone] [facility] [address] [place] [address] Appointment Request Social History Tobacco Use Types Packs/Day Years Used Date Smoking Tobacco: Never Smokeless Tobacco: Never Sex and Gender Information Value Date Recorded Sex Assigned at Male 05/17/2022 10:19 AM EDT Legal Sex Male 10:19 AM EDT Gender Identity Male 05/17/2022 10:19 AM EDT Sexual Orientation Straight 05/17/2022 10 :19 AM EDT documented as of this encounter Miscellaneous Notes * Telephone Encounter - Yuliya Bella RN - 12/02/2022 10:48 AM EDT Returned call to pt regarding message below. Pt states he feels fine and that since stopping the Boost drinks, his BS have been around 200. Pt denied any hyperglycemic symptoms. Pt is requesting a podiatry referral and f/u with PCP. Pt informed message would be sent to provider. * Telephone Encounter - Sixto Cortes - 12/02/2022 10:32 AM EDT Tc from pt returning nurses call . Please contact at [phone] * Telephone Encounter - Yuliya Bella RN - 12/02/2022 9:20 AM EDT TC X2 to pt for status check. No answer. LVM to return call to nurses. * Telephone Encounter - Yuliya Bella RN - 12/01/2022 10:33 AM EDT Pt seen yesterday, glucose was 617 not potassium. * Telephone Encounter - Ashlee Jacobs RN - 12/01/2022 9:47 AM EDT CRITICAL RESULTS LINE Call from [facility] reporting critical result: Lab draw 11/30 @ 230pm Potassium is 617 Report faxed to medical records with other abnormals present. * Telephone Encounter - Yuliya Bella RN - 11/24/2022 3:21 PM EDT Returned call to pt regarding message below. Pt agrees to r/s appt on 11/30/22. * Telephone Encounter - Karina Ruiz - 11/23/2022 11:20 AM EDT Tc from pt requesting to r/s today HDF appt due to being at his wound care appt . documented in this encounter Plan of Treatment Upcoming Encounters Date Type Department Care Team (Late st Contact Info) Description 09/18/2024 1:30 PM EST Office Visit [facility] [address] [place] [address] Vanessa Lang, OD [address] [place] [address] documented as of this encounter Visit Diagnoses Not on filedocumented in this encounter Care Teams Customer Experience Leader Relationship Specialty Start Date End Date Devi Razo FNP [address] [place] [address] PCP - General Family Medicine 03/11/22 Emerita Parish PharmD [address] [place], [place] [phone] Pharmacist Internal Medicine 11/14/23 [facility] 06/20/24 documented as of this encounter
--- OUTSIDE RECORDS SUMMARY | 2024-08-14 16:12 | XMS_ITS | Encounter Summary ---
Author Organization [employer] Address [address] [place] [address] 7 [place] [address] Care Team Providers Care Front Office Representative Name Role Phone [facility] Primary Care Provider Emerita Parish PharmD Unavailable [phone] Reason for Visit * Reason Onset Date Comments Durable Medical Equipment 06/27/2024 Encounter Details Date Type Department Care Team ([facility] st Contact Info) Description 06/27/2024 Telephone [facility] [address] [place], [place] [phone] [facility] [address] [place] [address] Durable Medical Equipment Social History Tobacco Use Types Packs/Day Years [...] encounter Miscellaneous Notes * Telephone Encounter - Lulu Mcdaniel MA - 06/28/2024 10:37 AM EST DME for cane generated, awaiting pcp's signature. * Telephone Encounter - Kaleb Cruz - 06/27/2024 3:22 PM EST Tc from Yessy with Emil MOREIRA requesting Cane for pt and would like that sent to [employer]. If any questions you can contact Yessy at [phone]. documented in this encounter Plan of Treatment Upcoming Encounters Date Type Department Care Team ([facility] st Contact Info) Description 09/18/2024 1:30 PM EST Office Visit [facility] [address] [place] [address] Vanessa Lang, OD [address] [place] [address] documented as of this encounter Goals Goal [...] documented as of this encounter Care Teams Front Office Representative Relationship Specialty Start Date End Date Devi Razo FNP [address] [place] [address] PCP - General Family Medicine 03/11/22 Emerita Parish PharmD [address] [place] [address] Pharmacist Internal Medicine 11/14/23 Emil Jaylan 06/20/24 documented as of this encounter
--- OUTSIDE RECORDS SUMMARY | 2024-08-14 16:12 | XMS_ITS | Encounter Summary ---
Author Organization [employer] Address [address] [place] [address] Care Team Providers Care Ed Tech Name Role Phone [facility] Primary Care Provider [phone] Emerita Parish PharmD Unavailable [phone] Encounter Details Date Type Department Care Team (Late st Contact Info) Description 11/11/2022 [facility] Health Information Management [address] [place], [place] [phone] Devi Razo [facility] [address] [place] [address] Social History Tobacco Use Types Packs/Day Years [...] Description 09/18/2024 1:30 PM EST Office Visit [facility] [address] [place], [place] [phone] Vanessa Lang, OD [address] [place] [address] documented as of this encounter Visit Diagnoses Not on filedocumented in this encounter Care Teams Ed Tech Relationship Specialty Start Date End Date Devi Razo FNP [address] [place] [address] PCP - General Family Medicine 03/11/22 Emerita Parish, FadyD [address] [place] [address] MILI Stein [address] Pharmacist Internal Medicine 11/14/23 Emil MOREIRA 06/20/24 documented as of this encounter
[2024-08-14 16:26] LABS: Basophils Absolute Auto 0.1 X10*3/uL (0.0-0.2); Basophils Percent Auto 0.8 % (0-2); Eosinophils Absolute Auto 0.1 X10*3/uL (0.0-0.4); Hemoglobin 14.2 g/dl (14.0-18.0); Imm Gran Abs Auto 0.02 X10*3/uL (0.00-0.03); Imm Gran Pct Auto 0.2 % (0.0-0.4); Lymphocytes Absolute Auto 5.3 X10*3/uL (1.2-4.9); Lymphocytes Percent Auto 59.3 % (20-40); MANUAL DIFF FLAG SCAN; Mean Corpuscular HGB Conc 33.8 g/dl (31.0-36.0); Mean Corpuscular Hemoglobin 32.2 pg (27.0-33.0); Mean Corpuscular Volume 95.2 fL (80.0-98.0); Mean Platelet Volume 10.2 fL (9.4-12.4); Monocytes Absolute Auto 0.4 X10*3/uL (0.1-1.2); Monocytes Percent Auto 4.1 % (2-11); Neutrophils Absolute Auto 3.1 x10*3/uL (2.0-8.3); Neutrophils Percent Auto 34.6 % (45-73); Platelet Count 318 X10*3/uL (160-400); Red Blood Count 4.41 X10*6/uL (4.60-5.80); Red Cell Distribution Width 12.3 % (11.0-16.0); SCAN SMEAR FLAG 1; White Blood Count 8.9 X10*3/uL (4.8-10.8)
[2024-08-14 16:43] LABS: Alanine Aminotransferase 38 U/L (0-40); Albumin Level 4.5 g/dL (3.5-5.0); Alkaline Phosphatase 125 U/L (39-117); Anion Gap 16 (12-20); Aspartate Amino Transferase 34 U/L (5-37); Bilirubin Direct 0.1 mg/dL (0.0-0.5); Bilirubin Total 0.4 mg/dL (0.0-1.0); Blood Urea Nitrogen 16 mg/dL (9-16); Calcium 9.4 mg/dL (8.4-10.2); Carbon Dioxide 25 mmol/L (22-29); Chloride 103 mmol/L (96-108); Cholesterol 179 mg/dL (<200); Estimated Glomerular Filt Rate > 60; Glucose Random 258 mg/dL (60-115); HDL Cholesterol 52 mg/dL (>40); LDL Cholesterol Calculated 93 mg/dL (<100); Sodium 139 mmol/L (135-145); Total Protein 8.5 g/dL (6.5-8.0); Triglycerides 173 mg/dL (<150)
[2024-08-14 16:45] LABS: Anion Gap 17 (12-20); Blood Urea Nitrogen 16 mg/dL (9-16); Calcium 9.5 mg/dL (8.4-10.2); Carbon Dioxide 24 mmol/L (22-29); Chloride 103 mmol/L (96-108); Estimated Glomerular Filt Rate > 60; Gamma Glutamyl Transpeptidase 66 U/L (11-51); Glucose Random 261 mg/dL (60-115); Potassium 4.5 mmol/L (3.3-5.1); Sodium 139 mmol/L (135-145)
[2024-08-14 17:21] LABS: SLIDE REVIEW VERIFIED
[2024-08-15 03:31] LABS: Syphilis Screen Reactive (Nonreactive)
[2024-08-21 15:28] LABS: RPR Quantitative Reactive 1:1 (Nonreactive); T.Pallidum Particle Agg Test Reactive (Nonreactive)
== END 2024-08-14 15:16 | disposition home or self-care (01) ==
LOC: HO.HHCL 15:15
PROVIDERS: Registered Nurse
DX: Z11.3 Encounter for screening for infections with a predominantly sexual mode of transmission (principal); E11.69 Type 2 diabetes mellitus with other specified complication; I10 Essential (primary) hypertension; E78.5 Hyperlipidemia, unspecified; R74.8 Abnormal levels of other serum enzymes
CPT/HCPCS: 36415; 80048; 80061; 80076; 82977; 85025; 86592; 86780

== ENCOUNTER 2024-12-13 14:56 | Emergency (ER) | payer MEDICAID, SELFPAY ==
--- NOTE | ~2024-12-13 | US_ITS ---
EXAMINATION: US TRIPLEX LOWER EXTREMITY, RIGHT CLINICAL INFORMATION: Cough pain. COMPARISON: None available. TECHNIQUE: Color-flow triplex imaging with spectral analysis and compression Doppler were performed on the right lower extremity. FINDINGS: Respiratory variation, normal compression and augmented flow are noted throughout the right lower extremity. The visualized common femoral vein, superficial femoral vein, profunda femoral vein, popliteal vein and midcalf peroneal and posterior tibial venous segments show no evidence of deep venous thrombosis. There is no Flores's cyst. There is a 2.5 cm lymph node right groin. It has benign characteristics with normal flow within the center of the lymph node. US/US venous duplex LE RT IMPRESSION: No evidence of deep venous thrombosis involving the right lower extremity. Electronically signed by: Dmitriy Go MD 12/13/2024 04:05 PM EDT
--- NOTE | ~2024-12-13 | XR_ITS ---
EXAMINATION: XR FOOT, RIGHT CLINICAL INFORMATION: diabetic wound, pain COMPARISON: 06/13/2024. TECHNIQUE: AP, lateral, and oblique views of the right foot. FINDINGS: Severe hallux valgus. No fracture, dislocation, or suspicious bone lesion. Subchondral collapse of the second metatarsal head. This is unchanged. Fracture deformities of the proximal second through fifth metatarsals. Early Charcot changes of the midfoot. Pes planus deformity. Hindfoot appears grossly normal. No focal osteopenia or focal erosion to suggest radiographic changes of osteomyelitis. Focal wound apparent in the soft tissues lateral to the proximal fifth metatarsal. No subcutaneous gas. XR/XR foot RT 2V IMPRESSION: 1. Soft tissue wound apparent in the soft tissues lateral to the proximal fifth metatarsal. No subcutaneous gas. 2. No radiographic evidence of osteomyelitis in the foot. 3. Numerous chronic changes as discussed. Electronically signed by: Jeff Burks MD 12/13/2024 03:54 PM EDT
[2024-12-13 15:03] VITALS: BP 184/92; PULSE 96; O2SAT 97
--- NOTE | 2024-12-13 15:24 | ED.LOWEXIN ---
HPI - Extremity Injury (Lower) General Chief Complaint: Wound/Laceration Stated Complaint: R FOOT ULCERS PAIN/SWELLING/HOT TO TOUCH,? INF Time Seen by Provider: 12/13/24 17:49 Related Data Home Medications ?Medication ?Instructions ?Recorded ?Confirmed fluticasone propionate 50 1 spray intranasal DAILY PRN Nasal 02/27/21 06/14/24 mcg/actuation nasal Congestion spray,suspension insulin detemir U-100 100 unit/mL 54 unit subcut BEDTIME 02/27/21 06/14/24 (3 mL) subcutaneous pen (Levemir FlexTouch U-100 Insulin) multivitamin 1 tab PO DAILY 02/27/21 06/14/24 amlodipine 5 mg-olmesartan 20 mg 1 tab PO BEDTIME 06/14/24 06/14/24 tablet atorvastatin 80 mg tablet 80 mg PO BEDTIME 06/14/24 06/14/24 empagliflozin 25 mg tablet 25 mg PO DAILY 06/14/24 06/14/24 (Jardiance) insulin lispro 100 unit/mL 4 unit subcut DAILY@1700 06/14/24 06/14/24 subcutaneous pen metoprolol succinate 25 mg 25 mg PO DAILY 06/14/24 06/14/24 tablet,extended release 24 hr thiamine HCl (vitamin B1) 100 mg 100 mg PO DAILY 06/14/24 06/14/24 tablet Previous Rx's ?Medication ?Instructions ?Recorded celecoxib 200 mg capsule (Celebrex) 200 mg PO BID 30 days #60 caps 10/14/23 amoxicillin 875 mg-potassium 1 tab PO BID #20 tabs 06/18/24 clavulanate 125 mg tablet cephalexin 500 mg capsule 500 mg PO QID 7 days #28 caps 12/14/24 doxycycline hyclate 100 mg tablet 100 mg PO BID 7 days #14 tabs 12/14/24 prednisone 20 mg tablet 20 mg PO DAILY 5 days #5 tabs 12/14/24 Allergies Allergy/AdvReac Type Severity Reaction Status Date / Time glyburide Allergy Unknown weight gain Verified 12/14/24 08:55 [facility] Past Medical History 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 Social History Social History Household Members: Spouse, Family and Children Housing: House Do you presently have visiting nurse or other home services: No Alcohol intake: never Patient Tobacco Use Status: Never used Tobacco Substance Use Type: Crack/Cocaine Advance Directives: No Advance Directives Information Provided: No Do you have a plan to hurt others: No Plan service: No Current occupational status: employed 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 RME assessment and note performed by: Dorys Esteban PA-C 49-year-old male with medical history of T2DM, diabetic foot ulcer presents to the emergency department department due to redness that began on the right lower extremity last night. Patient states he does have a chronic (4 months) wound over the plantar aspect of the 5th digit on the right foot. PE: Right popliteal, right DP pulses 2+, erythema over right anterior tibialis, with mild warmth. Mild distal calf TTP Plan: labs, R foot XR, RLE US Left without completing treatment Medical Decision Making Lab Data 12/13/24 15:57 12/13/24 15:57 Labs: Lab Results 12/13/24 Range/Units 15:57 WBC 14.0 H (4.8-10.8) X10*3/uL RBC 4.46 L (4.60-5.80) X10*6/uL Hgb 14.1 (14.0-18.0) g/dl Hct 40.9 L (42.0-52.0) % MCV 91.7 (80.0-98.0) fL MCH 31.6 (27.0-33.0) pg MCHC 34.5 (31.0-36.0) g/dl RDW 12.1 (11.0-16.0) % Plt Count 194 D (160-400) X10*3/uL MPV 10.1 (9.4-12.4) fL Immature Gran % (Auto) 0.5 H (0.0-0.4) % Neut % (Auto) 71.0 (45-73) % Lymph % (Auto) 21.5 (20-40) % Pike % (Auto) 6.7 (2-11) % Eos % (Auto) 0.0 (0-4) % Baso % (Auto) 0.3 (0-2) % Lymph # (Auto) 3.0 (1.2-4.9) X10*3/uL Pike # (Auto) 0.9 (0.1-1.2) X10*3/uL Eos # (Auto) 0.0 (0.0-0.4) X10*3/uL Baso # (Auto) 0.0 (0.0-0.2) X10*3/uL Abs Immat Gran (auto) 0.07 H (0.00-0.03) X10*3/uL Absolute Neuts (auto) 10.0 H (2.0-8.3) x10*3/uL Absolute Nucleated RBC 0.000 (0.0-0.012) X10*3/uL Nucleated RBC % (auto) 0.0 (0.0-0.2) /100WBC Sodium 134 L (135-145) mmol/L Potassium 3.8 (3.3-5.1) mmol/L Chloride 96 (96-108) mmol/L Carbon Dioxide 24 (22-29) mmol/L Anion Gap 18 (12-20) BUN 18 H (9-16) mg/dL Creatinine 1.11 (0.5-1.4) mg/dL Estim Creat Clear Calc 104.6 Estimated GFR > 60 Random Glucose 243 H (60-115) mg/dL Calcium 9.7 (8.4-10.2) mg/dL Total Bilirubin 1.1 H (0.0-1.0) mg/dL AST 18 (5-37) U/L ALT 15 (0-40) U/L Alkaline Phosphatase 98 (39-117) U/L Total Protein 8.0 (6.5-8.0) g/dL Albumin 4.2 (3.5-5.0) g/dL Discharge Plan Discharge Clinical Impression: Leg pain, right Patient Disposition: Left W/O Completing Treatment Prescriptions: No Action fluticasone propionate 50 mcg/actuation spray,suspension 1 spray intranasal DAILY PRN (Reason: Nasal Congestion) Levemir FlexTouch U100 Insulin 100 unit/mL (3 mL) insulin pen 54 unit subcut BEDTIME multivitamin Tablet 1 tab PO DAILY prednisone 20 mg tablet 20 mg PO DAILY 5 Days Qty: 5 0RF doxycycline hyclate 100 mg tablet 100 mg PO BID 7 Days Qty: 14 0RF cephalexin 500 mg capsule 500 mg PO QID 7 Days Qty: 28 0RF atorvastatin 80 mg tablet 80 mg PO BEDTIME thiamine HCl (vitamin B1) 100 mg tablet 100 mg PO DAILY metoprolol succinate 25 mg tablet extended release 24 hr 25 mg PO DAILY insulin lispro 100 unit/mL insulin pen 4 unit subcut DAILY@1700 amlodipine-olmesartan 5-20 mg tablet 1 tab PO BEDTIME Jardiance 25 mg tablet 25 mg PO DAILY amoxicillin-pot clavulanate 875-125 mg tablet 1 tab PO BID Qty: 20 0RF celecoxib [Celebrex] 200 mg capsule 200 mg PO BID 30 Days Qty: 60 3RF Discharge Date/Time: 12/13/24 18:49
[2024-12-13 15:25] VITALS: BP 135/70; PULSE 97; RESP 16; TEMP 38; O2SAT 98; BMI 35.1
[2024-12-13 16:06] LABS: MANUAL DIFF FLAG NO
[2024-12-13 16:09] LABS: Basophils Percent Auto 0.3 % (0-2); Hematocrit 40.9 % (42.0-52.0); Hemoglobin 14.1 g/dl (14.0-18.0); Imm Gran Abs Auto 0.07 X10*3/uL (0.00-0.03); Imm Gran Pct Auto 0.5 % (0.0-0.4); Lymphocytes Percent Auto 21.5 % (20-40); Mean Corpuscular HGB Conc 34.5 g/dl (31.0-36.0); Mean Corpuscular Hemoglobin 31.6 pg (27.0-33.0); Mean Corpuscular Volume 91.7 fL (80.0-98.0); Mean Platelet Volume 10.1 fL (9.4-12.4); Monocytes Absolute Auto 0.9 X10*3/uL (0.1-1.2); Monocytes Percent Auto 6.7 % (2-11); Platelet Count 194 X10*3/uL (160-400); Red Blood Count 4.46 X10*6/uL (4.60-5.80); Red Cell Distribution Width 12.1 % (11.0-16.0)
[2024-12-13 16:37] LABS: Alanine Aminotransferase 15 U/L (0-40); Albumin Level 4.2 g/dL (3.5-5.0); Anion Gap 18 (12-20); Aspartate Amino Transferase 18 U/L (5-37); Bilirubin Total 1.1 mg/dL (0.0-1.0); Blood Urea Nitrogen 18 mg/dL (9-16); Calcium 9.7 mg/dL (8.4-10.2); Carbon Dioxide 24 mmol/L (22-29); Chloride 96 mmol/L (96-108); Creatinine Clr Calc Pharmacy 104.6; Estimated Glomerular Filt Rate > 60; Glucose Random 243 mg/dL (60-115); Potassium 3.8 mmol/L (3.3-5.1); Sodium 134 mmol/L (135-145)
[2024-12-13 17:00] LABS: Alkaline Phosphatase 98 U/L (39-117)
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
--- OUTSIDE RECORDS SUMMARY | 2024-12-13 18:47 | XMS_ITS | Clinical Summary ---
Author Organization [facility] Address [address] [place] [address] Phone Care Team Providers Care Varnish Finisher Name Role Phone [facility] Primary Care Provider [phone] Allergies No known active allergies Medications amLODIPine [...] Type 2 diabetes mellitus 08/15/2015 023 Immunizations Immunization Administration Dates Next Due Hepatitis B 02/13/2021 [...] Hemoglobin A1C 03/02/2023 11/30/2022, 11/15 Influenza Vaccine (Season Ended) 2025 04/13/20 18 Pneumococcal Vaccine: Peds ( 0 to 5 Years) and At-Risk Patients (6 to 49 Years) Completed 11/30/2022, 07/20/2018 Insurance Medicaid [place] Care Teams Varnish Finisher Relationship Specialty Start Date End Date Devi Razo [address] [place] [address] PCP - General 02/24/23
== END 2024-12-13 18:49 | disposition left against medical advice (07) ==
LOC: HO.ED 18:46
PROVIDERS: Emergency Provider Emergency Medicine
DX: M79.604 Pain in right leg (principal); M79.671 Pain in right foot; R60.0 Localized edema; Z79.899 Other long term (current) drug therapy
CPT/HCPCS: 36415; 73620; 80053; 85025; 93971; 99281; 99284

== ENCOUNTER → 2024-12-13 15:27 | Outpatient (BNV) | payer MEDICAID, SELFPAY | PROVIDERS: Visit Provider Radiology Diagnostic Radiology | DX: M79.661 Pain in right lower leg (principal); R05.9 Cough, unspecified; M79.671 Pain in right foot | CPT/HCPCS: 73620; 93971 ==

== ENCOUNTER 2024-12-14 08:49 | Emergency (ER) | payer MEDICAID, SELFPAY ==
[2024-12-14 08:51] VITALS: BP 141/72; PULSE 88; RESP 20; TEMP 36.3; O2SAT 99; BMI 34.6
--- OUTSIDE RECORDS SUMMARY | 2024-12-14 09:10 | XMS_ITS | Clinical Summary ---
Author Organization [facility] Address [address] [place] [address] Phone Care Team Providers Care Painter Ski Edge Name Role Phone [facility] Primary Care Provider [phone] Allergies No known active allergies Medications amLODIPine [...] 50 Years) Completed 11/30/2022, 07/20/2018 Insurance Medicaid [place] Care Teams Painter Ski Edge Relationship Specialty Start Date End Date Devi Razo [address] [place] [address] PCP - General 02/24/23
--- NOTE | 2024-12-14 09:15 | ED_ITS ---
HPI - General Adult General Chief complaint: Extremity Injury, Lower Stated complaint: R Foot Swelling Redness Time Seen by Provider: 12/14/24 09:12 Source: patient and RN notes reviewed Mode of arrival: ambulatory Limitations: no limitations History of Present Illness ED Provider: Eunice Hastings PA-C HPI narrative: This is a 49-year-old male, with a history of insulin dependent diabetes, hypertension, hyperlipidemia, who presents emergency department with concerns for right leg redness and pain which started yesterday. Patient describes the pain as a burning like sensation, worsening with ambulation. Patient denies any recent trauma or injury to his leg. Denies history of similar symptoms in the past. He reported to the emergency room yesterday however left without completing treatment as he had a family emergency. He states that he has a chronic foot ulcer on the right foot however sees wound care at [facility], and states that he has had no changes, and believes that it is healing well. He denies any fevers, chills, chest pain, shortness of breath, abdominal pain, nausea, vomiting or diarrhea. Denies taking any medications at home to treat his current symptoms. Denies any other complaints or concerns at this time. MD complaint: Right leg pain, redness Onset (ago): day(s) Radiation: non-radiation Severity: moderate Quality: burning Pain Consistency: constant Relieving factors: immobilization Exacerbating factors: none Associated symptoms: denies other symptoms Treatments prior to arrival: none Related Data Home Medications ?Medication ?Instructions ?Recorded ?Confirmed fluticasone propionate 50 1 spray intranasal DAILY PRN Nasal 02/27/21 06/14/24 mcg/actuation nasal Congestion spray,suspension insulin detemir U-100 100 unit/mL 54 unit subcut BEDTIME 02/27/21 06/14/24 (3 mL) subcutaneous pen (Levemir FlexTouch U-100 Insulin) multivitamin 1 tab PO DAILY 02/27/21 06/14/24 amlodipine 5 mg-olmesartan 20 mg 1 tab PO BEDTIME 06/14/24 06/14/24 tablet atorvastatin 80 mg tablet 80 mg PO BEDTIME 06/14/24 06/14/24 empagliflozin 25 mg tablet 25 mg PO DAILY 06/14/24 06/14/24 (Jardiance) insulin lispro 100 unit/mL 4 unit subcut DAILY@1700 06/14/24 06/14/24 subcutaneous pen metoprolol succinate 25 mg 25 mg PO DAILY 06/14/24 06/14/24 tablet,extended release 24 hr thiamine HCl (vitamin B1) 100 mg 100 mg PO DAILY 06/14/24 06/14/24 tablet Previous Rx's ?Medication ?Instructions ?Recorded celecoxib 200 mg capsule (Celebrex) 200 mg PO BID 30 days #60 caps 10/14/23 amoxicillin 875 mg-potassium 1 tab PO BID #20 tabs 06/18/24 clavulanate 125 mg tablet cephalexin 500 mg capsule 500 mg PO QID 7 days #28 caps 12/14/24 doxycycline hyclate 100 mg tablet 100 mg PO BID 7 days #14 tabs 12/14/24 prednisone 20 mg tablet 20 mg PO DAILY 5 days #5 tabs 12/14/24 Allergies Allergy/AdvReac Type Severity Reaction Status Date / Time glyburide Allergy Unknown weight gain Verified 12/14/24 08:55 Review of Systems 2 Review of Systems: Constitutional: No Weight loss, No Fever, No Chills, No Night Sweats, No Fatigue, No Malaise ENT/Mouth: No Hearing loss, No Ear Pain, No Nasal Congestion, No Sinus Pain, No Hoarseness, No sore throat, No Rhinorrhea, No Swallowing Difficulty Eyes: No Eye Pain, No Swelling, No Redness, No Foreign Body, No Discharge, No Vision Changes Cardiovascular: No Chest Pain, No SOB, No Dyspnea on Exertion, No Orthopnea, No Edema, No Palpitations Respiratory: No Cough, No Sputum, No Wheezing, No Smoke Exposure, No Dyspnea Gastrointestinal: No Nausea, No Vomiting, No Diarrhea, No Constipation, No Abdominal pain, No Hematochezia, No Melena Genitourinary: No irregular bleeding, No Dysuria, No Urinary Frequency, No Hematuria, No Urinary Incontinence/retention, No Urgency, No Flank Pain, No Urinary Flow Changes, No Hesitancy Musculoskeletal: No joint pain, No Myalgias, No Joint Swelling Skin: No Skin Lesions, + rash Neuro: No Weakness, No Numbness, No Paresthesias, No Loss of Consciousness, No Dizziness, No Headache Psych: No Anxiety/Panic, No Depression, No SI/HI/AH/VH, No Social Issues, Heme/Lymph: No Bruising, No Bleeding,No Lymphadenopathy Endocrine: No Polyuria, No Polydipsia, No Temperature Intolerance Yes all other systems are reviewed and are negative Constitutional: Constitutional: Reports as per [facility] Past Medical History 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 Social History Social History Household Members: Spouse, Family and Children Housing: House Do you presently have visiting nurse or other home services: No Alcohol intake: never Patient Tobacco Use Status: Never used Tobacco Substance Use Type: Crack/Cocaine Advance Directives: No Advance Directives Information Provided: No Do you have a plan to hurt others: No Plan service: No Current occupational status: employed 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 Exam ED Vital Signs: Vital Signs - 24 hr 12/14/24 08:51 12/14/24 12:12 Temperature 97.3 F 98 F Pulse Rate 88 80 Respiratory Rate 20 18 Blood Pressure 141/72 H 135/73 Pulse Oximetry 99 96 Oxygen Delivery Method Room Air Room Air BMI result Body Mass Index 34.6 Const General: cooperative, comfortable and no acute distress Orientation/consciousness: patient oriented x3 Limitations: no limitations HENMT Head: Yes normal to inspection, Yes normocephalic and Yes atraumatic Ears: hearing grossly normal bilaterally General nose exam: Normal external nose present Face and sinus: Yes normal facial exam Mouth: Normal oral and palatal mucosa present, oropharynx normal and moist mucous membranes Throat: Yes posterior oropharynx normal Eyes General: appearance normal, both eyes and all related structures Eyelids: Yes eyelids normal Conjunctivae: conjunctivae normal Sclerae: sclerae normal Pupils: Equal, round and reactive pupils present EOM: EOMs intact bilaterally Neck Neck: Yes normal visual inspection, Yes full ROM and Yes no lymphadenopathy Lymphatic: no lymphadenopathy noted Chest Chest palpation & inspection: normal inspection of the chest Resp Effort & Inspection: normal respiratory effort and able to speak in complete sentences Auscultation: clear to auscultation bilaterally, no crackles, no rales, no rhonchi and no wheezes Cardio Rate: regular rate Rhythm: regular rhythm Heart sounds: S1 normal heart sound present and S2 normal heart sound present GI Inspection: Yes normal to inspection Skin Other: Right foot along dorsum of the foot, lateral aspect, there is a dry well healed chronic wound noted, no surrounding erythema or warmth, nontender, nonfluctuant, nontender. Right lower extremity with well perfused with strong DP pulses, extremity is warm. Rash does not keyon. No open wounds or sores. Nontender. No pitting edema noted. No calf tenderness. Neuro General: patient oriented x3 and moves all extremities Cranial nerves: Yes Equal, round and reactive pupils present Extrem General: Yes normal to inspection Right upper extremity: normal to inspection Left upper extremity: normal to inspection Right lower extremity: normal to inspection Left lower extremity: normal to inspection Medications Administered Discontinued Medications Generic Name Dose Route Start Last Admin Trade Name Freq PRN Reason Stop Dose Admin Ceftriaxone Sodium 1 gm 12/14/24 09:32 12/14/24 10:40 Ceftriaxone Sodium 1 Gm Vial IVPUSH 12/14/24 09:33 1 gm ONCE ONE Administration Sodium Chloride 1,000 mls @ 999 mls/hr 12/14/24 09:33 12/14/24 12:27 Ns IV 12/14/24 10:33 Infused .Q1H1M ONE Infusion Sodium Chloride 2,259 mls @ 2,259 mls/hr 12/14/24 10:40 12/14/24 10:41 Ns IV 12/14/24 11:39 2,259 mls/hr .Q1H STA Administration Medical Decision Making Medical Decision Making [facility] Narrative: This is a 49-year-old male, with a history of insulin dependent diabetes, who presents emergency department with concerns for right leg redness and pain which started yesterday. On arrival, patient mildly hypertensive at 141/72, he is afebrile. Patient was seen here yesterday where he had labs performed as well as an ultrasound. Ultrasound did not reveal any DVT. Labs did reveal slight leukocytosis at 14. On examination, patient has ? Vascular rash versus cellulitis versus contact dermatitis. We will repeat labs, will also administer IV fluids and IV antibiotics to start treatment for possible overlying cellulitis. He also has a chronic wound noted to his foot, no evidence of infection at this time, appears to be well healed. Patient declines wanting any pain medication at this time. He is well-appearing. He is not currently on any antibiotics at this time. We will continue to closely monitor pending overall workup today. Course: 10:40AM - received lactic acidosis at 2.1. IV fluids as well as IV antibiotics are already ordered. We will continue to closely monitor pending return of other labs. 1303 - all labs have returned, he does have leukocytosis at 12k, improved from yesterday which was 14, ESR elevated at 73, he does have a history of elevated inflammatory markers, CRP elevated at 14.4. Repeat lactic acid is 1.1. Given patient is well-appearing under no acute distress, and rash appears to be a vasculitis, I do not believe that patient would benefit from hospital admission at this time. I discussed this case with my attending physician, Dr. Heredia. Will discharged on prednisone, and antibiotics. Discussed that patient needs to closely monitor his blood glucose levels as prednisone can cause elevation in this. He understands and will closely monitor. Given strict return precautions. He understands and agrees with plan. Differential Diagnosis Differential Diagnoses: The differential diagnosis associated with the presentation includes See above Lab Data MDM Lab Attestation statement: I reviewed the patient's lab results. See MDM and course 12/14/24 09:58 12/14/24 09:58 Labs: Lab Results 12/14/24 12/14/24 Range/Units 09:58 12:19 WBC 12.0 H (4.8-10.8) X10*3/uL RBC 4.54 L (4.60-5.80) X10*6/uL Hgb 14.6 (14.0-18.0) g/dl Hct 41.3 L (42.0-52.0) % MCV 91.0 (80.0-98.0) fL MCH 32.2 (27.0-33.0) pg MCHC 35.4 (31.0-36.0) g/dl RDW 12.1 (11.0-16.0) % Plt Count 212 (160-400) X10*3/uL MPV 10.3 (9.4-12.4) fL Immature Gran % (Auto) 0.5 H (0.0-0.4) % Neut % (Auto) 70.1 (45-73) % Lymph % (Auto) 20.1 (20-40) % [place] % (Auto) 8.7 (2-11) % Eos % (Auto) 0.3 (0-4) % Baso % (Auto) 0.3 (0-2) % Lymph # (Auto) 2.4 (1.2-4.9) X10*3/uL [place] # (Auto) 1.0 (0.1-1.2) X10*3/uL Eos # (Auto) 0.0 (0.0-0.4) X10*3/uL Baso # (Auto) 0.0 (0.0-0.2) X10*3/uL Abs Immat Gran (auto) 0.06 H (0.00-0.03) X10*3/uL Absolute Neuts (auto) 8.4 H (2.0-8.3) x10*3/uL Absolute Nucleated RBC 0.000 (0.0-0.012) X10*3/uL Nucleated RBC % (auto) 0.0 (0.0-0.2) /100WBC ESR 73 H (0-15) MM/HR Sodium 135 (135-145) mmol/L Potassium 4.0 (3.3-5.1) mmol/L Chloride 98 (96-108) mmol/L Carbon Dioxide 22 (22-29) mmol/L Anion Gap 19 (12-20) BUN 20 H (9-16) mg/dL Creatinine 0.99 (0.5-1.4) mg/dL Estim Creat Clear Calc 116.3 Estimated GFR > 60 Random Glucose 245 H (60-115) mg/dL Lactic Acid 2.1 H* (0.5-2.0) mmol/L Lactic Acid F/U @ 2Hr 1.1 (0.5-2.0) mmol/L Calcium 9.7 (8.4-10.2) mg/dL Total Bilirubin 0.7 (0.0-1.0) mg/dL Direct Bilirubin 0.3 (0.0-0.5) mg/dL AST 18 (5-37) U/L ALT 14 (0-40) U/L Alkaline Phosphatase 99 (39-117) U/L C-Reactive Protein 14.47 H (< or = 0.50) mg/dL Total Protein 8.2 H (6.5-8.0) g/dL Albumin 4.3 (3.5-5.0) g/dL Radiology Impression Discussion of test interpretation with radiology: I have reviewed the radiologist's reading. Radiologist Impression: Ultrasound that was performed yesterday: US/US venous duplex LE RT IMPRESSION: No evidence of deep venous thrombosis involving the right lower extremity. Electronically signed by: Dmitriy Go MD 12/13/2024 04:05 PM EDT RP Dictated By: Dmitriy Go MD X-ray that was performed yesterday XR/XR foot RT 2V IMPRESSION: 1. Soft tissue wound apparent in the soft tissues lateral to the proximal fifth metatarsal. No subcutaneous gas. 2. No radiographic evidence of osteomyelitis in the foot. 3. Numerous chronic changes as discussed. Electronically signed by: Jeff Burks MD 12/13/2024 03:54 PM EDT External Record Review External record reviewed: Inpatient record Chronic Conditions Patient?s care impacted by: Diabetes Discharge Plan Discharge Clinical Impression: Vasculitis, Cellulitis Patient Disposition: Home, Self-Care Instructions: Cellulitis (ED) Additional Instructions: You were seen in the emergency department due to lower leg pain. You were seen yesterday however left without completing treatment. Your ultrasound yesterday did not show any blood clots. Your foot x-ray did not show any evidence of a bone infection. Your symptoms are likely secondary to something called vasculitis, vasculitis is a condition characterized by inflammation of your blood vessels causing damage with the vessel verma. You also may be starting to have an underlying skin infection therefore we are starting you on antibiotics. We are also starting you on antibiotics, doxycycline is to be taken twice a day for the next 7 days, and Keflex is 4 times a day. Finish the entire course even if your symptoms improve. You were starting you on prednisone, this is a steroid, please be advised that this can cause your blood glucose to be elevated, you need to monitor your sugars more frequently and adjust her insulin as indicated. Take antibiotics with a full glass of water, please be advised that doxycycline can cause you to be more sensitive to the sun, please wear appropriate sun protection. Take doxycycline with food, and do not lay down immediately after taking this medication as this can cause acid reflux. We will call you if your blood cultures are positive, you will need to return back to the emergency room if this is the case. Watch for any new or worsening symptoms including but not limited to increased pain, swelling, increased redness, fevers, chills. If any of these occur, please return for re-evaluation. Prescriptions: New prednisone 20 mg tablet 20 mg PO DAILY 5 Days Qty: 5 0RF doxycycline hyclate 100 mg tablet 100 mg PO BID 7 Days Qty: 14 0RF cephalexin 500 mg capsule 500 mg PO QID 7 Days Qty: 28 0RF No Action fluticasone propionate 50 mcg/actuation spray,suspension 1 spray intranasal DAILY PRN (Reason: Nasal Congestion) Levemir FlexTouch U100 Insulin 100 unit/mL (3 mL) insulin pen 54 unit subcut BEDTIME multivitamin Tablet 1 tab PO DAILY atorvastatin 80 mg tablet 80 mg PO BEDTIME thiamine HCl (vitamin B1) 100 mg tablet 100 mg PO DAILY metoprolol succinate 25 mg tablet extended release 24 hr 25 mg PO DAILY insulin lispro 100 unit/mL insulin pen 4 unit subcut DAILY@1700 amlodipine-olmesartan 5-20 mg tablet 1 tab PO BEDTIME Jardiance 25 mg tablet 25 mg PO DAILY amoxicillin-pot clavulanate 875-125 mg tablet 1 tab PO BID Qty: 20 0RF celecoxib [Celebrex] 200 mg capsule 200 mg PO BID 30 Days Qty: 60 3RF Print Language: [place]
--- NOTE | 2024-12-14 09:58 | PC.NURSE ---
Patient awake and alert. skin pwd, resp even and non labored, speaking in full, clear sentences. Patient c/o right lower leg swelling, erythema and warmth. denies pain, positive CSM. IV established and labs obtained including blood cultures, plc technician aware of need for 2nd set of blood cultures.
[2024-12-14 10:13] LABS: MANUAL DIFF FLAG NO
[2024-12-14 10:16] LABS: Basophils Percent Auto 0.3 % (0-2); Eosinophils Percent Auto 0.3 % (0-4); Hematocrit 41.3 % (42.0-52.0); Hemoglobin 14.6 g/dl (14.0-18.0); Imm Gran Abs Auto 0.06 X10*3/uL (0.00-0.03); Imm Gran Pct Auto 0.5 % (0.0-0.4); Lymphocytes Absolute Auto 2.4 X10*3/uL (1.2-4.9); Lymphocytes Percent Auto 20.1 % (20-40); Mean Corpuscular HGB Conc 35.4 g/dl (31.0-36.0); Mean Corpuscular Hemoglobin 32.2 pg (27.0-33.0); Mean Platelet Volume 10.3 fL (9.4-12.4); Monocytes Percent Auto 8.7 % (2-11); Neutrophils Absolute Auto 8.4 x10*3/uL (2.0-8.3); Neutrophils Percent Auto 70.1 % (45-73); Platelet Count 212 X10*3/uL (160-400); Red Blood Count 4.54 X10*6/uL (4.60-5.80); Red Cell Distribution Width 12.1 % (11.0-16.0)
[2024-12-14 10:38] LABS: Lactic Acid 2.1 mmol/L (0.5-2.0)
[2024-12-14 10:40] LABS: Alanine Aminotransferase 14 U/L (0-40); Albumin Level 4.3 g/dL (3.5-5.0); Alkaline Phosphatase 99 U/L (39-117); Anion Gap 19 (12-20); Aspartate Amino Transferase 18 U/L (5-37); Bilirubin Direct 0.3 mg/dL (0.0-0.5); Bilirubin Total 0.7 mg/dL (0.0-1.0); Blood Urea Nitrogen 20 mg/dL (9-16); C Reactive Protein 14.47 mg/dL (< or = 0.50); Calcium 9.7 mg/dL (8.4-10.2); Carbon Dioxide 22 mmol/L (22-29); Chloride 98 mmol/L (96-108); Creatinine Clr Calc Pharmacy 116.3; Estimated Glomerular Filt Rate > 60; Glucose Random 245 mg/dL (60-115); Sodium 135 mmol/L (135-145); Total Protein 8.2 g/dL (6.5-8.0)
[2024-12-14] MEDS: cefTRIAXone sodium 1 GM VIAL IVPUSH (10:40)
[2024-12-14] MEDS: 0.9 % Sodium Chloride 2,259 ML 2259 ML IV (10:41)
[2024-12-14] MEDS: 0.9 % Sodium Chloride 1,000 ML 999 ML IV (10:41)
[2024-12-14 11:10] LABS: Erythrocyte Sedimentation Rate 73 MM/HR (0-15)
[2024-12-14 12:12] VITALS: BP 135/73; PULSE 80; RESP 18; TEMP 36.6; O2SAT 96
[2024-12-14 12:12] LABS: Reflex Lactate? Lactic Acid Added
[2024-12-14 12:37] LABS: ~Lactic Acid-LAB USE ONLY 1.1 mmol/L (0.5-2.0)
[2024-12-14 13:22] VITALS: BP 156/85; PULSE 82; RESP 16; TEMP 37; O2SAT 98
== END 2024-12-14 13:23 | disposition home or self-care (01) ==
PROVIDERS: Physician Assistant Medical; Emergency Provider Emergency Medicine
DX: L03.119 Cellulitis of unspecified part of limb (principal); I77.6 Arteritis, unspecified; M79.604 Pain in right leg; E11.9 Type 2 diabetes mellitus without complications; I10 Essential (primary) hypertension; E78.5 Hyperlipidemia, unspecified; Z79.4 Long term (current) use of insulin; Z79.899 Other long term (current) drug therapy
CPT/HCPCS: 36415; 80048; 80076; 83605; 85025; 85652; 86140; 87040; 96361; 96374; 99284; J0696

== ENCOUNTER 2025-03-12 14:21 | Outpatient (REF) | payer MEDICAID, SELFPAY ==
--- OUTSIDE RECORDS SUMMARY | 2025-03-12 15:21 | XMS_ITS | Clinical Summary ---
Author Organization [employer] Address [address] [place] [address] Care Team Providers Care Rotary Drier Name Role Phone Emerita Parish PharmD Unavailable [phone] Skye Ba CNP Primary Care Provider [phone] Allergies Active Allergy Reactions Criticality Noted Date Comments Lisinopril Cough 03/01/2025 Medications * This document contains information received from the source organization and may not represent a complete record from that organization. Alcohol Swabs (Alcohol Prep) 70 % pads 023 Active Blood Pressure Monitor kitIndications:E ssential hypertension Use as directed 1 kit 024 Active Jardiance 25 MGIndications:Ty pe 2 diabetes mellitus with hyperglycemia, with long-term current use of insulin ([facility]) TAKE 1 TABLET BY MOUTH EVERY MORNING 90 tablet 3 024 Active Blood Glucose Monitoring Suppl (FreeStyle Lite) w/Device kitIndications:T ype 2 diabetes mellitus with hyperglycemia, with long-term current use of insulin ([facility]) 1 each 3 times daily. Test blood sugar every 8 hours as directed. 1 kit 024 Active glucose blood (FreeStyle Precision Luis Test) test strip Test blood sugar every 8 hours 100 each 11 024 2024 Active insulin pen needle (Pentips) 32G x 4 mm misc USE FOR INSULIN ADMINISTRATION TWICE DAILY 100 each 3 025 Active meloxicam (Mobic) 7.5 MG tabletIndication s:Osteoarthritis of both knees, unspecified osteoarthritis type Take 2 tablets (15 mg) by mouth Once per day. 60 tablet 11 08/10/2 025 2025 Active thiamine (Vitamin B-1) 100 MG tablet TAKE 1 TABLET BY MOUTH EVERY MORNING 90 tablet 1 Active Continuous Glucose Tobacco Prizer (FreeStyle Abraham 2 [place]) deviceIndication s:Type 2 diabetes mellitus with hyperglycemia, with long-term current use of insulin ([facility]) Use as directed 1 each Active Continuous Glucose Sensor (FreeStyle Abraham 2 Sensor) miscIndications: Type 2 diabetes mellitus with hyperglycemia, with long-term current use of insulin ([facility]) USE DIRECTED, CHANGE EVERY 14 DAYS 2 each 3 Active atorvastatin (Lipitor) 80 MG tabletIndication s:Type 2 diabetes mellitus with hyperlipidemia ([facility]) ([facility] TAKE 1 TABLET BY MOUTH EVERY EVENING 90 tablet 3 Active insulin degludec (Tresiba FlexTouch) 100 UNIT/ML injectionIndicat ions:Type 2 diabetes mellitus with hyperglycemia, with long-term current use of insulin ([facility]) Inject 52 units by subcutaneous route every evening 3 mL 12 Active TRUEplus Lancets 33G miscIndications: Type 2 diabetes mellitus with hyperglycemia, with long-term current use of insulin ([facility]) TEST BLOOD SUGAR THREE TIMES DAILY 100 each 11 025 Active sertraline (Zoloft) 25 MG tabletIndication s:Current severe episode of major depressive disorder without psychotic features without prior episode ([facility]) Take 1 tablet (25 mg) by mouth Once per day. Take 1 tablet (25 mg) daily for 1 week. If tolerated may increase to 2 tabs (50 mg) daily. 30 tablet 025 2025 Active gabapentin (Neurontin) 100 MG capsuleIndicatio ns:Neuropathy of both feet Take 1 capsule (100 mg) by mouth every 8 (eight) hours. 90 capsule 025 2025 Active tiZANidine (Zanaflex) 4 MG tabletIndication s:Muscle strain of chest wall, initial encounter Take 1 tablet (4 mg) by mouth every 8 (eight) hours if needed for muscle spasms for up to 10 days. 30 tablet 025 Active losartan (Cozaar) 50 MG tabletIndication s:Essential hypertension Take 1 tablet (50 mg) by mouth Once per day. 30 tablet 11 025 2025 Active insulin lispro (HumaLOG) 100 UNIT/ML injectionIndicat ions:Type 2 diabetes mellitus with hyperglycemia, with long-term current use of insulin ([facility]) INJECT 8 UNITS SUBCUTANEOUSLY BEFORE BREAKFAST, BEFORE LUNCH, AND BEFORE SUPPER. DO NOT USE IF SKIP MEAL. 15 mL 1 Active insulin lispro (HumaLOG KWIKPEN) 100 UNIT/ML injectionIndicat ions:Type 2 diabetes mellitus with hyperglycemia, with long-term current use of insulin ([facility]) Inject 8 units subcutaneously before breakfast, lunch, and dinner. Do not use if skipping meal. 15 mL 1 025 2024 Discontinued lisinopril (Prinivil) 20 MG tabletIndication s:Type 2 diabetes mellitus with hyperglycemia, with long-term current use of insulin ([facility]),Essent ial hypertension Take 1 tablet (20 mg) by mouth Once per day. 30 tablet 025 2024 Discontinued(S kerry effects) ibuprofen 200 MG tabletIndication s:Muscle strain of chest wall, initial encounter Take 1 tablet (200 mg) by mouth every 6 (six) hours if needed for mild pain for up to 10 days. 40 tablet 025 2024 Active Problems Problem Noted Date Diagnosed Date Type 2 diabetes mellitus wit h hyperglycemia, with long-term current use of insulin 03/01/2025 Overview (03/01/2025): Lispro 10 units TID with meals Tresiba 56 units at bedtime Jardiance 25 mg Previously followed with CDTM in the past but no showed x 4 Assessment & Plan (03/01/2025 12:07 PM EDT): Lab Results Component Value Date HGBA1C 10.9 (A) 03/01/2025 Since 11/2024 pt has reduced his A1c by 1 point. I congratulated patient for this accomplishment. A1c still above goal. Pt does check BG, he usually checks post prandial readings which are in the 200s. He does report his BG first thing in the morning is >200. I provided education about importance of checking pre and post prandial glucose to guide tx and mgmt. Today based on elevated morning fasting glucose and unclear hx of pre prandial glucose readings we will adjust basal insulin from 56 units to 60 units. I will also have pt return in 2 weeks to have BP and BG check. At this point we can decide how to titrate mealtime insulin based on pre prandial glucose readings. Maintenance BMP: due, ordered Microalbumin: due, ordered Foot Exam: UTD Eye Exam: UTD, last 09/2024 Lipid panel: due, ordered Statin: yes ASA: no ALYSON/ARB: yes Treatment Goals: A1c goal: <7% FBG goal: <130 2 hour post prandial goal: <180 Advised Low sugar and Low carb diet. Counseled regarding self-monitoring of blood glucose. Counseled re: potential co-morbidities including cardiovascular disease. Counseled re: potential co-morbidities include neuropathy and retinopathy. Counseled re: potential co-morbidities include nephropathy. Chest wall muscle strain 03/01/2025 Assessment & Plan (03/01/2025 12:12 PM EDT): Muscle strain 2/2 coughing, benign PE Will rx ibuprofen and tizanidine for muscle strain Advised ice and heat for pain relief Osteoarthritis of left knee 07/06/2024 Assessment & Plan (08/24/2024 8:59 AM EST): Pt may continue with meloxicam and tylenol prn for pain control Acupuncture referral is pending Pt would benefit from supportive DME in his home including supportive bars in the bathroom to help with mobility as well as a cane to help with ambulation. Pt has an intake with [facility] scheduled [...] to breakdown of skin 07/04/2024 Osteomyelitis of great toe of right foot 024 Overview (11/23/2024): Area is healing Severe obesity (BMI 35.0-39.9) with comorbidity 04/06/2024 Cocaine use 01/24/2024 Major depressive disorder 01/16/2024 Left knee pain 01/06/2024 Assessment & [...] plans to attend hyperbaric oxygen therapy at [facility] starting next week 08/13, PT 1 requested Pt plans to continue with VNA services Assessment & Plan (07/06/2024 11:10 AM EST): Ulcer is healing well Patient will continue with VNA services, wound site care twice a week Patient plans to go to [facility] for hyperbaric oxygen treatment Will send DME request for forefoot offloading healing shoe for right foot. History of pancreatitis 03/18/2023 Hypertriglyceridemia 03/18/2023 Inactive tuberculosis 11/19/2022 Overview (11/14/2023): case clsoedPt. NOS x2 scheduled TB clinic appts. case clsoedPt. NOS x2 scheduled TB clinic appts. case clsoedPt. NOS x2 scheduled TB clinic appts. Class 1 obesity 07/20/2018 Essential hypertension 08/15/2015 Overview (03/01/2025): - Aerobic exercise to reduce BP. Initial [...] consulting health care provider Assessment & Plan (03/01/2025 12:11 PM EDT): BP above goal >130/80 Switched lisinopril to cozaar due to side effects-cough Advised pt to check BP twice daily Ordered BMP to have pt complete at RN BP check in 2 weeks F/u in 3 months Assessment & Plan (01/06/2024 4:38 PM EDT): Uncontrolled BP today -not taking BP meds for last 6 days -advised pt to get home today and take his home BP meds, resume insulin -explained in length importance to be complaint and to avoid missing doses of meds -apt w CDTM 01/26/2024 -apt w PCP 03/07/2024 Assessment & Plan (03/18/2023 9:33 AM EDT): Continue current regimen BP well controlled Assessment & Plan (12/05/2022 6:25 PM EDT): Continue current regimen BP well controlled Hyperlipidemia 08/15/2015 Overview (12/05/2022): Atorvastatin 80mg Fenofibrate 130mg daily Assessment & Plan (12/05/2022 6:24 PM EDT): Continue current regime Repeat labs today Type 2 diabetes mellitus [...] Component Value Date HGBA1C 15.0 (A) 02/24/2023 STOP levemir START tresiba 44 units at bedtime. Plan to titrate up 2 units q. 3 days INCREASE jardiance to 25mg Referral to [facility] DM educator PA initiated for CGM Assessment & Plan (12/05/2022 6:22 PM EDT): Lab Results Component Value Date HGBA1C 10.1 (A) 11/30/2022 Increased A1c from 8.8% 11/2022 Suspect hyperglycemia s/t boost energy drinks. Patient will discontinue immediately. START jardiance 10mg daily Reviewed administration, risks, side effects Continue 42 units levemir at bedtime Resolved Problems Problem Noted Date Diagnosed Date Resolved Date COVID-19 11/19/2022 03/18/2023 Encounters Date Type Department Care Team Description 03/08/2025 Refill [facility] [address] [place] [address] Skye Ba CNP Type 2 diabetes mellitus with hyperglycemia, with long-term current use of insulin ([facility]) 03/01/2025 10:15 AM EDT Office Visit [facility] [address] [place] [address] Skye Ba CNP Type 2 diabetes mellitus with hyperglycemia, with long-term current use of insulin ([facility]) (Primary Dx); Current severe episode of major depressive disorder without psychotic features without prior episode ([facility]); Essential hypertension; Encounter for screening for malignant neoplasm of colon; Muscle strain of chest wall, initial encounter 03/01/[address] [address] Skye Ba CNP Appointment 03/01/2025 Travel 02/28/[address] [address] Chloe Peterson MA CHARTPREP 02/05/[address] [address] Chloe Peterson [place] CHARTPREP 02/01/2025 Travel 01/31/[address] [address] Lila Townsend MA Chart Prep 01/24/[address] [address] Skye Ba CNP Chart Prep 01/09/[address] [address] Skye Ba CNP 12/28/2024 9:15 AM EDT Office Visit [address] [address] Skye Ba CNP Type 2 diabetes mellitus with hyperglycemia, with long-term current use of insulin ([facility]) (Primary Dx); Current severe episode of major depressive disorder without psychotic features without prior episode ([facility]); Essential hypertension; Neuropathy of both feet; Osteoarthritis of both knees, unspecified osteoarthritis type 12/28/2024 Travel 12/27/2024 Telephone [facility] MEDICINE [address] [place], [place] [phone] Chloe Peterson MA CHARTPREP 12/17/2024 Telephone [facility]INE [address] [place] [address] Skye Ba CNP 12/17/2024 Telephone [facility] [address] [place], [place] [phone] Skye Ba CNP ER Follow-up 12/14/2024 Orders Only GENERIC EXTERNAL DATA DEPARTMENT Provider, Generic External Data from Last 3 Months Immunizations Immunization Administration Dates Next Due DT (pediatric) 09/21/2008 Hep B, adult 04/06/2024,01/26/2024,02/13/2021 Influenza injectable quadriv alent preservative free 04/13/2018 Influenza, IIV3, injectable 05/14/2024, 8 Influenza, seasonal, injecta ble, preservative free 05/14/2024 Moderna Covid-19 Vaccine 12+ 12/09/2020,11/12/19 21 Pneumococcal Conjugate PCV 20 11/30/2022 Pneumococcal Polysaccharide PPSV23 07/20/2018 Td (adult), 5 Lf tetanus tox oid, preservative free, adsorbed 01/14/2012 Td (adult), unspecified 01/14/2012 Tdap 07/20/2018 Social History Tobacco Use Types Packs/Day Years Used Date Smoking Tobacco: Never Passive Smoke Exposure: Never Smokeless Tobacco: Never Tobacco Cessation:Counseling Given: [...] Answer Date Recorded Patient Health Questionnaire-9 Score 23 11/23/2024 Patient Health Questionnaire-9 Score 23 11/23/2024 Last PHQ-9: Questionnaire Data Not on file 0 11/23/2024 Housing Stability Answer Date Recorded What is your housing situation today? I have boone early 11/23/[address] you li ve. Do you have problems with any of the following? I am not sure 11/23/2024 Food Insecurity Answer Date Recorded Within the past 12 months, y ou worried that your food would run out before you got money to buy more: Often true 11/23/2024 Within the past 12 months,th e food you bought just didn't last and you didn't have enough money to get more: Often true 03/2025 Transportation Answer Date Recorded In the past 12 months, has l ack of transportation kept you from medical appts, meetings, work or from getting things needed for daily living? No 05/12/2023 Utilities Answer Date Recorded In the past 12 months, has t he electric, gas, oil or water company threatened to shut off services in your home? Yes 11/23/2024 Depression Answer Date Recorded Patient Health Questionnaire-2 Score 5 11/23/2024 Internet Access Answer Date Recorded Internet Access Q1 No 11/23/2024 Internet Access Q2 I do not want or need it 03/2025 Sex and Gender Information Value Date Recorded Sex Assigned at Male 05/17/2022 10:19 AM EDT Legal Sex Male 10:19 AM EDT Gender Identity Male 05/17/2022 10:19 AM EDT Sexual Orientation Straight 05/17/2022 10 :19 AM EDT Last Filed Vital Signs Vital Sign Reading Time Taken Comments Blood Pressure 160/78 03/01/2025 10:20 AM EDT Pulse 104 03/01/2025 10:20 AM EDT Temperature 37 C (98.6 F) 03/01/2025 10:20 AM EDT Respiratory Rate 16 03/01/2025 10:20 AM EDT Oxygen Saturation 95% 03/01/2025 10:20 AM EDT Inhaled Oxygen Concentration - - Weight 119 kg (262 lb 4 oz) 03/01/2025 10:20 AM EDT Height 180.3 cm (5' 11 ) 03/01/2025 10:20 AM EDT Body Mass Index 36.58 03/01/2025 10:20 AM EDT Plan of Treatment Upcoming Encounters Date Type Department Care Team (Late st Contact Info) Description 03/15/2025 10:00 AM EDT Clinical Support [facility]INE [address] [place] [address] 04/04/2025 1:30 PM EDT Office Visit [facility] ADULT DENTAL [address] [place] [address] Jak Gonzalez, DMD [address] [place] [address] Health Maintenance Due Date Last Done Comments [...] Vaccine ( season) 2024 08/17/2021, 12/09/2020, 11/11/2020 SDOH Screening 11/22/2024 11/23/2023 Influenza Vaccine (#1) 2025 , 05/14/2024, 04/13/2018, Additional history exists Depression Monitoring 05/26/2025 11/23/2024, 025 Diabetes: Hemoglobin A1C 06/01/2025 025, 12/28/2024, 11/23/2024, Additional history exists Diabetes: Foot Exam 08/10/2025 08/10/2024, 08/10/2024, 08/10/2024, Additional history exists Lipid Panel 08/14/2025 08/14/2024, 12/16, 11/26/2022, Additional history exists Eye Exam 09/18/2025 09/18/2024, 10/2024, 09/18/2024, Additional history exists Alcohol/Substance Use Screening 11/23/2025 11/23/2024 Disability Screening 02/01/2026 02/01/2025 Tobacco Screening 03/01/2026 03/01/2025 Zoster Vaccines (1 of 2) 2026 DTaP/Tdap/Td Vaccines (2 - Td or Tdap) 07/20/2028 07/20/2018, 01/14/2012, 01/14/2012 RSV Patients and Patients Aged 60 years or older (1 - 1-dose 75+ series) 2051 HIV Screening Completed 02/12/2021 Hepatitis C Screening Completed 02/12/2021 Pneumococcal Vaccine: Pediatrics (0 to 5 Years) and At-Risk Patients (6 to 49) Years Completed 11/30/2022, 07/20/2018 Hepatitis B Vaccines Completed 04/06/2024, 01/26/2024, 02/13/2021 HIB Vaccines Aged Out No longer eligi [...] patient's age to complete this topic Meningococcal B Vaccine Aged Out No l onger eligible based on patient's age to complete [...] Author Blood Pressure < 140/90 Blood Pressure 160/78(2024 10:20 AM EDT) No Emerita Cabrera, PharmDangelo Hemoglobin A1c < 7 Result Component 10.9(03/01/20 10:25 AM EDT) No Emerita Cabrera PharmD Procedures Procedure Name Priority Date/Time Associated Diagnosis Comments POCT GLYCATED HEMOGLOBIN, TOTAL Routine 03/01/2025 10:25 AM EDT Type 2 diabetes mellitus with hyperglycemia, with long-term current use of insulin ([facility]) POCT GLUCOSE Routine 03/01/2025 10:22 AM EDT Type 2 diabetes mellitus with hyperglycemia, with long-term current use of insulin ([facility]) POCT GLYCATED HEMOGLOBIN, TOTAL Routine 12/28/2024 9:34 AM EDT Type 2 diabetes mellitus with hyperglycemia, with long-term current use of insulin ([facility]) POCT GLUCOSE Routine 12/28/2024 9:32 AM EDT Type 2 diabetes mellitus with hyperglycemia, with long-term current use of insulin ([facility]) LACTIC ACID LAB USE ONLY Routine 12/14/2024 12:19 PM EDT BLOOD CULTURE (SECOND) Routine 12/14/2024 10:38 AM EDT SED RATE BY MODIFIED WESTERGREN Routine 12/14/2024 9:58 AM EDT C-REACTIVE PROTEIN Routine 12/14/2024 9: 58 AM EDT BASIC METABOLIC PANEL Routine 12/14/2024 9:58 AM EDT HEPATIC FUNCTION PANEL Routine 12/14/2024 9:58 AM EDT LACTIC ACID Routine 12/14/2024 9:58 AM EDT CBC WITH AUTO DIFFERENTIAL Routine 12/14/2024 9:58 AM EDT BLOOD CULTURE (FIRST) Routine 12/14/2024 9:58 AM EDT LIPID PANEL, STANDARD Routine 08/14/2024 3:18 PM EST Type 2 diabetes mellitus with hyperlipidemia (CMS/HCC) ([facility]) ALBUMIN, RANDOM URINE W/CREATININE Routine 01/26/2022 4:13 PM EDT ZZZ HISTORICAL HEPATITIS C AB W/REFL TO HCV RNA, QN, PCR Routine 02/12/2021 2:51 PM EDT HIV 1/2 ANTIGEN/ANTIBODY, FOURTH GENERATION W/RFL Routine 02/12/2021 2:51 PM EDT PROPHYLAXIS - ADULT Routine 10/18/2016 1 2:00 AM EDT INTRAORAL - COMPLETE SERIES OF RADIOGRAPHIC IMAGES Routine 05/19/2015 12:00 AM EST COMPREHENSIVE ORAL EVALUATION - NEW OR ESTABLISHED PATIENT Routine 05/19/2015 12:00 AM EST from Last 3 Months or Most Recently Relevant to Health Maintenance Results * (ABNORMAL) POCT HGB A1C (03/01/2025 10:25 AM EDT) Only the most recent of2 resultswithin the time period is included. [facility] Hemoglobin A1C 10.9(A) 4.0 - 5.7 % QC Media Lot # [id number] Lot# Expiration Date , Blood 03/01/2025 10:2 5 AM EDT Result [facility] POINT OF CARE TEST ENTER/ EDIT ORDERABLES Final Result * (ABNORMAL) POCT Glucose (03/01/2025 10:22 AM EDT) Only the most recent of2 resultswithin the time period is included. [facility] Glucose Blood, POC 500(A) 60 - 200 mg/dL Comment:[facility] QC Media Lot # [id number] Lot# Expiration Date , Blood Capillary blood specimen / Unknown 03/01/2025 10:22 AM EDT [facility] POINT OF CARE TEST ENTER/ EDIT ORDERABLES Final Result * Lactic Acid (12/14/2024 12:19 PM EDT) [facility] Lactic Acid 1.1 0.5 - 2.0 mmol/L [facility] 12/14/2024 12:1 9 PM EDT 12/14/2024 12:21 PM EDT Generic External Data Provider LAB BLOOD ORDERAB LES Final Result Performing Organization Address [facility] de Phone Number [facility] [address] [place] [phone] * Blood Culture (Second) (12/14/2024 10:38 AM EDT) Blood Venous blood specimen / Unknown 12/14/2024 10:38 AM EDT 12/14/2024 10:41 AM EDT Comment:Blood Narrative [facility] - 12/19/2024 12:41 PM EDT Blood Culture (Second) No growth after 5 days. Specimen Source: Blood Generic External Data Provider LAB MICROBIOLOGY - GENERAL ORDERABLES Final Result Performing Organization Address [facility] de Phone Number [facility] [address] [place] [phone] * Blood Culture (First) (12/14/2024 9:58 AM EDT) Blood Venous blood specimen / Unknown 12/14/2024 9:58 AM EDT 12/14/2024 10:12 AM EDT Comment:Blood Narrative [facility] - 12/19/2024 12:13 PM EDT Blood Culture (First) No growth after 5 days. Specimen Source: Blood Generic External Data Provider LAB MICROBIOLOGY - GENERAL ORDERABLES Final Result Performing Organization Address [facility] de Phone Number [facility] [address] [place] [phone] * (ABNORMAL) CBC auto differential (12/14/2024 9:58 AM EDT) Pathologist [facility] White Blood Count 12.0(H) 4.8 - 10.8 X10*3/uL [facility] Red Blood Count 4.54(L) 4.60 - 5.80 X10*6/uL [facility] Hemoglobin 14.6 14.0 - 18.0 g/dl [facility] Hematocrit 41.3(L) 42.0 - 52.0 % [facility] Mean Corpuscular Volume 91.0 80.0 - 98.0 fL [facility] Mean Corpuscular Hemoglobin 32.2 27.0 - 33.0 pg [facility] Mean Corpuscular HGB Conc 35.4 31.0 - 36.0 g/dl [facility] Red Cell Distribution Width 12.1 11.0 - 16.0 % [facility] Platelet Count 212 160 - 400 X10*3/uL [facility] Mean Platelet Volume 10.3 9.4 - 12.4 fL [facility] Neutrophils Percent Auto 70.1 45 - 73 % [facility] Imm Gran Pct Auto 0.5(H) 0.0 - 0.4 % [facility] Lymphocytes Percent Auto 20.1 20 - 40 % [facility] Monocytes Percent Auto 8.7 2 - 11 % [facility] Eosinophils Percent Auto 0.3 0 - 4 % [facility] Basophils Percent Auto 0.3 0 - 2 % [facility] NRBC Pct Auto 0.0 0.0 - 0.2 /100WBC [facility] Neutrophils Absolute Auto 8.4(H) 2.0 - 8.3 x10*3/uL [facility] Imm Gran Abs Auto 0.06(H) 0.00 - 0.03 X10*3/uL [facility] Lymphocytes Absolute Auto 2.4 1.2 - 4.9 X10*3/uL [facility] Monocytes Absolute Auto 1.0 0.1 - 1.2 X10*3/uL [facility] Eosinophils Absolute Auto 0.0 0.0 - 0.4 X10*3/uL [facility] Basophils Absolute Auto 0.0 0.0 - 0.2 X10*3/uL [facility] NRBC Abs Auto 0.000 0.0 - 0.012 X10*3/uL [facility] 12/14/2024 9:58 AM EDT 12/14/2024 10:12 AM EDT us Generic External Data Provider LAB BLOOD ORDERAB LES Final Result Performing Organization Address [facility]/ZIP Co de Phone Number [facility] [address] [place] [phone] * (ABNORMAL) Sed Rate by Modified Westergren (12/14/2024 9:58 AM EDT) Erythrocyte Sedimentation Rate 73(H) 0 - 15 MM/HR [facility] Comment:Patients with polycy themia and many hemoglobin abnormalitiesmay have depressed sed rates whereas patients with anemiamay have elevated sed rates. 12/14/2024 9:58 AM EDT 12/14/2024 10:12 AM EDT us Generic External Data Provider LAB BLOOD ORDERAB LES Final Result Performing Organization Address [facility]/ZIP Co de Phone Number [facility] [address] [place] [address] [phone] * (ABNORMAL) C-reactive Protein (12/14/2024 9:58 AM EDT) C Reactive Protein 14.47(H) < or = 0.50 mg/dL [facility] 12/14/2024 9:58 AM EDT 12/14/2024 10:12 AM EDT us Generic External Data Provider LAB BLOOD ORDERAB LES Final Result Performing Organization Address [facility] Co de Phone Number [facility] [address] [place] [phone] * (ABNORMAL) Lactic Acid (12/14/2024 9:58 AM EDT) Lactic Acid 2.1(HH) 0.5 - 2.0 mmol/L [facility] Comment:Critical value for L ACTIC: Results called to and read anupy: SOO Person calling: NEFTALI Date: 12/14/24 Time: 1037 12/14/2024 9:58 AM EDT 12/14/2024 10:12 AM EDT Generic External Data Provider LAB BLOOD ORDERAB LES Final Result Performing Organization Address [facility] Co de Phone Number [facility] [address] [place] [phone] * (ABNORMAL) Hepatic Function Panel (12/14/2024 9:58 AM EDT) [facility] Bilirubin, Total 0.7 0.0 - 1.0 mg/dL [facility] Bilirubin, Direct 0.3 0.0 - 0.5 mg/dL [facility] Aspartate Amino Transferase 18 5 - 37 U/L [facility] Alanine Aminotransferase 14 0 - 40 U/L [facility] Total Protein 8.2(H) 6.5 - 8.0 g/dL [facility] Albumin Level 4.3 3.5 - 5.0 g/dL [facility] Alkaline Phosphatase 99 39 - 117 U/L [facility] 12/14/2024 9:58 AM EDT 12/14/2024 10:12 AM EDT us Generic External Data Provider LAB BLOOD ORDERAB LES Final Result Performing Organization Address [facility] Co de Phone Number [facility] [address] [place] [address] [phone] * (ABNORMAL) Basic Metabolic Panel (12/14/2024 9:58 AM EDT) Pathologist [facility] Sodium 135 135 - 145 mmol/L [facility] Potassium 4.0 3.3 - 5.1 mmol/L [facility] Chloride 98 96 - 108 mmol/L [facility] Carbon Dioxide 22 22 - 29 mmol/L [facility] Anion Gap 19 12 - 20 [facility] Urea Nitrogen (BUN) 20(H) 9 - 16 mg/dL [facility] Creatinine, Serum 0.99 0.5 - 1.4 mg/dL [facility] Creatinine Clr Calc Pharmacy 116.3 [facility] Comment:eGFR (calculated fro m the MDRD study equation) and eCrCl(calculated from the Cockcroft-Gault equation) are based ondifferent parameters and may not yield comparable results.If eCrCl result is absurd, please check patient'sheight/weight. Estimated Glomerular Filt Rate >60 [facility] Comment:Chronic Kidney Disea se: Estimated GFR < 60 mL/min/1.06n8Ymbjxc Kidney Disease: Estimated GFR < 15 mL/min/1.73m2 Glucose 245(H) 60 - 115 mg/dL [facility] Calcium 9.7 8.4 - 10.2 mg/dL [facility] 12/14/2024 9:58 AM EDT 12/14/2024 10:12 AM EDT us Generic External Data Provider LAB BLOOD ORDERAB LES Final Result Performing Organization Address City/State/[facility] Co de Phone Number [facility] [address] [place] [address] [phone] * (ABNORMAL) Lipid Panel, Standard (08/14/2024 3:18 PM EST) Triglycerides 173(H) <150 mg/dL [facility] Comment:Desirable Triglyceri de: less than 150 mg/dLBorderline High Triglyceride 150-199 mg/dLHigh Triglyceride: 200-499 mg/dLVery High Triglyceride: greater than or equal to 5OO mg/dL Cholesterol 179 <200 mg/dL [facility] Comment:Desirable Cholestero l: less than 200 mg/dLBorderline High Cholesterol: 200-239 mg/dLHigh Cholesterol: greater than 239 mg/dL LDL Cholesterol Calculated 93 <100 mg/dL [facility] Comment:Desirable LDL: less than 100 mg/dLNear Optimal/Above Optimal LDL: 110- 129 mg/dLBorderline High LDL: 130-159 mg/dLHigh LDL: 160-189 mg/dLVery High LDL: greater than or equal to 190 mg/dL HDL Cholesterol 52 >40 mg/dL [facility] Comment:Desirable HDL: great er than 40 mg/dL Note: This HDL assay may give artificially low results in patients with liver disease. Blood Venous blood specimen / Unknown 08/14/2024 3:18 PM EST 08/14/2024 4:06 PM EST Skye Ba TARIFF CLERK LAB BLOOD ORDERABLES Tammei l Result Performing Organization Address City/[facility]/ZIP Co de Phone Number [facility] [address] [place] [phone] * ALBUMIN, RANDOM URINE W/CREATININE (01/26/2022 4:13 PM EDT) Microalbumin Urine 0.3 See Note: mg/dL [facility] Comment: Reference Range: Reference Range Not established Microalb/Creat Ratio 10 <30 mcg/mg creat [facility] Comment: The ADA defines abnormalities in albumin excretion as follows: Albuminuria Category Result (mcg/mg creatinine) Normal to Mildly increased <30 Moderately increased 30-299 Severely increased > OR = 300 The ADA recommends that at least two of three specimens collected within a 3-6 month period be abnormal before considering a patient to be within a diagnostic category. Creatinine, Urine 30 20 - 320 mg/dL [facility] 01/26/2022 4:13 PM EDT Evon Flores GLUING MACHINE OFFBEARER LAB URINE ORDERABLES Final Resu lt [facility] [address] * HEPATITIS C AB W/REFL TO HCV RNA, QN, PCR (02/12/2021 2:51 PM EDT) HEPATITIS C ANTIBODY NON-REACT HUNTER NON-REACT HUNTER [facility] INDEX 0.02 <1.00 [facility] Comment: HCV antibody was non-reactive. There is no laboratory evidence of HCV infection. In most cases, no further action is required. However, if recent HCV exposure is suspected, a test for HCV RNA (test code 95228) is suggested. For additional information please refer to http://[email or web address].CityHawk/faq/SUT80n6 (This link is being provided for informational/ educational purposes only.) 02/12/2021 2:51 PM EDT Evon Flores NP HISTORICAL/NON ORDERABLE LABS F inal Result Performing Organization Address [facility] de Phone Number [facility] [address] * HIV 1/2 ANTIGEN/ANTIBODY,FOURTH GENERATION W/RFL (02/12/2021 2:51 PM EDT) HIV-1/2 ANTIGEN AND ANTIBODIES, 4TH GENERATION W/ REFLEX NON-REACT HUNTER NON-REACT HUNTER [facility] Comment: HIV-1 antigen and HIV-1/HIV-2 antibodies were not detected. There is no laboratory evidence of HIV infection. PLEASE NOTE: This information has been disclosed to you from records whose confidentiality may be protected by state law. If your state requires such protection, then the state law prohibits you from making any further disclosure of the information without the specific written consent of the person to whom it pertains, or as otherwise permitted by law. A general authorization for the release of medical or other information is NOT sufficient for this purpose. For additional information please refer to http://[email or web address].CityHawk/faq/QZR451 (This link is being provided for informational/ educational purposes only.) The performance of this assay has not been clinically validated in patients less than 2 years old. 02/12/2021 2:51 PM EDT Evon Flores NP LAB BLOOD ORDERABLES Final Resu lt Performing Organization Address [facility] Co de Phone Number [facility] [address] from Last 3 Months or Most Recently Relevant to Health Maintenance Insurance [facility] C[facility] MEDICAID STAND ADULT Care Teams Rotary Drier Relationship Specialty Start Date End Date Skye Ba CNP [address] [place] [address] PCP - General Family Medicine 10/23/24 Emerita Parish, PharmD [address] [place] [address] [place] [phone] Pharmacist Internal Medicine 11/14/23 Emil MOREIRA 06/20/24
--- OUTSIDE RECORDS SUMMARY | 2025-03-12 15:21 | XMS_ITS | Clinical Summary ---
Author Organization [facility] Address [address] [place] [address] Phone Care Team Providers Care Rip Tailer Name Role Phone [facility] Primary Care Provider [phone] Allergies No known active allergies Medications amLODIPine [...] A1C 03/02/2023 11/30/2022, 11/15 Influenza Vaccine (#1) 2025 04/13/2018 Pneumococcal Vaccine: Peds ( 0 to 5 Years) and At-Risk Patients (6 to 49 Years) Completed 11/30/2022, 07/20/2018 Insurance Medicaid [place] Care Teams Rip Tailer Relationship Specialty Start Date End Date Devi Razo [address] [place] [address] PCP - General 02/24/23
--- OUTSIDE RECORDS SUMMARY | 2025-03-12 15:22 | XMS_ITS | Encounter Summary ---
Author Organization [employer] Address [address] [place] [address] 7 [place] [address] Care Team Providers Care Return To Factory Clerk Name Role Phone Emerita Parish PharmD Unavailable [phone] Skye Ba CNP Primary Care Provider [phone] Reason for Visit * Reason Onset Date Comments ER Follow-up 12/17/2024 Encounter Details Date Type Department Care Team (Late st Contact Info) Description 12/17/2024 Telephone [facility]INE [address] [place] [address] Skye Ba CNP [address] [place], [place] [phone] ER Follow-up Social History Tobacco Use Types Packs/Day [...] * Telephone Encounter - Kaleb Cruz - 12/17/2024 2:31 PM EDT Patient calling to report ED visit on : Date: 12/13/24 Hospital: [facility] Seen for: Cellulitis Patient advised will forward to team nurse for follow up documented in this encounter Plan of Treatment Upcoming Encounters Date Type Department Care Team (Late st Contact Info) Description 03/15/2025 10:00 AM EDT Clinical Support [facility] [address] [place] [address] 04/04/2025 1:30 PM EDT Office Visit [facility] ADULT DENTAL [address] [place] [address] Jak Gonzalez, CARLOS [address] [place] [address] documented as of this encounter Goals Goal Patient Goal Type Associated Problems Recent Progress Patient-Stated? Author Blood Pressure < 140/90 Blood Pressure 160/78(2024 10:20 AM EDT) No Emerita Cabrera PharmD Hemoglobin A1c < 7 Result Component 10.9(03/01/20 10:25 AM EDT) No Emerita Cabrera PharmD documented as of this encounter Visit Diagnoses Not on filedocumented in this encounter Additional Health Concerns Assessment Noted Time PHQ-9 Depression Total Score: 23 025 11:31 AM EDT documented as of this encounter Care Teams Return To Factory Clerk Relationship Specialty Start Date End Date Skye Ba CNP [address] [place] [address] PCP - General Family Medicine 10/23/24 Emerita Parish PharmD [address] [place] [address] Pharmacist Internal Medicine 11/14/23 [facility] 06/20/24 documented as of this encounter
--- OUTSIDE RECORDS SUMMARY | 2025-03-12 15:22 | XMS_ITS | Encounter Summary ---
Author Organization [employer] Address [address] [facility] 7 [place] [address] Care Team Providers Care Supervisor Hot Dip Tinning Name Role Phone Devi Razo [facility] Primary Care Provider [phone] Emerita Parish PharmD Unavailable [phone] Skye Ba CNP Primary Care Provider [phone] Reason for Visit * Reason Onset Date Comments Durable Medical Equipment 06/27/2024 Encounter Details Date Type Department Care Team (Late st Contact Info) Description 06/27/2024 Telephone [facility] MEDICINE [address] [place], [place] [phone] [place] Devi [facility] [address] [place], [place] [phone] Durable Medical Equipment Social History Tobacco Use [...] pt and [facility] [employer]. If any questions you can contact Yessy at [phone]. documented in this encounter Plan of Treatment Upcoming Encounters Date Type Department Care Team (Late st Contact Info) Description 03/15/2025 10:00 AM EDT Clinical Support [address] [address] 04/04/2025 1:30 PM EDT Office Visit [facility] ADULT DENTAL [address] [place] [address] Jak Gonzalez, DMD [address] [place] [address] documented as of this encounter Goals Goal Patient Goal Type Associated Problems Recent Progress Patient-Stated? Author Blood Pressure < 140/90 Blood Pressure 160/78(2024 10:20 AM EDT) No Emerita Cabrera, PharmD Hemoglobin A1c < 7 Result Component 10.9(03/01/20 10:25 AM EDT) No Antoninos-Emerita Dobson, PharmD documented as of this encounter Visit Diagnoses Not on filedocumented in this encounter Additional Health Concerns Assessment Noted Time PHQ-9 Depression Total Score: 16 024 2:43 PM EDT documented as of this encounter Care Teams Supervisor Hot Dip Tinning Relationship Specialty Start Date End Date Devi Razo FNP [address] [place] [address] PCP - General Family Medicine 03/11/22 10/22/24 Skye Ba CNP [address] [place] [address] PCP - General Family Medicine 10/23/24 Emerita Parish PharmD [address] [place] [address] Pharmacist Internal Medicine 11/14/23 [facility] 06/20/24 documented as of this encounter
--- OUTSIDE RECORDS SUMMARY | 2025-03-12 15:22 | XMS_ITS | Encounter Summary ---
Author Organization [employer] Address [address] [place] [address] 7 [place] [address] Care Team Providers Care Records Management Manager Name Role Phone Devi Razo [facility] Primary Care Provider [phone] Emerita Parish PharmD Unavailable [phone] Skye Ba CNP Primary Care Provider [phone] Reason for Visit * Reason Onset Date Comments Appointment Request 09/13/2024 Encounter Details Date Type Department Care Team (Late st Contact Info) Description 09/13/2024 Telephone [facility] MEDICINE [address] [place], [place] [phone] [facility] [address] [place], [place] [phone] Appointment Request Social History Tobacco Use Types [...] Description 03/15/2025 10:00 AM EDT Clinical Support [facility] [address] [place] [address] 04/04/2025 1:30 PM EDT Office Visit [facility] ADULT DENTAL [address] [place] [address] Jak Gonzalez, DMD [address] [place] [address] documented as of this encounter Goals Goal Patient Goal Type Associated Problems Recent Progress Patient-Stated? Author Blood Pressure < 140/90 Blood Pressure 160/78(2024 10:20 AM EDT) No Piers-Gambl e, Emerita, PharmD Hemoglobin A1c < 7 Result Component 10.9(03/01/20 10:25 AM EDT) No Piers-Gambl e, Emerita, PharmD documented as of this encounter Visit Diagnoses Not on filedocumented in this encounter Additional Health Concerns Assessment Noted Time PHQ-9 Depression Total Score: 16 024 2:43 PM EDT documented as of this encounter Care Teams Records Management Manager Relationship Specialty Start Date End Date Devi Razo SHIPPING AND RECEIVING COORDINATOR [address] [place] [address] PCP - General Family Medicine 03/11/22 10/22/24 Skye Ba CNP [address] [place] [address] PCP - General Family Medicine 10/23/24 Emerita Parish PharmD [address] [place] [address] Pharmacist Internal Medicine 11/14/23 [facility] documented as of this encounter
--- OUTSIDE RECORDS SUMMARY | 2025-03-12 15:22 | XMS_ITS | Encounter Summary ---
Author Organization [employer] Address [address] [place] [address] 7 [place] [address] Care Team Providers Care Garbage Collector Driver Name Role Phone Devi Razo [facility] Primary Care Provider [phone] Emerita Parish PharmD Unavailable [phone] Skye Ba CNP Primary Care Provider [phone] Reason for Visit * Reason Onset Date Comments Med Refill 09/13/2024 Encounter Details Date Type Department Care Team (Late st Contact Info) Description 09/13/2024 Telephone [facility] MEDICINE 230 [place], [place] [phone] [place] [facility] 230 [place], [place] [phone] Med Refill Social History Tobacco Use Types Packs/Day Years [...] encounter Miscellaneous Notes * Telephone Encounter - Kelsy Barrios LPN - 09/13/2024 11:45 AM EST Medication was sent to [facility] on 07/06/24 with 3 refills. * Telephone Encounter - Alex Zuñiga - 09/13/2024 11:42 AM EST TC from pt requesting medication refill. Medications needing refill : Continuous Glucose Sensor (FreeStyle Abraham 2 Sensor) [facility] To be sent to: [facility] [place] - [address] [facility] documented in this encounter Plan of Treatment Upcoming Encounters Date Type Department Care Team (Late st Contact Info) Description 03/15/2025 10:00 AM EDT Clinical Support [facility] 230 [place] [address] 04/04/2025 1:30 PM EDT Office Visit [facility] ADULT DENTAL [address] [place] [address] Jak Gonzalez DMD [address] [place] [address] documented as of this encounter Goals Goal [...] documented as of this encounter Care Teams Garbage Collector Driver Relationship Specialty Start Date End Date Devi Razo FNP [address] [place] [address] PCP - General Family Medicine 03/11/22 10/22/24 Skye Ba CNP [address] [place] [address] PCP - General Family Medicine 10/23/24 Emerita Parish, Jacques [address] [place] [address] Pharmacist Internal Medicine 11/14[facility]23 [facility] documented as of this encounter
--- OUTSIDE RECORDS SUMMARY | 2025-03-12 15:22 | XMS_ITS | Encounter Summary ---
Author Organization [employer] Address [address] [facility] 7t [place] [address] Care Team Providers Care Geophysical Prospecting Permit Agent Name Role Phone Devi Razo ADMISSION NURSE Primary Care Provider [phone] Emerita Parish PharmD Unavailable [phone] Skye Ba ARTILLERY MAINTENANCE SUPERVISOR Primary Care Provider [phone] Encounter Details Date Type Department Care Team (Late st Contact Info) Description 04/06/2024 Telephone [facility] MEDICINE [address] [place] [address] Emerita Parish, PharmD [address] [place], [place] [phone] Social History Tobacco Use Types Packs/Day Years [...] supervising physician (PCP of [facility]). Thank you! documented in this encounter Plan of Treatment Upcoming Encounters Date Type Department Care Team (Late st Contact Info) Description 03/15/2025 10:00 AM EDT Clinical Support [facility] [address] [place] [address] 04/04/2025 1:30 PM EDT Office Visit [facility] ADULT DENTAL [address] [place] [address] Jak Gonzalez, DMD [address] [place] [address] documented as of this encounter Goals Goal [...] documented as of this encounter Care Teams Geophysical Prospecting Permit Agent Relationship Specialty Start Date End Date SpartaDevi landa FNP [address] [place] [address] PCP - General Family Medicine 03/11/22 10/22/24 Skye Ba CNP [address] [place] [address] PCP - General Family Medicine 10/23/24 Emerita Parish PharmD [address] [place] [address] Pharmacist Internal Medicine 11/14/23 [place] [facility] 06/20/24 documented as of this encounter
--- OUTSIDE RECORDS SUMMARY | 2025-03-12 15:22 | XMS_ITS | Encounter Summary ---
Author Organization [employer] Address [address] [place] [address] 7 [place] [address] Care Team Providers Care Casing Soaker Name Role Phone Devi Razo [facility] Primary Care Provider [phone] Emerita Parish PharmD Unavailable [phone] Skye Ba [facility] Primary Care Provider [phone] Encounter Details Date Type Department Care Team (Late st Contact Info) Description 11/11/2022 [facility] Laundry Service Information Management [address] [place] [address] [place] Devi, [facility] [address] [place], [place] [phone] Social History Tobacco Use Types Packs/Day Years [...] Clinical Support [facility] [address] [place] [address] [phone] 04/04/2025 1:30 PM EDT Office Visit [facility] ADULT DENTAL [address] [place], [place] [phone] Jak Gonzalez, CARLOS [address] [place], [place] [phone] documented as of this encounter Visit Diagnoses Not on filedocumented in this encounter Care Teams Casing Soaker Relationship Specialty Start Date End Date Devi Razo FNP [address] [place] [address] PCP - General Family Medicine 03/11/22 10/22/24 Skye Ba CNP [address] [place] [address] PCP - General Family Medicine 10/23/24 Emerita Parish PharmD [address] [place] [address] Pharmacist Internal Medicine 11/14/23 [facility] 06/20/24 documented as of this encounter
--- OUTSIDE RECORDS SUMMARY | 2025-03-12 15:22 | XMS_ITS | Encounter Summary ---
Author Organization [employer] Address [address] [place] [address] 7 [place] [address] Care Team Providers Care Monotype Machinist Name Role Phone Devi Razo [facility] Primary Care Provider [phone] Emerita Parish PharmD Unavailable [phone] Skye Ba MARKETING RECRUITER Primary Care Provider [phone] Reason for Referral * Consultation (Routine) - Closed Specialty Diagnoses / Procedures Referred By Johanna roman Referred To Contact Pharmacy Diagnoses Type 2 diabetes mellitus without complication, with long-term current use of insulin (CMS/HCC) Essential hypertension Mela Gurrola MD [address] [place] [address] Phone: tel: fax: Referral ID Status Reason Start Date Expiration Date V isits Requested Visits Authorized [id number] Closed Consult and Treat 04/11/2024 04/11/2025 6 6 Encounter Details Date Type Department Care Team (Late st Contact Info) Description 04/11/2024 Orders Only [facility] [address] [place] [address] [phone] Mela Gurrola MD [address] [place], [place] [phone] Type 2 diabetes mellitus without complication, with [...] [facility] 230 [place] [address] 04/04/2025 1:30 PM EDT Office Visit [facility] ADULT DENTAL [address] [place] [address] Jak Gonzalez, DMD [address] [place] [address] Scheduled Referrals Name Type Priority Associated Diagnoses Orde r Schedule Referral to Pharmacy CDTM Outpatient Referral Routine Type 2 diabetes mellitus without complication, with long-term current use of insulin ([facility]) Essential hypertension Ordered: 04/11/2024 documented as of [...] complication, with long-term current use of insulin ([facility])- Primary Essential hypertension Unspecified essential hypertension documented in this encounter Additional Health Concerns Assessment Noted Time PHQ-9 Depression Total Score: 16 024 2:43 PM EDT documented as of this encounter Care Teams Monotype Machinist Relationship Specialty Start Date End Date Devi Razo FNP [address] [place] [address] PCP - General Family Medicine 03/11/22 10/22/24 Skye Ba CNP [address] [place] [address] PCP - General Family Medicine 10/23/24 Emerita Parish, PharmD [address] [place] [address] Pharmacist Internal Medicine 11/14[facility]23 [facility] documented as of this encounter
--- OUTSIDE RECORDS SUMMARY | 2025-03-12 15:22 | XMS_ITS | Encounter Summary ---
Author Organization [employer] Address [address] [place] [address] 7 [place] [address] Care Team Providers Care Horticultural Manager Name Role Phone Devi Razo [facility] Primary Care Provider [phone] Emerita Parish PharmD Unavailable [phone] Skye Ba CNP Primary Care Provider [phone] Reason for Visit * Reason Onset Date Comments Hospital Follow-up 06/26/2024 Encounter Details Date Type Department Care Team (Late st Contact Info) Description 06/26/2024 Telephone [facility] [address] [place], [place] [phone] [place] [facility] [address] [place], [place] [phone] Hospital Follow-up Social History Tobacco Use Types [...] from pt requesting a HDF appt. Hospital: [facility] Date of admission: 06/13/24 Discharge date: 06/18/24 Diagnosed: Foot Ulcer *Send message to [place] Clinical Care Coordinators documented in this encounter Plan of Treatment Upcoming Encounters Date Type Department Care Team (Late st Contact Info) Description 03/15/2025 10:00 AM EDT Clinical Support [facility] [address] [place] [address] 04/04/2025 1:30 PM EDT Office Visit [facility] ADULT DENTAL [address] [place] [address] Jak Gonzalez, DMD [address] [place] [address] documented as of this encounter Goals Goal [...] documented as of this encounter Care Teams Horticultural Manager Relationship Specialty Start Date End Date Devi Razo FNP [address] [place] [address] PCP - General Family Medicine 03/11/22 10/22/24 Skye Ba CNP [address] [place] [address] PCP - General Family Medicine 10/23/24 Emerita Parish, PharmD [address] [place] [address] Pharmacist Internal Medicine 11/14/23 [place] [facility] 06/20/24 documented as of this encounter
--- OUTSIDE RECORDS SUMMARY | 2025-03-12 15:22 | XMS_ITS | Encounter Summary ---
Author Organization [employer] Address [address] [place] [address] 7 [place] [address] Care Team Providers Care Boilermaker Fitter Name Role Phone Emerita Parish PharmD Unavailable [phone] Skye Ba CNP Primary Care Provider [phone] Reason for Visit * Reason Comments Med Refill Encounter Details Date Type Department Care Team ([facility] st Contact Info) Description 03/08/2025 Refill [facility] [address] [place] [address] Skye Ba CNP [address] [place] [address] Type 2 diabetes mellitus with hyperglycemia, with long-term current use of insulin ([facility]) Social History Tobacco Use Types Packs/Day Years Used Date Smoking Tobacco: Never Passive Smoke Exposure: Never Smokeless Tobacco: Never Alcohol Use Standard [...] Description 03/15/2025 10:00 AM EDT Clinical Support [facility] [address] [place] [address] 04/04/2025 1:30 PM EDT Office Visit [facility] ADULT DENTAL [address] [place] [address] Jak Gonzalez, DMD [address] [place] [address] documented as of this encounter Goals Goal Patient Goal Type Associated Problems Recent Progress Patient-Stated? Author Blood Pressure < 140/90 Blood Pressure 160/78(2024 10:20 AM EDT) No Emerita Cabrera, PharmDangelo Hemoglobin A1c < 7 Result Component 10.9(03/01/20 10:25 AM EDT) No Emerita Cabrera PharmD documented as of this encounter Visit Diagnoses Diagnosis Type 2 diabetes mellitus with hyperglycemia, with long-term current use of insulin ([facility]) documented in this encounter Additional Health Concerns Assessment Noted Time PHQ-9 Depression Total Score: 23 025 11:31 AM EDT documented as of this encounter Care Teams Boilermaker Fitter Relationship Specialty Start Date End Date Skye Ba CNP [address] [place] [address] PCP - General Family Medicine 10/23/24 Emerita Parish PharmD [address] [place] [address] Pharmacist Internal Medicine 11/14/23 [place] HARISH 06/20/24 documented as of this encounter
--- OUTSIDE RECORDS SUMMARY | 2025-03-12 15:23 | XMS_ITS | Encounter Summary ---
Author Organization [employer] Address [address] [place] [address] 7 [place] [address] Care Team Providers Care Spectral Scientist Name Role Phone [place] [facility] Primary Care Provider [phone] Emerita Parish PharmD Unavailable [phone] Skye Ba COVERAGE ANALYST Primary Care Provider [phone] Reason for Visit * Reason Comments Med Refill Encounter Details Date Type Department Care Team (Late Contact Info) Description 03/23/2023 Refill [facility] [address] [place] [address] [place], [facility] [address] [place], [place] [phone] Type 2 diabetes mellitus with other specified complication, with long-term current use of insulin ([facility]) Social History Tobacco Use Types Packs/Day [...] Department Care Team (Late Contact Info) Description 03/15/2025 10:00 AM EDT Clinical Support [facility] MEDICINE [address] [place] [address] 04/04/2025 1:30 PM EDT Office Visit [facility] ADULT DENTAL [address] [place] [address] Jak Gonzalez, DMD [address] [place] [address] documented as of this encounter Visit Diagnoses Diagnosis Type 2 diabetes mellitus with other specified complication, with long-term current use of insulin ([facility]) documented in this encounter Additional Health Concerns Assessment Noted Time PHQ-9 Depression Total Score: 0 02/25/20 23 4:10 PM EDT documented as of this encounter Care Teams Spectral Scientist Relationship Specialty Start Date End Date Devi Razo FNP [address] [place] [address] PCP - General Family Medicine 03/11/22 10/22/24 Skye Ba CNP [address] [place] [address] PCP - General Family Medicine 10/23/24 Emerita Parish PharmD [address] [place] [address] Pharmacist Internal Medicine 11/14[facility] documented as of this encounter
--- OUTSIDE RECORDS SUMMARY | 2025-03-12 15:23 | XMS_ITS | Encounter Summary ---
Author Organization [employer] Address [address] [place] [address] 7 [place] [address] Care Team Providers Care Merchandise Displayer Name Role Phone Devi Razo SCHEDULE SUPERVISOR Primary Care Provider [phone] Emerita Parish PharmD Unavailable [phone] Skye Ba TECHNICAL PROJECT MANAGER Primary Care Provider [phone] Reason for Referral * Consultation (Routine) - Canceled Specialty Diagnoses / Procedures Referred By Johanna t Referred To Contact Pharmacy Diagnoses Type 2 diabetes mellitus without complication, with long-term current use of insulin (CMS/HCC) Mela Gurrola MD [address] [place] [address] Phone: tel: fax: Referral ID Status Reason Start Date Expiration Date V isits Requested Visits Authorized [id number] Canceled Consult and Treat 05/15/2024 05/15/2025 6 6 Encounter Details Date Type Department Care Team (Late st Contact Info) Description 05/15/2024 Orders Only [facility] [address] [place] [address] Mela Gurrola MD [address] [place], [place] [phone] Type 2 diabetes mellitus without complication, with [...] Description 03/15/2025 10:00 AM EDT Clinical Support [facility] [address] [place] [address] 04/04/2025 1:30 PM EDT Office Visit [facility] ADULT DENTAL [address] [place] [address] Jak Gonzalez DMD [address] [place] [address] Scheduled Referrals Name Type Priority Associated Diagnoses Orde r Schedule Referral to Pharmacy CDTM Outpatient Referral Routine Type 2 diabetes mellitus without complication, with long-term current use of insulin (CMS/HCC) Ordered: 05/15/2024 documented as of this encounter [...] complication, with long-term current use of insulin (CMS/[facility])- Primary documented in this encounter Additional Health Concerns Assessment Noted Time PHQ-9 Depression Total Score: 16 024 2:43 PM EDT documented as of this encounter Care Teams Merchandise Displayer Relationship Specialty Start Date End Date [place] FNP [address] [place] [address] PCP - General Family Medicine 03/11/22 10/22/24 Skye Ba CNP [address] [place] [address] PCP - General Family Medicine 10/23/24 Emerita Parish, FadyD [address] [place] [address] Pharmacist Internal Medicine 11/14/23 [facility] documented as of this encounter
--- OUTSIDE RECORDS SUMMARY | 2025-03-12 15:23 | XMS_ITS | Encounter Summary ---
Author Organization [employer] Address [address] [place] [address] Care Team Providers Care Sign Language Interpreter Name Role Phone Devi Razo [facility] Primary Care Provider [phone] Emerita Parish PharmD Unavailable [phone] Skye Ba CNP Primary Care Provider [phone] Encounter Details Date Type Department Care Team (Late st Contact Info) Description 07/04/2023 Telephone [facility] MEDICINE [address] [place], [place] [phone] [place] Devi, [facility] [address] [place], [place] [phone] Social History Tobacco Use Types Packs/Day Years [...] Description 03/15/2025 10:00 AM EDT Clinical Support [facility] MED[facility]INE [address] [place] [address] 04/04/2025 1:30 PM EDT Office Visit [facility] ADULT DENTAL [address] [place] [address] Jak Gonzalez, DMD [address] [place] [address] documented as of this encounter Visit Diagnoses Not on filedocumented in this encounter Additional Health Concerns Assessment Noted Time PHQ-9 Depression Total Score: 0 02/25/20 23 4:10 PM EDT documented as of this encounter Care Teams Sign Language Interpreter Relationship Specialty Start Date End Date Devi Razo FNP [address] [place] [address] PCP - General Family Medicine 03/11/22 10/22/24 Skye Ba CNP [address] [place] [address] PCP - General Family Medicine 10/23/24 Emerita Parish, Jacques [address] [place] [address] Pharmacist Internal Medicine 11/14/23 [place] [facility] 06/20/24 documented as of this encounter
--- OUTSIDE RECORDS SUMMARY | 2025-03-12 15:23 | XMS_ITS | Encounter Summary ---
Author Organization [employer] Address [address] [facility] 7 [place] [address] Care Team Providers Care Sweeper Brush Maker Machine Name Role Phone Devi Razo [facility] Primary Care Provider [phone] Emerita Parish PharmD Unavailable [phone] Skye Ba CNP Primary Care Provider [phone] Reason for Visit * Reason Onset Date Comments Letter for School/Work 11/29/2023 Encounter Details Date Type Department Care Team (Late st Contact Info) Description 11/29/2023 Telephone [facility] [address] [place], [place] [phone] [place] Devi [facility] [address] [place] [address] Letter for School/Work Social History Tobacco Use [...] 11/22 OV. Any questions, contact pt at [phone] documented in this encounter Plan of Treatment Upcoming Encounters Date Type Department Care Team (Late st Contact Info) Description 03/15/2025 10:00 AM EDT Clinical Support [facility] MEDICINE [address] [place] [address] 04/04/2025 1:30 PM EDT Office Visit [facility] ADULT DENTAL [address] [place] [address] Jak Gonzalez, DMD [address] [place] [address] documented as of this encounter Goals Goal [...] documented as of this encounter Care Teams Sweeper Brush Maker Machine Relationship Specialty Start Date End Date [place]i landa FNP [address] [place] [address] PCP - General Family Medicine 03/11/22 10/22/24 Skye Ba CNP [address] [place] [address] PCP - General Family Medicine 10/23/24 Emerita Parish PharmD [address] [place] [address] Pharmacist Internal Medicine 11/14/23 [place] [facility] 06/20/24 documented as of this encounter
--- OUTSIDE RECORDS SUMMARY | 2025-03-12 15:23 | XMS_ITS | Encounter Summary ---
Author Organization [employer] Address [address] [facility] 7t [place] [address] Care Team Providers Care Laundry Agent Name Role Phone DungDevi landa [facility] Primary Care Provider [phone] Emerita Parish PharmD Unavailable [phone] Skye Ba CNP Primary Care Provider [phone] Reason for Visit * Reason Onset Date Comments Appointment Request 11/23/2022 Encounter Details Date Type Department Care Team (Late st Contact Info) Description 11/23/2022 Telephone [facility] MEDICINE [address] [place], [place] [phone] [place] Devi, [facility] 230 [place], [place] [phone] Appointment Request Social History Tobacco Use Types [...] encounter Miscellaneous Notes * Telephone Encounter - uYliya Bella RN - 12/02/2022 10:48 AM EDT [...] returning nurses call . Please contact at [phone] * Telephone Encounter - Yuliya Bella RN [...] AM EDT CRITICAL RESULTS LINE Call from [facility] reporting critical result: Lab draw 11/30 @ [...] Description 03/15/2025 10:00 AM EDT Clinical Support [facility] MEDICINE [address] [place] [address] 04/04/2025 1:30 PM EDT Office Visit [facility] ADULT DENTAL [address] [place] [address] Jak Gonzalez, DMD [address] [place] [address] documented as of this encounter Visit Diagnoses Not on filedocumented in this encounter Care Teams Laundry Agent Relationship Specialty Start Date End Date Devi Razo FNP [address] [place] [address] PCP - General Family Medicine 03/11/22 10/22/24 Skye Ba CNP [address] [place] [address] PCP - General Family Medicine 10/23/24 Emerita Parish, Jacques [address] [place] [address] Pharmacist Internal Medicine 11/14[facility]23 [facility] documented as of this encounter
--- OUTSIDE RECORDS SUMMARY | 2025-03-12 15:23 | XMS_ITS | Encounter Summary ---
Author Organization [employer] Address [address] [place] [address] 7 [place] [address] Care Team Providers Care Supervisor Green End Department Name Role Phone Devi Razo [employer] Primary Care Provider [phone] Emerita Parish PharmD Unavailable [phone] Skye Ba CNP Primary Care Provider [phone] Encounter Details Date Type Department Care Team (Late st Contact Info) Description 07/02/2022 Orders Only [facility] PEDS [address] [place] [address] Kelsy Barrios LPN Social History Tobacco Use [...] Description 03/15/2025 10:00 AM EDT Clinical Support [facility] MEDICINE [address] [place], [place] [phone] 04/04/2025 1:30 PM EDT Office Visit [facility] ADULT DENTAL [address] [place], [place] [phone] Jak Gonzalez, CARLOS [address] [place], [place] [phone] documented as of this encounter Procedures Procedure [...] Comprehensive Metabolic Panel (10/28/2022 3:24 PM EDT) Sodium 137 135 - 145 mmol/L [facility] Potassium 4.0 3.3 - 5.1 mmol/L [facility] Chloride 103 96 - 108 mmol/L [facility] Carbon Dioxide 25 22 - 29 mmol/L [facility] Anion Gap 13 12 - 20 [facility] Urea Nitrogen (BUN) 11 9 - 16 mg/dL [facility] Creatinine, Serum 1.29 0.5 - 1.4 mg/dL [facility] Estimated Glomerular Filt Rate 60 [facility] Comment:NOTE: For -Am erican individuals, multiply the result by 1.210.Chronic Kidney Disease: Estimated GFR < 60 mL/min/[id number] Kidney Disease: Estimated GFR < 15 mL/min/1.73m2 Glucose 152(H) 60 - 115 mg/dL [facility] Calcium 8.6 8.4 - 10.2 mg/dL [facility] Bilirubin, Total 0.4 0.0 - 1.0 mg/dL [facility] Aspartate Amino Transferase 123(H) 5 - 37 U/L [facility] Alanine Aminotransferase 113(H) 0 - 40 U/L [facility] Total Protein 7.0 6.5 - 8.0 g/dL [facility] Albumin Level 3.6 3.5 - 5.0 g/dL [facility] Alkaline Phosphatase 117 39 - 117 U/L [facility] 10/28/2022 3:24 PM EDT 10/28/2022 3:44 PM EDT [facility] External Provider LAB BLO OD ORDERABLES Final Result [facility] [address] [place] [address] [phone] * (ABNORMAL) CBC auto differential (10/28/2022 3:24 PM EDT) White Blood Count 9.2 4.8 - 10.8 X10*3/uL [facility] Red Blood Count 3.22(L) 4.60 - 5.80 X10*6/uL [facility] Hemoglobin 9.8(L) 14.0 - 18.0 g/dl [facility] Hematocrit 28.4(L) 42.0 - 52.0 % [facility] Mean Corpuscular Volume 88.2 80.0 - 98.0 fL [facility] Mean Corpuscular Hemoglobin 30.4 27.0 - 33.0 pg [facility] Mean Corpuscular HGB Conc 34.5 31.0 - 36.0 g/dl [facility] Red Cell Distribution Width 11.2 11.0 - 16.0 % [facility] Platelet Count 312 160 - 400 X10*3/uL [facility] Mean Platelet Volume 10.2 9.4 - 12.4 fL [facility] Neutrophils Percent Auto 49.1 45 - 73 % [facility] Imm Gran Pct Auto 0.2 0.0 - 0.4 % [facility] Lymphocytes Percent Auto 42.2(H) 20 - 40 % [facility] Monocytes Percent Auto 5.3 2 - 11 % [facility] Eosinophils Percent Auto 2.4 0 - 4 % [facility] Basophils Percent Auto 0.8 0 - 2 % [facility] NRBC Pct Auto 0.0 0.0 - 0.2 /100WBC [facility] Neutrophils Absolute Auto 4.5 2.0 - 8.3 x10*3/uL [facility] Imm Gran Abs Auto 0.02 0.00 - 0.03 X10*3/uL [facility] Lymphocytes Absolute Auto 3.9 1.2 - 4.9 X10*3/uL [facility] Monocytes Absolute Auto 0.5 0.1 - 1.2 X10*3/uL [facility] Eosinophils Absolute Auto 0.2 0.0 - 0.4 X10*3/uL [facility] Basophils Absolute Auto 0.1 0.0 - 0.2 X10*3/uL [facility] NRBC Abs Auto 0.000 0.0 - 0.012 X10*3/uL [facility] 10/28/2022 3:24 PM EDT 10/28/2022 3:44 PM EDT [facility] External Provider LAB BLO OD ORDERABLES Final Result [facility] [address] [place] [address] [phone] * (ABNORMAL) Comprehensive Metabolic Panel (10/21/2022 2:49 PM EDT) Sodium 138 135 - 145 mmol/L [facility] Potassium 4.1 3.3 - 5.1 mmol/L [facility] Chloride 98 96 - 108 mmol/L [facility] Carbon Dioxide 28 22 - 29 mmol/L [facility] Anion Gap 16 12 - 20 [facility] Urea Nitrogen (BUN) 13 9 - 16 mg/dL [facility] Creatinine, Serum 1.51(H) 0.5 - 1.4 mg/dL [facility] Estimated Glomerular Filt Rate 50 [facility] Comment:NOTE: For -Am erican individuals, multiply the result by 1.210.Chronic Kidney Disease: Estimated GFR < 60 mL/min/[id number] Kidney Disease: Estimated GFR < 15 mL/min/1.73m2 Glucose 322(H) 60 - 115 mg/dL [facility] Calcium 8.7 8.4 - 10.2 mg/dL [facility] Bilirubin, Total 0.3 0.0 - 1.0 mg/dL [facility] Aspartate Amino Transferase 18 5 - 37 U/L [facility] Alanine Aminotransferase 30 0 - 40 U/L [facility] Total Protein 7.0 6.5 - 8.0 g/dL [facility] Albumin Level 3.5 3.5 - 5.0 g/dL [facility] Alkaline Phosphatase 105 39 - 117 U/L [facility] 10/21/2022 2:49 PM EDT 10/21/2022 3:01 PM EDT [facility] External Provider LAB BLO OD ORDERABLES Final Result [facility] [address] [place] [address] [phone] * (ABNORMAL) CBC auto differential (10/21/2022 2:49 PM EDT) White Blood Count 7.2 4.8 - 10.8 X10*3/uL [facility] Red Blood Count 3.22(L) 4.60 - 5.80 X10*6/uL [facility] Hemoglobin 10.1(L) 14.0 - 18.0 g/dl [facility] Hematocrit 28.2(L) 42.0 - 52.0 % [facility] Mean Corpuscular Volume 87.6 80.0 - 98.0 fL [facility] Mean Corpuscular Hemoglobin 31.4 27.0 - 33.0 pg [facility] Mean Corpuscular HGB Conc 35.8 31.0 - 36.0 g/dl [facility] Red Cell Distribution Width 10.9(L) 11.0 - 16.0 % [facility] Platelet Count 372 160 - 400 X10*3/uL [facility] Mean Platelet Volume 9.8 9.4 - 12.4 fL [facility] Neutrophils Percent Auto 41.6(L) 45 - 73 % [facility] Imm Gran Pct Auto 0.1 0.0 - 0.4 % [facility] Lymphocytes Percent Auto 46.4(H) 20 - 40 % [facility] Monocytes Percent Auto 7.6 2 - 11 % [facility] Eosinophils Percent Auto 3.5 0 - 4 % [facility] Basophils Percent Auto 0.8 0 - 2 % [facility] NRBC Pct Auto 0.0 0.0 - 0.2 /100WBC [facility] Neutrophils Absolute Auto 3.0 2.0 - 8.3 x10*3/uL [facility] Imm Gran Abs Auto 0.01 0.00 - 0.03 X10*3/uL [facility] Lymphocytes Absolute Auto 3.3 1.2 - 4.9 X10*3/uL [facility] Monocytes Absolute Auto 0.6 0.1 - 1.2 X10*3/uL [facility] Eosinophils Absolute Auto 0.3 0.0 - 0.4 X10*3/uL [facility] Basophils Absolute Auto 0.1 0.0 - 0.2 X10*3/uL [facility] NRBC Abs Auto 0.000 0.0 - 0.012 X10*3/uL [facility] 10/21/2022 2:49 PM EDT 10/21/2022 3:01 PM EDT [facility] External Provider LAB BLO OD ORDERABLES Final Result [facility] [address] [place] [address] [phone] * (ABNORMAL) Basic Metabolic Panel (10/13/2022 2:56 PM EDT) Sodium 135 135 - 145 mmol/L [facility] Potassium 4.3 3.3 - 5.1 mmol/L [facility] Chloride 99 96 - 108 mmol/L [facility] Carbon Dioxide 23 22 - 29 mmol/L [facility] Anion Gap 17 12 - 20 [facility] Urea Nitrogen (BUN) 14 9 - 16 mg/dL [facility] Creatinine, Serum 1.99(H) 0.5 - 1.4 mg/dL [facility] Estimated Glomerular Filt Rate 36 [facility] Comment:NOTE: For -Am erican individuals, multiply the result by 1.210.Chronic Kidney Disease: Estimated GFR < 60 mL/min/[id number] Kidney Disease: Estimated GFR < 15 mL/min/1.73m2 Glucose 170(H) 60 - 115 mg/dL [facility] Calcium 8.8 8.4 - 10.2 mg/dL [facility] 10/13/2022 2:56 PM EDT 10/13/2022 3:18 PM EDT [facility] External Provider LAB BLO OD ORDERABLES Final Result [facility] [address] [place] [phone] * (ABNORMAL) CBC auto differential (10/13/2022 2:56 PM EDT) White Blood Count 23.6(H) 4.8 - 10.8 X10*3/uL [facility] Red Blood Count 3.78(L) 4.60 - 5.80 X10*6/uL [facility] Hemoglobin 11.9(L) 14.0 - 18.0 g/dl [facility] Hematocrit 33.0(L) 42.0 - 52.0 % [facility] Mean Corpuscular Volume 87.3 80.0 - 98.0 fL [facility] Mean Corpuscular Hemoglobin 31.5 27.0 - 33.0 pg [facility] Mean Corpuscular HGB Conc 36.1(H) 31.0 - 36.0 g/dl [facility] Red Cell Distribution Width 10.8(L) 11.0 - 16.0 % [facility] Platelet Count 319 160 - 400 X10*3/uL [facility] Mean Platelet Volume 10.2 9.4 - 12.4 fL [facility] Neutrophils Percent Auto 80.7(H) 45 - 73 % [facility] Imm Gran Pct Auto 0.6(H) 0.0 - 0.4 % [facility] Lymphocytes Percent Auto 13.1(L) 20 - 40 % [facility] Monocytes Percent Auto 4.9 2 - 11 % [facility] Eosinophils Percent Auto 0.4 0 - 4 % [facility] Basophils Percent Auto 0.3 0 - 2 % [facility] NRBC Pct Auto 0.0 0.0 - 0.2 /100WBC [facility] Neutrophils Absolute Auto 19.1(H) 2.0 - 8.3 x10*3/uL [facility] Imm Gran Abs Auto 0.13(H) 0.00 - 0.03 X10*3/uL [facility] Lymphocytes Absolute Auto 3.1 1.2 - 4.9 X10*3/uL [facility] Monocytes Absolute Auto 1.2 0.1 - 1.2 X10*3/uL [facility] Eosinophils Absolute Auto 0.1 0.0 - 0.4 X10*3/uL [facility] Basophils Absolute Auto 0.1 0.0 - 0.2 X10*3/uL [facility] NRBC Abs Auto 0.000 0.0 - 0.012 X10*3/uL [facility] 10/13/2022 2:56 PM EDT 10/13/2022 3:18 PM EDT [facility] External Provider LAB BLO OD ORDERABLES Final Result [facility] [address] [place] [phone] * (ABNORMAL) Comprehensive Metabolic Panel (10/05/2022 1:03 PM EDT) Sodium 142 135 - 145 mmol/L [facility] Potassium 5.3(H) 3.3 - 5.1 mmol/L [facility] Chloride 104 96 - 108 mmol/L [facility] Carbon Dioxide 29 22 - 29 mmol/L [facility] Anion Gap 14 12 - 20 [facility] Urea Nitrogen (BUN) 30(H) 9 - 16 mg/dL [facility] Creatinine, Serum 3.58(H) 0.5 - 1.4 mg/dL [facility] Estimated Glomerular Filt Rate 18 [facility] Comment:NOTE: For -Am erican individuals, multiply the result by 1.210.Chronic Kidney Disease: Estimated GFR < 60 mL/min/1.95j1Ieypcr Kidney Disease: Estimated GFR < 15 mL/min/1.73m2 Glucose 93 60 - 115 mg/dL [facility] Calcium 8.6 8.4 - 10.2 mg/dL [facility] Bilirubin, Total 0.5 0.0 - 1.0 mg/dL [facility] Aspartate Amino Transferase 16 5 - 37 U/L [facility] Alanine Aminotransferase 17 0 - 40 U/L [facility] Total Protein 6.9 6.5 - 8.0 g/dL [facility] Albumin Level 3.6 3.5 - 5.0 g/dL [facility] Alkaline Phosphatase 101 39 - 117 U/L [facility] 10/05/2022 1:03 PM EDT 10/05/2022 1:25 PM EDT [facility] External Provider LAB BLO OD ORDERABLES Final Result [facility] [address] [place] [phone] * (ABNORMAL) CBC auto differential (10/05/2022 1:03 PM EDT) White Blood Count 12.3(H) 4.8 - 10.8 X10*3/uL [facility] Red Blood Count 3.43(L) 4.60 - 5.80 X10*6/uL [facility] Hemoglobin 10.9(L) 14.0 - 18.0 g/dl [facility] Hematocrit 31.5(L) 42.0 - 52.0 % [facility] Mean Corpuscular Volume 91.8 80.0 - 98.0 fL [facility] Mean Corpuscular Hemoglobin 31.8 27.0 - 33.0 pg [facility] Mean Corpuscular HGB Conc 34.6 31.0 - 36.0 g/dl [facility] Red Cell Distribution Width 11.4 11.0 - 16.0 % [facility] Platelet Count 372 160 - 400 X10*3/uL [facility] Mean Platelet Volume 9.9 9.4 - 12.4 fL [facility] Neutrophils Percent Auto 64.5 45 - 73 % [facility] Imm Gran Pct Auto 0.2 0.0 - 0.4 % [facility] Lymphocytes Percent Auto 24.9 20 - 40 % [facility] Monocytes Percent Auto 6.4 2 - 11 % [facility] Eosinophils Percent Auto 3.3 0 - 4 % [facility] Basophils Percent Auto 0.7 0 - 2 % [facility] NRBC Pct Auto 0.0 0.0 - 0.2 /100WBC [facility] Neutrophils Absolute Auto 7.9 2.0 - 8.3 x10*3/uL [facility] Imm Gran Abs Auto 0.03 0.00 - 0.03 X10*3/uL [facility] Lymphocytes Absolute Auto 3.1 1.2 - 4.9 X10*3/uL [facility] Monocytes Absolute Auto 0.8 0.1 - 1.2 X10*3/uL [facility] Eosinophils Absolute Auto 0.4 0.0 - 0.4 X10*3/uL [facility] Basophils Absolute Auto 0.1 0.0 - 0.2 X10*3/uL [facility] NRBC Abs Auto 0.000 0.0 - 0.012 X10*3/uL [facility] 10/05/2022 1:03 PM EDT 10/05/2022 1:25 PM EDT [facility] External Provider LAB BLO OD ORDERABLES Final Result [facility] [address] [place] [phone] * (ABNORMAL) GLUCOSE, WHOLE BLOOD (09/22/2022 9:34 PM EST) Glucose, Whole Blood 143(H) 60 - 115 mg/dL [facility] Comment:METER #: [id number] 1 09/22/2022 9:34 PM EST 09/22/2022 9:37 PM EST [facility] External Provider LAB BLO OD ORDERABLES Final Result Performing Organization Address [facility]/ZIP Co de Phone Number [facility] [address] [place] [address] [phone] * (ABNORMAL) GLUCOSE, WHOLE BLOOD (09/22/2022 9:32 PM EST) Glucose, Whole Blood 142(H) 60 - 115 mg/dL [facility] Comment:METER #: [id number] 1 09/22/2022 9:32 PM EST 09/22/2022 9:37 PM EST [facility] External Provider LAB BLO OD ORDERABLES Final Result Performing Organization Address [facility] Co de Phone Number [facility] [address] [place] [address] [phone] * (ABNORMAL) Lactic Acid (09/22/2022 8:53 PM EST) Lactic Acid 2.1(HH) 0.5 - 2.0 mmol/L [facility] Comment:Critical value for t est(s): LACTA Results called to ruboi back by: CAITLIN Person calling: JESSICA Date: 09/22/22Time: 2134 09/22/2022 8:53 PM EST 09/22/2022 9:19 PM EST [facility] External Provider LAB BLO OD ORDERABLES Final Result Performing Organization Address [facility]/ZIP Co de Phone Number [facility] [address] [place] [address] [phone] * (ABNORMAL) C-reactive Protein (09/22/2022 8:53 PM EST) Pathologist [facility] C Reactive Protein 1.42(H) < or = 0.50 mg/dL [facility] 09/22/2022 8:53 PM EST 09/22/2022 8:57 PM EST [facility] External Provider LAB BLO OD ORDERABLES Final Result Performing Organization Address [facility] de Phone Number [facility] [address] [place] [phone] * (ABNORMAL) Magnesium (09/22/2022 8:53 PM EST) [facility] Magnesium 1.4(LL) 1.6 - 2.6 mg/dL [facility] Comment:Critical value for t est(s): MAGS Results called to and readback by: CAITLIN Person calling: JESSICA Date: 09/22/22 Time:2133 09/22/2022 8:53 PM EST 09/22/2022 8:57 PM EST [facility] External Provider LAB BLO OD ORDERABLES Final Result Performing Organization Address [facility] de Phone Number [facility] [address] [place] [phone] * (ABNORMAL) Basic Metabolic Panel (09/22/2022 8:53 PM EST) Pathologist [facility] Sodium 138 135 - 145 mmol/L [facility] Potassium 3.7 3.3 - 5.1 mmol/L [facility] Chloride 102 96 - 108 mmol/L [facility] Carbon Dioxide 26 22 - 29 mmol/L [facility] Anion Gap 14 12 - 20 [facility] Urea Nitrogen (BUN) 13 9 - 16 mg/dL [facility] Creatinine, Serum 0.94 0.5 - 1.4 mg/dL [facility] Creatinine Clr Calc Pharmacy 129.5 [facility] Comment:eGFR (calculated fro m the MDRD study equation) and eCrCl(calculated from the Cockcroft-Gault equation) are based ondifferent parameters and may not yield comparable results.If eCrCl result is absurd, please check patient'sheight/weight. Estimated Glomerular Filt Rate >60 [facility] Comment:NOTE: For -Am erican individuals, multiply the result by 1.210.Chronic Kidney Disease: Estimated GFR < 60 mL/min/1.86v0Llcbhr Kidney Disease: Estimated GFR < 15 mL/min/1.73m2 Glucose 186(H) 60 - 115 mg/dL [facility] Calcium 9.1 8.4 - 10.2 mg/dL [facility] 09/22/2022 8:53 PM EST 09/22/2022 8:57 PM EST [facility] External Provider LAB BLO OD ORDERABLES Final Result Performing Organization Address [facility] de Phone Number [facility] [address] [place] [phone] * Hepatic Function Panel (09/22/2022 8:53 PM EST) Bilirubin, Total 0.7 0.0 - 1.0 mg/dL [facility] Bilirubin, Direct 0.2 0.0 - 0.5 mg/dL [facility] Aspartate Amino Transferase 21 5 - 37 U/L [facility] Alanine Aminotransferase 27 0 - 40 U/L [facility] Total Protein 7.5 6.5 - 8.0 g/dL [facility] Albumin Level 4.2 3.5 - 5.0 g/dL [facility] Alkaline Phosphatase 104 39 - 117 U/L [facility] 09/22/2022 8:53 PM EST 09/22/2022 8:57 PM EST [facility] External Provider LAB BLO OD ORDERABLES Final Result Performing Organization Address [facility] Co de Phone Number [facility] [address] [place] [phone] * COVID-19 ID NOW (GUILLERMO) (09/22/2022 8:53 PM EST) Pathologist [facility] IDNOW SERIAL# [id number] [facility] COVID-19 TEST Negative Negative [facility] COVID-19 NOTE See Note [facility] Comment: Results are for the identification of SARS-CoV2 RNA. TheSARS-CoV2 RNA is generally detectable in respiratory samplesduring the acute phase of infection. Positive results areindicative of the presence of SARS-CoV-2 RNA; clinicalcorrelation with patient history and other diagnosticinformation is necessary to determine patient infectionstatus. Positive results do not rule out bacterial infectionor co- infection with other viruses.Testing facilities within the [facility] and [facility] are required to report all positive results [...] use by authorized laboratories.Testing performed on the [facility] ID NOW utilizing NAAT. 09/22/2022 8:53 PM EST 09/22/2022 8:57 PM EST [facility] Exter nal Provider LAB MOLECULAR DIAGNOSTICS ORDERABLES Final Result [facility] [address] [place] [phone] * (ABNORMAL) CBC auto differential (09/22/2022 8:53 PM EST) [facility] White Blood Count 11.4(H) 4.8 - 10.8 X10*3/uL [facility] Red Blood Count 3.75(L) 4.60 - 5.80 X10*6/uL [facility] Hemoglobin 11.7(L) 14.0 - 18.0 g/dl [facility] Hematocrit 33.8(L) 42.0 - 52.0 % [facility] Mean Corpuscular Volume 90.1 80.0 - 98.0 fL [facility] Mean Corpuscular Hemoglobin 31.2 27.0 - 33.0 pg [facility] Mean Corpuscular HGB Conc 34.6 31.0 - 36.0 g/dl [facility] Red Cell Distribution Width 11.8 11.0 - 16.0 % [facility] Platelet Count 274 160 - 400 X10*3/uL [facility] Mean Platelet Volume 9.6 9.4 - 12.4 fL [facility] Neutrophils Percent Auto 57.0 45 - 73 % [facility] Imm Gran Pct Auto 0.3 0.0 - 0.4 % [facility] Lymphocytes Percent Auto 36.1 20 - 40 % [facility] Monocytes Percent Auto 5.8 2 - 11 % [facility] Eosinophils Percent Auto 0.5 0 - 4 % [facility] Basophils Percent Auto 0.3 0 - 2 % [facility] NRBC Pct Auto 0.0 0.0 - 0.2 /100WBC [facility] Neutrophils Absolute Auto 6.5 2.0 - 8.3 x10*3/uL [facility] Imm Gran Abs Auto 0.03 0.00 - 0.03 X10*3/uL [facility] Lymphocytes Absolute Auto 4.1 1.2 - 4.9 X10*3/uL [facility] Monocytes Absolute Auto 0.7 0.1 - 1.2 X10*3/uL [facility] Eosinophils Absolute Auto 0.1 0.0 - 0.4 X10*3/uL [facility] Basophils Absolute Auto 0.0 0.0 - 0.2 X10*3/uL [facility] NRBC Abs Auto 0.000 0.0 - 0.012 X10*3/uL [facility] 09/22/2022 8:53 PM EST 09/22/2022 8:57 PM EST [facility] External Provider LAB BLO OD ORDERABLES Final Result Performing Organization Address [facility]/ZIP Co de Phone Number [facility] [address] [place] [phone] * (ABNORMAL) Sed Rate by Modified Meekergren (09/22/2022 3:03 AM EST) Erythrocyte Sedimentation Rate 59(H) 0 - 15 MM/HR [facility] Comment:Patients with polycy themia and many hemoglobin abnormalitiesmay have depressed sed rates whereas patients with anemiamay have elevated sed rates. 09/22/2022 3:03 AM EST 09/22/2022 8:57 PM EST [facility] External Provider LAB BLO OD ORDERABLES Final Result Performing Organization Address [facility]/ZIP Co de Phone Number [facility] [address] [place] [phone] documented in this encounter Visit Diagnoses Not on filedocumented in this encounter Care Teams Supervisor [place] Department Relationship Specialty Start Date End Date Devi Razo FNP [address] [place] [address] PCP - General Family Medicine 03/11/22 10/22/24 Skye Ba CNP [address] [place] [address] PCP - General Family Medicine 10/23/24 Emerita Parish PharmD [address] [place] [phone] Pharmacist Internal Medicine 11/14/23 Emil MOREIRA 06/20/24 documented as of this encounter
--- OUTSIDE RECORDS SUMMARY | 2025-03-12 15:23 | XMS_ITS | Encounter Summary ---
Author Organization [employer] Address [address] [place] [address] Care Team Providers Care Kennel Attendant Name Role Phone Devi Razo [facility] Primary Care Provider [phone] Emerita Parish PharmD Unavailable [phone] Skye Ba CNP Primary Care Provider [phone] Reason for Visit * Reason Onset Date Comments Nurse Triage 07/19/2023 Encounter Details Date Type Department Care Team (Late st Contact Info) Description 07/19/2023 Telephone [facility] MEDICINE [address] [place], [place] [id number] Bal[place] Devi, [facility] [address] [place], [place] [phone] Nurse Triage Social History Tobacco Use Types [...] like sx. 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 Protocol Used: [...] appt scheduled for 08/03/23. Please contact at [phone] * Telephone Encounter - Ashlee Jacobs RN [...] is aware of homecare advised. Apt with MAD[facility] Olvera 08/03/23 @ 1130am. Insurance is verified as [...] 10:00 AM EDT Clinical Support [facility] MEDICINE [address] [place] [address] 04/04/2025 1:30 PM EDT Office Visit [facility] ADULT DENTAL [address] [place] [address] Jak Gonzalez, CARLOS [address] [place] [address] documented as of this encounter Visit Diagnoses Not on filedocumented in this encounter Additional Health Concerns Assessment Noted Time PHQ-9 Depression Total Score: 0 02/25/20 23 4:10 PM EDT documented as of this encounter Care Teams Kennel Attendant Relationship Specialty Start Date End Date Devi Razo FNP [address] [place] [address] PCP - General Family Medicine 03/11/22 10/22/24 Skye Ba CNP [address] [place] [address] PCP - General Family Medicine 10/23/24 Emerita Parish PharmD [address] [place] [address] Pharmacist Internal Medicine [facility] documented as of this encounter
--- OUTSIDE RECORDS SUMMARY | 2025-03-12 15:23 | XMS_ITS | Patient Health Record ---
Author Organization [facility] Address [address], [place] [id number] Care Team Providers Care Biostatistics Teacher Name Role Phone NO, PCP Primary Care Provider Chhaya Lucas Unavailable [phone] Reason For Referral No Information Social History Sex Assigned At : Social History Observation Description Sex Assigned At Male Encounters Encounter Location Date Provider Diagnosis [facility] [address] [place] [address], [place] [phone] 06/19/2024 Chhaya Lucas Plan Of Treatment No Information Insurance Providers Payer Name Payer Address Payer Phone Subscriber Number Group Number Insured Name Patient Relationship to Insured Coverage Start Date Coverage End Date [place] C3 [address] [place], [place] [id number] [phone] [id number] Satya Medrano Self - patient is the insured 4
[2025-03-12 16:33] LABS: Alanine Aminotransferase 17 U/L (0-40); Albumin Level 4.6 g/dL (3.5-5.0); Alkaline Phosphatase 124 U/L (39-117); Anion Gap 15 (12-20); Aspartate Amino Transferase 21 U/L (5-37); Blood Urea Nitrogen 22 mg/dL (9-16); Calcium 9.6 mg/dL (8.4-10.2); Carbon Dioxide 22 mmol/L (22-29); Chloride 103 mmol/L (96-108); Estimated Glomerular Filt Rate > 60; Potassium 4.3 mmol/L (3.3-5.1); Sodium 136 mmol/L (135-145); Total Protein 8.1 g/dL (6.5-8.0)
[2025-03-12 17:39] LABS: Microalbum/Creatinine Ratio Ur 26.2 ug/mg cr (<30)
== END 2025-03-12 14:22 | disposition home or self-care (01) ==
LOC: HO.HHCL 14:21
DX: I10 Essential (primary) hypertension (principal); E11.65 Type 2 diabetes mellitus with hyperglycemia; Z79.4 Long term (current) use of insulin
CPT/HCPCS: 36415; 80053; 82043; 82570

== ENCOUNTER 2025-06-04 08:05 | Outpatient (RCR) | payer MEDICAID, SELFPAY | END 2025-07-15 16:42 | disposition home or self-care (01) | LOC: HO.WCC 08:05 | PROVIDERS: Visit Provider Surgery Surgical Oncology | DX: E11.621 Type 2 diabetes mellitus with foot ulcer (principal); L97.512 Non-pressure chronic ulcer of other part of right foot with fat layer exposed; M20.31 Hallux varus (acquired), right foot; E11.40 Type 2 diabetes mellitus with diabetic neuropathy, unspecified; E11.65 Type 2 diabetes mellitus with hyperglycemia; L84 Corns and callosities; I10 Essential (primary) hypertension; Z79.4 Long term (current) use of insulin; Z79.84 Long term (current) use of oral hypoglycemic drugs | CPT/HCPCS: 11042; 99203 ==